=== PATIENT | male | born 1945 | race Caucasian/White ===

== ENCOUNTER 2018-02-03 09:10 | Emergency (ER) | payer OTHER, MEDICARE ==
--- NOTE | 2018-02-03 11:04 | RAD REPORT ---
EXAM DESCRIPTION: RAD - Shoulder Left 2 View - 02/03/2018 10:17 am CLINICAL HISTORY: PAIN Fall COMPARISON: No comparisons FINDINGS: Mildly high-riding humeral head is seen suggesting underlying rotator cuff pathology. Hard romeo is noted in the greater tuberosity region compatible with prior rotator cuff repair. No evidence of acute fracture or dislocation. If pain persists or progresses, MR imaging may be of value.
--- NOTE | 2018-02-03 11:20 | ER ---
Nurse's Notes [facility] Name: Lev Hunter Age: 72 yrs Sex: Male : 1945 Arrival Date: 02/03/2018 Time: 09:12 Bed 17 Private MD: Diagnosis: Strain of muscle(s) and tendon(s) of the rotator cuff of left shoulder Presentation: 02/03 09:25 Presenting complaint: Patient states: "I slipped off a roof on Wednesday but I was able aa5 to grab on to the safety rope and just fell onto my behind". Pt c/o left shoulder pain. Pt denies head injury, denies LOC. Care prior to arrival: None. Mechanism of Injury:. :25 Acuity: RIOS 4 aa5 09:25 Method Of Arrival: Ambulatory aa5 11:30 Transition of care: patient was not received from another setting of care. Onset of aj symptoms was February 01, 2018. Risk Assessment: Do you want to hurt yourself or someone else? Patient reports no desire to harm self or others. Initial Sepsis Screen: Does the patient meet any 2 criteria? No. Patient's initial sepsis screen is negative. Does the patient have a suspected source of infection? No. Patient's initial sepsis screen is negative. Triage Assessment: 11:29 General: Behavior is. aj Historical: - Allergies: 09:26 No Known Allergies; aa5 - PMHx: 09:26 Colitis; GERD; Hyperlipidemia; Hypertension; Hypothyroidism; aa5 09:27 Diverticulitis; aa5 - PSHx: 09:27 Colon resection; Hernia repair; Knee surgery; tere shoulder; aa5 - Immunization history:: Pneumococcal vaccine is up to date, Flu vaccine is up to date. - Social history:: Smoking status: Patient/guardian denies using tobacco. - Ebola Screening: : No symptoms or risks identified at this time. - Family history:: not pertinent. - Hospitalizations: : No recent hospitalization is reported. - History obtained from: . Screenin:11 Abuse screen: Denies threats or abuse. Denies injuries from another. Nutritional aj screening: No deficits noted. Tuberculosis screening: No symptoms or risk factors identified. Fall Risk None identified. Assessment: 10:11 General: Appears in no apparent distress. comfortable. Pain: Complains of pain in aj anterior aspect of left shoulder and posterior aspect of left shoulder. Neuro: Level of Consciousness is awake, alert, obeys commands, Oriented to person, place, time, situation, Appropriate for age. Respiratory: Airway is patent Respiratory effort is even, unlabored, Respiratory pattern is regular, symmetrical. GI: Abdomen is flat. Derm: Skin is intact, is healthy with good turgor, Skin is pink, warm \\T\\ dry. normal. Musculoskeletal: Circulation, motion, and sensation intact. Range of motion: intact in all extremities, Reports pain in anterior aspect of left shoulder and posterior aspect of left shoulder. Vital Signs: 09:27 BP 145 / 66; Pulse 73; Resp 16 S; Temp 98.0(O); Pulse Ox 100% on R/A; Weight 79.38 kg aa5 (R); Height 6 ft. 0 in. (182.88 cm) (R); Pain 4/10; 11:06 BP 144 / 68; Pulse 71; Resp 17; Pulse Ox 99% on R/A; aj 09:27 Body Mass Index 23.73 (79.38 kg, 182.88 cm) aa5 ED Course: 09:12 Patient arrived in ED. rg4 09:25 Triage completed. aa5 09:32 Alissa Gonzalez FNP [facility]. kav 09:32 Guy Azul MD is Attending Physician. kav 10:11 Abbi Goldman, RN is Primary Nurse. aj 10:11 Patient has correct armband on for positive identification. aj 10:11 No provider procedures requiring assistance completed. aj 10:17 X-ray completed. Portable x-ray completed in exam room. Patient tolerated procedure ls3 well. 10:18 Shoulder Left (2 View) XRAY In Process Unspecified. EDMS 10:45 Warm blanket given. aj 11:28 Patient did not have IV access during this emergency room visit. aj 11:28 Sling applied to left arm. aj 11:30 Arm band placed on right wrist. aj Administered Medications: No medications were administered Outcome: 11:19 Discharge ordered by . kav 11:28 Discharged to home ambulatory, with family. aj 11:28 Condition: good 11:28 Discharge instructions given to patient, family, Instructed on discharge instructions, follow up and referral plans. Demonstrated understanding of instructions, follow-up care, Prescriptions given X 1. 11:33 Patient left the ED. aj Signatures: Dispatcher [employer] Abbi Ovalle RN RN aj Vern, Katherine, Annemarie Rees RN RN aa5 Kate Garcia4 Franklyn Rubio ls3
--- NOTE | 2018-02-03 11:20 | EDPHYS ---
Physician Documentation [facility] Name: Lev Hunter Age: 72 yrs Sex: Male : 1945 Arrival Date: 02/03/2018 Time: 09:12 Bed 17 Private MD: ED Physician Guy Azul HPI: 02/03 09:52 This 72 yrs old Male presents to ER via Ambulatory with complaints of Fall kav Injury, Arm Injury. 09:52 Details of fall: The patient fell from a height. kav 09:53 The patient or guardian complains of pain, that is acute. The complaints affect the kav anterior aspect of left shoulder and posterior aspect of left shoulder. Context: The problem was sustained at home, outdoors, resulted from lifting or pulling, rope to prevent fall from shed roof. Onset: The symptoms/episode began/occurred acutely, yesterday. Associated signs and symptoms: Pertinent positives: decreased range of motion, pain, Pertinent negatives: deformity. Severity of symptoms: At their worst the symptoms were moderate, just prior to arrival, in the emergency department the symptoms. The patient has not experienced similar symptoms in the past. The patient has not experienced similar symptoms in the past. The patient has not recently seen a physician. patient reports holding onto a rope to prevent falling off of a shed roof and injured left shoulder.. 09:55 reports pain at 5/10 with rom. offered pain med however, patient refused pain kav medication. Historical: - Allergies: 09:26 No Known Allergies; aa5 - PMHx: 09:26 Colitis; GERD; Hyperlipidemia; Hypertension; Hypothyroidism; aa5 09:27 Diverticulitis; aa5 - PSHx: 09:27 Colon resection; Hernia repair; Knee surgery; tere shoulder; aa5 - Immunization history:: Pneumococcal vaccine is up to date, Flu vaccine is up to date. - Social history:: Smoking status: Patient/guardian denies using tobacco. - Ebola Screening: : No symptoms or risks identified at this time. - Family history:: not pertinent. - Hospitalizations: : No recent hospitalization is reported. - History obtained from: . ROS: 09:55 Constitutional: Negative for fever, chills, and weight loss, Eyes: Negative for injury, kav pain, redness, and discharge, ENT: Negative for injury, pain, and discharge, Neck: Negative for injury, pain, and swelling, Cardiovascular: Negative for chest pain, palpitations, and edema, Respiratory: Negative for shortness of breath, cough, wheezing, and pleuritic chest pain, Abdomen/GI: Negative for abdominal pain, nausea, vomiting, diarrhea, and constipation, Back: Negative for injury and pain, : Negative for injury, bleeding, discharge, and swelling, Skin: Negative for injury, rash, and discoloration, Neuro: Negative for headache, weakness, numbness, tingling, and seizure, Psych: Negative for depression, anxiety, suicide ideation, homicidal ideation, and hallucinations, Allergy/Immunology: Negative for hives, rash, and allergies, Endocrine: Negative for neck swelling, polydipsia, polyuria, polyphagia, and marked weight changes, Hematologic/Lymphatic: Negative for swollen nodes, abnormal bleeding, and unusual bruising. 09:55 MS/extremity: Positive for injury or acute deformity, pain, swelling, Negative for deformity, paresthesias. Exam: 09:55 Constitutional: This is a well developed, well nourished patient who is awake, alert, kav and in no acute distress. Head/Face: Normocephalic, atraumatic. Eyes: Pupils equal round and reactive to light, extra-ocular motions intact. Lids and lashes normal. Conjunctiva and sclera are non-icteric and not injected. Cornea within normal limits. Periorbital areas with no swelling, redness, or edema. ENT: Nares patent. No nasal discharge, no septal abnormalities noted. Tympanic membranes are normal and external auditory canals are clear. Oropharynx with no redness, swelling, or masses, exudates, or evidence of obstruction, uvula midline. Mucous membranes moist. Neck: Trachea midline, no thyromegaly or masses palpated, and no cervical lymphadenopathy. Supple, full range of motion without nuchal rigidity, or vertebral point tenderness. No Meningismus. Chest/axilla: Normal chest wall appearance and motion. Nontender with no deformity. No lesions are appreciated. Cardiovascular: Regular rate and rhythm with a normal S1 and S2. No gallops, murmurs, or rubs. Normal PMI, no JVD. No pulse deficits. Respiratory: Lungs have equal breath sounds bilaterally, clear to auscultation and percussion. No rales, rhonchi or wheezes noted. No increased work of breathing, no retractions or nasal flaring. Abdomen/GI: Soft, non-tender, with normal bowel sounds. No distension or tympany. No guarding or rebound. No evidence of tenderness throughout. Back: No spinal tenderness. No costovertebral tenderness. Full range of motion. Skin: Warm, dry with normal turgor. Normal color with no rashes, no lesions, and no evidence of cellulitis. Neuro: Awake and alert, GCS 15, oriented to person, place, time, and situation. Cranial nerves II-XII grossly intact. Motor strength 5/5 in all extremities. Sensory grossly intact. Cerebellar exam normal. Normal gait. Psych: Awake, alert, with orientation to person, place and time. Behavior, mood, and affect are within normal limits. 09:55 Musculoskeletal/extremity: Extremities: noted in the posterior aspect of left shoulder and anterior aspect of left shoulder: ROM: limited active range of motion, limited passive range of motion, limited active range of motion due to pain, limited passive range of motion due to pain, in the posterior aspect of left shoulder, Circulation is intact in all extremities. Pulses: are normal with no appreciated deficits, Perfusion: the patient is normally perfused throughout, pink, warm, noted to have brisk capillary refill, Perfusion: the extremity is normally perfused throughout, pink, warm, with brisk capillary refill, Joints: the posterior aspect of left shoulder and anterior aspect of left shoulder displays painful range of motion. Vital Signs: 09:27 BP 145 / 66; Pulse 73; Resp 16 S; Temp 98.0(O); Pulse Ox 100% on R/A; Weight 79.38 kg aa5 (R); Height 6 ft. 0 in. (182.88 cm) (R); Pain 4/10; 11:06 BP 144 / 68; Pulse 71; Resp 17; Pulse Ox 99% on R/A; aj 09:27 Body Mass Index 23.73 (79.38 kg, 182.88 cm) aa5 MDM: 09:32 Medical screening is not applicable. [facility] 09:55 Data reviewed: vital signs, nurses notes. [facility] 02/03 09:51 Order name: Shoulder Left (2 View) XRAY; Complete Time: 11:07 [facility] 02/03 11:32 Order name: Sling; Complete Time: 11:33 aj Administered Medications: No medications were administered Disposition: 18:45 Co-signature as Attending Physician, Guy Azul MD. rn Disposition: 02/03/18 11:19 Discharged to Home. Impression: Strain of muscle(s) and tendon(s) of the rotator cuff of left shoulder. - Condition is Stable. - Discharge Instructions: Shoulder Sprain. - Prescriptions for Ultracet 37.5- 325 mg Oral Tablet - take 1 tablet by ORAL route every 6 hours - for up to 5 days; do not exceed 8 tablets per day.; 30 tablet. - Medication Reconciliation Form, Thank You Letter, Antibiotic Education form. - Follow up: Private Physician; When: 5 - 6 days; Reason: Recheck today's complaints, Continuance of care, Re-evaluation by your physician. - Problem is new. - Symptoms are unchanged. Signatures: Dispatcher [employer] Abbi Ovalle RN RN Alissa Buchanan, [employer] ASSEMBLER [employer]SEM[employer]ER Guy Becerra MD MD rn Calderon, Audri, RN RN aa5 Corrections: (The following items were deleted from the chart) 11:33 11:19 02/03/2018 11:19 Discharged to Home. Impression: Strain of muscle(s) and aj tendon(s) of the rotator cuff of left shoulder. Condition is Stable. Forms are Medication Reconciliation Form, Thank You Letter, Antibiotic Education, Prescription Opioid Use. Follow up: Private Physician; When: 5 - 6 days; Reason: Recheck today's complaints, Continuance of care, Re-evaluation by your physician. Problem is new. Symptoms are unchanged. kahector
== END 2018-02-03 11:33 | disposition home or self-care (01) ==
LOC: ER 09:10
DX: S46.012A Strain of muscle(s) and tendon(s) of the rotator cuff of left shoulder, initial encounter (principal); W17.89XA Other fall from one level to another, initial encounter; Y93.89 Activity, other specified; Y92.008 Other place in unspecified non-institutional (private) residence as the place of occurrence of the external cause; I10 Essential (primary) hypertension
CPT/HCPCS: 99283

== ENCOUNTER 2018-11-04 18:20 | Emergency (ER) | payer OTHER, MEDICARE ==
--- OUTSIDE RECORDS SUMMARY | 2018-11-04 18:22 | XMS REPORT ---
:1945 [facility] Address [address] [place] [address] Dr. Bartholomew [address] [place] [id number] Care Team Providers Name Role Phone Unavailable Unavailable Unavailable Problems This patient has no known problems. Allergies, Adverse Reactions, Alerts This patient has no known allergies or adverse reactions. Medications This patient has no known medications.
[2018-11-04] MEDS ORDERED: TETANUS & DIPHTHERIA TOX,ADULT 0.5 ML VIAL ONE (19:20)
--- NOTE | 2018-11-04 19:46 | RAD REPORT ---
EXAM DESCRIPTION: RAD - Tib Fib Right - 11/04/2018 7:26 pm CLINICAL HISTORY: Right leg pain and swelling following trauma COMPARISON: None. FINDINGS: Right knee prosthesis in place. No radiographic evidence for loosening. There is no disloc ation or periosteal reaction noted. No acute or suspicious bony finding. No foreign body or other soft tissue abnormality. IMPRESSION: Negative right tibia & fibula examination for acute finding.
--- NOTE | 2018-11-04 19:48 | EDPHYS ---
Physician Documentation [facility] Name: Lev Hunter Age: 73 yrs Sex: Male : 1945 Arrival Date: 11/04/2018 Time: 18:21 Bed 16 Private MD: ED Physician Sebastian Aden HPI: 11/05 03:09 This 73 yrs old Male presents to ER via Ambulatory with complaints of Fall kb Injury, Skin Tear(s). 03:09 Details of fall: The patient fell from an upright position. Onset: The symptoms/episode kb began/occurred just prior to arrival. Associated injuries: The patient sustained right vera, abrasion, contusion, swelling. Severity of symptoms: At their worst the symptoms were mild, moderate, in the emergency department the symptoms are unchanged. The patient has not experienced similar symptoms in the past. The patient has not recently seen a physician. Pt reports he fell against a boat and hit his leg. Historical: - Allergies: 11/04 18:42 No Known Allergies; hb - Immunization history:: Last tetanus immunization: > 10 years ago. - Social history:: Smoking status: Patient/guardian denies using tobacco. - Ebola Screening: : No symptoms or risks identified at this time. ROS: 11/05 03:08 Constitutional: Negative for fever, chills, and weight loss, Cardiovascular: Negative kb for chest pain, palpitations, and edema, Respiratory: Negative for shortness of breath, cough, wheezing, and pleuritic chest pain, Abdomen/GI: Negative for abdominal pain, nausea, vomiting, diarrhea, and constipation, Neuro: Negative for headache, weakness, numbness, tingling, and seizure. Skin: Positive for abrasion(s), hematoma, of the right vera. Exam: 03:08 Constitutional: This is a well developed, well nourished patient who is awake, alert, kb and in no acute distress. Head/Face: Normocephalic, atraumatic. ENT: Nares patent. No nasal discharge, no septal abnormalities noted. Tympanic membranes are normal and external auditory canals are clear. Oropharynx with no redness, swelling, or masses, exudates, or evidence of obstruction, uvula midline. Mucous membranes moist. Neck: Trachea midline, no thyromegaly or masses palpated, and no cervical lymphadenopathy. Supple, full range of motion without nuchal rigidity, or vertebral point tenderness. No Meningismus. Chest/axilla: Normal chest wall appearance and motion. Nontender with no deformity. No lesions are appreciated. Cardiovascular: Regular rate and rhythm with a normal S1 and S2. No gallops, murmurs, or rubs. Normal PMI, no JVD. No pulse deficits. Respiratory: Lungs have equal breath sounds bilaterally, clear to auscultation and percussion. No rales, rhonchi or wheezes noted. No increased work of breathing, no retractions or nasal flaring. Abdomen/GI: Soft, non-tender, with normal bowel sounds. No distension or tympany. No guarding or rebound. No evidence of tenderness throughout. MS/ Extremity: Pulses equal, no cyanosis. Neurovascular intact. Full, normal range of motion. Neuro: Awake and alert, GCS 15, oriented to person, place, time, and situation. Cranial nerves II-XII grossly intact. Motor strength 5/5 in all extremities. Sensory grossly intact. Cerebellar exam normal. Normal gait. 03:08 Skin: injury, abrasion(s), small abrasion noted, of the right vera, contusion(s), that are superficial, of the right vera. Vital Signs: 11/04 18:42 BP 160 / 71; Pulse 75; Resp 16; Temp 97.9; Pulse Ox 100% on R/A; Weight 77.11 kg; hb Height 6 ft. (182.88 cm); Pain 8/10; 20:00 BP 159 / 77; Pulse 85; Resp 16; Pulse Ox 100% on R/A; jb4 18:42 Body Mass Index 23.06 (77.11 kg, 182.88 cm) hb MDM: 18:45 Patient medically screened. kb 11/05 03:08 Data reviewed: vital signs, nurses notes. Data interpreted: Pulse oximetry: on room air kb is 100 %. Interpretation: normal. Counseling: I had a detailed discussion with the patient and/or guardian regarding: the historical points, exam findings, and any diagnostic results supporting the discharge/admit diagnosis, radiology results, the need for outpatient follow up, a family practitioner, to return to the emergency department if symptoms worsen or persist or if there are any questions or concerns that arise at home. 11/04 19:10 Order name: Tib Fib Right XRAY; Complete Time: 19:47 kb Administered Medications: 11/04 19:30 Drug: Tetanus-Diphtheria Toxoid Adult 0.5 ml {Solid Plasterer: [employer]. Exp: jb4 06/25/2020. Lot #: [id number]. } Route: IM; Site: left deltoid; 20:00 Follow up: Response: No adverse reaction jb4 Disposition: 11/04/18 19:47 Discharged to Home. Impression: Contusion of right lower leg. - Condition is Stable. - Discharge Instructions: Contusion, [id number]. - Prescriptions for Tramadol 50 mg Oral Tablet - take 1 tablet by ORAL route every 8 hours as needed; 12 tablet. - Medication Reconciliation Form, Thank You Letter, Antibiotic Education, Prescription Opioid Use form. - Follow up: Emergency Department; When: As needed; Reason: Worsening of condition. Follow up: Private Physician; When: 2 - 3 days; Reason: Recheck today's complaints, Continuance of care, Re-evaluation by your physician. Addendum: 11/07/2018 09:06 Co-signature as Attending Physician, Sebastian Aden MD I agree with the assessment and k dr plan of care. Signatures: Dispatcher [employer] EDDC Brianna De Jesus, RADIOLOGY ASSISTANT-C RADIOLOGY ASSISTANT-Ckb Sebastian Aden MD MD [facility] Mikki Canela, MANJULA RN David Olivera RN RN jb4 Corrections: (The following items were deleted from the chart) 11/04 20:12 19:47 11/04/2018 19:47 Discharged to Home. Impression: Contusion of right lower leg. jb4 Condition is Stable. Forms are Medication Reconciliation Form, Thank You Letter, Antibiotic Education, Prescription Opioid Use. Follow up: Emergency Department; When: As needed; Reason: Worsening of condition. Follow up: Private Physician; When: 2 - 3 days; Reason: Recheck today's complaints, Continuance of care, Re-evaluation by your physician. kb
--- NOTE | 2018-11-04 19:48 | ER ---
Nurse's Notes [facility] Name: Lev Hunter Age: 73 yrs Sex: Male : 1945 Arrival Date: 11/04/2018 Time: 18:21 Bed 16 Private MD: Diagnosis: Contusion of right lower leg Presentation: 11/04 18:40 Presenting complaint: Right lower pain and swelling after hitting vera on side of boat hb approx 2 hrs ago. Abrasion and mild swelling noted to right upper vera. Care prior to arrival: None. Trauma event details: [place] 18:40 Acuity: RIOS 4 hb 18:40 Method Of Arrival: Ambulatory hb 18:41 Transition of care: patient was not received from another setting of care. Onset of hb symptoms was November 04, 2018. Risk Assessment: Do you want to hurt yourself or someone else? Patient reports no desire to harm self or others. 19:00 Initial Sepsis Screen: Does the patient meet any 2 criteria? No. Patient's initial jb4 sepsis screen is negative. Does the patient have a suspected source of infection? Yes: Skin breakdown/wound. Historical: - Allergies: 18:42 No Known Allergies; hb - Immunization history:: Last tetanus immunization: > 10 years ago. - Social history:: Smoking status: Patient/guardian denies using tobacco. - Ebola Screening: : No symptoms or risks identified at this time. Screenin:00 Abuse screen: Denies threats or abuse. Nutritional screening: No deficits noted. jb4 Tuberculosis screening: No symptoms or risk factors identified. Fall Risk None identified. Assessment: 19:00 General: Appears in no apparent distress. comfortable, Behavior is calm, cooperative, jb4 appropriate for age. Pain: Complains of pain in right vera Pain does not radiate. Pain currently is 6 out of 10 on a pain scale. Quality of pain is described as stabbing. Neuro: Level of Consciousness is awake, alert, obeys commands, Oriented to person, place, time, situation. Cardiovascular: Patient's skin is warm and dry. Respiratory: Airway is patent Respiratory effort is even, unlabored, Respiratory pattern is regular, symmetrical. GI: No deficits noted. No signs and/or symptoms were reported involving the gastrointestinal system. : No deficits noted. No signs and/or symptoms were reported regarding the genitourinary system. EENT: No deficits noted. No signs and/or symptoms were reported regarding the EENT system. Derm: Skin abrasion to the right vera. Skin is pink, warm \T\ dry. Musculoskeletal: Circulation, motion, and sensation intact. Range of motion: intact in all extremities, Swelling present in right vera. 20:07 Reassessment: Patient appears in no apparent distress at this time. Patient and/or jb4 family updated on plan of care and expected duration. Pain level reassessed. Patient is alert, oriented x 3, equal unlabored respirations, skin warm/dry/pink. Pt ambulated out of ED with his , steady gait, verbalized understanding of d/c and follow up instructions. Vital Signs: 18:42 BP 160 / 71; Pulse 75; Resp 16; Temp 97.9; Pulse Ox 100% on R/A; Weight 77.11 kg; hb Height 6 ft. (182.88 cm); Pain 8/10; 20:00 BP 159 / 77; Pulse 85; Resp 16; Pulse Ox 100% on R/A; jb4 18:42 Body Mass Index 23.06 (77.11 kg, 182.88 cm) hb ED Course: 18:21 Patient arrived in ED. as 18:41 Triage completed. hb 18:42 Arm band placed on. hb 18:45 Brianna De Jesus FNP-C is [facility]. kb 18:45 Sebastian Aden MD is Attending Physician. kb 19:00 Patient has correct armband on for positive identification. Bed in low position. Call jb4 light in reach. Side rails up X 1. Pulse ox on. NIBP on. 19:13 David Olivera, RN is Primary Nurse. jb4 19:26 Tib Fib Right XRAY In Process Unspecified. EDMS 20:10 No provider procedures requiring assistance completed. Patient did not have IV access jb4 during this emergency room visit. Administered Medications: 19:30 Drug: Tetanus-Diphtheria Toxoid Adult 0.5 ml {Care Transition Mgr: [employer]. Exp: jb4 06/25/2020. Lot #: [id number]. } Route: IM; Site: left deltoid; 20:00 Follow up: Response: No adverse reaction jb4 Outcome: 19:47 Discharge ordered by . kb 20:10 Discharged to home ambulatory, with significant other. jb4 20:10 Condition: stable 20:10 Discharge instructions given to patient, family, Instructed on discharge instructions, follow up and referral plans. medication usage, Demonstrated understanding of instructions, follow-up care, medications, Prescriptions given X 1. 20:12 Patient left the ED. jb4 Signatures: Dispatcher [employer] EDMS Brianna De Jesus, RICCI-Ne WYNNE-Donna Aj as Mikki Canela RN RN David Olivera RN RN jb4
== END 2018-11-04 20:12 | disposition home or self-care (01) ==
LOC: ER 18:20
DX: S80.11XA Contusion of right lower leg, initial encounter (principal); W01.0XXA Fall on same level from slipping, tripping and stumbling without subsequent striking against object, initial encounter; Y93.89 Activity, other specified; Z23 Encounter for immunization
CPT/HCPCS: 90471; 90714; 99284

== ENCOUNTER 2018-11-12 16:57 | Emergency (ER) | payer OTHER, MEDICARE ==
--- OUTSIDE RECORDS SUMMARY | 2018-11-12 16:59 | XMS REPORT ---
:1945 [facility] Address [address] [place] [address] Dr. Bar[address] [place] [id number] Care Team Providers Name Role Phone Unavailable Unavailable Unavailable Problems This patient has no known problems. Allergies, Adverse Reactions, Alerts This patient has no known allergies or adverse reactions. Medications This patient has no known medications.
--- OUTSIDE RECORDS SUMMARY | 2018-11-12 17:00 | XMS REPORT | Summary of Care ---
:1945 Author Organization [facility] - Health Address [address] [place] [id number] Care Team Providers Name Role Phone David Armando MD Primary Care Provider Reason for Visit Reason Comments Leg Pain Fell and hit his RT Leg ( lower leg) , It is swollen and painful was seen at ER in [place] on 11/04/18 and was told no fracture Encounter Details Date Type Department Care Team Description 11/10/2018 Office Visit [facility] Family Cinthia Bradford, Injury of right lower extremity, subsequent encounter (Primary Dx); [facility] [employer] Essential hypertension [address] [place] [address] [address] [address] [place] [address] Allergies Active Allergy Reactions Severity Noted Date Comments Citalopram Hallucinations 02/04/2018 documented as of this encounter (statuses as of 11/10/2018) Medications Medication Sig Dispensed Refills Start Date End Date Status aspirin 81 mg tablet Take 81 mg by 0 Active mouth daily. lisinopril 10 mg Take 1 tablet 90 tablet 4 08/25/2018 Active tabletIndications: by mouth Essential hypertension every morning. venlafaxine XR 75 mg 24 hr Take 1 90 capsule 4 08/25/2018 Active capsuleIndications: capsule by Generalized anxiety mouth daily disorder with breakfast. simvastatin 40 mg TAKE 1 TABLET 90 tablet 4 08/25/2018 Active tabletIndications: BY MOUTH AT Hypercholesterolemia BEDTIME eszopiclone 3 mg Take 1 tablet 90 tablet 1 08/25/2018 Active tabletIndications: by mouth at Nightmares, Insomnia, bedtime. unspecified type levothyroxine 125 mcg TAKE 1 TABLET 90 tablet 4 08/25/2018 Active tabletIndications: BY MOUTH ONCE Hypothyroidism, DAILY IN THE unspecified type MORNING LORazepam 0.5 mg Take 1 tablet 30 tablet 0 08/25/2018 Active tabletIndications: by mouth as Generalized anxiety needed disorder (anxiety). Hospital, Clinic, or Other Ordered Dose Route Frequency Start Date End Date Status Facility Administered Medication methylPREDNISolone acetate 80 mg IM ONCE 11/10/2018 11/10/2018 Ended (DEPO-MEDROL) injection 80 mg triamcinolone acetonide 40 mg IM ONCE 11/10/2018 11/10/2018 Ended (KENALOG) injection 40 mg documented as of this encounter (statuses as of 11/10/2018) Active Problems Problem Noted Date Gout 02/19/2015 Anxiety 02/19/2015 Hypothyroidism 02/15/2015 Hypercholesterolemia 02/15/2015 Essential hypertension 02/15/2015 documented as of this encounter (statuses as of 11/10/2018) Social History Tobacco Use Types Packs/Day Years Used Date Former Smoker Smokeless Tobacco: Never Used Alcohol Use Drinks/Week oz/Week Comments No 0 Standard drinks or equivalent 0.0 Sex Assigned at Date Recorded Not on file Job Start Date Occupation Industry Not on file Not on file Not on file Travel History Travel Start Travel End No recent travel history available. documented as of this encounter Last Filed Vital Signs Vital Sign Reading Time Taken Comments Blood Pressure 154/70 11/10/2018 2:16 PM CDT Pulse 81 11/10/2018 2:16 PM CDT Temperature 37.1 C (98.7 F) 11/10/2018 2:16 PM CDT Respiratory Rate - - Oxygen Saturation - - Inhaled Oxygen Concentration - - Weight 77.1 kg (170 lb) 11/10/2018 2:16 PM CDT Height 182.9 cm (6') 11/10/2018 2:16 PM CDT Body Mass Index 23.06 11/10/2018 2:16 PM CDT documented in this encounter Progress Notes Cinthia Bradford, RICCI - 11/10/2018 2:20 PM CDT Cc: Chief Complaint Patient presents with Leg Pain Fell and hit his RT Leg ( lower leg) , It is swollen and painful was seen at ER in [place] on11/04/18 and was told no fracture Lev Hunter is a 73 year old male. Patient fell against a metal, striking him on the right leg below the knee. He went to the ER, X-rays showed no fractures. He continues to have moderate swelling, and pain, as well as bruising along the region. His blood pressure is elevated this visit, he has a hx of HTN, prescribed lisinopril 10mg but has not been taking it for sometime. According to patient, he had episodes of hypotension one time during acute illness and dehydration that caused his blood pressures to be low with symptoms, thus he was advised to stop the medication temporarily, but he never restarted. His blood pressures in the recent past noted at doctors visit have been elevated and he agrees he needs to restart. He however has no acute symptoms. Leg Pain The incident occurred more than 1 week ago. The incident occurred at home. The injury mechanism was a fall. The pain is present in the right leg. The quality of the pain is described as shooting. The pain is at a severity of 6/10. The pain is moderate. The pain has been intermittent since onset. Pertinent negatives include no inability to bear weight, loss of motion, loss of sensation , muscle weakness, numbness or tingling. He reports no foreign bodies present. The symptoms are aggravated by palpation, weight bearing and movement. He has tried NSAIDs for the symptoms. The treatment provided mild relief. Allergies Lev is allergic to citalopram. Medications Outpatient Medications Prior to Visit Medication Sig Dispense Refill eszopiclone 3 mg tablet Take 1 tablet by mouth at bedtime. 90 tablet 1 levothyroxine 125 mcg tablet TAKE 1 TABLET BY MOUTH ONCE DAILY IN THE MORNING 90 tablet 4 lisinopril 10 mg tablet Take 1 tablet by mouth every morning. 90 tablet 4 LORazepam 0.5 mg tablet Take 1 tablet by mouth as needed (anxiety). 30 tablet 0 simvastatin 40 mg tablet TAKE 1 TABLET BY MOUTH AT BEDTIME 90 tablet 4 venlafaxine XR 75 mg 24 hr capsule Take 1 capsule by mouth daily with breakfast. 90 capsule 4 aspirin 81 mg tablet Take 81 mg by mouth daily. No facility-administered medications prior to visit. Histories Past Medical History: Diagnosis Date Anxiety Gout Hyperlipidemia Hypertension Thyroid disease Past Surgical History: Procedure Laterality Date HERNIA REPAIR REPAIR ROTATOR CUFF,ACUTE Bilateral SIGMOIDECTOMY Social History Socioeconomic History Marital status: Spouse name: Not on file Number of children: Not on file Years of education: Not on file Highest education level: Not on file Occupational History Not on file Social Needs Financial resource strain: Not on file Food insecurity: Worry: Not on file Inability: Not on file Transportation needs: Medical: Not on file Non-medical: Not on file Tobacco Use Smoking status: Former Smoker Smokeless tobacco: Never Used Substance and Sexual Activity Alcohol use: No Alcohol/week: 0.0 oz Drug use: No Sexual activity: Yes Partners: Female Lifestyle Physical activity: Days per week: Not on file Minutes per session: Not on file Stress: Not on file Relationships Social connections: Talks on phone: Not on file Gets together: Not on file Attends jainism service: Not on file Active member of club or organization: Not on file Attends meetings of clubs or organizations: Not on file Relationship status: Not on file Intimate partner violence: Fear of current or ex partner: Not on file Emotionally abused: Not on file Physically abused: Not on file Forced sexual activity: Not on file Other Topics Concern Not on file Social History Narrative retired Family History Problem Relation Age of Onset No Significant Medical Problems Mother Pulmonary Father Review of Systems Constitutional: Negative. Negative for chills, diaphoresis and fever. Respiratory: Negative. Negative for chest tightness and shortness of breath. Cardiovascular: Negative. Negative for chest pain, palpitations and leg swelling. Musculoskeletal: Positive for joint swelling. Skin: Positive for wound. Neurological: Negative. Negative for dizziness, tingling, numbness and headaches. Psychiatric/Behavioral: Negative. Vital Signs BP (!) 154/70 (BP Location: Left arm, Patient Position: Sitting, BP CUFF SIZE: Adult Medium) | Pulse 81 | Temp 37.1 C (98.7 F) (Oral) | Ht 6' (1.829 m) | Wt 170 lb (77.1 kg) | BMI 23.06 kg/m Physical Exam Constitutional: He is oriented to person, place, and time. He appears well- developed and well-nourished. No distress. Cardiovascular: Normal rate, regular rhythm, normal heart sounds and intact distal pulses. Pulmonary/Chest: Effort normal and breath sounds normal. No respiratory distress. He exhibits no tenderness. Abdominal: Soft. Bowel sounds are normal. Musculoskeletal: He exhibits edema and tenderness. Right lower leg: He exhibits tenderness, swelling and edema. Legs: Neurological: He is alert and oriented to person, place, and time. Skin: Skin is warm and dry. Capillary refill takes less than 2 seconds. There is erythema. Nursing note and vitals reviewed. Assessment/Plan 1. Leg injury: steroid injection given due to severe soft tissue inflammation noted. Pt. To continueMobic already given to him at home daily for pain and inflammation. Monitor for signs of infection (purulence, fever, chill, discharge , streaking along the site) and RTC for some antibitoics. 2. Hypertension: patient. To restart his blood pressure medication- monitor blood pressures closely the 1st 1 to 2 weeks after restarts, and monitor for signs of hypotension (reviewed with patient). If blood pressure remain persistently high, or solomon low, medication management visit would need to be done. RTC with any new problems or concerns. Plan of care, desired health behaviors, goals, and medication discussed with patient. Education resources provided and reviewed with AVS. Patient/guardian/family verbalized understanding & agrees to plan of care. This visit did not involve counseling and coordination that comprised more than 50% of the visit time. If applicable, the [facility] database was accessed to review any controlled substance prescription claims data. The [employer] prescription claims data in incu[place]ET was reviewed to assess patient compliance with the medication treatment plan. documented in this encounter Plan of Treatment Date Type Specialty Care Team Description 05/01/2019 Office Visit Dermatology Michael Rodriguez MD [id number] [place], [place] [address] 05/03/2019 Office Visit Family Medicine David Armando MD [address] [place] [address] [place] [address] Health Maintenance Due Date Last Done Comments DTaP,Tdap,and Td Vaccines (1 - Tdap) 1962 Zoster Recombinant Vaccine (SHINGRIX) 1993 (1 of 2) LUNG CANCER SCREEN: Recommended for 1998 age 55-80 with 30 + pack year history PNEUMOCOCCAL VACCINES 65+ (1 of 2 - 02/28/2008 PCV13) Medicare Wellness Visit 08/04/2018 08/04/2017, 07/01/2016, 07/03/2015 INFLUENZA VACCINE 12/04/2018 COLONOSCOPY 07/04/2028 07/04/2018 documented as of this encounter Results Not on filedocumented in this encounter Visit Diagnoses Diagnosis Injury of right lower extremity, subsequent encounter - Primary Essential hypertension Unspecified essential hypertension documented in this encounter Administered Medications Medication Order MAR Action Action Date Dose Rate Site methylPREDNISolone acetate Given 11/10/2018 2:56 PM 80 mg Right Hip (DEPO-MEDROL) injection 80 mg CDT 80 mg, Intramuscular, ONCE, 1 dose, Meche 11/10/18 at 1545, Routine triamcinolone acetonide (KENALOG) Given 11/10/2018 2:57 PM CDT 40 mg Right Hip injection 40 mg 40 mg, Intramuscular, ONCE, 1 dose, Meche 11/10/18 at 1545, Routine documented in this encounter Insurance Payer Benefit Plan / Subscriber ID Effective Phone Address Type Group Dates MEDICARE MEDICARE PART xxxxxxxxxxx 2008-Pr [phone] [address] Medicare A & B esent [id number] [place] [phone] [facility] [id number] 2010-Pre 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
[2018-11-12] MEDS ORDERED: LORazepam 2 MG/ML VIAL ONE (17:51)
[2018-11-12] MEDS ORDERED: ONDANSETRON 4 MG/2 ML VIAL ONE (17:51)
[2018-11-12] MEDS ORDERED: NA CHLORIDE 0.9% 500 ML ONE (17:51)
[2018-11-12 18:08] LABS: Absolute Lymphocytes (CBC) 1.6 K/uL (0.7-4.9); Basophils % 0.2 % (0-1.3); Hematocrit 41.7 % (39.6-49.0); Lymphocytes % 12.9 % (15.3-44.8); MPV 9.6 fL (7.6-11.3)
[2018-11-12 18:26] LABS: Albumin 4.1 g/dL (3.4-5.0); Bilirubin Total 0.6 mg/dL (0.2-1.0); Potassium 4.4 mmol/L (3.5-5.1); Protein, Total 7.9 g/dL (6.4-8.2)
--- NOTE | 2018-11-12 18:28 | RAD REPORT ---
EXAM DESCRIPTION: RAD - Chest Single View - 11/12/2018 6:22 pm CLINICAL HISTORY: DYSPNEA Chest pain. COMPARISON: CHEST SINGLE VIEW dated 02/22/2010; CHEST PA AND LAT 2 VIEW dated 12/20/2009; ABDOMEN ACU TE SERIES dated 10/15/2008; ABDOMEN ACUTE SERIES dated 03/12/2008 FINDINGS: Portable technique limits examination quality. The lungs are mildly emphysematous but grossly clear. The heart is normal in size. No displaced fract ures. IMPRESSION: No acute intrathoracic process suspected.
--- NOTE | 2018-11-12 18:29 | RAD REPORT ---
EXAM DESCRIPTION: RAD - Tib Fib Right - 11/12/2018 6:22 pm CLINICAL HISTORY: PAIN COMPARISON: Tib Fib Right dated 11/04/2018 FINDINGS: Right total knee arthroplasty is seen. Soft tissue swelling is seen anterior to the upper tibia. No underlying tibial abnormality seen in the region. No fracture is apparent.
--- NOTE | 2018-11-12 18:51 | ER ---
Nurse's Notes [facility] Name: Lev Hunter Age: 73 yrs Sex: Male : 1945 Arrival Date: 11/12/2018 Time: 17:01 Bed 19 Private MD: David Armando Diagnosis: Pain in right lower leg-hematoma;Anxiety disorder, unspecified Presentation: 11/12 17:07 Presenting complaint: Patient states: A week ago I had an injury to my right lower leg la1 and it was getting better but now the pain is much worse. I had a cortisone shot on and on Wednesday I felt very ill. Transition of care: patient was not received from another setting of care. Onset of symptoms was November 12, 2018. Risk Assessment: Do you want to hurt yourself or someone else? Patient reports no desire to harm self or others. Initial Sepsis Screen: Does the patient meet any 2 criteria? No. Patient's initial sepsis screen is negative. Does the patient have a suspected source of infection? No. Patient's initial sepsis screen is negative. Care prior to arrival: None. 17:07 Method Of Arrival: Wheelchair la1 17:07 Acuity: RIOS 3 la1 Historical: - Allergies: 17:06 No Known Allergies; la1 - PMHx: 17:06 Colitis; Diverticulitis; GERD; Hyperlipidemia; Hypertension; Hypothyroidism; la1 - Immunization history:: Adult Immunizations up to date. - Social history:: Smoking status: Patient/guardian denies using tobacco. - Ebola Screening: : No symptoms or risks identified at this time. - Family history:: not pertinent. Screenin:35 Abuse screen: Denies threats or abuse. Nutritional screening: No deficits noted. em Tuberculosis screening: No symptoms or risk factors identified. Fall Risk None identified. Assessment: 17:35 General: Appears in no apparent distress. comfortable, Behavior is calm, cooperative, em Denies fever. Pain: Complains of pain in right leg Pain currently is 8 out of 10 on a pain scale. Neuro: Level of Consciousness is awake, alert, obeys commands, Oriented to person, place, time, situation. Cardiovascular: Capillary refill < 3 seconds Patient's skin is warm and dry. Chest pain is denied. Respiratory: Reports shortness of breath at rest Airway is patent Respiratory effort is even, unlabored, Respiratory pattern is regular, symmetrical. GI: Abdomen is flat, Patient currently denies nausea, vomiting. Derm: Skin is intact, is healthy with good turgor, Skin is pink, warm \T\ dry. Musculoskeletal: Capillary refill < 3 seconds, Range of motion: intact in all extremities, Swelling present in right vera. 18:57 Reassessment: Patient appears in no apparent distress at this time. Patient and/or em family updated on plan of care and expected duration. Pain level reassessed. Patient is alert, oriented x 3, equal unlabored respirations, skin warm/dry/pink. Patient denies pain at this time. Patient states feeling better. Patient states symptoms have improved. Vital Signs: 17:06 BP 141 / 71; Pulse 73; Resp 16; Temp 99.2; Pulse Ox 98% on R/A; la1 19:15 BP 160 / 68; Pulse 68; Resp 16; Pulse Ox 99% on R/A; Pain 0/10; em ED Course: 17:01 Patient arrived in ED. as 17:01 David Armando MD is Private Physician. as 17:07 Arm band placed on left wrist. la1 17:08 Triage completed. la1 17:13 Brian Norman MD is Attending Physician. frieda 17:15 Jere Hall LVN is Primary Nurse. em 17:35 Patient has correct armband on for positive identification. Placed in gown. Bed in low em position. Call light in reach. Side rails up X2. Adult w/ patient. Pulse ox on. NIBP on. 18:22 Tib Fib Right XRAY In Process Unspecified. EDMS 18:22 Chest Single View XRAY In Process Unspecified. EDMS 18:51 David Armando MD is Referral Physician. frieda 18:51 Prudencio Colón MD is Referral Physician. frieda 19:14 No provider procedures requiring assistance completed. IV discontinued, intact, em bleeding controlled, No redness/swelling at site. Pressure dressing applied. Administered Medications: 18:05 Drug: Zofran 4 mg Route: IVP; Site: right antecubital; iw 19:00 Follow up: Response: No adverse reaction; Nausea is decreased em 18:06 Drug: Ativan 0.5 mg Route: IVP; Site: right antecubital; iw 19:00 Follow up: Response: No adverse reaction; Marked relief of symptoms em 18:11 Drug: NS 0.9% 500 ml Route: IV; Rate: bolus; Site: right antecubital; em 19:01 Follow up: IV Status: Completed infusion; IV Intake: 500ml em 18:57 Not Given (Other Intervention Used): Ativan 0.5 mg IVP once em 19:02 Drug: Bactroban Ointment 2 % 1 application {Note: applied to right vera.} Route: em Topical; Site: wound; 19:16 Follow up: Response: No adverse reaction em Intake: 19:01 IV: 500ml; Total: 500ml. em Outcome: 18:51 Discharge ordered by . frieda 19:14 Discharged to home ambulatory, with family. em 19:14 Condition: good 19:14 Discharge instructions given to patient, Instructed on discharge instructions, follow up and referral plans. medication usage, Demonstrated understanding of instructions, follow-up care, medications, wound care, Prescriptions given X 2. 19:16 Patient left the ED. em Signatures: Dispatcher [employer] Brian Rubio MD MD cha Munoz, Edgar, TRACK COACH TRACK COACH Donna Da Silva Irene, J Carlos Minaya RN, RN RN la1
--- NOTE | 2018-11-12 18:52 | EDPHYS ---
Physician Documentation [facility] Name: Lev Hunter Age: 73 yrs Sex: Male : 1945 Arrival Date: 11/12/2018 Time: 17:01 Bed 19 Private MD: David Armando ED Physician Brian Norman HPI: 11/12 17:46 This 73 yrs old Male presents to ER via Wheelchair with complaints of Leg frieda Pain. 17:46 The patient presents with decreased range of motion, pain, swelling, tenderness. The frieda complaints affect the right knee. Context: The problem was sustained at home, resulted from a direct blow, the patient falling. Onset: The symptoms/episode began/occurred 2 day(s) ago. Modifying factors: The symptoms are alleviated by elevating leg, the symptoms are aggravated by movement, weight bearing. Associated signs and symptoms: Pertinent positives: weakness. Severity of symptoms: At their worst the symptoms were mild, in the emergency department the symptoms are unchanged. Historical: - Allergies: 17:06 No Known Allergies; la1 - PMHx: 17:06 Colitis; Diverticulitis; GERD; Hyperlipidemia; Hypertension; Hypothyroidism; la1 - Immunization history:: Adult Immunizations up to date. - Social history:: Smoking status: Patient/guardian denies using tobacco. - Ebola Screening: : No symptoms or risks identified at this time. - Family history:: not pertinent. ROS: 17:46 Constitutional: Negative for fever, chills, and weight loss, Eyes: Negative for injury, frieda pain, redness, and discharge, ENT: Negative for injury, pain, and discharge, Neck: Negative for injury, pain, and swelling, Cardiovascular: Negative for chest pain, palpitations, and edema, Abdomen/GI: Negative for abdominal pain, nausea, vomiting, diarrhea, and constipation, Back: Negative for injury and pain, : Negative for injury, bleeding, discharge, and swelling, Skin: Negative for injury, rash, and discoloration, Neuro: Negative for headache, weakness, numbness, tingling, and seizure, Allergy/Immunology: Negative for hives, rash, and allergies, Endocrine: Negative for neck swelling, polydipsia, polyuria, polyphagia, and marked weight changes, Hematologic/Lymphatic: Negative for swollen nodes, abnormal bleeding, and unusual bruising. 17:46 Respiratory: Positive for shortness of breath. 17:46 MS/extremity: Positive for decreased range of motion, ecchymosis, erythema, pain, swelling, tenderness, of the right knee. Exam: 17:46 Constitutional: This is a well developed, well nourished patient who is awake, alert, frieda and in no acute distress. Head/Face: Normocephalic, atraumatic. Eyes: Pupils equal round and reactive to light, extra-ocular motions intact. Lids and lashes normal. Conjunctiva and sclera are non-icteric and not injected. Cornea within normal limits. Periorbital areas with no swelling, redness, or edema. ENT: Nares patent. No nasal discharge, no septal abnormalities noted. Tympanic membranes are normal and external auditory canals are clear. Oropharynx with no redness, swelling, or masses, exudates, or evidence of obstruction, uvula midline. Mucous membranes moist. Neck: Trachea midline, no thyromegaly or masses palpated, and no cervical lymphadenopathy. Supple, full range of motion without nuchal rigidity, or vertebral point tenderness. No Meningismus. Chest/axilla: Normal chest wall appearance and motion. Nontender with no deformity. No lesions are appreciated. Cardiovascular: Regular rate and rhythm with a normal S1 and S2. No gallops, murmurs, or rubs. Normal PMI, no JVD. No pulse deficits. Respiratory: Lungs have equal breath sounds bilaterally, clear to auscultation and percussion. No rales, rhonchi or wheezes noted. No increased work of breathing, no retractions or nasal flaring. Abdomen/GI: Soft, non-tender, with normal bowel sounds. No distension or tympany. No guarding or rebound. No evidence of tenderness throughout. Back: No spinal tenderness. No costovertebral tenderness. Full range of motion. Skin: Warm, dry with normal turgor. Normal color with no rashes, no lesions, and no evidence of cellulitis. Neuro: Awake and alert, GCS 15, oriented to person, place, time, and situation. Cranial nerves II-XII grossly intact. Motor strength 5/5 in all extremities. Sensory grossly intact. Cerebellar exam normal. Normal gait. Psych: Awake, alert, with orientation to person, place and time. Behavior, mood, and affect are within normal limits. 17:46 Musculoskeletal/extremity: ROM: limited active range of motion, limited passive range of motion, Circulation is intact in all extremities. Sensation intact. Compartment Syndrome exam of affected extremity: is normal. Weight bearing: able to fully bear weight, DVT Exam: negative Homans' sign noted on exam, no appreciated bluish discoloration, no erythema, no increased warmth, pain, swelling, tenderness. Vital Signs: 17:06 BP 141 / 71; Pulse 73; Resp 16; Temp 99.2; Pulse Ox 98% on R/A; la1 19:15 BP 160 / 68; Pulse 68; Resp 16; Pulse Ox 99% on R/A; Pain 0/10; em MDM: 17:13 Patient medically screened. [facility] 17:49 Data reviewed: vital signs, nurses notes, lab test result(s), EKG, radiologic studies, [facility] plain films. 11/12 17:46 Order name: CBC with Diff; Complete Time: 18:47 [facility] 11/12 17:46 Order name: Comprehensive Metabolic Panel; Complete Time: 18:47 [facility] 11/12 17:46 Order name: Tib Fib Right XRAY; Complete Time: 18:47 [facility] 11/12 17:46 Order name: Chest Single View XRAY; Complete Time: 18:47 [facility] 11/12 17:46 Order name: Wound dressing; Complete Time: 18:09 [facility] 11/12 17:46 Order name: Ice pack; Complete Time: 18:09 [facility] 11/12 17:49 Order name: EKG; Complete Time: 17:52 [facility] 11/12 17:49 Order name: EKG - Nurse/Tech; Complete Time: 18:53 [facility] Administered Medications: 18:05 Drug: Zofran 4 mg Route: IVP; Site: right antecubital; iw 19:00 Follow up: Response: No adverse reaction; Nausea is decreased em 18:06 Drug: Ativan 0.5 mg Route: IVP; Site: right antecubital; iw 19:00 Follow up: Response: No adverse reaction; Marked relief of symptoms em 18:11 Drug: NS 0.9% 500 ml Route: IV; Rate: bolus; Site: right antecubital; em 19:01 Follow up: IV Status: Completed infusion; IV Intake: 500ml em 18:57 Not Given (Other Intervention Used): Ativan 0.5 mg IVP once em 19:02 Drug: Bactroban Ointment 2 % 1 application {Note: applied to right vera.} Route: em Topical; Site: wound; 19:16 Follow up: Response: No adverse reaction em Disposition: 11/12/18 18:51 Discharged to Home. Impression: Pain in right lower leg - hematoma, Anxiety disorder, unspecified. - Condition is Stable. - Discharge Instructions: Panic Attacks, Hematoma, Hematoma, [id number], Musculoskeletal Pain, Panic Attacks, [id number]. - Prescriptions for Tylenol- Codeine #3 300-30 mg Oral Tablet - take 2 tablets by ORAL route every 6 hours As needed; 20 tablet. Xanax 0.5 mg Oral Tablet - take 1 tablet by ORAL route every 8 hours As needed; 20 tablet. - Medication Reconciliation Form, Thank You Letter, Antibiotic Education, Prescription Opioid Use form. - Follow up: David Armando; When: 2 - 3 days; Reason: Recheck today's complaints, Continuance of care, Re-evaluation by your physician. Follow up: Prudencio Colón; When: 2 - 3 days; Reason: Recheck today's complaints, Re-evaluation by your physician. - Problem is new. - Symptoms have improved. Signatures: Dispatcher [employer] EDMS Brian Norman MD MD cha Munoz, Edgar, CLINICAL LABORATORY ASSISTANT CLINICAL LABORATORY ASSISTANT Zoë Arellano RN RN J Carlos Nicole RN RN la1 Corrections: (The following items were deleted from the chart) 18:59 17:46 Urine Dipstick-Ancillary ordered. [facility] 19:16 18:51 11/12/2018 18:51 Discharged to Home. Impression: Pain in right lower leg - em hematoma; Anxiety disorder, unspecified. Condition is Stable. Discharge Instructions: Panic Attacks, Hematoma, Hematoma, [id number], Musculoskeletal Pain, Panic Attacks, [id number]. Prescriptions for Tylenol-Codeine #3 300-30 mg Oral Tablet - take 2 tablets by ORAL route every 6 hours As needed; 20 tablet, Xanax 0.5 mg Oral Tablet - take 1 tablet by ORAL route every 8 hours As needed; 20 tablet. and Forms are Medication Reconciliation Form, Thank You Letter, Antibiotic Education, Prescription Opioid Use. Follow up: David Armando; When: 2 - 3 days; Reason: Recheck today's complaints, Continuance of care, Re-evaluation by your physician. Follow up: Prudencio Cloón; When: 2 - 3 days; Reason: Recheck today's complaints, Re-evaluation by your physician. Problem is new. Symptoms have improved. frieda
--- NOTE | 2018-11-13 10:23 | EKG ---
Test Date: 2018-11-12 Test Time: 18:51:44 Software Development Coordinator: LEILA MEASUREMENT RESULTS: Intervals: Rate: 65 CT: 154 QRSD: 94 QT: 406 QTc: 422 [place]: P: CT: 154 QRS: 205 T: 171 INTERPRETIVE STATEMENTS: Suspect arm lead reversal, repeat ECG Normal sinus rhythm Right superior axis deviation Abnormal ECG Compared to ECG 02/22/2010 11:33:43 Right superior axis now present Electronically Signed On 11-13-18 10:22:54 CDT by Derrek Navarro
== END 2018-11-12 19:16 | disposition home or self-care (01) ==
LOC: ER 16:57
DX: S80.11XA Contusion of right lower leg, initial encounter (principal); W19.XXXA Unspecified fall, initial encounter; Y92.009 Unspecified place in unspecified non-institutional (private) residence as the place of occurrence of the external cause; F41.9 Anxiety disorder, unspecified; K21.9 Gastro-esophageal reflux disease without esophagitis; E78.5 Hyperlipidemia, unspecified; I10 Essential (primary) hypertension; E03.9 Hypothyroidism, unspecified
CPT/HCPCS: 96361; 93005; 85025; 36415; 80053; 71045; 73590; 96375; 96374; 99284; J2405

== ENCOUNTER 2020-01-06 11:29 | Emergency (ER) | payer OTHER, MEDICARE ==
[2020-01-06] MEDS ORDERED: TETANUS & DIPHTHERIA TOX,ADULT 0.5 ML VIAL ONE (12:13)
[2020-01-06] MEDS ORDERED: LIDOCAINE 1% MPF 5 ML VIAL ONE (12:29)
[2020-01-06] MEDS ORDERED: BUPIVACAINE 0.5% PF 10 ML VIAL ONE (12:29)
[2020-01-06] MEDS ORDERED: CEFAZOLIN SODIUM 1 GM/VIAL ONE (13:10)
--- NOTE | 2020-01-06 13:17 | RAD REPORT ---
EXAM DESCRIPTION: RAD - Hand Right 3 View - 01/06/2020 12:57 pm CLINICAL HISTORY: Right hand pain status post injury FINDINGS: No fracture or dislocation is seen. Soft tissue laceration first digit
--- NOTE | 2020-01-06 14:27 | EDPHYS ---
Physician Documentation [facility] Name: Lev Hunter Age: 74 yrs Sex: Male : 1945 Arrival Date: 01/06/2020 Time: 11:30 Bed 15 Private MD: David Armadno ED Physician Sebastian Aden HPI: 01/05 14:45 This 74 yrs old Male presents to ER via Ambulatory with complaints of kdr Laceration To Finger. 15:04 The patient or guardian reports a laceration, irregular, complex, 1.5 cm(s), ragged, kdr pain, tenderness. The complaints affect the palmar aspect of distal phalanx of right thumb. Context: The problem was sustained at home, resulted from a penetrating injury, Table saw. Onset: The symptoms/episode began/occurred acutely, just prior to arrival. Modifying factors: The symptoms are alleviated by nothing, the symptoms are aggravated by movement. Associated signs and symptoms: The patient has no apparent associated signs or symptoms. Severity of symptoms: At their worst the symptoms were mild, in the emergency department the symptoms are unchanged. The patient has not experienced similar symptoms in the past. The patient has not recently seen a physician. Historical: - Allergies: 11:44 No Known Allergies; ca1 - Home Meds: 13:29 lisinopril 10 mg Oral tab 1 tab once daily [Active]; levothyroxine 125 mcg oral tab 1 ca1 tab once daily [Active]; venlafaxine 150 mg oral tr24 1 tab once daily [Active]; mesalamine oral 1.2 gm oral 1 cap once daily [Active]; aspirin 81 mg Oral chew 1 tab once daily [Active]; Fish Oil 300 mg Oral cap daily [Active]; saw palmetto 160 mg Oral cap daily [Active]; Vitamin D Oral [Active]; lorazepam 0.5 mg Oral tab as needed [Active]; - PMHx: 11:44 Colitis; Diverticulitis; Hyperlipidemia; GERD; Hypertension; Hypothyroidism; ca1 - PSHx: 11:44 Knee surgery; Hernia repair; Colon Resection; Shoulder Surgery; ca1 - Immunization history:: Adult Immunizations up to date, Last tetanus immunization: unknown. - Social history:: Smoking status: Patient/guardian denies using tobacco, the patient reports quitting approximately 50 years ago. ROS: 15:04 Constitutional: Negative for fever, chills, and weight loss, Eyes: Negative for injury, kdr pain, redness, and discharge, Neck: Negative for injury, pain, and swelling, Cardiovascular: Negative for chest pain, palpitations, and edema, Respiratory: Negative for shortness of breath, cough, wheezing, and pleuritic chest pain, Abdomen/GI: Negative for abdominal pain, nausea, vomiting, diarrhea, and constipation, Back: Negative for injury and pain, : Negative for injury, bleeding, discharge, and swelling, MS/Extremity: Negative for injury and deformity, Neuro: Negative for headache, weakness, numbness, tingling, and seizure activity. Psych: Negative for depression, anxiety, suicide ideation, homicidal ideation, and hallucinations, Allergy/Immunology: Negative for hives, rash, and allergies, Endocrine: Negative for neck swelling, polydipsia, polyuria, polyphagia, and marked weight changes, Hematologic/Lymphatic: Negative for swollen nodes, abnormal bleeding, and unusual bruising. 15:04 Skin: Positive for laceration(s), of the palmar aspect of distal phalanx of right thumb. Exam: 15:04 Constitutional: This is a well developed, well nourished patient who is awake, alert, kdr and in no acute distress. 15:04 Skin: injury, laceration(s), the wound is approximately 1.5 cm(s), that can be described as Vital Signs: 11:42 BP 143 / 55; Pulse 74; Resp 16 S; Temp 97.6(TE); Pulse Ox 100% on R/A; Weight 79.83 kg ca1 (R); Height 6 ft. 0 in. (182.88 cm) (R); Pain 5/10; 13:00 BP 140 / 70; Pulse 62; Resp 16; Pulse Ox 99% on R/A; mh5 14:41 BP 141 / 85; Pulse 62; Resp 15 S; Pulse Ox 100% on R/A; jd3 11:42 Body Mass Index 23.87 (79.83 kg, 182.88 cm) ca1 Laceration: 15:04 Wound Repair of 1.5cm ( 0.6in ) subcutaneous laceration to palmar aspect of distal kdr phalanx of right thumb. Distal neuro/vascular/tendon intact. Anesthesia: Digital block administered with 3 mls of 1% lidocaine, Digital block administered with 3 mls of 0.5% marcaine. Wound prep: Moderate cleansing with betadine. Skin closed with 3 4-0 Prolene using simple sutures and sterile technique. Dressed with non-adherent dressing. Patient tolerated well. MDM: 14:26 Patient medically screened. kdr 15:19 Data reviewed: vital signs, nurses notes. Counseling: I had a detailed discussion with kdr the patient and/or guardian regarding: the historical points, exam findings, and any diagnostic results supporting the discharge/admit diagnosis, radiology results, the need for outpatient follow up. 01/05 12:12 Order name: Hand Right 3 View XRAY; Complete Time: 13:30 kdr 01/05 12:18 Order name: Dressing - Wound; Complete Time: 12:18 jd3 01/05 12:18 Order name: Gloves, Sterile; Complete Time: 12:18 jd3 01/05 12:18 Order name: Setup Suture Tray; Complete Time: 12:18 jd3 Administered Medications: 12:06 Drug: Tetanus-Diphtheria Toxoid Adult 0.5 ml {Public Relations Director: [employer]. Exp: jd3 06/07/2022. Lot #: [id number]. } Route: IM; Site: right deltoid; 13:00 Follow up: Response: No adverse reaction jd3 12:22 Drug: Lidocaine (1 %) 5 mg Route: Infiltration; jd3 13:00 Follow up: Response: No adverse reaction jd3 12:22 Drug: Marcaine (0.5 %) 1 vials Volume: 10 ml; Route: Infiltration; jd3 13:00 Follow up: Response: No adverse reaction jd3 13:07 Drug: Ancef 1 grams Route: IM; Site: right gluteus; jd3 14:05 Follow up: Response: No adverse reaction jd3 Disposition: 01/06/20 14:26 Discharged to Home. Impression: Laceration without foreign body of right thumb without damage to nail. - Condition is Stable. - Discharge Instructions: Laceration Care, Adult, [id number]. - Prescriptions for Keflex 500 mg Oral Capsule - take 1 capsule by ORAL route every 6 hours for 3 days; 12 capsule. Tramadol 50 mg Oral Tablet - take 1 tablet by ORAL route every 8 hours as needed; 12 tablet. - Medication Reconciliation Form, Thank You Letter, Antibiotic Education, Prescription Opioid Use form. - Follow up: David Armando MD; When: 2 - 3 days; Reason: Wound Recheck, If symptoms return, Further diagnostic work-up, Recheck today's complaints, Continuance of care, Re-evaluation by your physician. - Problem is new. - Symptoms have improved. - Notes: sutures out in 10 days and protect the wound for another week afterwards with the splint Signatures: Dispatcher [employer] EDMS Sebastian Aden MD MD [facility] Brad Quick RN RN jd3 Acob, MANJULA Cole RN ca1 Corrections: (The following items were deleted from the chart) 14:41 14:26 01/06/2020 14:26 Discharged to Home. Impression: Laceration without foreign body jd3 of right thumb without damage to nail. Condition is Stable. Forms are Medication Reconciliation Form, Thank You Letter, Antibiotic Education, Prescription Opioid Use. Follow up: David Armando; When: 2 - 3 days; Reason: Wound Recheck, If symptoms return, Further diagnostic work-up, Recheck today's complaints, Continuance of care, Re-evaluation by your physician. Problem is new. Symptoms have improved. kdr
--- NOTE | 2020-01-06 14:27 | ER ---
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 Coronavirus screen: Client denies travel out of the [place] in the last 14 days. At this time, the client does not indicate any symptoms associated with coronavirus-19. Ebola Screen: Patient negative for fever greater than or equal to 101.5 degrees Fahrenheit, and additional compatible Ebola Virus Disease symptoms Patient denies exposure to infectious person. Patient denies travel to an Ebola-affected area in the 21 days before illness onset. No symptoms or risks identified at this time. Initial Sepsis Screen: Does the patient meet any 2 criteria? No. Patient's initial sepsis screen is negative. Does the patient have a suspected source of infection? No. Patient's initial sepsis screen is negative. Risk Assessment: Do you want to hurt yourself or someone else? Patient reports no desire to harm self or others. Onset of symptoms was January 06, 2020. 11:42 Method Of Arrival: Ambulatory ca1 11:42 Acuity: RIOS 4 ca1 Triage Assessment: 11:44 General: Appears in no apparent distress. comfortable, Behavior is calm, cooperative, ca1 appropriate for age. Pain: Complains of pain in palmar aspect of distal phalanx of right thumb Pain currently is 5 out of 10 on a pain scale. Neuro: Level of Consciousness is awake, alert, obeys commands, Oriented to person, place, time, situation. Derm: Skin is healthy with good turgor, Skin is pink, warm \T\ dry. Musculoskeletal: Circulation, motion, and sensation intact. Capillary refill < 3 seconds. Injury Description: Laceration sustained to palmar aspect of distal phalanx of right thumb is jagged, 0.5 to 2.5 cm long, was sustained less than 30 minutes ago. a small amount of bleeding noted at this time. Historical: - Allergies: 11:44 No Known Allergies; ca1 - Home Meds: 13:29 lisinopril 10 mg Oral tab 1 tab once daily [Active]; levothyroxine 125 mcg oral tab 1 ca1 tab once daily [Active]; venlafaxine 150 mg oral tr24 1 tab once daily [Active]; mesalamine oral 1.2 gm oral 1 cap once daily [Active]; aspirin 81 mg Oral chew 1 tab once daily [Active]; Fish Oil 300 mg Oral cap daily [Active]; saw palmetto 160 mg Oral cap daily [Active]; Vitamin D Oral [Active]; lorazepam 0.5 mg Oral tab as needed [Active]; - PMHx: 11:44 Colitis; Diverticulitis; Hyperlipidemia; GERD; Hypertension; Hypothyroidism; ca1 - PSHx: 11:44 Knee surgery; Hernia repair; Colon Resection; Shoulder Surgery; ca1 - Immunization history:: Adult Immunizations up to date, Last tetanus immunization: unknown. - Social history:: Smoking status: Patient/guardian denies using tobacco, the patient reports quitting approximately 50 years ago. Screenin:46 Abuse screen: Denies threats or abuse. Denies injuries from another. Nutritional ca1 screening: No deficits noted. Tuberculosis screening: No symptoms or risk factors identified. Fall Risk None identified. Assessment: 11:46 Reassessment: See triage notes. ca1 12:06 General: Appears in no apparent distress. comfortable, Behavior is calm, cooperative, jd3 appropriate for age. Pain: Complains of pain in right thumb Quality of pain is described as aching. Neuro: Level of Consciousness is awake, alert, obeys commands, Oriented to person, place, time, situation. Cardiovascular: Denies chest pain, Capillary refill < 3 seconds Patient's skin is warm and dry. Respiratory: Airway is patent Respiratory effort is even, unlabored, Respiratory pattern is regular, symmetrical. GI: No signs and/or symptoms were reported involving the gastrointestinal system. : No signs and/or symptoms were reported regarding the genitourinary system. EENT: No signs and/or symptoms were reported regarding the EENT system. Derm: Skin is intact, Skin is dry, Skin is normal, Skin temperature is warm. Musculoskeletal: Circulation, motion, and sensation intact. Range of motion: intact in all extremities. Injury Description: Laceration sustained to right thumb is not bleeding. 13:07 Reassessment: Patient and/or family updated on plan of care and expected duration. Pain jd3 level reassessed. Patient is alert, oriented x 3, equal unlabored respirations, skin warm/dry/pink. awaiting x-ray results and suture repair. 14:38 Reassessment: Patient appears in no apparent distress at this time. Patient and/or jd3 family updated on plan of care and expected duration. Pain level reassessed. Patient is alert, oriented x 3, equal unlabored respirations, skin warm/dry/pink. Patient states feeling better. Vital Signs: 11:42 BP 143 / 55; Pulse 74; Resp 16 S; Temp 97.6(TE); Pulse Ox 100% on R/A; Weight 79.83 kg ca1 (R); Height 6 ft. 0 in. (182.88 cm) (R); Pain 5/10; 13:00 BP 140 / 70; Pulse 62; Resp 16; Pulse Ox 99% on R/A; mh5 14:41 BP 141 / 85; Pulse 62; Resp 15 S; Pulse Ox 100% on R/A; jd3 11:42 Body Mass Index 23.87 (79.83 kg, 182.88 cm) ca1 ED Course: 11:30 Patient arrived in ED. ag5 11:31 David Armando MD is Private Physician. ag5 11:42 Kelsey Ortega, RN is Primary Nurse. ca1 11:43 Triage completed. ca1 11:44 Arm band placed on right wrist. ca1 11:46 Patient has correct armband on for positive identification. Bed in low position. Call ca1 light in reach. Side rails up X2. Pulse ox on. NIBP on. Warm blanket given. 11:48 Kelsey Ortega, RN is Primary Nurse. ca1 12:11 Sebastian Aden MD is Attending Physician. kdr 12:58 Hand Right 3 View XRAY In Process Unspecified. EDMS 13:50 Assist provider with laceration repair on right thumb that was between 2.6 to 7.5 cm jd3 using sutures. Set up tray. Performed by Sebastian Aden MD Dressed with 4X4s, Kerlix, Patient tolerated well. 14:26 David Armando MD is Referral Physician. kdr 14:38 Patient did not have IV access during this emergency room visit. jd3 Administered Medications: 12:06 Drug: Tetanus-Diphtheria Toxoid Adult 0.5 ml {Sharebroker: [employer]. Exp: jd3 06/07/2022. Lot #: [id number]. } Route: IM; Site: right deltoid; 13:00 Follow up: Response: No adverse reaction jd3 12:22 Drug: Lidocaine (1 %) 5 mg Route: Infiltration; jd3 13:00 Follow up: Response: No adverse reaction jd3 12:22 Drug: Marcaine (0.5 %) 1 vials Volume: 10 ml; Route: Infiltration; jd3 13:00 Follow up: Response: No adverse reaction jd3 13:07 Drug: Ancef 1 grams Route: IM; Site: right gluteus; jd3 14:05 Follow up: Response: No adverse reaction jd3 Outcome: 14:26 Discharge ordered by . kdr 14:39 Discharged to home ambulatory, with family. jd3 14:39 Condition: stable 14:39 Discharge instructions given to patient, family, Instructed on discharge instructions, follow up and referral plans. medication usage, Demonstrated understanding of instructions, follow-up care, medications, Prescriptions given X 2. 14:41 Patient left the ED. jd3 Signatures: Dispatcher [employer] EDMS Sebastian Aden MD MD kdr Martinez, Maria Brad Palomares RN RN jd3 Acob, Cheryl, RN RN ca1 Gaskin, Ajare 5 Corrections: (The following items were deleted from the chart) 14:39 14:38 No provider procedures requiring assistance completed. jd3 jd3
[2020-01-06 14:48] VITALS: TEMP 97.6
[2020-01-06 14:49] VITALS: BP 140/70; O2SAT 99
--- OUTSIDE RECORDS SUMMARY | 2020-01-10 22:40 | XMS REPORT | Continuity of Care Document ---
:1945 Author Organization [facility] t Address [address] [place] [address] Care Team Providers Name Role Phone Tr LANG, David Graf Attending Clinician Problems This patient has no known problems. Allergies, Adverse Reactions, Alerts This patient has no known allergies or adverse reactions. Medications This patient has no known medications. Procedures This patient has no known procedures. Encounters Start End Encounter Admission Attending Care Care Encounter Source Date/Time Date/Time Type Type Clinicians Facility Department ID 2019-11-14 2019-11-14 Office CHUCK Armando [id number] 11:09:30 11:24:30 Visit David Carrion [id number] Homar Ayala [id number] Trevon [id number] nal [facility] Building Results This patient has no known results.
== END 2020-01-06 14:41 | disposition home or self-care (01) ==
LOC: ER 11:29
PROC: 0JQJ0ZZ Repair Right Hand Subcutaneous Tissue and Fascia, Open Approach (ICD-10-PCS; principal; 2020-01-06)
DX: S61.011A Laceration without foreign body of right thumb without damage to nail, initial encounter (principal); W45.8XXA Other foreign body or object entering through skin, initial encounter; W29.8XXA Contact with other powered hand tools and household machinery, initial encounter; Y93.9 Activity, unspecified; Y92.009 Unspecified place in unspecified non-institutional (private) residence as the place of occurrence of the external cause; Z23 Encounter for immunization; Z79.82 Long term (current) use of aspirin; I10 Essential (primary) hypertension; E03.9 Hypothyroidism, unspecified; E78.5 Hyperlipidemia, unspecified
CPT/HCPCS: 73130; 90471; 90714; 96372; 99284; 12001; J0690

== ENCOUNTER 2021-01-05 11:37 | Emergency (ER) | payer OTHER, MEDICARE ==
[2021-01-05 12:06] LABS: Absolute Lymphocytes (CBC) 2.3 K/uL (0.7-4.9); Basophils % 0.2 % (0-1.3); Hematocrit 43.8 % (39.6-49.0); Lymphocytes % 20.8 % (15.3-44.8); MPV 9.1 fL (7.6-11.3); RBC Red Blood Cell Count 4.89 M/uL (4.33-5.43)
[2021-01-05 12:27] LABS: Albumin 4.5 g/dL (3.4-5.0); Bilirubin Direct 0.1 mg/dL (0-0.2); Bilirubin Total 0.4 mg/dL (0.2-1.0); Potassium 4.2 mmol/L (3.5-5.1); Protein, Total 8.7 g/dL (6.4-8.2)
[2021-01-05] MEDS ORDERED: AMLODIPINE 5 MG TAB ONE (12:29)
[2021-01-05] MEDS ORDERED: ONDANSETRON 4 MG/2 ML VIAL ONE (12:30)
[2021-01-05] MEDS ORDERED: NA CHLORIDE 0.9% 1,000 ML ONE (12:30)
[2021-01-05] MEDS ORDERED: PANTOPRAZOLE 40 MG INJ ONE (12:30)
--- NOTE | 2021-01-05 14:11 | RAD REPORT ---
EXAM DESCRIPTION: CTAbdomen Pelvis W Contrast - 01/05/2021 1:59 pm CLINICAL HISTORY: . ABD PAIN COMPARISON: CT ABD PELVIS W CONTRAST dated 03/12/2008; Abdomen Exam Complete dated 05/29/2020; Abdomen Exam Complete dated 10/20/2019; Abdomen Exam Complete dated 04/08/2018 TECHNIQUE: Biphasic CT imaging of the abdomen and pelvis was performed with 100 ml non-ionic IV cont rast. All CT scans are performed using dose optimization technique as appropriate and may include automated exposure control or mA/KV adjustment according to patient size. FINDINGS: Lower chest: Coronary artery calcifications. Liver: No acute abnormality or suspicious lesions. Biliary: No biliary ductal dilatation. Stomach: No significant focal abnormality. Duodenum: No significant focal abnormality. Pancreas: No significant abnormality. Spleen: No significant abnormality. Adrenal: No suspicious lesions. Kidney/ureter: No hydronephrosis. Nonobstructing 6 mm stone in left kidney. Too small to characterize and/or benign appearing renal lesions are noted. Retroperitoneum: No retroperitoneal adenopathy. 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 Bowel: Partial colectomy. No bowel obstruction. Moderate stool in the proximal colon. Small bowel is grossly unremarkable.. Peritoneum: No ascites or free air. Prior ventral hernia repair. Bladder: Grossly unremarkable. Reproductive: Fluid versus high-riding left testicle along the caudal portions of the inguinal canal. Bones: No acute fracture. Other: n/a IMPRESSION: No acute intra-abdominal or pelvic finding. 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 This is compared with 2008 so it is almost certainly very slow growing. Consider 24 month follow-up CT to assess for stability.
--- NOTE | 2021-01-05 14:23 | ER ---
Nurse's Notes [facility] Name: Lev Hunter Age: 75 yrs Sex: Male : 1945 Arrival Date: 01/05/2021 Time: 11:38 Bed 5 Private MD: David Armando Diagnosis: Nausea with vomiting, unspecified Presentation: 01/05 11:47 Chief complaint: Patient states: n/v x 4 days after caring for his granddaughter that tr6 was also sick. Coronavirus screen: At this time, unable to obtain information related to travel outside the [place] Ebola Screen: No symptoms or risks identified at this time. Initial Sepsis Screen: Does the patient meet any 2 criteria? No. Patient's initial sepsis screen is negative. Does the patient have a suspected source of infection? No. Patient's initial sepsis screen is negative. Risk Assessment: Do you want to hurt yourself or someone else? Patient reports no desire to harm self or others. Onset of symptoms was January 02, 2021. 11:47 Method Of Arrival: Wheelchair tr6 11:47 Acuity: RIOS 3 tr6 Triage Assessment: 11:49 General: Appears in no apparent distress. uncomfortable, slender, Behavior is calm, tr6 cooperative, appropriate for age. Pain: Denies pain. EENT: No deficits noted. Neuro: No deficits noted. Cardiovascular: No deficits noted. Respiratory: No deficits noted. GI: Reports anorexia, nausea, vomiting. : No deficits noted. Derm: No deficits noted. Musculoskeletal: No deficits noted. Historical: - Allergies: 11:49 No Known Allergies; tr6 - Home Meds: 11:49 aspirin 81 mg Oral chew 1 tab once daily [Active]; Fish Oil 300 mg Oral cap daily tr6 [Active]; levothyroxine 125 mcg tab 1 tab once daily [Active]; lorazepam 0.5 mg Oral tab as needed [Active]; mesalamine 1.2 gm Oral 1 cap once daily [Active]; venlafaxine 150 mg Oral tr24 1 tab once daily [Active]; Vitamin D Oral [Active]; Norvasc 5 mg Oral tab 1 tab once daily for hypertension [Active]; - PMHx: 11:49 Colitis; Diverticulitis; GERD; Hyperlipidemia; Hypertension; Hypothyroidism; bowel tr6 perforation; Anxiety; - PSHx: 11:49 hernia repair; tr6 - Immunization history:: Adult Immunizations up to date, Client reports receiving the 2nd dose of the Covid vaccine. - Social history:: Smoking status: unknown. Screenin:53 Abuse screen: Denies threats or abuse. Denies injuries from another. Nutritional tr6 screening: Has had N/V for 3 or more days. Tuberculosis screening: No symptoms or risk factors identified. Fall Risk None identified. Assessment: 11:56 General: Reports "I baby sat my granddaughter who is three on Wednesday. She only threw tw5 up a couple of times, but then I got sick Wednesday and started throwing up. The last couple of days have been dry heaving. I have not had anything to eat or drink since.". Pain: Complains of pain in epigastric area Pain currently is 8 out of 10 on a pain scale. Quality of pain is described as burning. Neuro: Level of Consciousness is awake, alert, obeys commands, Oriented to person, place, time, situation. Cardiovascular: No deficits noted. Respiratory: No deficits noted. GI: Abdomen is non-distended, Bowel sounds hyperactive in right upper quadrant, left upper quadrant, right lower quadrant and left lower quadrant Reports lower abdominal pain, cramping, nausea, Pain is 8 out of 10 on a pain scale. vomiting. 11:56 Derm: Skin is fragile, is thin, with poor turgor Skin is dry, Skin is pale. tw5 12:18 Reassessment: Patient appears in no apparent distress at this time. tw5 13:40 Reassessment: Patient states feeling better. Patient states symptoms have improved. tw5 Patient reports that he has his appetite returned . Vital Signs: 11:47 BP 204 / 99; Pulse 78; Resp 20; Temp 97.9(O); Pulse Ox 100% on R/A; tr6 11:56 BP 187 / 103; Pulse 78; Resp 14; Pulse Ox 100% on R/A; Pain 8/10; tw5 12:18 BP 192 / 93; Pulse 73; Resp 14; Pulse Ox 98% on R/A; Pain 8/10; tw5 14:49 BP 149 / 97; Pulse 77; Resp 16; Pulse Ox 99% on R/A; jd3 ED Course: 11:38 Patient arrived in ED. am2 11:38 David Armando MD is Private Physician. am2 11:39 Dora Murray is Primary Nurse. tw5 11:49 Triage completed. tr6 11:50 Brianna De Jesus FNP-C [facility]. kb 11:50 Brian Norman MD is Attending Physician. kb 11:53 Resting quietly. Awaiting lab results. tw5 11:53 Patient has correct armband on for positive identification. Bed in low position. Call tr6 light in reach. Side rails up X 1. Diet: Patient is NPO. 11:53 Inserted saline lock: 20 gauge in right antecubital area, using aseptic technique. tw5 11:53 Initial lab(s) drawn, by me, sent to lab. tw5 11:54 Patient placed in an exam room. tr6 11:56 Pulse ox on. NIBP on. Door closed. Noise minimized. Lights dimmed. Verbal reassurance tw5 given. 13:40 Placed in gown. tw5 13:59 CT Abd/Pelvis - IV Contrast Only In Process Unspecified. EDMS 14:49 No provider procedures requiring assistance completed. jd3 14:49 intact. jd3 Administered Medications: 12:09 Drug: NS 0.9% 1000 ml Route: IV; Rate: 1000 ml; Site: right antecubital; tw5 13:40 Follow up: Response: No adverse reaction; IV Status: Completed infusion tw5 12:12 Drug: Zofran (Ondansetron) 4 mg Route: IVP; Site: right antecubital; tw5 13:40 Follow up: Response: No adverse reaction tw5 12:14 Drug: ProTONIX (pantoprazole) 40 mg Route: IVP; Site: right antecubital; tw5 13:40 Follow up: Response: No adverse reaction tw5 12:15 Drug: amLODIPine 5 mg Route: PO; tw5 13:40 Follow up: Response: No adverse reaction tw5 Outcome: 14:23 Discharge ordered by . kb 14:49 Discharged to home ambulatory, with family. jd3 14:49 Condition: stable 14:49 Discharge instructions given to patient, family, Prescriptions given X 1. 14:50 Patient left the ED. jd3 Signatures: Dispatcher [employer] EDMS Brianna De Jesus FNP-C FNP-Ckb Abbi Pak am2 Brad Quick, RN RN jd3 Dora John RN RN tr6 Dora Murray tw5
--- NOTE | 2021-01-05 14:23 | EDPHYS ---
Physician Documentation [facility] Name: Lev Hunter Age: 75 yrs Sex: Male : 1945 Arrival Date: 01/05/2021 Time: 11:38 Bed 5 Private MD: David Armando ED Physician Brian Norman HPI: 01/05 12:02 This 75 yrs old Male presents to ER via Wheelchair with complaints of kb Vomiting, dehydration. 12:02 The patient presents to the emergency department with nausea, vomiting, abdominal pain. kb Onset: The symptoms/episode began/occurred 5 day(s) ago. Possible causes: unknown. The symptoms are aggravated by nothing. The symptoms are alleviated by nothing. Associated signs and symptoms: Pertinent positives: abdominal pain, nausea, vomiting, Pertinent negatives: diarrhea, fever. Severity of symptoms: At their worst the symptoms were moderate in the emergency department the symptoms are unchanged. The patient has not experienced similar symptoms in the past. The patient has not recently seen a physician. Pt reports nausea and vomiting with upper abd burning that started 5 days ago. States he kept his greatgranddaughter just before symptoms began and she was vomiting as well. Pt states he hasn't had his bp medication in a few days because he couldn't keep them down. Asymptomatic of bp. Historical: - Allergies: 11:49 No Known Allergies; tr6 - Home Meds: 11:49 aspirin 81 mg Oral chew 1 tab once daily [Active]; Fish Oil 300 mg Oral cap daily tr6 [Active]; levothyroxine 125 mcg tab 1 tab once daily [Active]; lorazepam 0.5 mg Oral tab as needed [Active]; mesalamine 1.2 gm Oral 1 cap once daily [Active]; venlafaxine 150 mg Oral tr24 1 tab once daily [Active]; Vitamin D Oral [Active]; Norvasc 5 mg Oral tab 1 tab once daily for hypertension [Active]; - PMHx: 11:49 Colitis; Diverticulitis; GERD; Hyperlipidemia; Hypertension; Hypothyroidism; bowel tr6 perforation; Anxiety; - PSHx: 11:49 hernia repair; tr6 - Immunization history:: Adult Immunizations up to date, Client reports receiving the 2nd dose of the Covid vaccine. - Social history:: Smoking status: unknown. ROS: 12:01 Constitutional: Negative for fever, chills, and weight loss. kb 12:01 Abdomen/GI: Positive for abdominal pain, nausea and vomiting, Negative for diarrhea. 12:01 All other systems are negative. Exam: 12:01 Constitutional: This is a well developed, well nourished patient who is awake, alert, kb and in no acute distress. Head/Face: Normocephalic, atraumatic. ENT: Moist Mucous membranes Cardiovascular: Regular rate and rhythm with a normal S1 and S2. No gallops, murmurs, or rubs. No pulse deficits. Respiratory: Respirations even and unlabored. No increased work of breathing, no retractions or nasal flaring. Abdomen/GI: Soft, non-tender. No distention Skin: Warm, dry with normal turgor. Normal color. MS/ Extremity: Pulses equal, no cyanosis. Neurovascular intact. Full, normal range of motion. Neuro: Awake and alert, GCS 15, oriented to person, place, time, and situation. Moves all extremities. Normal gait. Psych: Awake, alert, with orientation to person, place and time. Behavior, mood, and affect are within normal limits. Vital Signs: 11:47 BP 204 / 99; Pulse 78; Resp 20; Temp 97.9(O); Pulse Ox 100% on R/A; tr6 11:56 BP 187 / 103; Pulse 78; Resp 14; Pulse Ox 100% on R/A; Pain 8/10; tw5 12:18 BP 192 / 93; Pulse 73; Resp 14; Pulse Ox 98% on R/A; Pain 8/10; tw5 14:49 BP 149 / 97; Pulse 77; Resp 16; Pulse Ox 99% on R/A; jd3 MDM: 11:50 Patient medically screened. kb 12:01 Data reviewed: vital signs, nurses notes. Data interpreted: Pulse oximetry: on room air kb is 100 %. Interpretation: normal. 14:22 Counseling: I had a detailed discussion with the patient and/or guardian regarding: the kb historical points, exam findings, and any diagnostic results supporting the discharge/admit diagnosis, lab results, radiology results, the need for outpatient follow up, a family practitioner, to return to the emergency department if symptoms worsen or persist or if there are any questions or concerns that arise at home. ED course: Pt tolerating PO intake. Discussed CT findings with ERP, agrees with outpatient follow up. 01/05 11:50 Order name: Basic Metabolic Panel; Complete Time: 12:28 jd3 01/05 11:50 Order name: CBC with Diff; Complete Time: 12:16 jd3 01/05 11:50 Order name: LFT's; Complete Time: 12:28 jd3 01/05 11:50 Order name: EKG; Complete Time: 11:50 d3 01/05 13:07 Order name: CT Abd/Pelvis - IV Contrast Only; Complete Time: 14:15 kb 01/05 11:50 Order name: Cardiac monitoring; Complete Time: 11:56 jd3 01/05 11:50 Order name: IV Saline Lock; Complete Time: 11:56 jd3 01/05 11:50 Order name: Labs collected and sent; Complete Time: 11:56 jd3 01/05 11:50 Order name: O2 Per Protocol; Complete Time: 11:56 jd3 01/05 11:50 Order name: O2 Sat Monitoring; Complete Time: 11:56 jd3 Administered Medications: 12:09 Drug: NS 0.9% 1000 ml Route: IV; Rate: 1000 ml; Site: right antecubital; tw5 13:40 Follow up: Response: No adverse reaction; IV Status: Completed infusion tw5 12:12 Drug: Zofran (Ondansetron) 4 mg Route: IVP; Site: right antecubital; tw5 13:40 Follow up: Response: No adverse reaction tw5 12:14 Drug: ProTONIX (pantoprazole) 40 mg Route: IVP; Site: right antecubital; tw5 13:40 Follow up: Response: No adverse reaction tw5 12:15 Drug: amLODIPine 5 mg Route: PO; tw5 13:40 Follow up: Response: No adverse reaction tw5 Disposition: 01/06 06:39 Co-signature as Attending Physician, Brian Norman MD I agree with the assessment and frieda plan of care. Disposition Summary: 01/05/21 14:23 Discharge Ordered Location: Home kb Condition: Stable kb Diagnosis - Nausea with vomiting, unspecified kb Followup: kb - With: Emergency Department - When: As needed - Reason: Worsening of condition Followup: kb - With: Private Physician - When: 2 - 3 days - Reason: Recheck today's complaints, Continuance of care, Re-evaluation by your physician Discharge Instructions: - Discharge Summary Sheet kb - Nausea and Vomiting, Adult, [id number] kb Forms: - Medication Reconciliation Form kb - Thank You Letter kb - Antibiotic Education kb - Prescription Opioid Use kb Prescriptions: - Zofran 4 mg Oral Tablet - take 1 tablet by ORAL route every 6 hours As needed; 20 tablet; Refills: 0, kb Product Selection Permitted Signatures: Dispatcher [employer] Brianna Reed, RICCI-C SUPPLY TECHNICIAN-Brian Baxter MD MD cha Davies, Jonathon RN RN jd3 Dora John, RN RN tr6 Dora Murray tw5 Corrections: (The following items were deleted from the chart) 10 11:56 11:50 EKG - Nurse/Tech ordered. [email or web address] tw5 12:04 12:02 Pt reports nausea and vomiting with upper abd burning that started 5 days ago. kb States he kept his greatgranddaughter just before symptoms began and she was vomiting as well. . kb 12: 11:50 MAGNESIUM+C.LAB.BRZ ordered. EDMS EDMS 12: 11:50 PROBNP+C.LAB.BRZ ordered. EDMS EDMS 12: 11:50 PROTIME (+INR)+COAG.LAB.BRZ ordered. EDMS EDMS 12: 11:50 TROPONIN (EMERG DEPT USE ONLY)+C.LAB.BRZ ordered. EDMS EDMS
[2021-01-05 14:56] VITALS: TEMP 97.9
[2021-01-05 15:00] VITALS: BP 149/97; O2SAT 99
--- NOTE | 2021-01-07 18:11 | EKG ---
Test Date: 2021-01-06 Test Time: 15:14:44 Anime Designer: CANDE MEASUREMENT RESULTS: Intervals: Rate: 69 GA: 156 QRSD: 80 QT: 398 QTc: 426 [place]: P: 35 GA: 156 QRS: -41 T: 5 INTERPRETIVE STATEMENTS: Normal sinus rhythm Left axis deviation Moderate voltage criteria for LVH, may be normal variant Nonspecific ST abnormality Abnormal ECG Compared to ECG 01/06/2021 15:14:04 ST (T wave) deviation now present Early repolarization no longer present Electronically Signed On 01-07-21 18:06:05 CDT by Travon Pacheco
== END 2021-01-05 14:50 | disposition home or self-care (01) ==
LOC: ER 11:37
DX: R11.2 Nausea with vomiting, unspecified (principal); I10 Essential (primary) hypertension; E03.9 Hypothyroidism, unspecified; E78.5 Hyperlipidemia, unspecified; F41.9 Anxiety disorder, unspecified
CPT/HCPCS: 96361; 93005; 85025; 80048; 36415; 80076; 74177; 96375; 96374; 99284; Q9967; C9113; J7030; J2405

== ENCOUNTER 2021-01-06 14:36 | Emergency (ER) | payer OTHER, MEDICARE ==
[2021-01-06 15:09] LABS: Hematocrit 40.7 % (39.6-49.0); MPV 8.7 fL (7.6-11.3); RBC Red Blood Cell Count 4.52 M/uL (4.33-5.43)
[2021-01-06 15:10] LABS: Absolute Lymphocytes (CBC) 1.8 K/uL (0.7-4.9); Basophils % 0.3 % (0-1.3); Lymphocytes % 16.9 % (15.3-44.8)
[2021-01-06] MEDS ORDERED: LIDOCAINE VISCOUS 2% SOLN 15 ML UDC ONE (15:24)
[2021-01-06] MEDS ORDERED: MAGNES/ALUMIN/SIMET 30ML UCUP ONE (15:24)
--- NOTE | 2021-01-06 15:41 | RAD REPORT ---
EXAM DESCRIPTION: US - Abdomen Exam Limited - 01/06/2021 3:29 pm CLINICAL HISTORY: ABD PAIN COMPARISON: Abdomen Pelvis W Contrast dated 01/05/2021 FINDINGS: The gallbladder demonstrates no gallstones. No pericholecystic fluid or gallbladder wall t hickening. The common bile duct is normal measuring 3 mm. The liver demonstrates no findings of intrahepatic biliary dilatation. IMPRESSION: Unremarkable examination.
[2021-01-06 15:45] LABS: Bilirubin Direct 0.1 mg/dL (0-0.2); Bilirubin Total 0.4 mg/dL (0.2-1.0); Potassium 3.7 mmol/L (3.5-5.1); Protein, Total 8.3 g/dL (6.4-8.2)
[2021-01-06 15:46] LABS: Albumin 4.3 g/dL (3.4-5.0)
[2021-01-06] MEDS ORDERED: ONDANSETRON 4 MG/2 ML VIAL ONE (16:39)
[2021-01-06] MEDS ORDERED: MORPHINE 2 MG/ML SYR ONE ×3 (16:39→18:26)
--- NOTE | 2021-01-06 17:43 | RAD REPORT ---
EXAM DESCRIPTION: CTAbdomen Pelvis Wo Contrast - 01/06/2021 5:29 pm CLINICAL HISTORY: . worsening pain;Abd pain COMPARISON: Abdomen Pelvis W Contrast dated 01/05/2021; CT ABDOMEN PELVIS WO CONTRAST dated 10/16/19 09; CT ABD PELVIS W CONTRAST dated 03/12/[address] scans are performed using dose optimization technique as appropriate and may include automated exposure control or mA/KV adjustment according to patient size. FINDINGS: Lower chest: No acute abnormality. Coronary artery calcifications. Trace pericardial effus ion. Liver: No acute abnormality or suspicious lesions. Biliary: No biliary ductal dilatation. Vicarious excretion of contrast into the gallbladder. Stomach: No significant focal abnormality. Duodenum: No significant focal abnormality. Pancreas: Interval development of edema around the pancreatic head, uncinate, and pancreatic neck. Th is extends into the small bowel mesenteries. There is also some associated hyperdensity in this locat ion. Spleen: No significant abnormality. Adrenal: No suspicious lesions. Kidney/ureter: No hydronephrosis. Left upper pole renal calculus. Contrast within the right renal col lecting system. Right lower pole renal cyst. Retroperitoneum: No retroperitoneal adenopathy. Vascular: As noted on the CT from 01/05/2021, there is enlarging saccular aneurysm off of the infrare nal abdominal aorta disc is unrelated to the process of the pancreas and small bowel mesenteric. Bowel: No significant focal abnormality. Partial colectomy. Normal appendix. Peritoneum: No ascites or free air. Ventral hernia repair. Bladder: Grossly unremarkable. Reproductive: No adnexal masses. Bones: No acute fracture. Other: n/a IMPRESSION: New inflammatory changes predominantly centered in the small bowel mesentery and pancrea tic head/uncinate may reflect acute pancreatitis, possibly with hemorrhagic component. Correlate with lipase. Consider repeat CT with IV contrast to better assess the adjacent vasculature, particularly if the lipase is normal.
[2021-01-06] MEDS ORDERED: NA CHLORIDE 0.9% 1,000 ML ONE ×2 (18:29→20:39)
[2021-01-06] MEDS ORDERED: CEFTRIAXONE 1000 MG/VIAL ONE (18:29)
--- NOTE | 2021-01-06 18:56 | ER ---
Nurse's Notes [facility] Name: Lev Hunter Age: 75 yrs Sex: Male : 1945 Arrival Date: 01/06/2021 Time: 14:37 Bed 5 Private MD: David Armando Diagnosis: Acute abdomen;Hemoperitoneum Presentation: 01/06 14:41 Chief complaint: N/V x 3 days, severe upper abdominal pain x 2 hours. Coronavirus hb screen: Client presents with at least one sign or symptom that may indicate coronavirus-19. Standard/surgical mask placed on the client. Ebola Screen: No symptoms or risks identified at this time. Risk Assessment: Do you want to hurt yourself or someone else? Patient reports no desire to harm self or others. Onset of symptoms was January 03, 2021. 14:41 Method Of Arrival: Ambulatory hb 14:41 Acuity: RIOS 3 hb 14:54 Initial Sepsis Screen:. ap3 14:55 Initial Sepsis Screen: Does the patient meet any 2 criteria? No. Patient's initial ap3 sepsis screen is negative. Does the patient have a suspected source of infection? No. Patient's initial sepsis screen is negative. 23:03 Note PT SUDDENLY BECAME DIAPHORETIC WITH AN INCREASE IN SHARP NON RADIATING ABD PAIN. cw2 RONALDO NEGRETE BEDSIDE. PT HYPOTENSIVE. 01/07 00:09 Note [facility] ANTONY LEAVING WITH PT. NO CHANGE FROM PREVIOUS ASSESSMENT. PT STABLE cw2 ON TRANSFER. Note FULL REPORT CALLED TO ANTONY FINNEGAN. ALL QUESTIONS ANSWERED AND NO CONCERNS VERBALIZED AT THIS TIME. Historical: - Allergies: 01/06 14:42 No Known Allergies; hb - Home Meds: 14:54 aspirin 81 mg Oral chew 1 tab once daily [Active]; Fish Oil 300 mg Oral cap daily ap3 [Active]; levothyroxine 125 mcg tab 1 tab once daily [Active]; lorazepam 0.5 mg Oral tab as needed [Active]; mesalamine 1.2 gm Oral 1 cap once daily [Active]; Norvasc 5 mg Oral tab 1 tab once daily for Hypertension [Active]; venlafaxine 150 mg Oral tr24 1 tab once daily [Active]; Vitamin D Oral [Active]; - PMHx: 14:54 Anxiety; BOWEL PERFORATION; Colitis; Diverticulitis; GERD; Hyperlipidemia; ap3 Hypertension; Hypothyroidism; - PSHx: 14:54 hernia repair; ap3 - Immunization history:: Client reports receiving the 2nd dose of the Covid vaccine. - Social history:: Smoking status: Patient denies any tobacco usage or history of. - Family history:: not pertinent. - Hospitalizations: : No recent hospitalization is reported. Screenin:53 Abuse screen: Denies threats or abuse. Nutritional screening: Has had N/V for 3 or more ap3 days. Tuberculosis screening: No symptoms or risk factors identified. Fall Risk None identified. Assessment: 14:51 General: Appears uncomfortable, Behavior is calm, cooperative. Pain: Complains of pain ap3 in abdomen Pain radiates to epigastric area. Neuro: Level of Consciousness is awake, alert, obeys commands, Oriented to person, place, time, situation, Moves all extremities. Gait is steady, Speech is normal. Cardiovascular: Capillary refill < 3 seconds Patient's skin is warm and dry. Respiratory: Airway is patent Respiratory effort is even, unlabored, Respiratory pattern is regular, symmetrical. GI: Bowel sounds present X 4 quads. Abd is soft. GI: Reports last BM 4-5 days ago, lack of appetite. : No signs and/or symptoms were reported regarding the genitourinary system. 15:28 Reassessment: CT notified patient has completed contrast. ap3 15:54 Reassessment: Patient and/or family updated on plan of care and expected duration. Pain ap3 level reassessed. Patient is alert, oriented x 3, equal unlabored respirations, skin warm/dry/pink. 17:17 Reassessment: Patient and/or family updated on plan of care and expected duration. Pain ap3 level reassessed. Patient is alert, oriented x 3, equal unlabored respirations, skin warm/dry/pink. 21:43 Reassessment: BP 74/53, MARTITA Higgins notified, received VO for 1 L bolus. em 22:00 Reassessment: initiated o-neg PRBC's x 2 units per MARTITA Higgins. em 22:56 Reassessment: initiated contact with [facility]. em Vital Signs: 14:41 BP 150 / 82; Pulse 74; Resp 16; Temp 98.4; Pulse Ox 100% on R/A; Weight 76.66 kg; hb Height 6 ft. (182.88 cm); Pain 10/10; 15:54 BP 144 / 68; Pulse 68; Pulse Ox 99% on R/A; ap3 16:25 BP 152 / 73; Pulse 65; Pulse Ox 98% on R/A; ap3 18:41 BP 175 / 74; Pulse 67; Pulse Ox 98% on R/A; ap3 20:20 BP 188 / 82; Pulse 74; Resp 20; Pulse Ox 98% ; Pain 10/10; dc2 20:32 Pain 5/10; cw2 21:43 BP 74 / 53; Pulse 71; Resp 22; Pulse Ox 99% on R/A; em 22:20 BP 105 / 68; Pulse 71; Resp 18; Pulse Ox 99% on R/A; em 14:41 Body Mass Index 22.92 (76.66 kg, 182.88 cm) hb ED Course: 14:37 Patient arrived in ED. mr 14:37 David Armando MD is Private Physician. mr 14:42 Triage completed. hb 14:42 Arm band placed on. hb 14:44 Guy Azul MD is Attending Physician. rn 14:51 Abbi Cotto RN is Primary Nurse. ap3 14:54 Patient has correct armband on for positive identification. Bed in low position. Call ap3 light in reach. Side rails up X2. Adult w/ patient. bus driver/monitor on. Pulse ox on. NIBP on. Door closed. Noise minimized. 15:03 Basic Metabolic Panel Sent. 5 15:03 CBC with Diff Sent. mh5 15:03 Hepatic Function Sent. mh5 15:03 Lipase Sent. 5 15:03 Initial lab(s) drawn, by pr, sent to lab. EKG done, by ED staff. Inserted saline lock: [facility] 20 gauge in right antecubital area, using aseptic technique. Blood collected. 15:04 Side rails up X 1. Adult w/ patient. mh5 15:29 US Abdomen Limited In Process Unspecified. EDMS 17:30 Abdomen In Process Unspecified. EDMS 18:38 Initiated transfer at [facility] with Evangelina. Stated she would call back after checking tt3 on bed availability. 18:45 Lactate Sent. mh5 18:45 COVID swab sent to lab. mh5 18:48 ED physician to see patient. ap3 18:57 Evangelina called back with their GI physician to do consult with Dr. Azul regarding the tt3 transfer request. 19:59 Primary Nurse role handed off by Abbi Cotto, MANJULA tt3 20:00 Dionna Castillo called back with Dr. Moody the hospitalist to consult with MARTITA Garzon, pt tt3 provider regarding the transfer request. 20:10 Chris Arellano, RN is Primary Nurse. cw2 21:22 Dionna Castillo gave admin approval. The accepting physician is Dr. Garcia. The pt is going to tt3 [facility] room 1530. Nurse to call report to . Face sheet and covid result to be faxed to per Dionna's request. 21:58 CT Abd/Pelvis - Without Contrast In Process Unspecified. EDMS 21:59 Called [facility] to request transport for pt. tt3 22:09 [facility] jr8 22:10 Initiated transfer at [facility] with Chela. Call was connected to eliu Garzon, pt provider for consultation. 22:54 Initiated transfer at [facility] with Tirso. Was informed they had no ICU beds tt3 available. 22:54 Jeer Hall RN, Charge Nurse initiated transfer at [facility]. tt3 22:55 Initiated transfer at [facility] with Celia Salinas. Was informed they were at capacity. tt3 22:58 Chela with [facility] called back with their physician to speak with Dr. eliu Norman regarding the transfer request. [facility] at bedside. 22:59 Attending Physician role handed off by Guy Azul MD [facility] 22:59 Brian Norman MD is Attending Physician. frieda 23:37 Marlena Kim gave admin approval. The accepting physician is Dr. Baldwin. Nurse to tt3 call report to . Face sheet and MOT to be faxed to per Marlena's request. The pt is going to [facility] CVICU. Administered Medications: 15:01 Drug: GI Cocktail without - (Maalox Suspension 30 ml, Lidocaine Liquid 2 % 15 ap3 ml) Route: PO; 16:05 Follow up: Response: No adverse reaction ap3 16:18 Drug: morphine 2 mg Route: IVP; Site: right antecubital; ap3 16:18 Drug: Zofran (Ondansetron) 4 mg Route: IVP; Site: right antecubital; ap3 17:17 Follow up: Response: No adverse reaction ap3 17:45 Drug: morphine 2 mg {Note: rass0.} Route: IVP; Site: right antecubital; ap3 18:02 Drug: morphine 2 mg Route: IVP; Site: right antecubital; ap3 19:10 Follow up: Response: Pain is decreased dc2 18:22 Drug: Rocephin (cefTRIAXone) 1 grams Route: IV; Rate: calculated rate; Site: right ap3 antecubital; 18:22 Drug: NS 0.9% 1000 ml Route: IV; Rate: 1000 ml; Site: right antecubital; ap3 19:15 Follow up: IV Status: Completed infusion; IV Intake: 1000ml dc2 20:25 Follow up: IV Status: Completed infusion; IV Intake: 1000ml cw2 20:19 Drug: NS 0.9% 1000 ml Route: IV; Rate: 250 ml/hr; Infused Over: 4 hrs; Site: right dc2 forearm; Delivery: Primary tubing; 20:32 Follow up: Response: No adverse reaction cw2 20:26 Drug: morphine 4 mg Route: IVP; Site: right forearm; cw2 20:32 Follow up: Pain 5/10 Adult; Response: Pain is decreased cw2 22:30 Drug: fentaNYL (PF) 50 mcg Route: IVP; Site: right antecubital; em 22:41 Follow up: Response: No adverse reaction; Marked relief of symptoms; Pain is decreased; em Pain is unchanged, physician notified; RASS: Alert and Calm (0) Intake: 19:15 IV: 1000ml; Total: 1000ml. dc2 20:25 IV: 1000ml; Total: 2000ml. cw2 Outcome: 18:56 ER care complete, transfer ordered by MD. lal 10 00:39 Patient left the ED. cw2 Signatures: Dispatcher [employer] EDBrian Ojeda MD MD cha Rivera, Mary mr Munoz, Edgar, RN RN em Nieto, Roman, MD MD rn Roszak, Josh, PA PA jr8 Mikki Canela, RN RN Lora Land 5 Abbi Cotto, RN RN ap3 Juanjo Bee 3 Juanita Mendez, RN RN dc2 Chris Arellano RN RN cw2
--- NOTE | 2021-01-06 18:56 | EDPHYS ---
Physician Documentation [facility] Name: Lev Hunter Age: 75 yrs Sex: Male : 1945 Arrival Date: 01/06/2021 Time: 14:37 Bed 5 Private MD: David Armando ED Physician Brian Norman HPI: 01/06 15:21 This 75 yrs old Male presents to ER via Ambulatory with complaints of rn Abdominal Pain. 15:21 The patient presents with abdominal pain in the epigastric area, in the periumbilical rn area. Onset: The symptoms/episode began/occurred yesterday. The symptoms radiate to back. Associated signs and symptoms: Pertinent positives: nausea and vomiting, Pertinent negatives: blood in stools, chest pain, fever, hematuria, shortness of breath. The symptoms are described as sharp. Modifying factors: The symptoms are alleviated by nothing, the symptoms are aggravated by touching the area. Severity of pain: At its worst the pain was moderate in the emergency department the pain has resolved. The patient has not experienced similar symptoms in the past. The patient has been recently seen at [facility]. Patient seen here yesterday for abdominal pain. CT scan negative, blood work unremarkable. Given Zofran for nausea and vomiting and states vomiting has resolved. Abdominal pain has come back more severe today. No blood in stool. No chest pain.. Historical: - Allergies: 14:42 No Known Allergies; hb - Home Meds: 14:54 aspirin 81 mg Oral chew 1 tab once daily [Active]; Fish Oil 300 mg Oral cap daily ap3 [Active]; levothyroxine 125 mcg tab 1 tab once daily [Active]; lorazepam 0.5 mg Oral tab as needed [Active]; mesalamine 1.2 gm Oral 1 cap once daily [Active]; Norvasc 5 mg Oral tab 1 tab once daily for Hypertension [Active]; venlafaxine 150 mg Oral tr24 1 tab once daily [Active]; Vitamin D Oral [Active]; - PMHx: 14:54 Anxiety; BOWEL PERFORATION; Colitis; Diverticulitis; GERD; Hyperlipidemia; ap3 Hypertension; Hypothyroidism; - PSHx: 14:54 hernia repair; ap3 - Immunization history:: Client reports receiving the 2nd dose of the Covid vaccine. - Social history:: Smoking status: Patient denies any tobacco usage or history of. - Family history:: not pertinent. - Hospitalizations: : No recent hospitalization is reported. ROS: 15:21 Constitutional: Negative for fever, chills, and weight loss, Eyes: Negative for injury, rn pain, redness, and discharge, Neck: Negative for injury, pain, and swelling, Cardiovascular: Negative for chest pain, palpitations, and edema, Respiratory: Negative for shortness of breath, cough, wheezing, and pleuritic chest pain, Abdomen/GI: Positive for abdominal pain Back: Negative for injury : Negative for injury, bleeding, discharge, and swelling, MS/Extremity: Negative for injury and deformity, Skin: Negative for injury, rash, and discoloration, Neuro: Negative for headache, weakness, numbness, tingling, and seizure. Exam: 15:21 Constitutional: This is a well developed, well nourished patient who is awake, alert, rn and in no acute distress. Ambulatory to room without difficulty or assistance Head/Face: Normocephalic, atraumatic. Eyes: Periorbital areas with no swelling, redness, or edema. Cardiovascular: Regular rate and rhythm. No pulse deficits. Respiratory: No increased work of breathing, no retractions or nasal flaring. Abdomen/GI: Soft, tenderness epigastrium and periumbilical region, no peritoneal signs, negative Priest Skin: Warm, dry MS/ Extremity: Pulses equal, no cyanosis. Neurovascular intact. Full, normal range of motion. Equal circumference. Neuro: Awake and alert, GCS 15 18:57 ECG was reviewed by the Attending Physician. rn 19:01 ECG was reviewed by the Attending Physician. rn Vital Signs: 14:41 BP 150 / 82; Pulse 74; Resp 16; Temp 98.4; Pulse Ox 100% on R/A; Weight 76.66 kg; hb Height 6 ft. (182.88 cm); Pain 10/10; 15:54 BP 144 / 68; Pulse 68; Pulse Ox 99% on R/A; ap3 16:25 BP 152 / 73; Pulse 65; Pulse Ox 98% on R/A; ap3 18:41 BP 175 / 74; Pulse 67; Pulse Ox 98% on R/A; ap3 20:20 BP 188 / 82; Pulse 74; Resp 20; Pulse Ox 98% ; Pain 10/10; dc2 20:32 Pain 5/10; cw2 21:43 BP 74 / 53; Pulse 71; Resp 22; Pulse Ox 99% on R/A; em 22:20 BP 105 / 68; Pulse 71; Resp 18; Pulse Ox 99% on R/A; em 14:41 Body Mass Index 22.92 (76.66 kg, 182.88 cm) hb MDM: 14:44 Patient medically screened. rn 18:49 ED course: Called Dr. Urrutia twice for consultation, no answer, got voicemail. rn Initiated transfer to [facility] for possible acute pancreatitis with possible hemorrhagic component given no endovascular treatment or IR availability at this hospital. . 18:50 Differential diagnosis: cholecystitis, Cholelithiasis, gastritis, gastroesophageal rn reflux disease, non-specific abd pain, pancreatitis, Peptic Ulcer Disease, Perf. Duodenal Ulcer, Perf. Gastric Ulcer, Peritonitis. Data reviewed: vital signs, nurses notes, lab test result(s), radiologic studies, CT scan, and as a result, I will admit patient. Counseling: I had a detailed discussion with the patient and/or guardian regarding: the historical points, exam findings, and any diagnostic results supporting the discharge/admit diagnosis, lab results, radiology results, the need to transfer to another facility, for higher level of care, [facility] does not immediately have the required specialist. Response to treatment: the patient's symptoms have mildly improved after treatment, and as a result, I will admit patient. 18:59 ED course: Accepted for transfer to [facility] by GI Dr. Cunha for hemorrhagic rn pancreatitis. . 22:09 ED course: Patient had sudden acute change in ED prior to being transferred. Nurse jr8 notified me that patient had acute abdominal pain with sudden diaphoresis and hypotension. I reassessed patient immediately. Appears patient has acute abdomen. I had patient taken back to CT for another noncontrasted study. Patient appears to have extravasation of some upper gastric artery or SMA. Unknown which one as contrast was not given. Discussed case with Radiology about this. [facility] and [facility] contacted. Attempting to upgrade at [facility] but they don't know if they have ICU. Reuben was contacted as well . 01/06 14:50 Order name: Basic Metabolic Panel; Complete Time: 15:50 rn 01/06 14:50 Order name: CBC with Diff; Complete Time: 15:50 rn 01/06 14:50 Order name: Hepatic Function; Complete Time: 15:50 rn 01/06 14:50 Order name: Lipase; Complete Time: 15:50 rn 01/06 18:00 Order name: Lactate; Complete Time: 22:13 rn 01/06 20:41 Order name: SARS-COV-2 RT PCR; Complete Time: 22:13 EDMS 01/06 22:03 Order name: ABO/RH typing EDCA 01/06 22:03 Order name: Antibody Screen EDMS 01/06 22:03 Order name: Packed RBC Leukored EDMS 01/06 22:03 Order name: RBC Leukored Pheresis EDMS 01/06 22:13 Order name: ABO/RH no charge; Complete Time: 22:13 EDMS 01/06 22:28 Order name: CBC with Diff; Complete Time: 22:59 cw2 01/06 22:28 Order name: BMP; Complete Time: 22:59 2 01/06 14:50 Order name: IV Saline Lock; Complete Time: 15:01 rn 01/06 14:50 Order name: Labs collected and sent; Complete Time: 15:01 rn 01/06 14:50 Order name: US Abdomen Limited; Complete Time: 15:50 rn 01/06 14:50 Order name: EKG; Complete Time: 14:51 rn 01/06 17:18 Order name: Abdomen ; Complete Time: 17:46 EDMS 01/06 21:48 Order name: CT Abd/Pelvis - Without Contrast; Complete Time: 22:13 em 01/06 14:50 Order name: EKG - Nurse/Tech; Complete Time: 15:03 rn EC:01 Rate is 69 beats/min. Rhythm is regular. Left axis deviation noted. QRS is positive in rn lead I and negative in lead aVF. OK interval is normal. QRS interval is normal. QT interval is normal. No Q waves. T waves are Normal. No ST changes noted. Clinical impression: NSR w/ Non-specific ST/T Changes and LAD. Interpreted by me. Reviewed by me. Administered Medications: 15:01 Drug: GI Cocktail without - (Maalox Suspension 30 ml, Lidocaine Liquid 2 % 15 ap3 ml) Route: PO; 16:05 Follow up: Response: No adverse reaction ap3 16:18 Drug: morphine 2 mg Route: IVP; Site: right antecubital; ap3 16:18 Drug: Zofran (Ondansetron) 4 mg Route: IVP; Site: right antecubital; ap3 17:17 Follow up: Response: No adverse reaction ap3 17:45 Drug: morphine 2 mg {Note: rass0.} Route: IVP; Site: right antecubital; ap3 18:02 Drug: morphine 2 mg Route: IVP; Site: right antecubital; ap3 19:10 Follow up: Response: Pain is decreased dc2 18:22 Drug: Rocephin (cefTRIAXone) 1 grams Route: IV; Rate: calculated rate; Site: right ap3 antecubital; 18:22 Drug: NS 0.9% 1000 ml Route: IV; Rate: 1000 ml; Site: right antecubital; ap3 19:15 Follow up: IV Status: Completed infusion; IV Intake: 1000ml dc2 20:25 Follow up: IV Status: Completed infusion; IV Intake: 1000ml cw2 20:19 Drug: NS 0.9% 1000 ml Route: IV; Rate: 250 ml/hr; Infused Over: 4 hrs; Site: right dc2 forearm; Delivery: Primary tubing; 20:32 Follow up: Response: No adverse reaction cw2 20:26 Drug: morphine 4 mg Route: IVP; Site: right forearm; cw2 20:32 Follow up: Pain 5/10 Adult; Response: Pain is decreased cw2 22:30 Drug: fentaNYL (PF) 50 mcg Route: IVP; Site: right antecubital; em 22:41 Follow up: Response: No adverse reaction; Marked relief of symptoms; Pain is decreased; em Pain is unchanged, physician notified; RASS: Alert and Calm (0) Disposition: 01/07 06:51 Co-signature as Attending Physician, Brian Norman MD I agree with the assessment and frieda plan of care. Disposition Summary: 01/06/21 18:56 Transfer Ordered Transfer Location: [facility] rn Reason: Higher level of care rn Condition: Stable rn Problem: new rn Symptoms: have improved rn Accepting Physician: (01/07/21 00:39) cw2 Diagnosis - Acute abdomen jr8 - Hemoperitoneum jr8 Forms: - Medication Reconciliation Form rn - SBAR form rn Signatures: Dispatcher [employer] EDCA Brian Norman MD MD cha Munoz, Edgar RN RN Guy Jacobo MD MD rn Roszak, Josh, PA PA jr8 Baxter, Heather RN Abbi Godoy RN RN ap3 Vanessa, Juanita RN RN dc2 Chris Arellano RN RN cw2 Corrections: (The following items were deleted from the chart) 01/06 17:18 14:51 Abdomen Pelvis W Con+CT.RAD.BRZ ordered. EDCA EDMS 19:37 19:32 CORONAVIRUS+MR.LAB.BRZ ordered. EDCA EDMS 22:25 22:09 ED course: Patient had sudden acute change in ED prior to being transferred. robyn Nurse notified me that patient had acute abdominal pain with sudden diaphoresis and hypotension. I reassessed patient immediately. Appears patient has acute abdomen. I had patient taken back to CT for another noncontrasted study. Patient appears to have extravasation of some upper . robyn : 18:56 Dr. lukasz lilly8 : 18:56 Idiopathic acute pancreatitis without necrosis or infection - Hemorrhagic lukasz lilly8 : 18:56 Upper abdominal pain, unspecified lukasz carlson : 18:56 Vomiting, unspecified lukasz lilly8 01/07 00:39 01/06 22:26 Dr. carlson cw2
[2021-01-06] MEDS ORDERED: MORPHINE 4 MG/ML SYR ONE (20:43)
--- NOTE | 2021-01-06 22:11 | RAD REPORT ---
EXAM DESCRIPTION: CTAbdomen Pelvis Wo Contrast - 01/06/2021 9:57 pm CLINICAL HISTORY: . ABD PAIN COMPARISON: CT from approximately 5 hours prior TECHNIQUE: All CT scans are performed using dose optimization technique as appropriate and may include automated exposure control or mA/KV adjustment according to patient size. FINDINGS: Compared with the CT scan from approximately 5 hours prior, increasing hemoperitoneum and retroperitoneal hemorrhage. The source of the blood is unclear though the inflammatory changes are ce ntered primarily near the pancreas, duodenum, root of the small bowel mesentery, and surrounding soft tissues. Other ancillary/incidental findings as noted on the prior CT. IMPRESSION: Hemoperitoneum and retroperitoneal hemorrhage which has worsened since the CT exam from approximately 5 hours prior. The source of bleeding is unclear. Either contrast-enhanced CT, angiogra m, or surgical intervention should be considered. Discussed with Ronaldo in the ED at 1003 pm on 01/06/21
[2021-01-06 22:38] LABS: Absolute Lymphocytes (CBC) 0.8 K/uL (0.7-4.9); Basophils % 0.2 % (0-1.3); Hematocrit 31.1 % (39.6-49.0); Lymphocytes % 7.2 % (15.3-44.8); MPV 9.3 fL (7.6-11.3); RBC Red Blood Cell Count 3.45 M/uL (4.33-5.43)
[2021-01-06] MEDS ORDERED: FENTANYL CITR 100 MCG/2 ML ONE (22:45)
[2021-01-06 22:49] LABS: Potassium 4.3 mmol/L (3.5-5.1)
[2021-01-07 00:43] VITALS: TEMP 98.4
[2021-01-07 00:50] VITALS: O2SAT 99
[2021-01-07 00:51] VITALS: BP 105/68
--- NOTE | 2021-01-07 18:11 | EKG ---
Test Date: 2021-01-06 Test Time: 15:14:04 Wrapping Machine Helper: CANDE MEASUREMENT RESULTS: Intervals: Rate: 71 NV: 130 QRSD: 88 QT: 420 QTc: 456 [place]: P: 19 NV: 130 QRS: -37 T: 88 INTERPRETIVE STATEMENTS: Normal sinus rhythm Left axis deviation Left ventricular hypertrophy with repolarization abnormality Abnormal ECG Compared to ECG 11/12/2018 18:51:44 Left-axis deviation now present Left ventricular hypertrophy now present Early repolarization now present Right superior axis no longer present Electronically Signed On 01-07-21 18:06:07 CDT by Travon Pacheco
== END 2021-01-07 00:39 | disposition short-term general hospital (02) ==
LOC: ER 14:36
PROC: 30233N1 Transfusion of Nonautologous Red Blood Cells into Peripheral Vein, Percutaneous Approach (ICD-10-PCS; principal; 2021-01-07)
DX: K66.1 Hemoperitoneum (principal); E03.9 Hypothyroidism, unspecified; I10 Essential (primary) hypertension; Z20.822 Contact with and (suspected) exposure to COVID-19; Z79.82 Long term (current) use of aspirin
CPT/HCPCS: 96361; 93005; 85025 ×2; 80048 ×2; 36415; 86900; 86850; 86901; 80076; 83605; 83690; 74176 ×2; 76705; 96375; 96374; 99284; 36430; U0003; Q9967; J3010; J2270 ×3; P9016 ×2; J7030 ×2; J2405

== ENCOUNTER 2021-09-23 11:42 | Emergency (ER) | payer OTHER, MEDICARE ==
--- OUTSIDE RECORDS SUMMARY | 2021-09-23 11:46 | XMS REPORT | Continuity of Care Document ---
:[address] [facility] t Address [address] [place] [address] Care Team Providers Name Role Phone Homar Armando MD Primary Care Physician Yolande Chawla MD Attending Clinician Eduardo LANG Attending Clinician Shobha Rodriguez MD Attending Clinician ALEXIA ROLLINS Attending Clinician Unavailable SIMI Attending Clinician Unavailable Edgard LANG Attending Clinician Marco A Lundy MD Attending Clinician Homar Armando MD Attending Clinician YOLANDE CHAWLA Admitting Clinician Unavailable SIMI Admitting Clinician Unavailable Edgard LANG Admitting Clinician Marco A Lundy MD Admitting Clinician Payers Payer Name Policy Type Policy Number Effective Date Expiration Date S ource MEDICARE PART A [id number] 2008 2024 AND B 00:00:00 00:00:00 Problems Condition Condition Condition Status Onset Resolution Last Treating Co mments Source Name Details Category Date Date Treatment Clinician Date Gout Gout Disease Active 2014-04 [facility] 04-21 ity of 00:00: [place] 00 [facility] Anxiety Anxiety Disease Active 2014-04 Univers 04-21 ity of 00:00: [place] 00 [facility] Hypothyroi Hypothyroi Disease Active 2014-04 U destineesteven dism dism 04-17 ity of 00:00: [place] [facility] Hyperchole Hyperchole Disease Active 2014-04 U nivsteven sterolemia sterolemia 04-17 it y of 00:00: [place] 00 [facility] Essential Essential Disease Active 2014-04 Uni vers hypertensi hypertensi 04-17 it y of on on 00:00: [place] 00 [facility] Allergies, Adverse Reactions, Alerts Allergy Allergy Status Severity Reaction(s) Onset Inactive Treating Comm ents Source Name Type Date Date Clinician Citalopr Propensi Active Hallucinatio 2017-04 Univers am ty to ns 04-06 ity of adverse 00:00: [place] reaction 00 Medical s Branch Social History Social Habit Start Date Stop Date Quantity Comments Source Exposure to 2021-08-08 2021-08-18 Not sure [facility] SARS-CoV-2 00:00:00 09:50:00 [facility] (event) [place] Alcohol intake 2021-08-18 2021-08-18 0 /d [facility] 00:00:00 00:00:00 [facility] Tobacco use and 2015-02-19 2015-02-19 Never used Universit y of exposure 00:00:00 00:00:00 [facility] History of 1965-01-16 Cigarette Smoker Universi ty of tobacco use 00:00:00 [facility] Sex Assigned At [birth year] [facility] 00:00:00 00:00:00 Smoking Status Start Date Stop Date Source Tobacco smoking [facility] consumption unknown Former smoker 2015-02-19 00:00:00 2015-02-19 [place] [facility] 00:00:00 [facility] Medications Ordered Filled Start Stop Current Ordering Indication Dosage Frequency Signature Comments Components Source Medication Medication Date Date Medication? Clinician (SIG) Name Name losartan 50 Yes [id number] 50mg Take 1 Univers mg tablet 2-24 tablet by ity o f 00:00: mouth [place] 00 daily. Medical Branch mirabegron Yes [id number] 25mg Take 1 U nivers 25 mg 2-14 tablet by ity of tablet 00:00: mouth [place] 00 daily. Medical Branch doxycycline Yes [id number] 100mg Take 1 Univers hyclate 100 1-28 capsule by it y of mg capsule 00:00: mouth [place] 00 every 12 Medical (twelve) Branch hours. tamsulosin 2021- No [id number] .4mg Take 1 Univers (FLOMAX) 1-03 05-31 capsule by ity of 0.4 mg 24 00:00: 00:00 mouth [place] hr capsule 00 :00 daily. Medical Branch VENLAFAXINE 2020-04 Yes [id number] 150mg TAKE 1 Univers XR 150 mg 2-01 CAPSULE BY ity of 24 hr 00:00: MOUTH [place] capsule 00 DAILY WITH Medica l BREAKFAST Branch simvastatin Yes [id number] 40mg Take 1 Univers 40 mg 9-13 tablet by ity of tablet 00:00: mouth at [place] 00 bedtime. Medical Branch mesalamine Yes [id number] 1.2g Take 1 Univers 1.2 gram EC 6-30 tablet by ity of tablet 00:00: mouth [place] 00 daily with Medical breakfast. Branch levothyroxi Yes [id number] 125ug Take 1 Univers ne 125 mcg 4-22 tablet by ity of tablet 00:00: mouth [place] 00 every Medical morning. Branch omeprazole Yes 40mg Take 40 mg U nivers 40 mg 3-08 by mouth ity of capsule 08:19: daily. [address] Branch aspirin 81 Yes 81mg Take 81 mg U nivers mg tablet 7-29 by mouth ity of 08:31: daily. [address] Immunizations Ordered Filled Immunization Date Status Comments [facility] e Immunization Name Name SARS-COV-2 COVID-19 2021-02-12 Completed Unive rsity of PFIZER VACCINE 00:00:00 [facility] [place] [facility] SARS-COV-2 COVID-19 2020-05-30 Completed Unive rsity of PFIZER VACCINE 00:00:00 [facility] [place] [facility] SARS-COV-2 COVID-19 2020-04-30 Completed Unive rsity of PFIZER VACCINE 00:00:00 [facility] Zoster(Zostavax)( 2018-11-12 Completed Unive rsity of ingrobyn) 00:00:00 [facility] Pneumococcal 2018-09-08 Completed University o f Polysaccharide, 00:00:00 [facility] ical PPSV23 (PNEUMOVAX) Branch Zoster(Zostavax)( 2018-09-08 Completed Unive rsity of ingles) 00:00:00 [facility] Vital Signs Vital Name Observation Time Observation Value Comments Source Body height 2021-08-18 15:07:00 172.7 cm [facility] Procedures This patient has no known procedures. Encounters Start End Encounter Admission Attending Care Care Encounter Source Date/Time Date/Time Type Type Clinicians Facility Department ID 2021-04-08 Outpatient [facility] [id number] [place] 01:05:23 [facility] 2021-01-06 [facility] KODY Radha [facility] [id number] [facility] 00:00:00 Encounter Chris Betancourt [facility] 2021-08-18 2021-08-18 Office Lui Clark [facility] [id number] [facility] 11:00:00 11:00:00 Visit Michael Rodriguez MULTISPEC 350.1.1 3.10 ity of IALTY [id number] [facility] [id number] [facility] AND [address] [facility] 2021-03-10 2021-03-10 Outpatient [facility] [id number] [facility] 13:50:00 23:59:00 [place] 2021-01-31 2021-01-31 Outpatient [facility] [id number] [facility] 07:26:00 23:59:00 [place] 2021-01-07 2021-01-11 Inpatient Demetrio BELCHER [facility] MED [id number] [facility] 00:39:00 16:16:00 LASHAWN 2021-01-06 2021-01-[address] [facility] VERO Ann MSRDP [id number] [place] 00:00:00 00:00:00 [facility] [id number] H ealt [id number] 2021-01-06 2021-01-[address] [facility] OP VERO Lundy MSRDP [id number] [place] 00:00:00 00:00:00 Jermain Strickland [facility] [id number] [facility] [id number] 2019-11-14 2019-11-14 [facility] [id number] 11:09:30 11:24:30 Visit David Murali [id number] Homar Ayala [id number] [facility] [id number] [place] [address] Building Results This patient has no known results.
--- NOTE | 2021-09-23 12:48 | RAD REPORT ---
EXAM DESCRIPTION: CT - CTFB CLINICAL HISTORY: Facial trauma, blunt COMPARISON: Facial Bones W/ Mpr dated 10/04/2016; Head C Spine Cap Wo Con dated 09/23/2021 TECHNIQUE: Axial 2 mm thick images of the face were obtained with sagittal and coronal reconstructio n images. All CT scans are performed using dose optimization technique as appropriate and may include automated exposure control or mA/KV adjustment according to patient size. FINDINGS: No acute facial bone fracture is seen.The mandible is intact. The globes and orbital contents are grossly unremarkable.Trace right maxillary sinus thickening. Right forehead hematoma IMPRESSION: Negative for facial bone fracture.
--- NOTE | 2021-09-23 12:57 | RAD REPORT ---
EXAM DESCRIPTION: CT - Head C Spine Cap Wo Lico - 09/23/2021 12:40 pm CLINICAL HISTORY: Trauma, head and neck injury. Chest, abdomen and pelvis pain. trauma COMPARISON: No comparisons TECHNIQUE: CT head without contrast. CT cervical spine without contrast with coronal and sagittal reformatted images. CT chest, abdomen and pelvis with coronal and sagittal reformatted images of the spine. All CT scans are performed using dose optimization technique as appropriate and may include automated exposure control or mA/KV adjustment according to patient size. FINDINGS: CT HEAD WITHOUT CONTRAST: No intracranial hemorrhage, hydrocephalus or extra-axial fluid collection. No acute large vascular te rritory infarct. Right forehead hematoma The paranasal sinuses and mastoids are clear. The calvarium is intact. CT CERVICAL SPINE WITHOUT CONTRAST: No fracture or subluxation. The prevertebral soft tissues are normal in thickness. CT CHEST, ABDOMEN, PELVIS: Thorax: Chest Wall: No abnormal mass Lungs: No acute abnormality. Pleura: No effusions or pneumothorax. Penelope/Mediastinum: No lymphadenopathy. Aorta/Pulmonary Arteries: Unremarkable Heart: Normal size. Multi-vessel coronary artery disease. Abdomen/Pelvis: Liver: Too small to characterize liver lesions which are likely benign. Biliary: No biliary ductal dilatation. Stomach: No significant focal abnormality. Duodenum: No significant focal abnormality. Pancreas: No significant abnormality. Spleen: No significant abnormality. Adrenal: No suspicious lesions. Kidney/ureter: No hydronephrosis. 4 mm stone in the upper pole left kidney. Too small to characterize and/or benign appearing renal lesions are noted. Retroperitoneum: No retroperitoneal adenopathy. Vascular: No aneurysm. Aortoiliac atherosclerosis with stent graft. Bowel: Partial colectomy.. Peritoneum: No ascites or free air. Ventral hernia repair. Bladder: Grossly unremarkable. Reproductive: No masses. Bones: No acute fracture. Soft tissue anchor in the left humeral head. Other: n/a IMPRESSION: 1. No acute intracranial abnormality. 2. No acute fracture or traumatic malalignment of the cervical spine. 3. No evidence of significant trauma to the chest, abdomen, or pelvis.
[2021-09-23] MEDS ORDERED: CEPHALEXIN 250 MG CAP ONE (13:01)
[2021-09-23] MEDS ORDERED: CEFAZOLIN SODIUM 1 GM/VIAL ONE (13:01)
[2021-09-23] MEDS ORDERED: NA CHLORIDE 0.9% 100 ML ONE (13:01)
[2021-09-23] MEDS ORDERED: TETANUS & DIPHTHERIA TOX,ADULT 0.5 ML VIAL ONE (13:02)
[2021-09-23 13:17] LABS: Absolute Lymphocytes (CBC) 1.2 K/uL (0.7-4.9); Hematocrit 35.9 % (39.6-49.0); Lymphocytes % 9.8 % (15.3-44.8); MPV 8.8 fL (7.6-11.3); RBC Red Blood Cell Count 3.79 M/uL (4.33-5.43)
--- NOTE | 2021-09-23 13:25 | EDPHYS ---
Physician Documentation [facility] Name: Lev Hunter Age: 76 yrs Sex: Male : 1945 Arrival Date: 09/23/2021 Time: 11:43 Bed 23 Private MD: David Armando ED Physician Brian Norman HPI: 09/23 13:20 This 76 yrs old Male presents to ER via Ambulatory with complaints of Head frieda Injury Without LOC-Adult, Abrasion(s), Laceration To Forehead. 13:20 The patient or guardian reports pain, swelling, tenderness. The complaints affect the frieda top of head, forehead, right eye, right cheek, right ear and left eye. Context of injury: The problem was sustained outdoors, resulted from a direct blow. Onset: The symptoms/episode began/occurred just prior to arrival. Associated signs and symptoms: The patient has no apparent associated signs or symptoms, Loss of consciousness: This patient did not experience any loss of consciousness. Severity of symptoms: At their worst the symptoms were mild, in the emergency department the symptoms are unchanged. The patient has not experienced similar symptoms in the past. hit by a limb, tree. 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 - Social history:: Smoking status: Patient denies any tobacco usage or history of. - Family history:: not pertinent. ROS: 13:20 Constitutional: Negative for fever, chills, and weight loss, Eyes: Negative for injury, frieda pain, redness, and discharge, ENT: Negative for injury, pain, and discharge, Neck: Negative for injury, pain, and swelling, Cardiovascular: Negative for chest pain, palpitations, and edema, Respiratory: Negative for shortness of breath, cough, wheezing, and pleuritic chest pain, Abdomen/GI: Negative for abdominal pain, nausea, vomiting, diarrhea, and constipation, Back: Negative for injury and pain, : Negative for injury, bleeding, discharge, and swelling, MS/Extremity: Negative for injury and deformity, Neuro: Negative for headache, weakness, numbness, tingling, and seizure, Psych: Negative for depression, anxiety, suicide ideation, homicidal ideation, and hallucinations, Allergy/Immunology: Negative for hives, rash, and allergies, Endocrine: Negative for neck swelling, polydipsia, polyuria, polyphagia, and marked weight changes, Hematologic/Lymphatic: Negative for swollen nodes, abnormal bleeding, and unusual bruising. 13:20 Skin: Positive for abrasion(s), avulsion, laceration(s), of the face and back. Exam: 13:20 Constitutional: This is a well developed, well nourished patient who is awake, alert, frieda and in no acute distress. Eyes: Pupils equal round and reactive to light, extra-ocular motions intact. Lids and lashes normal. Conjunctiva and sclera are non-icteric and not injected. Cornea within normal limits. Periorbital areas with no swelling, redness, or edema. ENT: Nares patent. No nasal discharge, no septal abnormalities noted. Tympanic membranes are normal and external auditory canals are clear. Oropharynx with no redness, swelling, or masses, exudates, or evidence of obstruction, uvula midline. Mucous membranes moist. Neck: Trachea midline, no thyromegaly or masses palpated, and no cervical lymphadenopathy. Supple, full range of motion without nuchal rigidity, or vertebral point tenderness. No Meningismus. Cardiovascular: Regular rate and rhythm with a normal S1 and S2. No gallops, murmurs, or rubs. Normal PMI, no JVD. No pulse deficits. Respiratory: Lungs have equal breath sounds bilaterally, clear to auscultation and percussion. No rales, rhonchi or wheezes noted. No increased work of breathing, no retractions or nasal flaring. Abdomen/GI: Soft, non-tender, with normal bowel sounds. No distension or tympany. No guarding or rebound. No evidence of tenderness throughout. Back: No spinal tenderness. No costovertebral tenderness. Full range of motion. Male : Normal genitalia with no discharge or lesions. Skin: Warm, dry with normal turgor. Normal color with no rashes, no lesions, and no evidence of cellulitis. MS/ Extremity: Pulses equal, no cyanosis. Neurovascular intact. Full, normal range of motion. Neuro: Awake and alert, GCS 15, oriented to person, place, time, and situation. Cranial nerves II-XII grossly intact. Motor strength 5/5 in all extremities. Sensory grossly intact. Cerebellar exam normal. Normal gait. Psych: Awake, alert, with orientation to person, place and time. Behavior, mood, and affect are within normal limits. 13:20 Head/face: Noted is abrasion(s), contusion, a laceration(s), swelling. 13:20 Chest/axilla: Inspection: abrasion, that is mild, of the right lateral posterior chest and left lateral posterior chest Palpation: tenderness, that is mild, Axilla: are normal, Lymph nodes: lymphadenopathy is not appreciated. 13:57 ECG was reviewed by the Attending Physician. [facility] Vital Signs: 12:02 BP 146 / 70; Pulse 72; Resp 18; Temp 98.3; Pulse Ox 99% on R/A; Weight 83.91 kg (R); 1 Height 5 ft. 9 in. (175.26 cm); Pain 4/10; 13:11 BP 151 / 63; Pulse 64; Resp 18; Pulse Ox 99% on R/A; bh1 14:05 BP 151 / 66; Pulse 69; Resp 18; Pulse Ox 100% on R/A; bh1 14:20 BP 181 / 79; Pulse 66; Resp 20; Pulse Ox 99% on R/A; bh1 15:26 BP 182 / 76; Pulse 65; Resp 18; Temp 98.3(O); Pulse Ox 99% on R/A; bh1 12:02 Body Mass Index 27.32 (83.91 kg, 175.26 cm) [facility] Juan Carlos Coma Score: 13:20 Eye Response: spontaneous(4). Verbal Response: oriented(5). Motor Response: obeys frieda commands(6). Total: 15. 13:20 Eye Response: spontaneous(4). Verbal Response: oriented(5). Motor Response: obeys frieda commands(6). Total: 15. MDM: 11:50 Patient medically screened. [facility] 13:20 Differential diagnosis: Contusion of Hematoma on Laceration of Intracranial bleed- frieda Concussion without LOC. cerebral contusion. Data reviewed: vital signs, nurses notes. 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 Counseling: I had a detailed discussion with the patient and/or guardian regarding: the historical points, exam findings, and any diagnostic results supporting the discharge/admit diagnosis, radiology results, the need for outpatient follow up, for definitive care, a family practitioner. 09/23 12:11 Order name: CBC with Diff; Complete Time: 13:39 [facility] 09/23 12:11 Order name: Chem 7; Complete Time: 13:39 [facility] 09/23 12:11 Order name: CT Traumagram (Head C Spine CAP wo con); Complete Time: 13:19 [facility] 09/23 12:12 Order name: CT Facial Bones W/O Con [facility] 09/23 12:12 Order name: Wound Care; Complete Time: 14:19 [facility] 09/23 12:16 Order name: Facial Bones W/ Mpr; Complete Time: 13:19 EDMS 09/23 13:41 Order name: EKG; Complete Time: 13:41 [facility] 09/23 13:41 Order name: EKG - Nurse/Tech; Complete Time: 13:56 frieda EC:57 Rate is 67 beats/min. Rhythm is regular. QRS Sedan is Normal. MS interval is normal. QRS frieda interval is normal. QT interval is normal. No Q waves. T waves are Inverted in leads I, aVL. No ST changes noted. Clinical impression: NSR w/ Non-specific ST/T Changes and No evidence of ischemia. Interpreted by me. Reviewed by me. Administered Medications: 13:00 Drug: Ancef (cefazolin) 1 grams Route: IVPB; Site: right antecubital; [facility] 14:19 Follow up: IV Status: Completed infusion; IV Intake: 100ml [facility] 13:00 Drug: KeFLEX (cephalexin) 500 mg Route: PO; [facility] 13:11 Follow up: Response: No adverse reaction [facility] 13:08 Drug: Tetanus Toxoid,Adsorbed 0.5 ml {Edi Coordinator: [employer] ([employer]). Exp: [facility] 06/28/2023. Lot #: [id number]. } Route: IM; Site: right deltoid; 13:10 Follow up: Response: No adverse reaction [facility] 14:05 Drug: Kayexalate (polystyrene) 30 grams Route: PO; 1 14:19 Follow up: Response: No adverse reaction [facility] 14:05 Drug: NS 0.9% 1000 ml Route: IV; Rate: 1 bolus; Site: right antecubital; [facility] 15:26 Follow up: IV Status: Completed infusion; IV Intake: 1000ml [facility] Disposition Summary: 09/23/21 14:22 Discharge Ordered Location: Home(09/23/21 14:22) frieda Problem: new(09/23/21 14:22) frieda Symptoms: have improved(09/23/21 14:22) frieda Condition: Stable(09/23/21 14:22) frieda Diagnosis - Hyperkalemia frieda - Contusion of back wall of thorax(09/23/21 14:22) frieda - Unspecified injury of head, initial encounter(09/23/21 14:22) frieda - Unspecified kidney failure - chronic frieda - Laceration without foreign body of other part of head - face frieda Followup: frieda - With: - When: 2 - 3 days - Reason: Recheck today's complaints, Continuance of care, Re-evaluation by your physician Followup: frieda - With: - When: 2 - 3 days - Reason: Recheck today's complaints, Continuance of care, Re-evaluation by your physician Discharge Instructions: - Discharge Summary Sheet frieda - Head Injury, Adult frieda - Hyperkalemia frieda - Hyperkalemia, [id number]-[id number] frieda - Acute Kidney Injury, Adult frieda - Head Injury, Adult, Lkpp-wv-Moog frieda - Chronic Kidney Disease, Adult, Yiki-wv-Qniq frieda - Basic Metabolic Panel frieda Forms: - Medication Reconciliation Form frieda - Thank You Letter frieda - Antibiotic Education frieda - Prescription Opioid Use frieda Prescriptions: - Centany 2 % Topical ointment - apply 1 application by TOPICAL route 3 times per day for 5 days; 30 gram; frieda Refills: 0, Product Selection Permitted - Cephalexin 500 mg Oral Capsule - take 1 capsule by ORAL route 3 times per day for 10 days; 21 capsule; Refills: frieda 0, Product Selection Permitted Signatures: Dispatcher [employer] EDBrian Ojeda MD MD cha Hicks, Barbara, RN RN [facility] Corrections: (The following items were deleted from the chart) 12:19 11:54 Head C Spine Mpr Wo Con ordered. EDMS EDMS : 13:25 Home [facility] : 13:25 new [facility] 13:25 have improved [facility] : 13:25 Stable [facility] : 13:25 Contusion of back wall of thorax [facility] : 13:25 Unspecified injury of head, initial encounter [facility] 13:25 Laceration without foreign body of unspecified part of head - face [facility]
--- NOTE | 2021-09-23 13:25 | ER ---
Nurse's Notes [facility] Name: Lev Hunter Age: 76 yrs Sex: Male : 1945 Arrival Date: 09/23/2021 Time: 11:43 Bed 23 Private MD: David Armando Diagnosis: Hyperkalemia;Contusion of back wall of thorax;Unspecified injury of head, initial encounter;Unspecified kidney failure-chronic;Laceration without foreign body of other part of head-face Presentation: 09/23 11:55 Chief complaint: Patient states: was cutting limbs off a tree and limb feel and iw hit him in head/face, abrasion to right side of face, forehead, right elbow/forearm, denies LOC. Risk Assessment: Do you want to hurt yourself or someone else? Patient reports no desire to harm self or others. 11:55 Method Of Arrival: Ambulatory iw 11:55 Acuity: RIOS 3 iw 11:56 Coronavirus screen: At this time, the client does not indicate any symptoms associated iw with coronavirus-19. Ebola Screen: Patient negative for fever greater than or equal to 101.5 degrees Fahrenheit, and additional compatible Ebola Virus Disease symptoms Patient denies exposure to infectious person. Patient denies travel to an Ebola-affected area in the 21 days before illness onset. No symptoms or risks identified at this time. Initial Sepsis Screen: Does the patient meet any 2 criteria? No. Patient's initial sepsis screen is negative. Does the patient have a suspected source of infection? No. Patient's initial sepsis screen is negative. 15:25 Onset of symptoms was September 23, [address] [facility] Triage Assessment: 12:02 General: Appears in no apparent distress. Behavior is calm, cooperative, appropriate [facility] for age. Pain: Complains of pain in face Pain does not radiate. Pain currently is 4 out of 10 on a pain scale. Quality of pain is described as burning, Pain began 30 min ago. Is intermittent. Historical: - Home Meds: 12:01 aspirin 81 mg Oral chew 1 tab once daily [Active]; Fish Oil oral cap [Active]; [facility] - PMHx: 11:57 Anxiety; BOWEL PERFORATION; Colitis; Diverticulitis; GERD; Hyperlipidemia; [facility] Hypertension; Hypothyroidism; 12:00 Aneurysm; [facility] - PSHx: 11:57 hernia repair; [facility] 12:02 Operative procedure on knee; [facility] - Immunization history:: Adult Immunizations up to date, Client reports receiving the 2nd dose of the Covid vaccine, Last tetanus immunization: unknown, Pneumococcal vaccine is up to date. - Social history:: Smoking status: Patient denies any tobacco usage or history of. - Family history:: not pertinent. Screenin:06 Abuse screen: Denies threats or abuse. Nutritional screening: No deficits noted. [facility] Tuberculosis screening: No symptoms or risk factors identified. Fall Risk None identified. Assessment: 12:06 Reassessment: No changes from previously documented assessment. [facility] Vital Signs: 12:02 BP 146 / 70; Pulse 72; Resp 18; Temp 98.3; Pulse Ox 99% on R/A; Weight 83.91 kg (R); [facility] Height 5 ft. 9 in. (175.26 cm); Pain 4/10; 13:11 BP 151 / 63; Pulse 64; Resp 18; Pulse Ox 99% on R/A; 1 14:05 BP 151 / 66; Pulse 69; Resp 18; Pulse Ox 100% on R/A; [facility] 14:20 BP 181 / 79; Pulse 66; Resp 20; Pulse Ox 99% on R/A; [facility] 15:26 BP 182 / 76; Pulse 65; Resp 18; Temp 98.3(O); Pulse Ox 99% on R/A; [facility] 12:02 Body Mass Index 27.32 (83.91 kg, 175.26 cm) [facility] Kountze Coma Score: 13:20 Eye Response: spontaneous(4). Verbal Response: oriented(5). Motor Response: obeys frieda commands(6). Total: 15. 13:20 Eye Response: spontaneous(4). Verbal Response: oriented(5). Motor Response: obeys frieda commands(6). Total: 15. ED Course: 11:43 Patient arrived in ED. am2 11:44 David Armando MD is Private Physician. am2 11:50 Brian Norman MD is Attending Physician. frieda 11:52 Tracy Dubon RN is Primary Nurse. 1 11:56 Triage completed. iw 12:02 Arm band placed on right wrist. 1 12:06 No apparent distress. Awaiting CT Scan. bh1 12:06 Patient has correct armband on for positive identification. Bed in low position. Call 1 light in reach. Adult w/ patient. Pulse ox on. NIBP on. 12:07 No provider procedures requiring assistance completed. Patient did not have IV access bh during this emergency room visit. 12:[address] via stretcher. 1 12:42 CT Traumagram (Head C Spine CAP wo con) In Process Unspecified. EDMS 12:43 Facial Bones W/ Mpr In Process Unspecified. EDMS 13:00 Inserted saline lock: 20 gauge in right antecubital area, using aseptic technique. [facility] Blood collected. 13:24 David Armando MD is Referral Physician. [facility] 13:56 EKG done, by ED staff, reviewed by Brian Norman MD. em1 14:[address] [facility] 14:19 Dressings: Band aid x 2 face and right arm. Wound care: to abrasion, located on face bh1 and right arm Patient tolerated well. 14:22 David Armando MD is Referral Physician. [facility] 14:22 John Santoro MD is Referral Physician. [facility] 15:24 IV discontinued, intact, bleeding controlled. [facility] Administered Medications: 13:00 Drug: Ancef (cefazolin) 1 grams Route: IVPB; Site: right antecubital; [facility] 14:19 Follow up: IV Status: Completed infusion; IV Intake: 100ml [facility] 13:00 Drug: KeFLEX (cephalexin) 500 mg Route: PO; [facility] 13:11 Follow up: Response: No adverse reaction [facility] 13:08 Drug: Tetanus Toxoid,Adsorbed 0.5 ml {Clinical Administrator: [employer] (Real Time Tomography). Exp: [facility] 06/28/2023. Lot #: [id number]. } Route: IM; Site: right deltoid; 13:10 Follow up: Response: No adverse reaction [facility] 14:05 Drug: Kayexalate (polystyrene) 30 grams Route: PO; [facility] 14:19 Follow up: Response: No adverse reaction [facility] 14:05 Drug: NS 0.9% 1000 ml Route: IV; Rate: 1 bolus; Site: right antecubital; [facility] 15:26 Follow up: IV Status: Completed infusion; IV Intake: 1000ml [facility] Medication: 15:24 Vaccine Information Statement (VIS) provided today. Questions and/or concerns [facility] addressed. VIS edition date: September 23, 2021. Intake: 14:19 IV: 100ml; Total: 100ml. bh1 15:26 IV: 1000ml; Total: 1100ml. 1 Outcome: 13:25 Discharge ordered by . frieda 14:22 Discharge ordered by . frieda 15:24 Discharged to home ambulatory. 1 15:24 Condition: good 15:24 Discharge instructions given to patient, family, Instructed on discharge instructions, follow up and referral plans. medication usage, Demonstrated understanding of instructions, follow-up care, medications, Prescriptions given X 2. 15:25 [address] ED[address] [facility] Signatures: Dispatcher [employer] EDMS Brian Norman MD MD cha Williams, Irene, RN Harpreet Villalobos1 Abbi Pak am2 Tracy Dubon RN RN 1
[2021-09-23 13:39] LABS: Potassium 5.7 mmol/L (3.5-5.1)
[2021-09-23] MEDS ORDERED: NA CHLORIDE 0.9% 1,000 ML ONE (14:05)
[2021-09-23] MEDS ORDERED: SOD POLYSTYREN SUL 15 GM/60 ML UCUP ONE (14:05)
[2021-09-23 16:17] VITALS: TEMP 98.3
[2021-09-23 16:45] VITALS: BP 181/79; O2SAT 99
--- NOTE | 2021-09-24 07:20 | EKG ---
Test Date: 2021-09-23 Test Time: 13:49:17 Advertising Executive: KAREEM MEASUREMENT RESULTS: Intervals: Rate: 67 AK: 180 QRSD: 90 QT: 380 QTc: 401 [place]: P: 52 AK: 180 QRS: -9 T: 64 INTERPRETIVE STATEMENTS: Normal sinus rhythm Nonspecific ST abnormality Abnormal ECG Compared to ECG 01/06/2021 15:14:44 Left-axis deviation no longer present Left ventricular hypertrophy no longer present ST (T wave) deviation still present Electronically Signed On 09-24-21 07:17:29 CDT by Travon Pacheco
== END 2021-09-23 15:25 | disposition home or self-care (01) ==
LOC: ER 11:42
DX: S01.81XA Laceration without foreign body of other part of head, initial encounter (principal); S20.229A Contusion of unspecified back wall of thorax, initial encounter; E87.5 Hyperkalemia; I12.9 Hypertensive chronic kidney disease with stage 1 through stage 4 chronic kidney disease, or unspecified chronic kidney disease; N18.9 Chronic kidney disease, unspecified; E03.9 Hypothyroidism, unspecified; Z23 Encounter for immunization; Z79.82 Long term (current) use of aspirin
CPT/HCPCS: 93005; 85025; 80048; 36415; 70450; 71250; 72125; 70486; 76377; 90714; J7030; J0690

== ENCOUNTER 2023-11-23 16:51 | Emergency (ER) | payer OTHER, MEDICARE ==
--- OUTSIDE RECORDS SUMMARY | 2023-11-23 16:58 | XMS REPORT | Continuity of Care Document ---
Author Name Unknown Address [address] [facility] [address] [place] [address] [facility] Address [address] [facility] [address] [place] [address] Care Team Providers Care Treating Plant Pumper Name Role Phone SHAWN SOLIS Primary Care Physician Raisa ARIADNE Hart Attending Clinician Unavailable LENIN PIEDRA Attending Clinician Unavailable MARIA ESTHER REID Attending Clinician Unavail able SHAWN SOLIS Attending Clinician Maria Esther Brewer MD Attending Clinician [phone] Shawn Solis MD Attending Clinician + [phone] Lenin Piedra MD Attending Clinician [phone] Maria Esther Reid MD Attending Clinician [phone] Vaccine, Ang Db Cbc Fam Attending Clinician Unav ailjeremi Lab, Ang - Db Attending Clinician Unavailable Doctor Unassigned, [place] Attending Clinician U Jayla Pendleton Attending Clinician [phone] JAYLA MIRAMONTES Attending Clinician Unavailable Solo Briceno MD Attending Clinician [phone] Hayden Patterson MD Attending Clinician [phone] SOLO BRICENO Attending Clinician Unavail able SOLO BRICENO Attending Clinician Unavail able HAYDEN PATTERSON Attending Clinician Unavailabl e Vaccine, [facility] Attending Clinician Unavailable Chetan Quintanilla MD Attending Clinician [phone] Noe Matos MD Attending Clinician [phone] Lui Clark MD Attending Clinician [phone] NYASIA GALLEGO Attending Clinician Unavailable Nyasia Gallego MD Attending Clinician [phone] NOE MATOS Attending Clinician Unavailable , [facility] Surg Spec Procedure Attending Clinician Unavailable CAMERON ROLLINS Attending Clinician Un available JAUN KOVACS Attending Clinician Unavail able Nurse, [facility] Pob Immunization Attending Clinician Unavailable Jaun Kovacs DO Attending Clinician [phone] Kalina De Anda Attending Clinician + [phone] KALINA DICKSON Attending Clinician Unavailabl e LASHAWN BELCHER Attending Clinician Unavailable Jesika Rene MD Attending Clinician [phone] Jermain Lundy MD Attending Clinician [phone] [facility], [facility] Fam Pob I Attending Clinician Unavailab ELLIOT Segovia Attending Clinician Unavailable Cinthia Velazquez Attending Clinician [phone] LENIN PIEDRA Admitting Clinician Unavailable HAYDEN PATTERSON Admitting Clinician Unavailabl SOLO Norman Admitting Clinician Unavail able LASHAWN BELCHER Admitting Clinician Unavailable Jesika Rene MD Admitting Clinician [phone] Jermain Lundy MD Admitting Clinician [phone] Payers Payer Name Policy Type Policy Number Effective Date Expirati on Date Source MEDICARE PART A AND B [id number] 2008 00:00:00 2024 00:00:00 MEDICARE PART A \T\ B [id number] 2008 00:00:00 [employer] MEDICARE SUPPLEMENT [id number] 2010 00:00:00 Problems Condition Name Condition Details Condition Category Status Onset Date Resolution Date Last Treatment Date Treating Clinician Comments Source Abdominal aortic aneurysm (AAA) without rupture, unspecifie d part Abdominal aortic aneurysm (AAA) without rupture, unspecifie d part Disease Active 06-28 00:00: 00 [facility] At risk for falls At risk for falls Disease Active 04-27 00:00: 00 [facility] Unspecifie d abnormalit ies of gait and mobility Unspecifie d abnormalit ies of gait and mobility Disease Active 04-27 00:00: 00 [facility] Dizziness and giddiness Dizziness and giddiness Disease Active 12-29 00:00: 00 [facility] Palpitatio ns Palpitatio ns Disease Active 12-29 00:00: 00 [facility] Memory loss Memory loss Disease Active 04-17 00:00: 00 [facility] Gout Gout Disease Active 2014-04 00:00: 00 [facility] Anxiety Anxiety Disease Active 2014-04 00:00: 00 [facility] Hypothyroi dism Hypothyroi dism Disease Active 2014-04 00:00: 00 [facility] Hyperchole sterolemia Hyperchole sterolemia Disease Active 2014-04 00:00: 00 [facility] Essential hypertensi on Essential hypertensi on Disease Resolve d 2014-04 00:00: 00 2023-04-27 00:00:00 2023-04-27 13:10:30 [facility] Allergies, Adverse Reactions, Alerts Allergy Name Allergy Type Status Severity Reaction(s) Onset Date Inactive Date Treating Clinician Comments Source CITALOPR AM DRUG INGREDI Active Hallucinates 2017-04 00:00: 00 [facility] Citalopr am Propensi ty to adverse reaction s Active Hallucinatio ns 2017-04 00:00: 00 [facility] Social History Social Habit Start Date Stop Date Quantity Comments Source Gender identity [facility]coholic beverage intake 2023-10-22 00:00:00 2023-10-22 00:00:00 0 /d [facility] History of Social function 2023-10-18 00:00:00 2023-10-18 00:00:00 [facility] Tobacco use and exposure 2023-10-18 00:00:00 2023-10-18 00:00:00 Smokeless tobacco non-user [facility] Alcohol intake 2023-06-01 00:00:00 2023-06-01 00:00:00 0 /d [facility] Exposure to SARS-CoV-2 (event) 2022-07-10 00:00:00 2022-07-20 09:14:00 Not sure [facility] History of tobacco use 1965-01-16 00:00:00 Cigarette Smoker [facility] Sex Assigned At 1945 00:00:00 1945 00:00:00 [facility] Smoking Status Start Date Stop Date Source Tobacco smoking consumption unknown [facility] Ex-smoker 2023-10-18 00:00:00 2023-10-18 00:00:00 [facility] Medications Ordered Medication Name Filled Medication Name Start Date Stop Date Current Medication? Ordering Clinician Indication Dosage Frequency Signature (SIG) Comments Components Source memantine 10 mg tablet 10-21 00:00: 00 Yes [id number] 10mg Take 1 tablet by mouth in the morning. [facility] divalproex (DEPAKOTE) 125 mg delayed release tablet 10-21 00:00: 00 Yes [id number] 125mg Take 1 tablet by mouth at bedtime. [facility] mirabegron (MYRBETRIQ) 50 mg tablet 10-17 00:00: 00 Yes [id number] 50mg Take 1 tablet by mouth in the morning. [facility] MYRBETRIQ 25 mg tablet 08-17 00:00: 00 10-17 00:00 :00 No [id number] 25mg TAKE 1 TABLET BY MOUTH IN THE MORNING [facility] MESALAMINE 1.2 gram EC tablet 3-04 00:00: 00 Yes [id number] 1.2g TAKE 1 TABLET BY MOUTH DAILY WITH BREAKFAST [facility] venlafaxine 75 mg tablet 06-01 00:00: 00 Yes [id number] 225mg Take 3 tablets by mouth in the morning. [facility] simvastatin 40 mg tablet 06-01 00:00: 00 Yes [id number] 40mg Take 1 tablet by mouth at bedtime. [facility] levothyroxi ne 125 mcg tablet 06-01 00:00: 00 Yes [id number] 125ug Take 1 tablet by mouth every morning. [facility] traMADoL 50 mg tablet 06-01 00:00: 00 Yes [id number] 50mg Take 1 tablet by mouth every 6 (six) hours as needed (pain). Indication s: chronic pain [facility] traMADoL 50 mg tablet 12-30 00:00: 00 06-01 00:00 :00 No [id number] 50mg Take 1 tablet by mouth every 6 (six) hours as needed (pain). Indication s: chronic pain [facility] omeprazole 40 mg capsule 8-29 14:07: 31 Yes 40mg Take 1 capsule by mouth in the morning. [facility] memantine 7 mg capsule 717 00:00: 00 10-21 00:00 :00 No [id number] 7mg Take 1 capsule by mouth at bedtime. [facility] rivastigmin e 13.3 mg/24 hour PT24 4-17 00:00: 00 12-30 00:00 :00 No [id number] 1{patch } Apply 1 Patch to skin in the morning. [facility] memantine 7 mg capsule 4-17 00:00: 00 10-19 00:00 :00 No [id number] 7mg Take 1 capsule by mouth at bedtime. [facility] omeprazole 40 mg capsule 327 08:25: 53 06-29 00:00 :00 No 40mg Take 40 mg by mouth daily. [facility] mirabegron (MYRBETRIQ) 25 mg tablet 06-29 00:00: 00 08-17 00:00 :00 No [id number] 25mg Take 1 tablet by mouth every morning. [facility] mesalamine 1.2 gram EC tablet 06-29 00:00: 00 06-06 00:00 :00 No [id number] 1.2g Take 1 tablet by mouth daily with breakfast. [facility] levothyroxi ne 125 mcg tablet 06-29 00:00: 00 06-01 00:00 :00 No [id number] 125ug Take 1 tablet by mouth every morning. [facility] simvastatin 40 mg tablet 06-29 00:00: 00 06-01 00:00 :00 No [id number] 40mg Take 1 tablet by mouth at bedtime. [facility] venlafaxine 75 mg tablet 06-29 00:00: 00 06-01 00:00 :00 No [id number] 225mg Take 3 tablets by mouth in the morning. [facility] tamsulosin (FLOMAX) 0.4 mg 24 hr capsule 06-29 00:00: 00 04-27 00:00 :00 No [id number] .4mg Take 1 capsule by mouth in the morning. [facility] traMADoL 50 mg tablet 06-29 00:00: 00 12-30 00:00 :00 No [id number] 50mg Take 1 tablet by mouth every 6 (six) hours as needed (pain). Indication s: chronic pain [facility] losartan 50 mg tablet 06-29 00:00: 00 10-19 00:00 :00 No [id number] 50mg Take 1 tablet by mouth in the morning. [facility] omeprazole 40 mg capsule 06-29 00:00: 00 10-19 00:00 :00 No [id number] 40mg Take 1 capsule by mouth in the morning. [facility] triamcinolo ne acetonide (KENALOG) injection 40 mg 06-25 20:15: 00 06-25 19:13 :00 No [id number] 40mg [facility] MESALAMINE 1.2 gram EC tablet 05-06 00:00: 00 06-29 00:00 :00 No [id number] 1.2g TAKE 1 TABLET BY MOUTH DAILY WITH BREAKFAST [facility] rivastigmin e 9.5 mg/24 hour patch 2021-04 00:00: 00 07-20 00:00 :00 No [id number] 1{patch } Apply 1 Patch to skin in the morning. [facility] rivastigmin e 4.6 mg/24 hour patch 2021-04 00:00: 00 06-29 00:00 :00 No [id number] 1{patch } Apply 1 Patch to skin in the morning. Take this script first. [facility] traMADoL 50 mg tablet 12-31 00:00: 00 06-29 00:00 :00 No [id number] 50mg Take 1 tablet by mouth every 6 (six) hours as needed (pain). Indication s: chronic pain [facility] traMADoL 50 mg tablet 12-30 00:00: 00 12-31 00:00 :00 No [id number] 50mg Take 1 tablet by mouth every 6 (six) hours as needed for Pain (scale 7-10) for up to 7 days. Indication s: chronic pain [facility] venlafaxine 75 mg tablet 11-03 00:00: 00 06-29 00:00 :00 No [id number] 225mg Take 3 tablets by mouth in the morning. [facility] Venlafaxine 225 mg TR24 11-03 00:00: 00 11-03 00:00 :00 No [id number] 225mg Take 225 mg by mouth daily. [facility] MYRBETRIQ 25 mg tablet 10-02 00:00: 06-29 00:00 :00 No [id number] TAKE 1 TABLET BY MOUTH DAILY [facility] LEVOTHYROXI NE 125 mcg tablet 10-02 00:00: 00 06-29 00:00 :00 No [id number] TAKE 1 TABLET BY MOUTH IN THE MORNING [facility] SIMVASTATIN 40 mg tablet 6 00:00: 00 06-29 00:00 :00 No [id number] 40mg TAKE 1 TABLET BY MOUTH AT BEDTIME [facility] tamsulosin (FLOMAX) 0.4 mg 24 hr capsule 5- 00:00: 00 06-29 00:00 :00 No [id number] .4mg Take 1 capsule by mouth daily. [facility] losartan 50 mg tablet - 00:00: 00 06-29 00:00 :00 No [id number] 50mg Take 1 tablet by mouth daily. [facility] doxycycline hyclate 100 mg capsule 05-02 00:00: 00 11-03 00:00 :00 No [id number] 100mg Take 1 capsule by mouth every 12 (twelve) hours. [facility] VENLAFAXINE XR 150 mg 24 hr capsule 2020-04 00:00: 00 11-03 00:00 :00 No [id number] 150mg TAKE 1 CAPSULE BY MOUTH DAILY WITH BREAKFAST [facility] ondansetron 4 mg tablet 2020-04- 00:00: 00 05-02 00:00 :00 No [id number] 4mg Take 1 tablet by mouth every 12 (twelve) hours as needed for Nausea and Vomiting (N/V). [facility] losartan 50 mg tablet 2020-04 0- 00:00: 00 05-29 00:00 :00 No [id number] 50mg Take 1 tablet by mouth daily. [facility] metoprolol tartrate 25 mg tablet 2020-04 0-09 00:00: 00 03-26 00:00 :00 No 1{tbl} Take 1 tablet by mouth every 12 (twelve) hours. [facility] simvastatin 40 mg tablet 9-13 00:00: 00 10-02 00:00 :00 No [id number] 40mg Take 1 tablet by mouth at bedtime. [facility] mesalamine 1.2 gram EC tablet 10-02 00:00: 00 05-06 00:00 :00 No [id number] 1.2g Take 1 tablet by mouth daily with breakfast. [facility] levothyroxi ne 125 mcg tablet 07-25 00:00: 00 10-02 00:00 :00 No [id number] 125ug Take 1 tablet by mouth every morning. [facility] omeprazole 40 mg capsule 08 08:19: 34 Yes 40mg Take 1 capsule by mouth in the morning. [facility] LORazepam 0.5 mg tablet 08 00:00: 00 03-26 00:00 :00 No [id number] .5mg Take 1 tablet by mouth as needed (anxiety). [facility] venlafaxine XR 150 mg 24 hr capsule -08 00:00: 00 03-05 00:00 :00 No [id number] 150mg Take 1 capsule by mouth daily with breakfast. [facility] traMADoL 50 mg tablet 3-08 00:00: 00 02-12 00:00 :00 No [id number] 50mg Take 1 tablet by mouth every 6 (six) hours as needed (pain). Indication s: chronic pain [facility] aspirin 81 mg tablet 10-31 08:31: 51 Yes 81mg Take 81 mg by mouth daily. [facility] Immunizations Ordered Immunization Name Filled Immunization Name Date Status Comments Source SARS-COV-2 COVID-19 STEPHANI-SUCROSE VACCINE 12 YRS+, BIVALENT 0.3ML, IM, (PFIZER ORTIZ TOP BOOSTER) 2022-01-30 00:00:00 Completed [facility] SARS-COV-2 COVID-19 STEPHANI-SUCROSE VACCINE 12 YRS+, BIVALENT 0.3ML, IM, (PFIZER ORTIZ TOP BOOSTER) 2022-01-30 00:00:00 Completed [facility] SARS-COV-2 COVID-19 STEPHANI-SUCROSE VACCINE 12 YRS+, BIVALENT 0.3ML, IM, (PFIZER ORTIZ TOP BOOSTER) 2022-01-30 00:00:00 Completed [facility] SARS-COV-2 COVID-19 STEPHANI-SUCROSE VACCINE 12 YRS+, BIVALENT 0.3ML, IM, (PFIZER ORTIZ TOP BOOSTER) 2022-01-30 00:00:00 Completed [facility] SARS-COV-2 COVID-19 STEPHANI-SUCROSE VACCINE 12 YRS+, BIVALENT 0.3ML, IM, (PFIZER ORTIZ TOP BOOSTER) 2022-01-30 00:00:00 Completed [facility] SARS-COV-2 COVID-19 STEPHANI-SUCROSE VACCINE 12 YRS+, BIVALENT 0.3ML, IM, (PFIZER ORTIZ TOP BOOSTER) 2022-01-30 00:00:00 Completed [facility] SARS-COV-2 COVID-19 STEPHANI-SUCROSE VACCINE 12 YRS+, BIVALENT 0.3ML, IM, (PFIZER ORTIZ TOP BOOSTER) 2022-01-30 00:00:00 Completed [facility] SARS-COV-2 COVID-19 STEPHANI-SUCROSE VACCINE 12 YRS+, BIVALENT 0.3ML, IM, (PFIZER ORTIZ TOP BOOSTER) 2022-01-30 00:00:00 Completed [facility] SARS-COV-2 COVID-19 STEPHANI-SUCROSE VACCINE 12 YRS+, BIVALENT 0.3ML, IM, (PFIZER ORTIZ TOP BOOSTER) 2022-01-30 00:00:00 Completed [facility] SARS-COV-2 COVID-19 STEPHANI-SUCROSE VACCINE 12 YRS+, BIVALENT 0.3ML, IM, (PFIZER ORTIZ TOP BOOSTER) 2022-01-30 00:00:00 Completed [facility] SARS-COV-2 COVID-19 STEPHANI-SUCROSE VACCINE 12 YRS+, BIVALENT 0.3ML, IM, (PFIZER ORTIZ TOP BOOSTER) 2022-01-30 00:00:00 Completed [facility] SARS-COV-2 COVID-19 STEPHANI-SUCROSE VACCINE 12 YRS+, BIVALENT 0.3ML, IM, (PFIZER ORTIZ TOP BOOSTER) 2022-01-30 00:00:00 Completed [facility] SARS-COV-2 COVID-19 STEPHANI-SUCROSE VACCINE 12 YRS+, BIVALENT 0.3ML, IM, (PFIZER ORTIZ TOP BOOSTER) 2022-01-30 00:00:00 Completed [facility] SARS-COV-2 COVID-19 STEPHANI-SUCROSE VACCINE 12 YRS+, BIVALENT 0.3ML, IM, (PFIZER ORTIZ TOP BOOSTER) 2022-01-30 00:00:00 Completed [facility] SARS-COV-2 COVID-19 STEPHANI-SUCROSE VACCINE 12 YRS+, BIVALENT 0.3ML, IM, (PFIZER ORTIZ TOP BOOSTER) 2022-01-30 00:00:00 Completed [facility] SARS-COV-2 COVID-19 STEPHANI-SUCROSE VACCINE 12 YRS+, BIVALENT 0.3ML, IM, (PFIZER ORTIZ TOP BOOSTER) 2022-01-30 00:00:00 Completed [facility] SARS-COV-2 COVID-19 STEPHANI-SUCROSE VACCINE 12 YRS+, BIVALENT 0.3ML, IM, (PFIZER ORTIZ TOP BOOSTER) 2022-01-30 00:00:00 Completed [facility] SARS-COV-2 COVID-19 STEPHANI-SUCROSE VACCINE 12 YRS+, BIVALENT 0.3ML, IM, (PFIZER ORTIZ TOP BOOSTER) 2022-01-30 00:00:00 Completed [facility] SARS-COV-2 COVID-19 STEPHANI-SUCROSE VACCINE 12 YRS+, BIVALENT 0.3ML, IM, (PFIZER ORTIZ TOP BOOSTER) 2022-01-30 00:00:00 Completed [facility] SARS-COV-2 COVID-19 STEPHANI-SUCROSE VACCINE 12 YRS+, BIVALENT 0.3ML, IM, (PFIZER ORTIZ TOP BOOSTER) 2022-01-30 00:00:00 Completed [facility] SARS-COV-2 COVID-19 STEPHANI-SUCROSE VACCINE 12 YRS+, BIVALENT 0.3ML, IM, (PFIZER ORTIZ TOP BOOSTER) 2022-01-30 00:00:00 Completed [facility] SARS-COV-2 COVID-19 STEPHANI-SUCROSE VACCINE 12 YRS+, BIVALENT 0.3ML, IM, (PFIZER ORTIZ TOP BOOSTER) 2022-01-30 00:00:00 Completed [facility] SARS-COV-2 COVID-19 STEPHANI-SUCROSE VACCINE 12 YRS+, BIVALENT 0.3ML, IM, (PFIZER ORTIZ TOP BOOSTER) 2022-01-30 00:00:00 Completed [facility] SARS-COV-2 COVID-19 STEPHANI-SUCROSE VACCINE 12 YRS+, BIVALENT 0.3ML, IM, (PFIZER ORTIZ TOP BOOSTER) 2022-01-30 00:00:00 Completed [facility] SARS-COV-2 COVID-19 STEPHANI-SUCROSE VACCINE 12 YRS+, BIVALENT 0.3ML, IM, (PFIZER ORTIZ TOP BOOSTER) 2022-01-30 00:00:00 Completed [facility] SARS-COV-2 COVID-19 STEPHANI-SUCROSE VACCINE 12 YRS+, BIVALENT 0.3ML, IM, (PFIZER ORTIZ TOP BOOSTER) 2022-01-30 00:00:00 Completed [facility] SARS-COV-2 COVID-19 STEPHANI-SUCROSE VACCINE 12 YRS+, BIVALENT 0.3ML, IM, (PFIZER ORTIZ TOP BOOSTER) 2022-01-30 00:00:00 Completed [facility] SARS-COV-2 COVID-19 STEPHANI-SUCROSE VACCINE 12 YRS+, BIVALENT 0.3ML, IM, (PFIZER ORTIZ TOP BOOSTER) 2022-01-30 00:00:00 Completed [facility] SARS-COV-2 COVID-19 STEPHANI-SUCROSE VACCINE 12 YRS+, BIVALENT 0.3ML, IM, (PFIZER ORTIZ TOP BOOSTER) 2022-01-30 00:00:00 Completed [facility] SARS-COV-2 COVID-19 STEPHANI-SUCROSE VACCINE 12 YRS+, BIVALENT 0.3ML, IM, (PFIZER ORTIZ TOP BOOSTER) 2022-01-30 00:00:00 Completed [facility] SARS-COV-2 COVID-19 STEPHANI-SUCROSE VACCINE 12 YRS+, BIVALENT 0.3ML, IM, (PFIZER ORTIZ TOP BOOSTER) 2022-01-30 00:00:00 Completed [facility] SARS-COV-2 COVID-19 STEPHANI-SUCROSE VACCINE 12 YRS+, BIVALENT 0.3ML, IM, (PFIZER ORTIZ TOP BOOSTER) 2022-01-30 00:00:00 Completed [facility] SARS-COV-2 COVID-19 STEPHANI-SUCROSE VACCINE 12 YRS+, BIVALENT 0.3ML, IM, (PFIZER ORTIZ TOP BOOSTER) 2022-01-30 00:00:00 Completed [facility] SARS-COV-2 COVID-19 STEPHANI-SUCROSE VACCINE 12 YRS+, BIVALENT 0.3ML, IM, (PFIZER ORTIZ TOP BOOSTER) 2022-01-30 00:00:00 Completed [facility] SARS-COV-2 COVID-19 STEPHANI-SUCROSE VACCINE 12 YRS+, BIVALENT 0.3ML, IM, (PFIZER ORTIZ TOP BOOSTER) 2022-01-30 00:00:00 Completed [facility] SARS-COV-2 COVID-19 STEPHANI-SUCROSE VACCINE 12 YRS+, BIVALENT 0.3ML, IM, (PFIZER ORTIZ TOP BOOSTER) 2022-01-30 00:00:00 Completed [facility] SARS-COV-2 COVID-19 STEPHANI-SUCROSE VACCINE 12 YRS+, BIVALENT 0.3ML, IM, (PFIZER ORTIZ TOP) 2022-01-30 00:00:00 Completed [facility] SARS-COV-2 COVID-19 STEPHANI-SUCROSE VACCINE 12 YRS+, BIVALENT 0.3ML, IM, (PFIZER ORTIZ TOP) 2022-01-30 00:00:00 Completed [facility] SARS-COV-2 COVID-19 STEPHANI-SUCROSE VACCINE 12 YRS+, BIVALENT 0.3ML, IM, (PFIZER ORTIZ TOP) 2022-01-30 00:00:00 Completed [facility] SARS-COV-2 COVID-19 STEPHANI-SUCROSE VACCINE 12 YRS+, BIVALENT 0.3ML, IM, (PFIZER ORTIZ TOP) 2022-01-30 00:00:00 Completed [facility] SARS-COV-2 COVID-19 STEPHANI-SUCROSE VACCINE 12 YRS+, BIVALENT 0.3ML, IM, (PFIZER ORTIZ TOP) 2022-01-30 00:00:00 Completed [facility] SARS-COV-2 COVID-19 STEPHANI-SUCROSE VACCINE 12 YRS+, BIVALENT 0.3ML, IM, (PFIZER ORTIZ TOP) 2022-01-30 00:00:00 Completed [facility] SARS-COV-2 COVID-19 STEPHANI-SUCROSE VACCINE 12 YRS+, BIVALENT 0.3ML, IM, (PFIZER ORTIZ TOP) 2022-01-30 00:00:00 Completed [facility] SARS-COV-2 COVID-19 STEPHANI-SUCROSE VACCINE 12 YRS+, BIVALENT 0.3ML, IM, (PFIZER ORTIZ TOP) 2022-01-30 00:00:00 Completed [facility] SARS-COV-2 COVID-19 STEPHANI-SUCROSE VACCINE 12 YRS+, BIVALENT 0.3ML, IM, (PFIZER ORTIZ TOP) 2022-01-30 00:00:00 Completed [facility] SARS-COV-2 COVID-19 PFIZER STEPHANI-SUCROSE VACCINE (ORTIZ TOP) 2021-10-21 00:00:00 Completed [facility] SARS-COV-2 COVID-19 PFIZER STEPHANI-SUCROSE VACCINE (ORTIZ TOP) 2021-10-21 00:00:00 Completed [facility] SARS-COV-2 COVID-19 PFIZER STEPHANI-SUCROSE VACCINE (ORTIZ TOP) 2021-10-21 00:00:00 Completed [facility] SARS-COV-2 COVID-19 PFIZER STEPHANI-SUCROSE VACCINE (ORTIZ TOP) 2021-10-21 00:00:00 Completed [facility] SARS-COV-2 COVID-19 PFIZER STEPHANI-SUCROSE VACCINE (ORITZ TOP) 2021-10-21 00:00:00 Completed [facility] SARS-COV-2 COVID-19 PFIZER STEPHANI-SUCROSE VACCINE (ORTIZ TOP) 2021-10-21 00:00:00 Completed [facility] SARS-COV-2 COVID-19 PFIZER STEPHANI-SUCROSE VACCINE (ORTIZ TOP) 2021-10-21 00:00:00 Completed [facility] SARS-COV-2 COVID-19 PFIZER STEPHANI-SUCROSE VACCINE (ORTIZ TOP) 2021-10-21 00:00:00 Completed [facility] SARS-COV-2 COVID-19 PFIZER STEPHANI-SUCROSE VACCINE (ORTIZ TOP) 2021-10-21 00:00:00 Completed [facility] SARS-COV-2 COVID-19 PFIZER STEPHANI-SUCROSE VACCINE (ORTIZ TOP) 2021-10-21 00:00:00 Completed [facility] SARS-COV-2 COVID-19 PFIZER STEPHANI-SUCROSE VACCINE (ORTIZ TOP) 2021-10-21 00:00:00 Completed [facility] SARS-COV-2 COVID-19 PFIZER STEPHANI-SUCROSE VACCINE (ORTIZ TOP) 2021-10-21 00:00:00 Completed [facility] SARS-COV-2 COVID-19 PFIZER STEPHANI-SUCROSE VACCINE (ORTIZ TOP) 2021-10-21 00:00:00 Completed [facility] SARS-COV-2 COVID-19 PFIZER STEPHANI-SUCROSE VACCINE (ORTIZ TOP) 2021-10-21 00:00:00 Completed [facility] SARS-COV-2 COVID-19 PFIZER STEPHANI-SUCROSE VACCINE (ORTIZ TOP) 2021-10-21 00:00:00 Completed [facility] SARS-COV-2 COVID-19 PFIZER STEPHANI-SUCROSE VACCINE (ORTIZ TOP) 2021-10-21 00:00:00 Completed [facility] SARS-COV-2 COVID-19 PFIZER STEPHANI-SUCROSE VACCINE (ORTIZ TOP) 2021-10-21 00:00:00 Completed [facility] SARS-COV-2 COVID-19 PFIZER STEPHANI-SUCROSE VACCINE (ORTIZ TOP) 2021-10-21 00:00:00 Completed [facility] SARS-COV-2 COVID-19 PFIZER STEPHANI-SUCROSE VACCINE (ORTIZ TOP) 2021-10-21 00:00:00 Completed [facility] SARS-COV-2 COVID-19 PFIZER STEPHANI-SUCROSE VACCINE (ORTIZ TOP) 2021-10-21 00:00:00 Completed [facility] SARS-COV-2 COVID-19 PFIZER STEPHANI-SUCROSE VACCINE (ORTIZ TOP) 2021-10-21 00:00:00 Completed [facility] SARS-COV-2 COVID-19 PFIZER STEPHANI-SUCROSE VACCINE (ORTIZ TOP) 2021-10-21 00:00:00 Completed [facility] SARS-COV-2 COVID-19 PFIZER STEPHANI-SUCROSE VACCINE (ORTIZ TOP) 2021-10-21 00:00:00 Completed [facility] SARS-COV-2 COVID-19 PFIZER STEPHANI-SUCROSE VACCINE (ORTIZ TOP) 2021-10-21 00:00:00 Completed [facility] SARS-COV-2 COVID-19 PFIZER STEPHANI-SUCROSE VACCINE (ORTIZ TOP) 2021-10-21 00:00:00 Completed [facility] SARS-COV-2 COVID-19 PFIZER STEPHANI-SUCROSE VACCINE (ORTIZ TOP) 2021-10-21 00:00:00 Completed [facility] SARS-COV-2 COVID-19 PFIZER STEPHANI-SUCROSE VACCINE (ORTIZ TOP) 2021-10-21 00:00:00 Completed [facility] SARS-COV-2 COVID-19 PFIZER STEPHANI-SUCROSE VACCINE (ORTIZ TOP) 2021-10-21 00:00:00 Completed [facility] SARS-COV-2 COVID-19 PFIZER STEPHANI-SUCROSE VACCINE (ORTIZ TOP) 2021-10-21 00:00:00 Completed [facility] SARS-COV-2 COVID-19 PFIZER STEPHANI-SUCROSE VACCINE (ORTIZ TOP) 2021-10-21 00:00:00 Completed [facility] SARS-COV-2 COVID-19 PFIZER STEPHANI-SUCROSE VACCINE (ORTIZ TOP) 2021-10-21 00:00:00 Completed [facility] SARS-COV-2 COVID-19 PFIZER STEPHANI-SUCROSE VACCINE (ORTIZ TOP) 2021-10-21 00:00:00 Completed [facility] SARS-COV-2 COVID-19 PFIZER STEPHANI-SUCROSE VACCINE (ORTIZ TOP) 2021-10-21 00:00:00 Completed [facility] SARS-COV-2 COVID-19 PFIZER STEPHANI-SUCROSE VACCINE (ORTIZ TOP) 2021-10-21 00:00:00 Completed [facility] SARS-COV-2 COVID-19 PFIZER STEPHANI-SUCROSE VACCINE (ORTIZ TOP) 2021-10-21 00:00:00 Completed [facility] SARS-COV-2 COVID-19 PFIZER STEPHANI-SUCROSE VACCINE (ORTIZ TOP) 2021-10-21 00:00:00 Completed [facility] SARS-COV-2 COVID-19 PFIZER STEPHANI-SUCROSE VACCINE (ORTIZ TOP) 2021-10-21 00:00:00 Completed [facility] SARS-COV-2 COVID-19 PFIZER STEPHANI-SUCROSE VACCINE (ORTIZ TOP) 2021-10-21 00:00:00 Completed [facility] SARS-COV-2 COVID-19 PFIZER STEPHANI-SUCROSE VACCINE (ORTIZ TOP) 2021-10-21 00:00:00 Completed [facility] SARS-COV-2 COVID-19 PFIZER STEPHANI-SUCROSE VACCINE (ORTIZ TOP) 2021-10-21 00:00:00 Completed [facility] SARS-COV-2 COVID-19 PFIZER STEPHANI-SUCROSE VACCINE (ORTIZ TOP) 2021-10-21 00:00:00 Completed [facility] SARS-COV-2 COVID-19 PFIZER STEPHANI-SUCROSE VACCINE (ORTIZ TOP) 2021-10-21 00:00:00 Completed [facility] SARS-COV-2 COVID-19 PFIZER STEPHANI-SUCROSE VACCINE (ORTIZ TOP) 2021-10-21 00:00:00 Completed [facility] SARS-COV-2 COVID-19 PFIZER STEPHANI-SUCROSE VACCINE (ORTIZ TOP) 2021-10-21 00:00:00 Completed [facility] SARS-COV-2 COVID-19 PFIZER STEPHANI-SUCROSE VACCINE (ORTIZ TOP) 2021-10-21 00:00:00 Completed [facility] SARS-COV-2 COVID-19 PFIZER STEPHANI-SUCROSE VACCINE (ORTIZ TOP) 2021-10-21 00:00:00 Completed [facility] SARS-COV-2 COVID-19 PFIZER STEPHANI-SUCROSE VACCINE (ORTIZ TOP) 2021-10-21 00:00:00 Completed [facility] SARS-COV-2 COVID-19 PFIZER STEPHANI-SUCROSE VACCINE (ORTIZ TOP) 2021-10-21 00:00:00 Completed [facility] SARS-COV-2 COVID-19 PFIZER STEPHANI-SUCROSE VACCINE (ORTIZ TOP) 2021-10-21 00:00:00 Completed [facility] SARS-COV-2 COVID-19 PFIZER STEPHANI-SUCROSE VACCINE (ORTIZ TOP) 2021-10-21 00:00:00 Completed [facility] SARS-COV-2 COVID-19 PFIZER STEPHANI-SUCROSE VACCINE (ORTIZ TOP) 2021-10-21 00:00:00 Completed [facility] SARS-COV-2 COVID-19 PFIZER STEPHANI-SUCROSE VACCINE (ORTIZ TOP) 2021-10-21 00:00:00 Completed [facility] SARS-COV-2 COVID-19 PFIZER STEPHANI-SUCROSE VACCINE (ORTIZ TOP) 2021-10-21 00:00:00 Completed [facility] SARS-COV-2 COVID-19 PFIZER STEPHANI-SUCROSE VACCINE (ORTIZ TOP) 2021-10-21 00:00:00 Completed [facility] SARS-COV-2 COVID-19 PFIZER STEPHANI-SUCROSE VACCINE (ORTIZ TOP) 2021-10-21 00:00:00 Completed [facility] SARS-COV-2 COVID-19 PFIZER STEPHANI-SUCROSE VACCINE (ORTIZ TOP) 2021-10-21 00:00:00 Completed [facility] SARS-COV-2 COVID-19 PFIZER STEPHANI-SUCROSE VACCINE (ORTIZ TOP) 2021-10-21 00:00:00 Completed [facility] SARS-COV-2 COVID-19 PFIZER STEPHANI-SUCROSE VACCINE (ORTIZ TOP) 2021-10-21 00:00:00 Completed [facility] SARS-COV-2 COVID-19 PFIZER STEPHANI-SUCROSE VACCINE (ORTIZ TOP) 2021-10-21 00:00:00 Completed [facility] SARS-COV-2 COVID-19 PFIZER VACCINE 2021-02-12 00:00:00 Completed [facility] SARS-COV-2 COVID-19 PFIZER VACCINE 2021-02-12 00:00:00 Completed [facility] SARS-COV-2 COVID-19 PFIZER VACCINE 2021-02-12 00:00:00 Completed [facility] SARS-COV-2 COVID-19 PFIZER VACCINE 2021-02-12 00:00:00 Completed [facility] SARS-COV-2 COVID-19 PFIZER VACCINE 2021-02-12 00:00:00 Completed [facility] SARS-COV-2 COVID-19 PFIZER VACCINE 2021-02-12 00:00:00 Completed [facility] SARS-COV-2 COVID-19 PFIZER VACCINE 2021-02-12 00:00:00 Completed [facility] SARS-COV-2 COVID-19 PFIZER VACCINE 2021-02-12 00:00:00 Completed [facility] SARS-COV-2 COVID-19 PFIZER VACCINE 2021-02-12 00:00:00 Completed [facility] SARS-COV-2 COVID-19 PFIZER VACCINE 2021-02-12 00:00:00 Completed [facility] SARS-COV-2 COVID-19 PFIZER VACCINE 2021-02-12 00:00:00 Completed [facility] SARS-COV-2 COVID-19 PFIZER VACCINE 2021-02-12 00:00:00 Completed [facility] SARS-COV-2 COVID-19 PFIZER VACCINE 2021-02-12 00:00:00 Completed [facility] SARS-COV-2 COVID-19 PFIZER VACCINE 2021-02-12 00:00:00 Completed [facility] SARS-COV-2 COVID-19 PFIZER VACCINE 2021-02-12 00:00:00 Completed [facility] SARS-COV-2 COVID-19 PFIZER VACCINE 2021-02-12 00:00:00 Completed [facility] SARS-COV-2 COVID-19 PFIZER VACCINE 2021-02-12 00:00:00 Completed [facility] SARS-COV-2 COVID-19 PFIZER VACCINE 2021-02-12 00:00:00 Completed [facility] SARS-COV-2 COVID-19 PFIZER VACCINE 2021-02-12 00:00:00 Completed [facility] SARS-COV-2 COVID-19 PFIZER VACCINE 2021-02-12 00:00:00 Completed [facility] SARS-COV-2 COVID-19 PFIZER VACCINE 2021-02-12 00:00:00 Completed [facility] SARS-COV-2 COVID-19 PFIZER VACCINE 2021-02-12 00:00:00 Completed [facility] SARS-COV-2 COVID-19 PFIZER VACCINE 2021-02-12 00:00:00 Completed [facility] SARS-COV-2 COVID-19 PFIZER VACCINE 2021-02-12 00:00:00 Completed [facility] SARS-COV-2 COVID-19 PFIZER VACCINE 2021-02-12 00:00:00 Completed [facility] SARS-COV-2 COVID-19 PFIZER VACCINE 2021-02-12 00:00:00 Completed [facility] SARS-COV-2 COVID-19 PFIZER VACCINE 2021-02-12 00:00:00 Completed [facility] SARS-COV-2 COVID-19 PFIZER VACCINE 2021-02-12 00:00:00 Completed [facility] SARS-COV-2 COVID-19 PFIZER VACCINE 2021-02-12 00:00:00 Completed [facility] SARS-COV-2 COVID-19 PFIZER VACCINE 2021-02-12 00:00:00 Completed [facility] SARS-COV-2 COVID-19 PFIZER VACCINE 2021-02-12 00:00:00 Completed [facility] SARS-COV-2 COVID-19 PFIZER VACCINE 2021-02-12 00:00:00 Completed [facility] SARS-COV-2 COVID-19 PFIZER VACCINE 2021-02-12 00:00:00 Completed [facility] SARS-COV-2 COVID-19 PFIZER VACCINE 2021-02-12 00:00:00 Completed [facility] SARS-COV-2 COVID-19 PFIZER VACCINE 2021-02-12 00:00:00 Completed [facility] SARS-COV-2 COVID-19 PFIZER VACCINE 2021-02-12 00:00:00 Completed [facility] SARS-COV-2 COVID-19 PFIZER VACCINE 2021-02-12 00:00:00 Completed [facility] SARS-COV-2 COVID-19 PFIZER VACCINE 2021-02-12 00:00:00 Completed [facility] SARS-COV-2 COVID-19 PFIZER VACCINE 2021-02-12 00:00:00 Completed [facility] SARS-COV-2 COVID-19 PFIZER VACCINE 2021-02-12 00:00:00 Completed [facility] SARS-COV-2 COVID-19 PFIZER VACCINE 2021-02-12 00:00:00 Completed [facility] SARS-COV-2 COVID-19 PFIZER VACCINE 2021-02-12 00:00:00 Completed [facility] SARS-COV-2 COVID-19 PFIZER VACCINE 2021-02-12 00:00:00 Completed [facility] SARS-COV-2 COVID-19 PFIZER VACCINE 2021-02-12 00:00:00 Completed [facility] SARS-COV-2 COVID-19 PFIZER VACCINE 2021-02-12 00:00:00 Completed [facility] SARS-COV-2 COVID-19 PFIZER VACCINE 2021-02-12 00:00:00 Completed [facility] SARS-COV-2 COVID-19 PFIZER VACCINE 2021-02-12 00:00:00 Completed [facility] SARS-COV-2 COVID-19 PFIZER VACCINE 2021-02-12 00:00:00 Completed [facility] SARS-COV-2 COVID-19 PFIZER VACCINE 2021-02-12 00:00:00 Completed [facility] SARS-COV-2 COVID-19 PFIZER VACCINE 2021-02-12 00:00:00 Completed [facility] SARS-COV-2 COVID-19 PFIZER VACCINE 2021-02-12 00:00:00 Completed [facility] SARS-COV-2 COVID-19 PFIZER VACCINE 2021-02-12 00:00:00 Completed [facility] SARS-COV-2 COVID-19 PFIZER VACCINE 2021-02-12 00:00:00 Completed [facility] SARS-COV-2 COVID-19 PFIZER VACCINE 2021-02-12 00:00:00 Completed [facility] SARS-COV-2 COVID-19 PFIZER VACCINE 2021-02-12 00:00:00 Completed [facility] SARS-COV-2 COVID-19 PFIZER VACCINE 2021-02-12 00:00:00 Completed [facility] SARS-COV-2 COVID-19 PFIZER VACCINE 2021-02-12 00:00:00 Completed [facility] SARS-COV-2 COVID-19 PFIZER VACCINE 2021-02-12 00:00:00 Completed [facility] SARS-COV-2 COVID-19 PFIZER VACCINE 2021-02-12 00:00:00 Completed [facility] SARS-COV-2 COVID-19 PFIZER VACCINE 2020-05-30 00:00:00 Completed [facility] SARS-COV-2 COVID-19 PFIZER VACCINE 2020-05-30 00:00:00 Completed [facility] SARS-COV-2 COVID-19 PFIZER VACCINE 2020-05-30 00:00:00 Completed [facility] SARS-COV-2 COVID-19 PFIZER VACCINE 2020-05-30 00:00:00 Completed [facility] SARS-COV-2 COVID-19 PFIZER VACCINE 2020-05-30 00:00:00 Completed [facility] SARS-COV-2 COVID-19 PFIZER VACCINE 2020-05-30 00:00:00 Completed [facility] SARS-COV-2 COVID-19 PFIZER VACCINE 2020-05-30 00:00:00 Completed [facility] SARS-COV-2 COVID-19 PFIZER VACCINE 2020-05-30 00:00:00 Completed [facility] SARS-COV-2 COVID-19 PFIZER VACCINE 2020-05-30 00:00:00 Completed [facility] SARS-COV-2 COVID-19 PFIZER VACCINE 2020-05-30 00:00:00 Completed [facility] SARS-COV-2 COVID-19 PFIZER VACCINE 2020-05-30 00:00:00 Completed [facility] SARS-COV-2 COVID-19 PFIZER VACCINE 2020-05-30 00:00:00 Completed [facility] SARS-COV-2 COVID-19 PFIZER VACCINE 2020-05-30 00:00:00 Completed [facility] SARS-COV-2 COVID-19 PFIZER VACCINE 2020-05-30 00:00:00 Completed [facility] SARS-COV-2 COVID-19 PFIZER VACCINE 2020-05-30 00:00:00 Completed [facility] SARS-COV-2 COVID-19 PFIZER VACCINE 2020-05-30 00:00:00 Completed [facility] SARS-COV-2 COVID-19 PFIZER VACCINE 2020-05-30 00:00:00 Completed [facility] SARS-COV-2 COVID-19 PFIZER VACCINE 2020-05-30 00:00:00 Completed [facility] SARS-COV-2 COVID-19 PFIZER VACCINE 2020-05-30 00:00:00 Completed [facility] SARS-COV-2 COVID-19 PFIZER VACCINE 2020-05-30 00:00:00 Completed [facility] SARS-COV-2 COVID-19 PFIZER VACCINE 2020-05-30 00:00:00 Completed [facility] SARS-COV-2 COVID-19 PFIZER VACCINE 2020-05-30 00:00:00 Completed [facility] SARS-COV-2 COVID-19 PFIZER VACCINE 2020-05-30 00:00:00 Completed [facility] SARS-COV-2 COVID-19 PFIZER VACCINE 2020-05-30 00:00:00 Completed [facility] SARS-COV-2 COVID-19 PFIZER VACCINE 2020-05-30 00:00:00 Completed [facility] SARS-COV-2 COVID-19 PFIZER VACCINE 2020-05-30 00:00:00 Completed [facility] SARS-COV-2 COVID-19 PFIZER VACCINE 2020-05-30 00:00:00 Completed [facility] SARS-COV-2 COVID-19 PFIZER VACCINE 2020-05-30 00:00:00 Completed [facility] SARS-COV-2 COVID-19 PFIZER VACCINE 2020-05-30 00:00:00 Completed [facility] SARS-COV-2 COVID-19 PFIZER VACCINE 2020-05-30 00:00:00 Completed [facility] SARS-COV-2 COVID-19 PFIZER VACCINE 2020-05-30 00:00:00 Completed [facility] SARS-COV-2 COVID-19 PFIZER VACCINE 2020-05-30 00:00:00 Completed [facility] SARS-COV-2 COVID-19 PFIZER VACCINE 2020-05-30 00:00:00 Completed [facility] SARS-COV-2 COVID-19 PFIZER VACCINE 2020-05-30 00:00:00 Completed [facility] SARS-COV-2 COVID-19 PFIZER VACCINE 2020-05-30 00:00:00 Completed [facility] SARS-COV-2 COVID-19 PFIZER VACCINE 2020-05-30 00:00:00 Completed [facility] SARS-COV-2 COVID-19 PFIZER VACCINE 2020-05-30 00:00:00 Completed [facility] SARS-COV-2 COVID-19 PFIZER VACCINE 2020-05-30 00:00:00 Completed [facility] SARS-COV-2 COVID-19 PFIZER VACCINE 2020-05-30 00:00:00 Completed [facility] SARS-COV-2 COVID-19 PFIZER VACCINE 2020-05-30 00:00:00 Completed [facility] SARS-COV-2 COVID-19 PFIZER VACCINE 2020-05-30 00:00:00 Completed [facility] SARS-COV-2 COVID-19 PFIZER VACCINE 2020-05-30 00:00:00 Completed [facility] SARS-COV-2 COVID-19 PFIZER VACCINE 2020-05-30 00:00:00 Completed [facility] SARS-COV-2 COVID-19 PFIZER VACCINE 2020-05-30 00:00:00 Completed [facility] SARS-COV-2 COVID-19 PFIZER VACCINE 2020-05-30 00:00:00 Completed [facility] SARS-COV-2 COVID-19 PFIZER VACCINE 2020-05-30 00:00:00 Completed [facility] SARS-COV-2 COVID-19 PFIZER VACCINE 2020-05-30 00:00:00 Completed [facility] SARS-COV-2 COVID-19 PFIZER VACCINE 2020-05-30 00:00:00 Completed [facility] SARS-COV-2 COVID-19 PFIZER VACCINE 2020-05-30 00:00:00 Completed [facility] SARS-COV-2 COVID-19 PFIZER VACCINE 2020-05-30 00:00:00 Completed [facility] SARS-COV-2 COVID-19 PFIZER VACCINE 2020-05-30 00:00:00 Completed [facility] SARS-COV-2 COVID-19 PFIZER VACCINE 2020-05-30 00:00:00 Completed [facility] SARS-COV-2 COVID-19 PFIZER VACCINE 2020-05-30 00:00:00 Completed [facility] SARS-COV-2 COVID-19 PFIZER VACCINE 2020-05-30 00:00:00 Completed [facility] SARS-COV-2 COVID-19 PFIZER VACCINE 2020-05-30 00:00:00 Completed [facility] SARS-COV-2 COVID-19 PFIZER VACCINE 2020-05-30 00:00:00 Completed [facility] SARS-COV-2 COVID-19 PFIZER VACCINE 2020-05-30 00:00:00 Completed [facility] SARS-COV-2 COVID-19 PFIZER VACCINE 2020-05-30 00:00:00 Completed [facility] SARS-COV-2 COVID-19 PFIZER VACCINE 2020-05-30 00:00:00 Completed [facility] SARS-COV-2 COVID-19 PFIZER VACCINE 2020-04-30 00:00:00 Completed [facility] SARS-COV-2 COVID-19 PFIZER VACCINE 2020-04-30 00:00:00 Completed [facility] SARS-COV-2 COVID-19 PFIZER VACCINE 2020-04-30 00:00:00 Completed [facility] SARS-COV-2 COVID-19 PFIZER VACCINE 2020-04-30 00:00:00 Completed [facility] SARS-COV-2 COVID-19 PFIZER VACCINE 2020-04-30 00:00:00 Completed [facility] SARS-COV-2 COVID-19 PFIZER VACCINE 2020-04-30 00:00:00 Completed [facility] SARS-COV-2 COVID-19 PFIZER VACCINE 2020-04-30 00:00:00 Completed [facility] SARS-COV-2 COVID-19 PFIZER VACCINE 2020-04-30 00:00:00 Completed [facility] SARS-COV-2 COVID-19 PFIZER VACCINE 2020-04-30 00:00:00 Completed [facility] SARS-COV-2 COVID-19 PFIZER VACCINE 2020-04-30 00:00:00 Completed [facility] SARS-COV-2 COVID-19 PFIZER VACCINE 2020-04-30 00:00:00 Completed [facility] SARS-COV-2 COVID-19 PFIZER VACCINE 2020-04-30 00:00:00 Completed [facility] SARS-COV-2 COVID-19 PFIZER VACCINE 2020-04-30 00:00:00 Completed [facility] SARS-COV-2 COVID-19 PFIZER VACCINE 2020-04-30 00:00:00 Completed [facility] SARS-COV-2 COVID-19 PFIZER VACCINE 2020-04-30 00:00:00 Completed [facility] SARS-COV-2 COVID-19 PFIZER VACCINE 2020-04-30 00:00:00 Completed [facility] SARS-COV-2 COVID-19 PFIZER VACCINE 2020-04-30 00:00:00 Completed [facility] SARS-COV-2 COVID-19 PFIZER VACCINE 2020-04-30 00:00:00 Completed [facility] SARS-COV-2 COVID-19 PFIZER VACCINE 2020-04-30 00:00:00 Completed [facility] SARS-COV-2 COVID-19 PFIZER VACCINE 2020-04-30 00:00:00 Completed [facility] SARS-COV-2 COVID-19 PFIZER VACCINE 2020-04-30 00:00:00 Completed [facility] SARS-COV-2 COVID-19 PFIZER VACCINE 2020-04-30 00:00:00 Completed [facility] SARS-COV-2 COVID-19 PFIZER VACCINE 2020-04-30 00:00:00 Completed [facility] SARS-COV-2 COVID-19 PFIZER VACCINE 2020-04-30 00:00:00 Completed [facility] SARS-COV-2 COVID-19 PFIZER VACCINE 2020-04-30 00:00:00 Completed [facility] SARS-COV-2 COVID-19 PFIZER VACCINE 2020-04-30 00:00:00 Completed [facility] SARS-COV-2 COVID-19 PFIZER VACCINE 2020-04-30 00:00:00 Completed [facility] SARS-COV-2 COVID-19 PFIZER VACCINE 2020-04-30 00:00:00 Completed [facility] SARS-COV-2 COVID-19 PFIZER VACCINE 2020-04-30 00:00:00 Completed [facility] SARS-COV-2 COVID-19 PFIZER VACCINE 2020-04-30 00:00:00 Completed [facility] SARS-COV-2 COVID-19 PFIZER VACCINE 2020-04-30 00:00:00 Completed [facility] SARS-COV-2 COVID-19 PFIZER VACCINE 2020-04-30 00:00:00 Completed [facility] SARS-COV-2 COVID-19 PFIZER VACCINE 2020-04-30 00:00:00 Completed [facility] SARS-COV-2 COVID-19 PFIZER VACCINE 2020-04-30 00:00:00 Completed [facility] SARS-COV-2 COVID-19 PFIZER VACCINE 2020-04-30 00:00:00 Completed [facility] SARS-COV-2 COVID-19 PFIZER VACCINE 2020-04-30 00:00:00 Completed [facility] SARS-COV-2 COVID-19 PFIZER VACCINE 2020-04-30 00:00:00 Completed [facility] SARS-COV-2 COVID-19 PFIZER VACCINE 2020-04-30 00:00:00 Completed [facility] SARS-COV-2 COVID-19 PFIZER VACCINE 2020-04-30 00:00:00 Completed [facility] SARS-COV-2 COVID-19 PFIZER VACCINE 2020-04-30 00:00:00 Completed [facility] SARS-COV-2 COVID-19 PFIZER VACCINE 2020-04-30 00:00:00 Completed [facility] SARS-COV-2 COVID-19 PFIZER VACCINE 2020-04-30 00:00:00 Completed [facility] SARS-COV-2 COVID-19 PFIZER VACCINE 2020-04-30 00:00:00 Completed [facility] SARS-COV-2 COVID-19 PFIZER VACCINE 2020-04-30 00:00:00 Completed [facility] SARS-COV-2 COVID-19 PFIZER VACCINE 2020-04-30 00:00:00 Completed [facility] SARS-COV-2 COVID-19 PFIZER VACCINE 2020-04-30 00:00:00 Completed [facility] SARS-COV-2 COVID-19 PFIZER VACCINE 2020-04-30 00:00:00 Completed [facility] SARS-COV-2 COVID-19 PFIZER VACCINE 2020-04-30 00:00:00 Completed [facility] SARS-COV-2 COVID-19 PFIZER VACCINE 2020-04-30 00:00:00 Completed [facility] SARS-COV-2 COVID-19 PFIZER VACCINE 2020-04-30 00:00:00 Completed [facility] SARS-COV-2 COVID-19 PFIZER VACCINE 2020-04-30 00:00:00 Completed [facility] SARS-COV-2 COVID-19 PFIZER VACCINE 2020-04-30 00:00:00 Completed [facility] SARS-COV-2 COVID-19 PFIZER VACCINE 2020-04-30 00:00:00 Completed [facility] SARS-COV-2 COVID-19 PFIZER VACCINE 2020-04-30 00:00:00 Completed [facility] SARS-COV-2 COVID-19 PFIZER VACCINE 2020-04-30 00:00:00 Completed [facility] SARS-COV-2 COVID-19 PFIZER VACCINE 2020-04-30 00:00:00 Completed [facility] SARS-COV-2 COVID-19 PFIZER VACCINE 2020-04-30 00:00:00 Completed [facility] SARS-COV-2 COVID-19 PFIZER VACCINE 2020-04-30 00:00:00 Completed [facility] SARS-COV-2 COVID-19 PFIZER VACCINE 2020-04-30 00:00:00 Completed [facility] Zoster(Zostavax)([facility]) 2018-11-12 00:00:00 Completed [facility] Zoster(Zostavax)([facility]) 2018-11-12 00:00:00 Completed [facility] Zoster(Zostavax)([facility]) 2018-11-12 00:00:00 Completed [facility] Zoster(Zostavax)([facility]) 2018-11-12 00:00:00 Completed [facility] Zoster(Zostavax)([facility]) 2018-11-12 00:00:00 Completed [facility] Zoster(Zostavax)([facility]) 2018-11-12 00:00:00 Completed [facility] Zoster(Zostavax)([facility]) 2018-11-12 00:00:00 Completed [facility] Zoster(Zostavax)([facility]) 2018-11-12 00:00:00 Completed [facility] Zoster(Zostavax)([facility]) 2018-11-12 00:00:00 Completed [facility] Zoster(Zostavax)([facility]) 2018-11-12 00:00:00 Completed [facility] Zoster(Zostavax)([facility]) 2018-11-12 00:00:00 Completed [facility] Zoster(Zostavax)([facility]) 2018-11-12 00:00:00 Completed [facility] Zoster(Zostavax)([facility]) 2018-11-12 00:00:00 Completed [facility] Zoster(Zostavax)([facility]) 2018-11-12 00:00:00 Completed [facility] Zoster(Zostavax)([facility]) 2018-11-12 00:00:00 Completed [facility] Zoster(Zostavax)([facility]) 2018-11-12 00:00:00 Completed [facility] Zoster(Zostavax)([facility]) 2018-11-12 00:00:00 Completed [facility] Zoster(Zostavax)([facility]) 2018-11-12 00:00:00 Completed [facility] Zoster(Zostavax)([facility]) 2018-11-12 00:00:00 Completed [facility] Zoster(Zostavax)([facility]) 2018-11-12 00:00:00 Completed [facility] Zoster(Zostavax)([facility]) 2018-11-12 00:00:00 Completed [facility] Zoster(Zostavax)([facility]) 2018-11-12 00:00:00 Completed [facility] Zoster(Zostavax)([facility]) 2018-11-12 00:00:00 Completed [facility] Zoster(Zostavax)([facility]) 2018-11-12 00:00:00 Completed [facility] Zoster(Zostavax)([facility]) 2018-11-12 00:00:00 Completed [facility] Zoster(Zostavax)([facility]) 2018-11-12 00:00:00 Completed [facility] Zoster(Zostavax)([facility]) 2018-11-12 00:00:00 Completed [facility] Zoster(Zostavax)([facility]) 2018-11-12 00:00:00 Completed [facility] Zoster(Zostavax)([facility]) 2018-11-12 00:00:00 Completed [facility] Zoster(Zostavax)([facility]) 2018-11-12 00:00:00 Completed [facility] Zoster(Zostavax)([facility]) 2018-11-12 00:00:00 Completed [facility] Zoster(Zostavax)([facility]) 2018-11-12 00:00:00 Completed [facility] Zoster(Zostavax)([facility]) 2018-11-12 00:00:00 Completed [facility] Zoster(Zostavax)([facility]) 2018-11-12 00:00:00 Completed [facility] Zoster(Zostavax)([facility]) 2018-11-12 00:00:00 Completed [facility] Zoster(Zostavax)([facility]) 2018-11-12 00:00:00 Completed [facility] Zoster(Zostavax)([facility]) 2018-11-12 00:00:00 Completed [facility] Zoster(Zostavax)([facility]) 2018-11-12 00:00:00 Completed [facility] Zoster(Zostavax)([facility]) 2018-11-12 00:00:00 Completed [facility] Zoster(Zostavax)([facility]) 2018-11-12 00:00:00 Completed [facility] Zoster(Zostavax)([facility]) 2018-11-12 00:00:00 Completed [facility] Zoster(Zostavax)([facility]) 2018-11-12 00:00:00 Completed [facility] Zoster(Zostavax)([facility]) 2018-11-12 00:00:00 Completed [facility] Zoster(Zostavax)([facility]) 2018-11-12 00:00:00 Completed [facility] Zoster(Zostavax)([facility]) 2018-11-12 00:00:00 Completed [facility] Zoster(Zostavax)([facility]) 2018-11-12 00:00:00 Completed [facility] Zoster(Zostavax)([facility]) 2018-11-12 00:00:00 Completed [facility] Zoster(Zostavax)([facility]) 2018-11-12 00:00:00 Completed [facility] Zoster(Zostavax)([facility]) 2018-11-12 00:00:00 Completed [facility] Zoster(Zostavax)([facility]) 2018-11-12 00:00:00 Completed [facility] Zoster(Zostavax)([facility]) 2018-11-12 00:00:00 Completed [facility] Zoster(Zostavax)([facility]) 2018-11-12 00:00:00 Completed [facility] Zoster(Zostavax)([facility]) 2018-11-12 00:00:00 Completed [facility] Zoster(Zostavax)([facility]) 2018-11-12 00:00:00 Completed [facility] Zoster(Zostavax)([facility]) 2018-11-12 00:00:00 Completed [facility] Zoster(Zostavax)([facility]) 2018-11-12 00:00:00 Completed [facility] Zoster(Zostavax)([facility]) 2018-11-12 00:00:00 Completed [facility] Zoster(Zostavax)([facility]) 2018-11-12 00:00:00 Completed [facility] Zoster(Zostavax)([facility]) 2018-11-12 00:00:00 Completed [facility] Pneumococcal Polysaccharide, PPSV23 (PNEUMOVAX) 2018-09-08 00:00:00 Completed [facility] Zoster(Zostavax)([facility]) 2018-09-08 00:00:00 Completed [facility] Pneumococcal Polysaccharide, PPSV23 (PNEUMOVAX) 2018-09-08 00:00:00 Completed [facility] Zoster(Zostavax)([facility]) 2018-09-08 00:00:00 Completed [facility] Pneumococcal Polysaccharide, PPSV23 (PNEUMOVAX) 2018-09-08 00:00:00 Completed [facility] Zoster(Zostavax)([facility]) 2018-09-08 00:00:00 Completed [facility] Pneumococcal Polysaccharide, PPSV23 (PNEUMOVAX) 2018-09-08 00:00:00 Completed [facility] Zoster(Zostavax)([facility]) 2018-09-08 00:00:00 Completed [facility] Pneumococcal Polysaccharide, PPSV23 (PNEUMOVAX) 2018-09-08 00:00:00 Completed [facility] Zoster(Zostavax)([facility]) 2018-09-08 00:00:00 Completed [facility] Pneumococcal Polysaccharide, PPSV23 (PNEUMOVAX) 2018-09-08 00:00:00 Completed [facility] Zoster(Zostavax)([facility]) 2018-09-08 00:00:00 Completed [facility] Pneumococcal Polysaccharide, PPSV23 (PNEUMOVAX) 2018-09-08 00:00:00 Completed [facility] Zoster(Zostavax)([facility]) 2018-09-08 00:00:00 Completed [facility] Pneumococcal Polysaccharide, PPSV23 (PNEUMOVAX) 2018-09-08 00:00:00 Completed [facility] Zoster(Zostavax)([facility]) 2018-09-08 00:00:00 Completed [facility] Pneumococcal Polysaccharide, PPSV23 (PNEUMOVAX) 2018-09-08 00:00:00 Completed [facility] Zoster(Zostavax)([facility]) 2018-09-08 00:00:00 Completed [facility] Pneumococcal Polysaccharide, PPSV23 (PNEUMOVAX) 2018-09-08 00:00:00 Completed [facility] Zoster(Zostavax)([facility]) 2018-09-08 00:00:00 Completed [facility] Pneumococcal Polysaccharide, PPSV23 (PNEUMOVAX) 2018-09-08 00:00:00 Completed [facility] Zoster(Zostavax)([facility]) 2018-09-08 00:00:00 Completed [facility] Pneumococcal Polysaccharide, PPSV23 (PNEUMOVAX) 2018-09-08 00:00:00 Completed [facility] Zoster(Zostavax)([facility]) 2018-09-08 00:00:00 Completed [facility] Pneumococcal Polysaccharide, PPSV23 (PNEUMOVAX) 2018-09-08 00:00:00 Completed [facility] Zoster(Zostavax)([facility]) 2018-09-08 00:00:00 Completed [facility] Pneumococcal Polysaccharide, PPSV23 (PNEUMOVAX) 2018-09-08 00:00:00 Completed [facility] Zoster(Zostavax)([facility]) 2018-09-08 00:00:00 Completed [facility] Pneumococcal Polysaccharide, PPSV23 (PNEUMOVAX) 2018-09-08 00:00:00 Completed [facility] Zoster(Zostavax)([facility]) 2018-09-08 00:00:00 Completed [facility] Pneumococcal Polysaccharide, PPSV23 (PNEUMOVAX) 2018-09-08 00:00:00 Completed [facility] Zoster(Zostavax)([facility]) 2018-09-08 00:00:00 Completed [facility] Pneumococcal Polysaccharide, PPSV23 (PNEUMOVAX) 2018-09-08 00:00:00 Completed [facility] Zoster(Zostavax)([facility]) 2018-09-08 00:00:00 Completed [facility] Pneumococcal Polysaccharide, PPSV23 (PNEUMOVAX) 2018-09-08 00:00:00 Completed [facility] Zoster(Zostavax)([facility]) 2018-09-08 00:00:00 Completed [facility] Pneumococcal Polysaccharide, PPSV23 (PNEUMOVAX) 2018-09-08 00:00:00 Completed [facility] Zoster(Zostavax)([facility]) 2018-09-08 00:00:00 Completed [facility] Pneumococcal Polysaccharide, PPSV23 (PNEUMOVAX) 2018-09-08 00:00:00 Completed [facility] Zoster(Zostavax)([facility]) 2018-09-08 00:00:00 Completed [facility] Pneumococcal Polysaccharide, PPSV23 (PNEUMOVAX) 2018-09-08 00:00:00 Completed [facility] Zoster(Zostavax)([facility]) 2018-09-08 00:00:00 Completed [facility] Pneumococcal Polysaccharide, PPSV23 (PNEUMOVAX) 2018-09-08 00:00:00 Completed [facility] Zoster(Zostavax)([facility]) 2018-09-08 00:00:00 Completed [facility] Pneumococcal Polysaccharide, PPSV23 (PNEUMOVAX) 2018-09-08 00:00:00 Completed [facility] Zoster(Zostavax)([facility]) 2018-09-08 00:00:00 Completed [facility] Pneumococcal Polysaccharide, PPSV23 (PNEUMOVAX) 2018-09-08 00:00:00 Completed [facility] Zoster(Zostavax)([facility]) 2018-09-08 00:00:00 Completed [facility] Pneumococcal Polysaccharide, PPSV23 (PNEUMOVAX) 2018-09-08 00:00:00 Completed [facility] Zoster(Zostavax)([facility]) 2018-09-08 00:00:00 Completed [facility] Pneumococcal Polysaccharide, PPSV23 (PNEUMOVAX) 2018-09-08 00:00:00 Completed [facility] Zoster(Zostavax)([facility]) 2018-09-08 00:00:00 Completed [facility] Pneumococcal Polysaccharide, PPSV23 (PNEUMOVAX) 2018-09-08 00:00:00 Completed [facility] Zoster(Zostavax)([facility]) 2018-09-08 00:00:00 Completed [facility] Pneumococcal Polysaccharide, PPSV23 (PNEUMOVAX) 2018-09-08 00:00:00 Completed [facility] Zoster(Zostavax)([facility]) 2018-09-08 00:00:00 Completed [facility] Pneumococcal Polysaccharide, PPSV23 (PNEUMOVAX) 2018-09-08 00:00:00 Completed [facility] Zoster(Zostavax)([facility]) 2018-09-08 00:00:00 Completed [facility] Pneumococcal Polysaccharide, PPSV23 (PNEUMOVAX) 2018-09-08 00:00:00 Completed [facility] Zoster(Zostavax)([facility]) 2018-09-08 00:00:00 Completed [facility] Pneumococcal Polysaccharide, PPSV23 (PNEUMOVAX) 2018-09-08 00:00:00 Completed [facility] Zoster(Zostavax)([facility]) 2018-09-08 00:00:00 Completed [facility] Pneumococcal Polysaccharide, PPSV23 (PNEUMOVAX) 2018-09-08 00:00:00 Completed [facility] Zoster(Zostavax)([facility]) 2018-09-08 00:00:00 Completed [facility] Pneumococcal Polysaccharide, PPSV23 (PNEUMOVAX) 2018-09-08 00:00:00 Completed [facility] Zoster(Zostavax)([facility]) 2018-09-08 00:00:00 Completed [facility] Pneumococcal Polysaccharide, PPSV23 (PNEUMOVAX) 2018-09-08 00:00:00 Completed [facility] Zoster(Zostavax)([facility]) 2018-09-08 00:00:00 Completed [facility] Pneumococcal Polysaccharide, PPSV23 (PNEUMOVAX) 2018-09-08 00:00:00 Completed [facility] Zoster(Zostavax)([facility]) 2018-09-08 00:00:00 Completed [facility] Pneumococcal Polysaccharide, PPSV23 (PNEUMOVAX) 2018-09-08 00:00:00 Completed [facility] Zoster(Zostavax)([facility]) 2018-09-08 00:00:00 Completed [facility] Pneumococcal Polysaccharide, PPSV23 (PNEUMOVAX) 2018-09-08 00:00:00 Completed [facility] Zoster(Zostavax)([facility]) 2018-09-08 00:00:00 Completed [facility] Pneumococcal Polysaccharide, PPSV23 (PNEUMOVAX) 2018-09-08 00:00:00 Completed [facility] Zoster(Zostavax)([facility]) 2018-09-08 00:00:00 Completed [facility] Pneumococcal Polysaccharide, PPSV23 (PNEUMOVAX) 2018-09-08 00:00:00 Completed [facility] Zoster(Zostavax)([facility]) 2018-09-08 00:00:00 Completed [facility] Pneumococcal Polysaccharide, PPSV23 (PNEUMOVAX) 2018-09-08 00:00:00 Completed [facility] Zoster(Zostavax)([facility]) 2018-09-08 00:00:00 Completed [facility] Pneumococcal Polysaccharide, PPSV23 (PNEUMOVAX) 2018-09-08 00:00:00 Completed [facility] Zoster(Zostavax)([facility]) 2018-09-08 00:00:00 Completed [facility] Pneumococcal Polysaccharide, PPSV23 (PNEUMOVAX) 2018-09-08 00:00:00 Completed [facility] Zoster(Zostavax)([facility]) 2018-09-08 00:00:00 Completed [facility] Pneumococcal Polysaccharide, PPSV23 (PNEUMOVAX) 2018-09-08 00:00:00 Completed [facility] Zoster(Zostavax)([facility]) 2018-09-08 00:00:00 Completed [facility] Pneumococcal Polysaccharide, PPSV23 (PNEUMOVAX) 2018-09-08 00:00:00 Completed [facility] Zoster(Zostavax)([facility]) 2018-09-08 00:00:00 Completed [facility] Pneumococcal Polysaccharide, PPSV23 (PNEUMOVAX) 2018-09-08 00:00:00 Completed [facility] Zoster(Zostavax)([facility]) 2018-09-08 00:00:00 Completed [facility] Pneumococcal Polysaccharide, PPSV23 (PNEUMOVAX) 2018-09-08 00:00:00 Completed [facility] Zoster(Zostavax)([facility]) 2018-09-08 00:00:00 Completed [facility] Pneumococcal Polysaccharide, PPSV23 (PNEUMOVAX) 2018-09-08 00:00:00 Completed [facility] Zoster(Zostavax)([facility]) 2018-09-08 00:00:00 Completed [facility] Pneumococcal Polysaccharide, PPSV23 (PNEUMOVAX) 2018-09-08 00:00:00 Completed [facility] Zoster(Zostavax)([facility]) 2018-09-08 00:00:00 Completed [facility] Pneumococcal Polysaccharide, PPSV23 (PNEUMOVAX) 2018-09-08 00:00:00 Completed [facility] Zoster(Zostavax)([facility]) 2018-09-08 00:00:00 Completed [facility] Pneumococcal Polysaccharide, PPSV23 (PNEUMOVAX) 2018-09-08 00:00:00 Completed [facility] Zoster(Zostavax)([facility]) 2018-09-08 00:00:00 Completed [facility] Pneumococcal Polysaccharide, PPSV23 (PNEUMOVAX) 2018-09-08 00:00:00 Completed [facility] Zoster(Zostavax)([facility]) 2018-09-08 00:00:00 Completed [facility] Pneumococcal Polysaccharide, PPSV23 (PNEUMOVAX) 2018-09-08 00:00:00 Completed [facility] Zoster(Zostavax)([facility]) 2018-09-08 00:00:00 Completed [facility] Pneumococcal Polysaccharide, PPSV23 (PNEUMOVAX) 2018-09-08 00:00:00 Completed [facility] Zoster(Zostavax)([facility]) 2018-09-08 00:00:00 Completed [facility] Pneumococcal Polysaccharide, PPSV23 (PNEUMOVAX) 2018-09-08 00:00:00 Completed [facility] Zoster(Zostavax)([facility]) 2018-09-08 00:00:00 Completed [facility] Pneumococcal Polysaccharide, PPSV23 (PNEUMOVAX) 2018-09-08 00:00:00 Completed [facility] Zoster(Zostavax)([facility]) 2018-09-08 00:00:00 Completed [facility] Pneumococcal Polysaccharide, PPSV23 (PNEUMOVAX) 2018-09-08 00:00:00 Completed [facility] Zoster(Zostavax)([facility]) 2018-09-08 00:00:00 Completed [facility] Pneumococcal Polysaccharide, PPSV23 (PNEUMOVAX) 2018-09-08 00:00:00 Completed [facility] Zoster(Zostavax)([facility]) 2018-09-08 00:00:00 Completed [facility] Pneumococcal Polysaccharide, PPSV23 (PNEUMOVAX) 2018-09-08 00:00:00 Completed [facility] Zoster(Zostavax)([facility]) 2018-09-08 00:00:00 Completed [facility] Pneumococcal Polysaccharide, PPSV23 (PNEUMOVAX) 2018-09-08 00:00:00 Completed [facility] Zoster(Zostavax)([facility]) 2018-09-08 00:00:00 Completed [facility] Pneumococcal Polysaccharide, PPSV23 (PNEUMOVAX) Unknown Completed [facility] Zoster(Zostavax)([facility]) Unknown Completed [facility] Zoster(Zostavax)( ingles) Unknown Completed [facility] SARS-COV-2 COVID-19 PFIZER VACCINE Unknown Completed [facility] SARS-COV-2 COVID-19 PFIZER VACCINE Unknown Completed [facility] SARS-COV-2 COVID-19 PFIZER VACCINE Unknown Completed [facility] SARS-COV-2 COVID-19 PFIZER STEPHANI-SUCROSE VACCINE (ORTIZ TOP) Unknown Completed [facility] SARS-COV-2 COVID-19 STEPHANI-SUCROSE VACCINE 12 YRS+, BIVALENT 0.3ML, IM, (PFIZER ORTIZ TOP) Unknown Completed [facility] Pneumococcal Polysaccharide, PPSV23 (PNEUMOVAX) Unknown Completed [facility] Zoster(Zostavax)( ingles) Unknown Completed [facility] Zoster(Zostavax)( ingles) Unknown Completed [facility] SARS-COV-2 COVID-19 PFIZER VACCINE Unknown Completed [facility] SARS-COV-2 COVID-19 PFIZER VACCINE Unknown Completed [facility] SARS-COV-2 COVID-19 PFIZER VACCINE Unknown Completed [facility] SARS-COV-2 COVID-19 PFIZER STEPHANI-SUCROSE VACCINE (ORTIZ TOP) Unknown Completed [facility] SARS-COV-2 COVID-19 STEPHANI-SUCROSE VACCINE 12 YRS+, BIVALENT 0.3ML, IM, (PFIZER ORTIZ TOP) Unknown Completed [facility] Pneumococcal Polysaccharide, PPSV23 (PNEUMOVAX) Unknown Completed [facility] Zoster(Zostavax)( ingles) Unknown Completed [facility] Zoster(Zostavax)( ingles) Unknown Completed [facility] SARS-COV-2 COVID-19 PFIZER VACCINE Unknown Completed [facility] SARS-COV-2 COVID-19 PFIZER VACCINE Unknown Completed [facility] SARS-COV-2 COVID-19 PFIZER VACCINE Unknown Completed [facility] SARS-COV-2 COVID-19 PFIZER STEPHANI-SUCROSE VACCINE (ORTIZ TOP) Unknown Completed [facility] SARS-COV-2 COVID-19 STEPHANI-SUCROSE VACCINE 12 YRS+, BIVALENT 0.3ML, IM, (PFIZER ORTIZ TOP) Unknown Completed [facility] Pneumococcal Polysaccharide, PPSV23 (PNEUMOVAX) Unknown Completed [facility] Zoster(Zostavax)( ingles) Unknown Completed [facility] Zoster(Zostavax)( ingles) Unknown Completed [facility] SARS-COV-2 COVID-19 PFIZER VACCINE Unknown Completed [facility] SARS-COV-2 COVID-19 PFIZER VACCINE Unknown Completed [facility] SARS-COV-2 COVID-19 PFIZER VACCINE Unknown Completed [facility] SARS-COV-2 COVID-19 PFIZER STEPHANI-SUCROSE VACCINE (ORTIZ TOP) Unknown Completed [facility] SARS-COV-2 COVID-19 STEPHANI-SUCROSE VACCINE 12 YRS+, BIVALENT 0.3ML, IM, (PFIZER ORTIZ TOP) Unknown Completed [facility] Pneumococcal Polysaccharide, PPSV23 (PNEUMOVAX) Unknown Completed [facility] Zoster(Zostavax)( ingles) Unknown Completed [facility] Zoster(Zostavax)( ingles) Unknown Completed [facility] SARS-COV-2 COVID-19 PFIZER VACCINE Unknown Completed [facility] SARS-COV-2 COVID-19 PFIZER VACCINE Unknown Completed [facility] SARS-COV-2 COVID-19 PFIZER VACCINE Unknown Completed [facility] SARS-COV-2 COVID-19 PFIZER STEPHANI-SUCROSE VACCINE (ORTIZ TOP) Unknown Completed [facility] SARS-COV-2 COVID-19 STEPHANI-SUCROSE VACCINE 12 YRS+, BIVALENT 0.3ML, IM, (PFIZER ORTIZ TOP) Unknown Completed [facility] Influenza Virus Vaccine,quad Im,preserve Free 65+ (FLUAD) Unknown Completed [facility] Pneumococcal Polysaccharide, PPSV23 (PNEUMOVAX) Unknown Completed [facility] Zoster(Zostavax)( ingles) Unknown Completed [facility] Zoster(Zostavax)( ingles) Unknown Completed [facility] SARS-COV-2 COVID-19 PFIZER VACCINE Unknown Completed [facility] SARS-COV-2 COVID-19 PFIZER VACCINE Unknown Completed [facility] SARS-COV-2 COVID-19 PFIZER VACCINE Unknown Completed [facility] SARS-COV-2 COVID-19 PFIZER STEPHANI-SUCROSE VACCINE (ORTIZ TOP) Unknown Completed [facility] SARS-COV-2 COVID-19 STEPHANI-SUCROSE VACCINE 12 YRS+, BIVALENT 0.3ML, IM, (PFIZER ORTIZ TOP) Unknown Completed [facility] Influenza Virus Vaccine,quad Im,preserve Free 65+ (FLUAD) Unknown Completed [facility] Pneumococcal Polysaccharide, PPSV23 (PNEUMOVAX) Unknown Completed [facility] Zoster(Zostavax)( ingles) Unknown Completed [facility] Zoster(Zostavax)( ingles) Unknown Completed [facility] SARS-COV-2 COVID-19 PFIZER VACCINE Unknown Completed [facility] SARS-COV-2 COVID-19 PFIZER VACCINE Unknown Completed [facility] SARS-COV-2 COVID-19 PFIZER VACCINE Unknown Completed [facility] SARS-COV-2 COVID-19 PFIZER STEPHANI-SUCROSE VACCINE (ORTIZ TOP) Unknown Completed [facility] SARS-COV-2 COVID-19 STEPHANI-SUCROSE VACCINE 12 YRS+, BIVALENT 0.3ML, IM, (PFIZER ORTIZ TOP) Unknown Completed [facility] Influenza Virus Vaccine,quad Im,preserve Free 65+ (FLUAD) Unknown Completed [facility] Pneumococcal Polysaccharide, PPSV23 (PNEUMOVAX) Unknown Completed [facility] Zoster(Zostavax)( ingles) Unknown Completed [facility] Zoster(Zostavax)( ingles) Unknown Completed [facility] SARS-COV-2 COVID-19 PFIZER VACCINE Unknown Completed [facility] SARS-COV-2 COVID-19 PFIZER VACCINE Unknown Completed [facility] Pneumococcal Polysaccharide, PPSV23 (PNEUMOVAX) Unknown Completed [facility] Zoster(Zostavax)( ingles) Unknown Completed [facility] Zoster(Zostavax)( ingles) Unknown Completed [facility] SARS-COV-2 COVID-19 PFIZER VACCINE Unknown Completed [facility] SARS-COV-2 COVID-19 PFIZER VACCINE Unknown Completed [facility] SARS-COV-2 COVID-19 PFIZER VACCINE Unknown Completed [facility] SARS-COV-2 COVID-19 PFIZER STEPHANI-SUCROSE VACCINE (ORTIZ TOP) Unknown Completed [facility] SARS-COV-2 COVID-19 STEPHANI-SUCROSE VACCINE 12 YRS+, BIVALENT 0.3ML, IM, (PFIZER ORTIZ TOP) Unknown Completed [facility] Influenza Virus Vaccine,quad Im,preserve Free 65+ (FLUAD) Unknown Completed [facility] SARS-COV-2 COVID 19 STEPHANI SUCROSE VACCINE 12+, [id number], 0.3 ML (30 MCG), IM PFIZER (ORTIZ TOP) Unknown Completed [facility] Pneumococcal Polysaccharide, PPSV23 (PNEUMOVAX) Unknown Completed [facility] Zoster(Zostavax)(Sh ingles) Unknown Completed [facility] Zoster(Zostavax)(Sh ingles) Unknown Completed [facility] SARS-COV-2 COVID-19 PFIZER VACCINE Unknown Completed [facility] SARS-COV-2 COVID-19 PFIZER VACCINE Unknown Completed [facility] SARS-COV-2 COVID-19 PFIZER VACCINE Unknown Completed [facility] SARS-COV-2 COVID-19 PFIZER STEPHANI-SUCROSE VACCINE (ORTIZ TOP) Unknown Completed [facility] SARS-COV-2 COVID-19 STEPHANI-SUCROSE VACCINE 12 YRS+, BIVALENT 0.3ML, IM, (PFIZER ORTIZ TOP) Unknown Completed [facility] Influenza Virus Vaccine,quad Im,preserve Free 65+ (FLUAD) Unknown Completed [facility] SARS-COV-2 COVID 19 STEPHANI SUCROSE VACCINE 12+, [id number], 0.3 ML (30 MCG), IM PFIZER (ORTIZ TOP) Unknown Completed [facility] Pneumococcal Polysaccharide, PPSV23 (PNEUMOVAX) Unknown Completed [facility] Zoster(Zostavax)(Sh ingles) Unknown Completed [facility] Zoster(Zostavax)(Sh ingles) Unknown Completed [facility] SARS-COV-2 COVID-19 PFIZER VACCINE Unknown Completed [facility] SARS-COV-2 COVID-19 PFIZER VACCINE Unknown Completed [facility] SARS-COV-2 COVID-19 PFIZER VACCINE Unknown Completed [facility] SARS-COV-2 COVID-19 PFIZER STEPHANI-SUCROSE VACCINE (ORTIZ TOP) Unknown Completed [facility] SARS-COV-2 COVID-19 STEPHANI-SUCROSE VACCINE 12 YRS+, BIVALENT 0.3ML, IM, (PFIZER ORTIZ TOP) Unknown Completed [facility] Influenza Virus Vaccine,quad Im,preserve Free 65+ (FLUAD) Unknown Completed [facility] SARS-COV-2 COVID 19 STEPHANI SUCROSE VACCINE 12+, [id number], 0.3 ML (30 MCG), IM PFIZER (ORTIZ TOP) Unknown Completed [facility] Pneumococcal Polysaccharide, PPSV23 (PNEUMOVAX) Unknown Completed [facility] Zoster(Zostavax)(Sh ingles) Unknown Completed [facility] Zoster(Zostavax)(Sh ingles) Unknown Completed [facility] SARS-COV-2 COVID-19 PFIZER VACCINE Unknown Completed [facility] SARS-COV-2 COVID-19 PFIZER VACCINE Unknown Completed [facility] SARS-COV-2 COVID-19 PFIZER VACCINE Unknown Completed [facility] SARS-COV-2 COVID-19 PFIZER STEPHANI-SUCROSE VACCINE (ORTIZ TOP) Unknown Completed [facility] SARS-COV-2 COVID-19 STEPHANI-SUCROSE VACCINE 12 YRS+, BIVALENT 0.3ML, IM, (PFIZER ORTIZ TOP) Unknown Completed [facility] Influenza Virus Vaccine,quad Im,preserve Free 65+ (FLUAD) Unknown Completed [facility] SARS-COV-2 COVID 19 STEPHANI SUCROSE VACCINE 12+, [id number], 0.3 ML (30 MCG), IM PFIZER (ORTIZ TOP) Unknown Completed [facility] Pneumococcal Polysaccharide, PPSV23 (PNEUMOVAX) Unknown Completed [facility] Zoster(Zostavax)( ingles) Unknown Completed [facility] Zoster(Zostavax)(Sh ingles) Unknown Completed [facility] SARS-COV-2 COVID-19 PFIZER VACCINE Unknown Completed [facility] SARS-COV-2 COVID-19 PFIZER VACCINE Unknown Completed [facility] SARS-COV-2 COVID-19 PFIZER VACCINE Unknown Completed [facility] SARS-COV-2 COVID-19 PFIZER STEPHANI-SUCROSE VACCINE (ORTIZ TOP) Unknown Completed [facility] SARS-COV-2 COVID-19 STEPHANI-SUCROSE VACCINE 12 YRS+, BIVALENT 0.3ML, IM, (PFIZER ORTIZ TOP) Unknown Completed [facility] Influenza Virus Vaccine,quad Im,preserve Free 65+ (FLUAD) Unknown Completed [facility] SARS-COV-2 COVID 19 STEPHANI SUCROSE VACCINE 12+, [id number], 0.3 ML (30 MCG), IM PFIZER (ORTIZ TOP) Unknown Completed [facility] Pneumococcal Polysaccharide, PPSV23 (PNEUMOVAX) Unknown Completed [facility] Zoster(Zostavax)(Sh ingles) Unknown Completed [facility] Zoster(Zostavax)(Sh ingles) Unknown Completed [facility] SARS-COV-2 COVID-19 PFIZER VACCINE Unknown Completed [facility] SARS-COV-2 COVID-19 PFIZER VACCINE Unknown Completed [facility] SARS-COV-2 COVID-19 PFIZER VACCINE Unknown Completed [facility] SARS-COV-2 COVID-19 PFIZER STEPHANI-SUCROSE VACCINE (ORTIZ TOP) Unknown Completed [facility] SARS-COV-2 COVID-19 STEPHANI-SUCROSE VACCINE 12 YRS+, BIVALENT 0.3ML, IM, (PFIZER ORTIZ TOP) Unknown Completed [facility] Influenza Virus Vaccine,quad Im,preserve Free 65+ (FLUAD) Unknown Completed [facility] SARS-COV-2 COVID 19 STEPHANI SUCROSE VACCINE 12+, , 0.3 ML (30 MCG), IM PFIZER (ORTIZ TOP) Unknown Completed [facility] Pneumococcal Polysaccharide, PPSV23 (PNEUMOVAX) Unknown Completed [facility] Zoster(Zostavax)( ingles) Unknown Completed [facility] Zoster(Zostavax)( ingles) Unknown Completed [facility] SARS-COV-2 COVID-19 PFIZER VACCINE Unknown Completed [facility] SARS-COV-2 COVID-19 PFIZER VACCINE Unknown Completed [facility] SARS-COV-2 COVID-19 PFIZER VACCINE Unknown Completed [facility] SARS-COV-2 COVID-19 PFIZER STEPHANI-SUCROSE VACCINE (ORTIZ TOP) Unknown Completed [facility] SARS-COV-2 COVID-19 STEPHANI-SUCROSE VACCINE 12 YRS+, BIVALENT 0.3ML, IM, (PFIZER ORTIZ TOP) Unknown Completed [facility] Influenza Virus Vaccine,quad Im,preserve Free 65+ (FLUAD) Unknown Completed [facility] SARS-COV-2 COVID 19 STEPHANI SUCROSE VACCINE 12, , 0.3 ML (30 MCG), IM PFIZER (ORTIZ TOP) Unknown Completed [facility] Pneumococcal Polysaccharide, PPSV23 (PNEUMOVAX) Unknown Completed [facility] Zoster(Zostavax)(Sh ingles) Unknown Completed [facility] Zoster(Zostavax)(Sh ingles) Unknown Completed [facility] SARS-COV-2 COVID-19 PFIZER VACCINE Unknown Completed [facility] SARS-COV-2 COVID-19 PFIZER VACCINE Unknown Completed [facility] SARS-COV-2 COVID-19 PFIZER VACCINE Unknown Completed [facility] SARS-COV-2 COVID-19 PFIZER STEPHANI-SUCROSE VACCINE (ORTIZ TOP) Unknown Completed [facility] SARS-COV-2 COVID-19 STEPHANI-SUCROSE VACCINE 12 YRS+, BIVALENT 0.3ML, IM, (PFIZER ORTIZ TOP) Unknown Completed [facility] Influenza Virus Vaccine,quad Im,preserve Free 65+ (FLUAD) Unknown Completed [facility] SARS-COV-2 COVID 19 STEPHANI SUCROSE VACCINE 12, , 0.3 ML (30 MCG), IM PFIZER (ORTIZ TOP) Unknown Completed [facility] Pneumococcal Polysaccharide, PPSV23 (PNEUMOVAX) Unknown Completed [facility] Zoster(Zostavax)( ingles) Unknown Completed [facility] Zoster(Zostavax)( ingles) Unknown Completed [facility] SARS-COV-2 COVID-19 PFIZER VACCINE Unknown Completed [facility] SARS-COV-2 COVID-19 PFIZER VACCINE Unknown Completed [facility] SARS-COV-2 COVID-19 PFIZER VACCINE Unknown Completed [facility] SARS-COV-2 COVID-19 PFIZER STEPHANI-SUCROSE VACCINE (ORTIZ TOP) Unknown Completed [facility] SARS-COV-2 COVID-19 STEPHANI-SUCROSE VACCINE 12 YRS+, BIVALENT 0.3ML, IM, (PFIZER ORTIZ TOP) Unknown Completed [facility] Influenza Virus Vaccine,quad Im,preserve Free 65+ (FLUAD) Unknown Completed [facility] SARS-COV-2 COVID 19 STEPHANI SUCROSE VACCINE 12+, , 0.3 ML (30 MCG), IM PFIZER (ORTIZ TOP) Unknown Completed [facility] Pneumococcal Polysaccharide, PPSV23 (PNEUMOVAX) Unknown Completed [facility] Zoster(Zostavax)(Sh ingles) Unknown Completed [facility] Zoster(Zostavax)(Sh ingles) Unknown Completed [facility] SARS-COV-2 COVID-19 PFIZER VACCINE Unknown Completed [facility] SARS-COV-2 COVID-19 PFIZER VACCINE Unknown Completed [facility] SARS-COV-2 COVID-19 PFIZER VACCINE Unknown Completed [facility] SARS-COV-2 COVID-19 PFIZER STEPHANI-SUCROSE VACCINE (ORTIZ TOP) Unknown Completed [facility] SARS-COV-2 COVID-19 STEPHANI-SUCROSE VACCINE 12 YRS+, BIVALENT 0.3ML, IM, (PFIZER ORTIZ TOP) Unknown Completed [facility] Influenza Virus Vaccine,quad Im,preserve Free 65+ (FLUAD) Unknown Completed [facility] SARS-COV-2 COVID 19 STEPHANI SUCROSE VACCINE 12, , 0.3 ML (30 MCG), IM PFIZER (ORTIZ TOP) Unknown Completed [facility] Pneumococcal Polysaccharide, PPSV23 (PNEUMOVAX) Unknown Completed [facility] Zoster(Zostavax)( ingles) Unknown Completed [facility] Zoster(Zostavax)( ingles) Unknown Completed [facility] SARS-COV-2 COVID-19 PFIZER VACCINE Unknown Completed [facility] SARS-COV-2 COVID-19 PFIZER VACCINE Unknown Completed [facility] SARS-COV-2 COVID-19 PFIZER VACCINE Unknown Completed [facility] SARS-COV-2 COVID-19 PFIZER STEPHANI-SUCROSE VACCINE (ORTIZ TOP) Unknown Completed [facility] SARS-COV-2 COVID-19 STEPHANI-SUCROSE VACCINE 12 YRS+, BIVALENT 0.3ML, IM, (PFIZER ORTIZ TOP) Unknown Completed [facility] Influenza Virus Vaccine,quad Im,preserve Free 65+ (FLUAD) Unknown Completed [facility] SARS-COV-2 COVID 19 STEPHANI SUCROSE VACCINE 12, , 0.3 ML (30 MCG), IM PFIZER (ORTIZ TOP) Unknown Completed [facility] RSV, Bivalent Protein Subunit RSVprdF Unknown Completed [facility] Pneumococcal Polysaccharide, PPSV23 (PNEUMOVAX) Unknown Completed [facility] Zoster(Zostavax)(Sh ingles) Unknown Completed [facility] Zoster(Zostavax)(Sh ingles) Unknown Completed [facility] SARS-COV-2 COVID-19 PFIZER VACCINE Unknown Completed [facility] SARS-COV-2 COVID-19 PFIZER VACCINE Unknown Completed [facility] SARS-COV-2 COVID-19 PFIZER VACCINE Unknown Completed [facility] SARS-COV-2 COVID-19 PFIZER STEPHANI-SUCROSE VACCINE (ORTIZ TOP) Unknown Completed [facility] SARS-COV-2 COVID-19 STEPHANI-SUCROSE VACCINE 12 YRS+, BIVALENT 0.3ML, IM, (PFIZER ORTIZ TOP) Unknown Completed [facility] Influenza Virus Vaccine,quad Im,preserve Free 65+ (FLUAD) Unknown Completed [facility] SARS-COV-2 COVID 19 STEPHANI SUCROSE VACCINE 12+, , 0.3 ML (30 MCG), IM PFIZER (ORTIZ TOP) Unknown Completed [facility] RSV, Bivalent Protein Subunit RSVprdF Unknown Completed [facility] Pneumococcal Polysaccharide, PPSV23 (PNEUMOVAX) Unknown Completed [facility] Zoster(Zostavax)(Sh ingles) Unknown Completed [facility] Zoster(Zostavax)( ingles) Unknown Completed [facility] SARS-COV-2 COVID-19 PFIZER VACCINE Unknown Completed [facility] SARS-COV-2 COVID-19 PFIZER VACCINE Unknown Completed [facility] SARS-COV-2 COVID-19 PFIZER VACCINE Unknown Completed [facility] SARS-COV-2 COVID-19 PFIZER STEPHANI-SUCROSE VACCINE (ORTIZ TOP) Unknown Completed [facility] SARS-COV-2 COVID-19 STEPHANI-SUCROSE VACCINE 12 YRS+, BIVALENT 0.3ML, IM, (PFIZER ORTIZ TOP) Unknown Completed [facility] Influenza Virus Vaccine,quad Im,preserve Free 65+ (FLUAD) Unknown Completed [facility] SARS-COV-2 COVID 19 STEPHANI SUCROSE VACCINE 12+, , 0.3 ML (30 MCG), IM PFIZER (ORTIZ TOP) Unknown Completed [facility] RSV, Bivalent Protein Subunit RSVprdF Unknown Completed [facility] Pneumococcal Polysaccharide, PPSV23 (PNEUMOVAX) Unknown Completed [facility] Zoster(Zostavax)(Sh ingles) Unknown Completed [facility] Zoster(Zostavax)(Sh ingles) Unknown Completed [facility] SARS-COV-2 COVID-19 PFIZER VACCINE Unknown Completed [facility] SARS-COV-2 COVID-19 PFIZER VACCINE Unknown Completed [facility] SARS-COV-2 COVID-19 PFIZER VACCINE Unknown Completed [facility] SARS-COV-2 COVID-19 PFIZER STEPHANI-SUCROSE VACCINE (ORTIZ TOP) Unknown Completed [facility] SARS-COV-2 COVID-19 STEPHANI-SUCROSE VACCINE 12 YRS+, BIVALENT 0.3ML, IM, (PFIZER ORTIZ TOP) Unknown Completed [facility] Influenza Virus Vaccine,quad Im,preserve Free 65+ (FLUAD) Unknown Completed [facility] SARS-COV-2 COVID 19 STEPHANI SUCROSE VACCINE , 0.3 ML (30 MCG), IM PFIZER (ORTIZ TOP) Unknown Completed [facility] RSV, Bivalent Protein Subunit RSVprdF Unknown Completed [facility] Pneumococcal Polysaccharide, PPSV23 (PNEUMOVAX) Unknown Completed [facility] Zoster(Zostavax)(Sh ingles) Unknown Completed [facility] Zoster(Zostavax)( ingles) Unknown Completed [facility] SARS-COV-2 COVID-19 PFIZER VACCINE Unknown Completed [facility] SARS-COV-2 COVID-19 PFIZER VACCINE Unknown Completed [facility] SARS-COV-2 COVID-19 PFIZER VACCINE Unknown Completed [facility] SARS-COV-2 COVID-19 PFIZER STEPHANI-SUCROSE VACCINE (ORTIZ TOP) Unknown Completed [facility] SARS-COV-2 COVID-19 STEPHANI-SUCROSE VACCINE 12 YRS+, BIVALENT 0.3ML, IM, (PFIZER ORTIZ TOP) Unknown Completed [facility] Influenza Virus Vaccine,quad Im,preserve Free 65+ (FLUAD) Unknown Completed [facility] SARS-COV-2 COVID 19 STEPHANI SUCROSE VACCINE 12, [id number], 0.3 ML (30 MCG), IM PFIZER (ORTIZ TOP) Unknown Completed [facility] RSV, Bivalent Protein Subunit RSVprdF Unknown Completed [facility] Pneumococcal Polysaccharide, PPSV23 (PNEUMOVAX) Unknown Completed [facility] Zoster(Zostavax)(Sh ingles) Unknown Completed [facility] Zoster(Zostavax)( ingles) Unknown Completed [facility] SARS-COV-2 COVID-19 PFIZER VACCINE Unknown Completed [facility] SARS-COV-2 COVID-19 PFIZER VACCINE Unknown Completed [facility] SARS-COV-2 COVID-19 PFIZER VACCINE Unknown Completed [facility] SARS-COV-2 COVID-19 PFIZER STEPHANI-SUCROSE VACCINE (ORTIZ TOP) Unknown Completed [facility] SARS-COV-2 COVID-19 STEPHANI-SUCROSE VACCINE 12 YRS+, BIVALENT 0.3ML, IM, (PFIZER ORTIZ TOP) Unknown Completed [facility] Influenza Virus Vaccine,quad Im,preserve Free 65+ (FLUAD) Unknown Completed [facility] SARS-COV-2 COVID 19 STEPHANI SUCROSE VACCINE 12+, , 0.3 ML (30 MCG), IM PFIZER (ORTIZ TOP) Unknown Completed [facility] RSV, Bivalent Protein Subunit RSVprdF Unknown Completed [facility] Pneumococcal Polysaccharide, PPSV23 (PNEUMOVAX) Unknown Completed [facility] Zoster(Zostavax)( ingles) Unknown Completed [facility] Zoster(Zostavax)( ingles) Unknown Completed [facility] SARS-COV-2 COVID-19 PFIZER VACCINE Unknown Completed [facility] SARS-COV-2 COVID-19 PFIZER VACCINE Unknown Completed [facility] SARS-COV-2 COVID-19 PFIZER VACCINE Unknown Completed [facility] SARS-COV-2 COVID-19 PFIZER STEPHANI-SUCROSE VACCINE (ORTIZ TOP) Unknown Completed [facility] SARS-COV-2 COVID-19 STEPHANI-SUCROSE VACCINE 12 YRS+, BIVALENT 0.3ML, IM, (PFIZER ORTIZ TOP) Unknown Completed [facility] Influenza Virus Vaccine,quad Im,preserve Free 65+ (FLUAD) Unknown Completed [facility] SARS-COV-2 COVID 19 STEPHANI SUCROSE VACCINE 12+, [id number], 0.3 ML (30 MCG), IM PFIZER (ORTIZ TOP) Unknown Completed [facility] RSV, Bivalent Protein Subunit RSVprdF Unknown Completed [facility] Pneumococcal Polysaccharide, PPSV23 (PNEUMOVAX) Unknown Completed [facility] Zoster(Zostavax)(Sh ingles) Unknown Completed [facility] Zoster(Zostavax)(Sh ingles) Unknown Completed [facility] SARS-COV-2 COVID-19 PFIZER VACCINE Unknown Completed [facility] SARS-COV-2 COVID-19 PFIZER VACCINE Unknown Completed [facility] SARS-COV-2 COVID-19 PFIZER VACCINE Unknown Completed [facility] SARS-COV-2 COVID-19 PFIZER STEPHANI-SUCROSE VACCINE (ORTIZ TOP) Unknown Completed [facility] SARS-COV-2 COVID-19 STEPHANI-SUCROSE VACCINE 12 YRS+, BIVALENT 0.3ML, IM, (PFIZER ORTIZ TOP) Unknown Completed [facility] Influenza Virus Vaccine,quad Im,preserve Free 65+ (FLUAD) Unknown Completed [facility] SARS-COV-2 COVID 19 STEPHANI SUCROSE VACCINE 12+, , 0.3 ML (30 MCG), IM PFIZER (ORTIZ TOP) Unknown Completed [facility] RSV, Bivalent Protein Subunit RSVprdF Unknown Completed [facility] Vital Signs Vital Name Observation Time Observation Value Comments S ource Systolic blood pressure 2023-10-22 14:31:00 138 mm[Hg] [facility] Diastolic blood pressure 2023-10-22 14:31:00 77 mm[Hg] [facility] Heart rate 2023-10-22 14:19:00 89 /min [facility] Respiratory rate 2023-10-22 14:19:00 18 /min [facility] Body height 2023-10-22 14:19:00 177.8 cm [facility] Body weight 2023-10-22 14:19:00 73.301 kg [facility] BMI 2023-10-22 14:19:00 23.19 kg/m2 [facility] Oxygen saturation in Arterial blood by Pulse oximetry 2023-10-22 14:19:00 98 /min [facility] Systolic blood pressure 2023-10-18 14:50:00 144 mm[Hg] [facility] Diastolic blood pressure 2023-10-18 14:50:00 71 mm[Hg] [facility] Heart rate 2023-10-18 14:50:00 93 /min [facility] Body temperature 2023-10-18 14:50:00 36.72 Ximena [facility] Body height 2023-10-18 14:50:00 177.8 cm [facility] Body weight 2023-10-18 14:50:00 72.122 kg [facility] BMI 2023-10-18 14:50:00 22.81 kg/m2 [facility] Systolic blood pressure 2023-06-01 15:38:00 133 mm[Hg] [facility] Diastolic blood pressure 2023-06-01 15:38:00 69 mm[Hg] [facility] Heart rate 2023-06-01 15:38:00 86 /min [facility] Body weight 2023-06-01 15:38:00 75.297 kg [facility] BMI 2023-06-01 15:38:00 22.51 kg/m2 [facility] Systolic blood pressure 2023-04-27 19:07:00 109 mm[Hg] [facility] Diastolic blood pressure 2023-04-27 19:07:00 64 mm[Hg] [facility] Heart rate 2023-04-27 19:06:00 86 /min [facility] Body temperature 2023-04-27 19:06:00 36.39 Ximena [facility] Body weight 2023-04-27 19:06:00 78.472 kg [facility] BMI 2023-04-27 19:06:00 23.46 kg/m2 [facility] Systolic blood pressure 2022-12-30 14:25:00 146 mm[Hg] [facility] Diastolic blood pressure 2022-12-30 14:25:00 70 mm[Hg] [facility] Heart rate 2022-12-30 14:20:00 67 /min [facility] Body weight 2022-12-30 14:20:00 78.019 kg [facility] BMI 2022-12-30 14:20:00 23.33 kg/m2 [facility] Systolic blood pressure 2022-12-29 20:17:00 113 mm[Hg] [facility] Diastolic blood pressure 2022-12-29 20:17:00 66 mm[Hg] [facility] Heart rate 2022-12-29 20:17:00 88 /min [facility] Body temperature 2022-12-29 20:17:00 36.89 Ximena [facility] Respiratory rate 2022-12-29 20:17:00 16 /min [facility] Body height 2022-12-29 20:17:00 182.9 cm [facility] Body weight 2022-12-29 20:17:00 77.197 kg [facility] BMI 2022-12-29 20:17:00 23.08 kg/m2 [facility] Oxygen saturation in Arterial blood by Pulse oximetry 2022-12-29 20:17:00 95 /min [facility] Systolic blood pressure 2022-12-01 18:53:00 108 mm[Hg] [facility] Diastolic blood pressure 2022-12-01 18:53:00 105 mm[Hg] [facility] Heart rate 2022-12-01 18:53:00 81 /min [facility] Body temperature 2022-12-01 18:53:00 36.61 Ximena [facility] Body weight 2022-12-01 18:53:00 78.472 kg [facility] BMI 2022-12-01 18:53:00 23.46 kg/m2 [facility] Systolic blood pressure 2022-10-19 14:11:00 156 mm[Hg] [facility] Diastolic blood pressure 2022-10-19 14:11:00 74 mm[Hg] [facility] Heart rate 2022-10-19 14:05:00 73 /min [facility] Body height 2022-10-19 14:05:00 182.9 cm [facility] Body weight 2022-10-19 14:05:00 79.334 kg [facility] BMI 2022-10-19 14:05:00 23.72 kg/m2 [facility] Systolic blood pressure 2022-07-20 14:37:00 126 mm[Hg] [facility] Diastolic blood pressure 2022-07-20 14:37:00 68 mm[Hg] [facility] Heart rate 2022-07-20 14:37:00 92 /min [facility] Body height 2022-07-20 14:37:00 182.9 cm [facility] Body weight 2022-07-20 14:37:00 79.107 kg [facility] BMI 2022-07-20 14:37:00 23.65 kg/m2 [facility] Systolic blood pressure 2022-06-29 13:07:00 108 mm[Hg] [facility] Diastolic blood pressure 2022-06-29 13:07:00 70 mm[Hg] [facility] Heart rate 2022-06-29 13:07:00 92 /min [facility] Body height 2022-06-29 13:07:00 165.1 cm [facility] Body weight 2022-06-29 13:07:00 79.379 kg [facility] BMI 2022-06-29 13:07:00 29.12 kg/m2 [facility] Body height 2022-06-25 19:11:00 165.1 cm [facility] Body weight 2022-06-25 19:11:00 83.915 kg [facility] BMI 2022-06-25 19:11:00 30.79 kg/m2 [facility] Body height 2022-06-16 15:40:00 165.1 cm [facility] Systolic blood pressure 2022-04-17 14:28:00 126 mm[Hg] [facility] Diastolic blood pressure 2022-04-17 14:28:00 72 mm[Hg] [facility] Heart rate 2022-04-17 14:28:00 74 /min [facility] Body height 2022-04-17 14:28:00 182.9 cm [facility] Body weight 2022-04-17 14:28:00 83.462 kg [facility] BMI 2022-04-17 14:28:00 24.95 kg/m2 [facility] Oxygen saturation in Arterial blood by Pulse oximetry 2022-04-17 14:28:00 98 /min [facility] Systolic blood pressure 2022-03-05 16:51:00 101 mm[Hg] [facility] Diastolic blood pressure 2022-03-05 16:51:00 68 mm[Hg] [facility] Heart rate 2022-03-05 16:51:00 93 /min [facility] Body height 2022-03-05 16:51:00 182.9 cm [facility] Body weight 2022-03-05 16:51:00 83.416 kg [facility] BMI 2022-03-05 16:51:00 24.94 kg/m2 [facility] Body height 2022-02-23 15:17:00 182.9 cm [facility] Systolic blood pressure 2022-02-13 13:58:00 139 mm[Hg] [facility] Diastolic blood pressure 2022-02-13 13:58:00 62 mm[Hg] [facility] Heart rate 2022-02-13 13:58:00 70 /min [facility] Body height 2022-02-13 13:58:00 182.9 cm [facility] Body weight 2022-02-13 13:58:00 82.101 kg [facility] BMI 2022-02-13 13:58:00 24.55 kg/m2 [facility] Oxygen saturation in Arterial blood by Pulse oximetry 2022-02-13 13:58:00 97 /min [facility] Systolic blood pressure 2022-01-30 15:20:00 149 mm[Hg] [facility] Diastolic blood pressure 2022-01-30 15:20:00 71 mm[Hg] [facility] Heart rate 2022-01-30 15:20:00 72 /min [facility] Oxygen saturation in Arterial blood by Pulse oximetry 2022-01-30 15:20:00 99 /min [facility] Body height 2022-01-30 15:11:00 172.7 cm [facility] Body weight 2022-01-30 15:11:00 81.874 kg [facility] BMI 2022-01-30 15:11:00 27.44 kg/m2 [facility] Systolic blood pressure 2022-01-19 19:45:00 144 mm[Hg] [facility] Diastolic blood pressure 2022-01-19 19:45:00 68 mm[Hg] [facility] Heart rate 2022-01-19 19:44:00 66 /min [facility] 2022-01-19 19:44:00 82.101 kg [facility] BMI 2022-01-19 19:44:00 24.55 kg/m2 [facility] Systolic blood pressure 2022-01-13 19:10:00 156 mm[Hg] [facility] Diastolic blood pressure 2022-01-13 19:10:00 74 mm[Hg] [facility] Heart rate 2022-01-13 19:10:00 75 /min [facility] 2022-01-13 19:10:00 182.9 cm [facility] weight 2022-01-13 19:10:00 80.287 kg [facility] BMI 2022-01-13 19:10:00 24.01 kg/m2 [facility] Systolic blood pressure 2021-12-30 13:06:00 166 mm[Hg] [facility] Diastolic blood pressure 2021-12-30 13:06:00 71 mm[Hg] [facility] Heart rate 2021-12-30 13:05:00 71 /min [facility] Body height 2021-12-30 13:05:00 172.7 cm [facility] Body weight 2021-12-30 13:05:00 79.833 kg [facility] BMI 2021-12-30 13:05:00 26.76 kg/m2 [facility] Systolic blood pressure 2021-11-03 13:10:00 158 mm[Hg] [facility] Diastolic blood pressure 2021-11-03 13:10:00 77 mm[Hg] [facility] Heart rate 2021-11-03 13:09:00 75 /min [facility] Body height 2021-11-03 13:09:00 172.7 cm [facility] Body weight 2021-11-03 13:09:00 81.647 kg [facility] BMI 2021-11-03 13:09:00 27.37 kg/m2 [facility] Procedures Procedure Date / Time Performed Performing Clinician Source POCT URINALYSIS 2023-10-18 00:00:00 Steven Solis enedina [facility] AORTOILIAC DUPLEX - BY VASCULAR LAB 2023-07-16 16:33:56 Lenin Piedra [facility] SARS-COV-2 COVID 19 STEPHANI SUCROSE VACCINE 12+, , 0.3 ML (30 MCG), IM PFIZER (ORTIZ TOP) 2023-02-22 19:37:03 Doctor Unassigned, [place] [facility] XR LUMBAR SPINE 3 VW 2022-12-30 15:41:59 Shawn Solis [facility] FLU VACC(),65+YR,0.5 ML,IM,ADJUVANTED,QUAD(FLU AD) 2022-12-30 14:35:41 Shawn Solis [facility] REFERRAL- REQUEST/RESPONSE 2022-08-27 05:01:00 Doctor Unassigned, [place] [facility] MEDICATION CORRESPONDENCE 2022-07-13 05:01:00 Do ctor Unassigned, [place] [facility] PATIENT FINANCIAL POLICY 2022-06-16 15:33:39 Doctor Unassigned, [place] [facility] AUTHORIZATION FOR RELEASE OF PHI 2022-06-03 06:01:00 Doctor Unassigned, [place] [facility] REFERRAL- REQUEST/RESPONSE 2022-04-08 06:01:00 Doctor Unassigned, [place] [facility] EXTERNAL PROVIDER RECORDS 2022-03-23 06:01:00 Do ctor Unassigned, [place] [facility] SARS-COV-2 COVID-19 STEPHANI-SUCROSE VACCINE 12 YRS+, BIVALENT 0.3ML, IM, (PFIZER ORTIZ TOP BOOSTER) 2022-01-30 14:41:24 Doctor Unassigned, [place] [facility] MR BRAIN WO CONTRAST 2022-01-29 14:28:[address] [facility] Encounters Start Date/Time End Date/Time Encounter Type Admission Type Attending Clinicians Care Facility Care Department Encounter ID Source 2021-04-08 01:05:23 Outpatient [facility] [id number] [facility] 2023-11-30 10:00:00 2023-11-30 10:00:00 Outpatient SHAWN CHRISTIAN [facility] [id number] [facility] 2023-11-15 10:30:00 2023-11-15 10:43:58 Outpatient MARIA ESTHER TEE [facility] [id number] [facility] 2023-11-15 10:30:00 2023-11-15 10:43:58 Office Visit Maria Esther Reid [facility] 1.2.840.114 350.1.13.10 4.2.7.2.686 [id number] [facility] 2023-10-22 09:30:00 2023-10-22 09:45:58 Outpatient ARIADNE LOCK [facility] [id number] [facility] 2023-10-22 09:30:00 2023-10-22 09:45:58 Office Visit Ariadne Cruz [facility] 1.2.840.114 350.1.13.10 4.2.7.2.686 [id number] [facility] 2023-10-18 10:15:00 2023-10-18 10:30:00 [facility] 1..840.114 350.1.13.10 4.2.7.2.686 [id number] [facility] 2023-10-18 10:15:00 2023-10-18 10:15:00 Outpatient R WILL SHAWN [facility] [id number] [facility] 2023-07-18 00:00:00 2023-08-21 18:09:07 Patient Secure Msg Nico [facility] 1..840.114 350.1.13.10 4.2.7.2.686 [id number] [facility] 2023-08-17 00:00:00 2023-08-18 07:52:16 [facility] 1.2.840.114 350.1.13.10 4.2.7.2.686 [id number] [facility] 2023-07-16 10:58:35 2023-07-16 23:59:00 [facility] [id number] [facility] 2023-07-16 10:58:35 2023-07-16 23:59:00 [facility] 1.2.840.114 350.1.13.10 4.2.7.2.686 [id number] [facility] 2023-06-29 09:00:00 2023-06-29 09:15:56 Outpatient R LENIN PIEDRA [facility] [id number] [facility] 2023-06-07 00:00:00 2023-06-07 00:00:00 Refill Shawn Solis [facility] 1.840.114 350.1.13.10 4.2.7.2.686 [id number] [facility] 2023-06-01 10:00:00 2023-06-01 10:15:00 Office Visit Shawn Solis [facility] 1.84.114 350.1.13.10 4.2.7.2.686 [id number] [facility] 2023-06-01 10:00:00 2023-06-01 10:00:00 Outpatient SHAWN CHRISTIAN [facility] [id number] [facility] 2023-05-17 14:45:00 2023-05-17 14:57:02 Outpatient MARIA ESTHER TEE [facility] [id number] [facility] 2023-05-17 14:45:00 2023-05-17 14:57:02 Office Visit Maria Esther Reid [facility] 1.84.114 350.1.13.10 4.2.7.2.686 [id number] [facility] 2023-04-27 13:00:00 2023-04-27 13:15:00 [facility] 1.840.114 350.1.13.10 4.2.7.2.686 [id number] [facility] 2023-04-27 13:00:00 2023-04-27 13:00:00 Outpatient SHAWN CHRISTIAN [facility] [id number] [facility] 2023-02-22 14:00:00 2023-02-22 14:10:00 Imm/Inj Visit Vaccine, Ang Db Cbc Fam Will [facility] 1..840.114 350.1.13.10 4.2.7.2.686 [id number] [facility] 2023-02-22 14:00:00 2023-02-22 14:00:00 Outpatient R SHAWN SOLIS [facility] [id number] [facility] 2022-12-30 09:43:47 2022-12-30 23:59:00 [facility] 1..840.114 350.1.13.10 4.2.7.2.686 [id number] [facility] 2022-12-30 09:30:00 2022-12-30 09:42:33 Out[facility] [id number] [facility] 2022-12-30 09:30:00 2022-12-30 09:42:33 [facility] 1..840.114 350.1.13.10 4.2.7.2.686 [id number] [facility] 2022-12-29 15:20:00 2022-12-29 15:59:06 Outpatient R TWIN PIEDRAANA [facility] [id number] [facility] 2022-12-29 15:20:00 2022-12-29 15:59:06 Office Visit [facility] 1..840.114 350.1.13.10 4.2.7.2.686 [id number] [facility] 2022-12-01 14:00:00 2022-12-01 14:15:00 Office Visit Shawn Solis [facility] 1.2.840.114 350.1.13.10 4.2.7.2.686 [id number] [facility] 2022-12-01 14:00:00 2022-12-01 14:00:00 Outpatient SHAWN CHRISTIAN [facility] [id number] [facility] 2022-10-19 10:00:00 2022-10-19 10:15:00 Food Preparer Visit Lab, Kishor Cruz [facility] 1.2.840.114 350.1.13.10 4.2.7.2.686 [id number] [facility] 2022-10-19 09:30:00 2022-10-19 09:47:51 Outpatient Shadia CRUZ ARIADNE [facility] [id number] [facility] 2022-10-19 09:30:00 2022-10-19 09:47:51 [facility] 1.2.840.114 350.1.13.10 4.2.7.2.686 [id number] [facility] 2022-10-05 10:15:00 2022-10-05 10:15:00 Outpatient MARIA ESTHER TEE [facility] [id number] [facility] 2022-09-21 00:00:00 2022-09-21 00:00:00 Dillan Cruz [facility] 1.2.840.114 350.1.13.10 4.2.7.2.686 [id number] [facility] 2022-08-27 00:00:00 2022-08-27 00:00:00 Orders Only Doctor Unassigned, [place] [facility] 1.2840.114 350.1.13.10 4.2.7.2.686 [id number] [facility] 2022-07-31 00:00:00 2022-07-31 00:00:00 Telephone Shawn Solis [facility] 1.2840.114 350.1.13.10 4.2.7.2.686 [id number] [facility] 2022-07-20 09:30:00 2022-07-20 10:09:50 Outpatient R [facility] [id number] [facility] 2022-07-20 09:30:00 2022-07-20 10:09:50 Office Visit Nancy [facility] 1.0114 350.1.13.10 4.2.7.2.686 [id number] [facility] 2022-07-14 00:00:00 2022-07-14 00:00:00 Telephone Appy Pieten [facility] 1..114 350.1.13.10 4.2.7.2.686 [id number] [facility] 2022-07-13 00:00:00 2022-07-13 00:00:00 Orders Only Doctor Unassigned, [place] [facility] 1.2840.114 350.1.13.10 4.2.7.2.686 [id number] [facility] 2022-07-10 00:00:00 2022-07-10 00:00:00 Telephone Will [facility] 1.840.114 350.1.13.10 4.2.7.2.686 [id number] [facility] 2022-06-29 08:15:00 2022-06-29 08:30:00 Office Visit Shawn Solis [facility] 1.2.840.114 350.1.13.10 4.2.7.2.686 [id number] [facility] 2022-06-29 08:15:00 2022-06-29 08:15:00 Outpatient R WILL SHAWN [facility] [id number] [facility] 2022-06-29 00:00:00 2022-06-29 00:00:00 Telephone Shawn Solis [facility] 1..840.114 350.1.13.10 4.2.7.2.686 [id number] [facility] 2022-06-25 14:00:00 2022-06-25 14:15:00 Office Visit Jayla Miramontes [facility] 1..840.114 350.1.13.10 4.2.7.2.686 [id number] [facility] 2022-06-25 14:00:00 2022-06-25 14:00:00 Outpatient JAYLA CHAVES [facility] [id number] [facility] 2022-06-16 11:30:00 2022-06-16 11:30:00 Office Visit Maria Esther Reid [facility] 1..840.114 350.1.13.10 4.2.7.2.686 [id number] [facility] 2022-06-16 11:30:00 2022-06-16 11:13:58 Outpatient MARIA ESTHER TEE [facility] [id number] [facility] 2022-06-16 00:00:00 2022-06-16 00:00:00 Orders Only Doctor Unassigned, [place] [facility] 1.2840.114 350.1.13.10 4.2.7.2.686 [id number] [facility] 2022-06-03 00:00:00 2022-06-03 00:00:00 Orders Only Doctor Unassigned, [place] [facility] 1.2840.114 350.1.13.10 4.2.7.2.686 [id number] [facility] 2022-05-05 00:00:00 2022-05-05 00:00:00 RefShawn Waller [facility] 1.840.114 350.1.13.10 4.2.7.2.686 [id number] [facility] 2022-04-17 08:00:00 2022-04-17 08:44:51 [facility] [id number] [facility] 2022-04-17 08:00:00 2022-04-17 08:44:51 [facility] 1.840.114 350.1.13.10 4.2.7.2.686 [id number] [facility] 2022-04-09 00:00:00 2022-04-09 00:00:00 Telephone Jayla Miramontes [facility] MED[facility] OFF[facility] BUILDING 1.0.114 350.1.13.10 4.2.7.2.686 [id number] [facility] 2022-04-08 00:00:00 2022-04-08 00:00:00 Orders Only Doctor Unassigned, [place] [facility] 1.2840.114 350.1.13.10 4.2.7.2.686 [id number] [facility] 2022-03-23 00:00:00 2022-03-23 00:00:00 Orders Only Doctor Unassigned, [place] [facility] 1.114 350.1.13.10 4.2.7.2.686 [id number] [facility] 2022-03-11 00:00:00 2022-03-11 00:00:00 Telephone Mike [facility] 1.114 350.1.13.10 4.2.7.2.686 [id number] [facility] 2022-03-05 11:00:00 2022-03-05 11:15:00 Office Visit Mike [facility] 1.114 350.1.13.10 4.2.7.2.686 [id number] [facility] 2022-03-05 11:00:00 2022-03-05 11:00:00 Outpatient JAYLA CHAVES [facility] [id number] [facility] 2022-02-23 09:45:00 2022-02-23 09:45:00 Office Visit Maria Esther Reid [facility] 1.114 350.1.13.10 4.2.7.2.686 [id number] [facility] 2022-02-23 09:45:00 2022-02-23 09:42:07 Outpatient MARIA ESTHER TEE [facility] [id number] [facility] 2022-02-19 00:00:00 2022-02-19 00:00:00 Telephone Solo Briceno [facility] MED[facility] OFF[facility] BUILDING 1..114 350.1.13.10 4.2.7.2.686 [id number] [facility] 2022-02-16 00:00:00 2022-02-16 00:00:00 [facility]phone [facility] 1.2.840.114 350.1.13.10 4.2.7.2.686 [id number] [facility] 2022-02-13 08:00:00 2022-02-13 08:32:43 Outpatient R SOLO BRICENO HOWARD [facility] [id number] [facility] 2022-02-13 08:00:00 2022-02-13 08:32:43 Office Visit Janak [facility] 1..840.114 350.1.13.10 4.2.7.2.686 [id number] [facility] 2022-02-11 15:51:25 2022-02-11 23:59:00 Outpatient R HAYDEN PATTERSON [facility] [id number] [facility] 2022-02-11 15:51:25 2022-02-11 23:59:00 Hospital Encounter Hayden Patterson [facility] 1..840.114 350.1.13.10 4.2.7.2.686 [id number] [facility] 2022-01-30 10:45:00 2022-01-30 10:45:00 Office Visit [facility] 1..840.114 350.1.13.10 4.2.7.2.686 [id number] [facility] 2022-01-30 10:45:00 2022-01-30 10:29:18 Outpatient R HAYDEN PATTERSON [facility] [id number] [facility] 2022-01-30 10:00:00 2022-01-30 10:00:00 Imm/Inj Visit Vaccine, Adc Family Medicine CodyphillipsherriángelChetan [facility] PROFESSIO NAL BUILDING 1.2.840.114 350.1.13.10 4.2.7.2.686 [id number] [facility] 2022-01-29 07:39:52 2022-01-29 23:59:00 Outpatient SOLO DELGADO HOWARD [facility] [id number] [facility] 2022-01-29 07:39:52 2022-01-29 23:59:00 Hospital Encounter Solo Briceno [facility] 1..840.114 350.1.13.10 4.2.7.2.686 [id number] [facility] 2022-01-19 14:55:38 2022-01-19 23:59:00 Outpatient SHAWN CHRISTIAN [facility] [id number] [facility] 2022-01-19 14:45:00 2022-01-19 15:00:00 Office Visit Shawn Solis [facility] OFFICE BUILDING 1.2.840.114 350.1.13.10 4.2.7.2.686 [id number] [facility] 2022-01-13 16:00:00 2022-01-13 16:15:00 Food Preparer Visit Lab, Kishor Briceno Solo [facility] MEDICAL OFFICE BUILDING 1.2.840.114 350.1.13.10 4.2.7.2.686 [id number] [facility] 2022-01-13 14:20:00 2022-01-13 15:55:08 Outpatient SOLO DELGADO HOWARD [facility] [id number] [facility] 2022-01-13 14:20:00 2022-01-13 15:55:08 Office Visit Solo Briceno ON LICENSE OF [facility] DENY?[facility] OFF[facility] BUILDING 1.2.840.114 350.1.13.10 4.2.7.2.686 [id number] [facility] 2021-12-31 00:00:00 2021-12-31 00:00:00 [facility]ill [facility] 1.2.840.114 350.1.13.10 4.2.7.2.686 [id number] [facility] 2021-12-30 08:00:00 2021-12-30 08:20:41 Outpatient SHAWN CHRISTIAN [facility] [id number] [facility] 2021-12-30 08:00:00 2021-12-30 08:20:41 [facility] 1.2.840.114 350.1.13.10 4.2.7.2.686 [id number] [facility] 2021-12-30 08:00:00 2021-12-30 08:00:00 Outpatient SHAWN CHRISTIAN [facility] [id number] [facility] 2021-12-30 00:00:00 2021-12-30 00:00:00 Telephone Shawn Solis [facility] DENY?[facility] 1.2.840.114 350.1.13.10 4.2.7.2.686 [id number] [facility] 2021-12-16 08:00:00 2021-12-16 08:00:00 Outpatient SHAWN CHRISTIAN [facility] [id number] [facility] 2021-11-03 08:15:00 2021-11-03 08:30:00 Office Visit Shawn Solis [facility] DENY?[facility] 1..840.114 350.1.13.10 4.2.7.2.686 [id number] [facility] 2021-11-03 08:15:00 2021-11-03 08:15:00 Outpatient R SHAWN SOLIS [facility] [id number] [facility] 2021-11-03 08:15:00 2021-11-03 08:15:00 Outpatient R WILL SHAWN [facility] [id number] [facility] 2021-11-03 00:00:00 2021-11-03 00:00:00 Refill Shawn Solis [facility] DENY?[facility] BUILDING 1..840.114 350.1.13.10 4.2.7.2.686 [id number] [facility] 2021-11-03 00:00:00 2021-11-03 00:00:00 Telephone Leesamoreno [facility] DENY?[facility] MEDICAL OFFICE BUILDING 1..840.114 350.1.13.10 4.2.7.2.686 [id number] [facility] 2021-10-21 09:10:00 2021-10-21 09:10:00 Outpatient Shadia WILL SHAWN [facility] [id number] [facility] 2021-10-02 00:00:00 2021-10-02 00:00:00 Refill Noe Matos [facility] BU[facility] 1..840.114 350.1.13.10 4.2.7.2.686 [id number] [facility] 2021-10-02 00:00:00 2021-10-02 00:00:00 Refill Will [facility] DENY?[facility] MEDICAL OFFICE BUILDING 1..840.114 350.1.13.10 4.2.7.2.686 [id number] [facility] 2021-10-01 00:00:00 2021-10-01 00:00:00 Orders Only Doctor Unassigned, [place] [facility] 1.0.114 350.1.13.10 4.2.7.2.686 [id number] [facility] 2021-09-02 00:00:00 2021-09-02 00:00:00 Patient Secure [facility] 1..114 350.1.13.10 4.2.7.2.686 [id number] [facility] 2021-08-18 11:00:00 2021-08-18 11:00:00 Office Visit Lui Clark Michael G [facility] 1.114 350.1.13.10 4.2.7.2.686 [id number] [facility] 2021-08-18 11:00:00 2021-08-18 10:48:34 Outpatient MARIA ESTHER TEE [facility] [id number] [facility] 2021-08-18 11:00:00 2021-08-18 10:48:34 Outpatient R [facility] [id number] [facility] 2021-07-24 11:15:00 2021-07-24 11:15:00 [facility] [id number] 2021-07-24 11:15:00 2021-07-24 11:15:00 Office Visit Nyasia Gallego COUNTS INCLUDE 234 BEDS AT THE [facility] 1..114 350.1.13.10 4.2.7.2.686 [id number] [facility] 2021-07-24 11:15:00 2021-07-24 11:09:52 Outpatient R NYASIA GALLEGO [facility] [id number] [facility] 2021-07-08 10:30:00 2021-07-08 11:15:00 Office Visit Nyasia Gallego COUNTS INCLUDE 234 BEDS AT THE [facility] 1.2840.114 350.1.13.10 4.2.7.2.686 [id number] [facility] 2021-07-08 10:30:00 2021-07-08 10:30:00 Outpatient R [facility] [id number] [facility] 2021-06-24 11:00:00 2021-06-24 11:00:00 Outpatient R [facility] [id number] [facility] 2021-06-17 08:30:00 2021-06-17 08:30:00 Outpatient R SHAWN SOLIS [facility] [id number] [facility] 2021-05-19 15:30:00 2021-05-19 16:34:29 Outpatient R NOE MATOS [facility] [id number] [facility] 2021-05-19 15:30:00 2021-05-19 16:34:29 Office Visit Noe Matos Rm, Adc Surg Spec Procedure [facility] BUILDING 1..840.114 350.1.13.10 4.2.7.2.686 [id number] [facility] 2021-05-12 11:30:00 2021-05-12 11:50:36 Outpatient R NOE MATOS [facility] [id number] [facility] 2021-05-12 11:30:00 2021-05-12 11:50:36 Office Visit [facility] BU[facility] 1..840.114 350.1.13.10 4.2.7.2.686 [id number] [facility] 2021-05-12 11:30:00 2021-05-12 11:50:36 [facility] [id number] 2021-05-12 00:00:00 2021-05-12 00:00:00 Orders Only Doctor Unassigned, [place] [facility] 1.84.114 350.1.13.10 4.2.7.2.686 [id number] [facility] 2021-05-02 14:00:00 2021-05-02 14:15:00 Office Visit Linneatenmoreno Shawn [facility] OFF[facility] BU[facility] 1.84.114 350.1.13.10 4.2.7.2.686 [id number] [facility] 2021-05-02 14:00:00 2021-05-02 14:00:00 Outpatient R SHAWN SOLIS [facility] [id number] [facility] 2021-05-02 14:00:00 2021-05-02 14:00:00 Outpatient R LEESAMORENOSHAWN [facility] [id number] [facility] 2021-04-07 11:00:00 2021-04-07 11:36:16 Outpatient R RONA [facility] [id number] [facility] 2021-04-07 11:00:00 2021-04-07 11:36:16 Office Visit Rona [facility] PROFESSIO NAL BUILDING 1.84.114 350.1.13.10 4.2.7.2.686 [id number] [facility] 2021-03-26 09:15:00 2021-03-26 09:21:07 Office Visit Shawn Solis [facility] 1.840.114 350.1.13.10 4.2.7.2.686 [id number] [facility] 2021-03-26 09:15:00 2021-03-26 09:15:00 Outpatient SHAWN CHRISTIAN [facility] [id number] [facility] 2021-03-10 13:50:00 2021-03-10 23:59:00 Outpatient AYOCAMERON [facility] [id number] [facility] 2021-03-05 00:00:00 2021-03-05 00:00:00 Shawn Clayton [facility] OFFICE BUILDING ONE 1..840.114 350.1.13.10 4.2.7.2.686 [id number] [facility] 2021-02-17 09:30:00 2021-02-17 09:47:58 Outpatient MARIA ESTHER TEE [facility] [id number] [facility] 2021-02-17 09:30:00 2021-02-17 09:47:58 Outpatient MARIA ESTHER TEE [facility] [id number] [facility] 2021-02-17 09:26:39 2021-02-17 09:47:58 Office Visit Maria Esther Reid [facility] 1..840.114 350.1.13.10 4.2.7.2.686 [id number] [facility] 2021-02-12 10:42:11 2021-02-12 10:57:11 Office Visit Shawn Solis [facility] DENY?[facility] 1..840.114 350.1.13.10 4.2.7.2.686 [id number] [facility] 2021-02-12 10:45:00 2021-02-12 10:45:00 Outpatient SHAWN CHRISTIAN [facility] [id number] [facility] 2021-02-12 10:00:00 2021-02-12 10:00:00 Outpatient JAUN PINZON [facility] [id number] [facility] 2021-02-12 10:00:00 2021-02-12 09:49:55 Outpatient JAUN PINZON [facility] [id number] [facility] 2021-02-12 09:48:33 2021-02-12 09:49:55 Imm/Inj Visit Nurse, Teja Podaniela Immunizatio Jaun Abraham [facility] 1.84.114 350.1.13.10 4.2.7.2.686 [id number] [facility] 2021-02-12 00:00:00 2021-02-12 00:00:00 Telephone Shawn Solis [facility] DENY?[facility] MEDICAL OFFICE BUILDING 1.84.114 350.1.13.10 4.2.7.2.686 [id number] [facility] 2021-02-06 09:00:00 2021-02-06 09:00:00 Outpatient SHAWN CHRISTIAN [facility] [id number] [facility] 2021-01-31 07:26:00 2021-01-31 23:59:00 Outpatient CAMERON ROLLINS [facility] [id number] [facility] 2021-01-24 00:00:00 2021-01-24 00:00:00 Telephone Shawn Solis [facility] Office Building One 1..114 350.1.13.10 4.2.7.2.686 [id number] [facility] 2021-01-24 00:00:00 2021-01-24 00:00:00 Telephone Kalina Dickson [facility] 1..114 350.1.13.10 4.2.7.2.686 [id number] [facility] 2021-01-24 00:00:00 2021-01-24 00:00:00 Patient Secure Msg Shawn Solis [facility] 1.114 350.1.13.10 4.2.7.2.686 [id number] [facility] 2021-01-23 13:00:00 2021-01-23 13:00:00 Outpatient R KALINA DICKSON [facility] [id number] [facility] 2021-01-23 08:36:10 2021-01-23 08:53:29 Office Visit Shawn Solis [facility] Building 1.114 350.1.13.10 4.2.7.2.686 [id number] [facility] 2021-01-23 08:18:34 2021-01-23 08:48:34 Telemedici ne Visit Randolph Kalina [facility] 1.114 350.1.13.10 4.2.7.2.686 [id number] [facility] 2021-01-20 10:00:00 2021-01-20 10:00:00 [facility] [id number] [facility] 2021-01-16 08:56:28 2021-01-16 09:35:51 Office Visit Shawn Solis [facility] Building 1.114 350.1.13.10 4.2.7.2.686 [id number] [facility] 2021-01-16 08:54:11 2021-01-16 09:09:11 Food Preparer Visit Lab, Kishor Bustamante Randolph [facility] Office Building 1.114 350.1.13.10 4.2.7.2.686 [id number] [facility] 2021-01-16 09:00:00 2021-01-16 09:00:00 Outpatient R KALINA DICKSON [facility] [id number] [facility] 2021-01-15 00:00:00 2021-01-15 00:00:00 Orders Only Doctor Unassigned, [place] [facility] 1.2840.114 350.1.13.10 4.2.7.2.686 [id number] [facility] 2021-01-07 00:39:00 2021-01-11 16:16:00 Inpatient U LASHAWN BEL[facility]ER [facility] [id number] [facility] 2021-01-10 00:00:00 2021-01-10 00:00:00 Telephone Kalina Dickson [facility] 1.0.114 350.1.13.10 4.2.7.2.686 [id number] [facility] 2021-01-06 00:00:00 2021-01-06 00:00:00 EXT [facility] OP Jesika Rene EXT [facility] LOCATION 1.2.840.114 350.1.13.58 9.2.7.2.686 [id number] [facility] 2021-01-06 00:00:00 2021-01-06 00:00:00 EXT [facility] OP Jermain Lundy EXT [facility] LOCATION 1.2.840.114 350.1.13.58 9.2.7.2.686 [id number] [facility] 2021-01-06 00:00:00 2021-01-06 00:00:00 EXT [facility] OP Jesika Rene EXT [facility] LOCATION 1.2.840.114 350.1.13.58 9.2.7.2.686 [id number] [facility] 2021-01-06 00:00:00 2021-01-06 00:00:00 EXT [facility] OP Jermain Lundy EXT [facility] LOCATION 1.84114 350.1.13.58 9.2.7.2.686 [id number] [facility] 2020-12-26 00:00:00 2020-12-26 00:00:00 Orders Only Doctor Unassigned, [place] [facility] 1.114 350.1.13.10 4.2.7.2.686 [id number] [facility] 2020-12-12 00:00:00 2020-12-12 00:00:00 Refill Will Shawn [facility] Medical Office Building 1.840.114 350.1.13.10 4.2.7.2.686 [id number] [facility] 2020-12-10 08:00:00 2020-12-10 08:00:00 Outpatient SHAWN CHRISTIAN [facility] [id number] [facility] 2020-12-03 08:10:54 2020-12-03 08:39:09 Office Visit Will [facility] Medical Office Building 1.840.114 350.1.13.10 4.2.7.2.686 [id number] [facility] 2020-12-03 08:30:00 2020-12-03 08:30:00 Outpatient SHAWN CHRISTIAN [facility] [id number] [facility] 2020-11-19 12:25:08 2020-11-19 23:59:00 Hospital Encounter Kalina Dickson [facility] 1.84.114 350.1.13.10 4.2.7.2.686 [id number] [facility] 2020-11-19 00:00:00 2020-11-19 00:00:00 Outpatient R KALINA DICKSON [facility] [id number] [facility] 2020-11-04 08:16:13 2020-11-04 08:38:56 Office Visit Maria Esther Reid [facility] 1.840.114 350.1.13.10 4.2.7.2.686 [id number] [facility] 2020-11-04 08:30:00 2020-11-04 08:30:00 Outpatient MARIA ESTHER TEE [facility] [id number] [facility] 2020-10-30 08:49:59 2020-10-30 10:52:23 Food Preparer Visit Lab, [facility] Gregorb Awais Dickson [facility] Office Building One 1.840.114 350.1.13.10 4.2.7.2.686 [id number] [facility] 2020-10-30 09:00:00 2020-10-30 09:00:00 Outpatient KALINA WANG [facility] [id number] [facility] 2020-10-30 00:00:00 2020-10-30 00:00:00 Orders Only Shawn Solis [facility] 1.2840.114 350.1.13.10 4.2.7.2.686 [id number] [facility] 2020-10-17 12:21:44 2020-10-17 13:48:25 Office Visit Kalina Dickson [facility] 1.840.114 350.1.13.10 4.2.7.2.686 [id number] [facility] 2020-10-17 13:00:00 2020-10-17 13:00:00 Outpatient Shadia DICKSON [facility] [id number] [facility] 2020-10-17 00:00:00 2020-10-17 00:00:00 Orders Only Doctor Unassigned, [place] [facility] 1.114 350.1.13.10 4.2.7.2.686 [id number] [facility] 2020-10-14 08:57:20 2020-10-14 09:51:26 [facility] 1.114 350.1.13.10 4.2.7.2.686 [id number] [id number] [facility] 2020-10-14 09:00:00 2020-10-14 09:00:00 Outpatient R SHAWN SOLIS [facility] [id number] [facility] 2020-10-10 00:00:00 2020-10-10 00:00:00 Telephone Kalina Dickson [facility] 1.114 350.1.13.10 4.2.7.2.686 [id number] [facility] 2020-10-04 00:00:00 2020-10-04 00:00:00 Telephone Will [facility] .114 350.1.13.10 4.2.7.2.686 [id number] [id number] [facility] 2020-10-02 10:46:20 2020-10-02 11:06:20 Food Preparer Visit Lab, [facility] Jason Solis [facility] .114 350.1.13.10 4.2.7.2.686 [id number] [facility] 2020-10-02 10:12:49 2020-10-02 10:27:49 Office Visit Shawn Solis [facility] .114 350.1.13.10 4.2.7.2.686 [id number] [id number] [facility] 2020-10-02 10:15:00 2020-10-02 10:15:00 Outpatient SHAWN CHRISTIAN [facility] [id number] [facility] 2020-09-10 00:00:00 2020-09-10 00:00:00 Shawn Clayton [facility] Office Building One 1.114 350.1.13.10 4.2.7.2.686 [id number] [facility] 2020-09-10 00:00:00 2020-09-10 00:00:00 Dillan Solis [facility] Office Building One 1.114 350.1.13.10 4.2.7.2.686 [id number] [facility] 2020-08-19 09:39:12 2020-08-19 14:09:50 Office Visit Maria Esther Reid [facility] 1.114 350.1.13.10 4.2.7.2.686 [id number] [facility] 2020-08-19 09:45:00 2020-08-19 09:45:00 Outpatient MARIA ESTHER TEE [facility] [id number] [facility] 2020-07-25 00:00:00 2020-07-25 00:00:00 Shawn Clayton [facility] One .114 350.1.13.10 4.2.7.2.686 [id number] [facility] 2020-07-22 00:00:00 2020-07-22 00:00:00 Shawn Clayton [facility] One 1.114 350.1.13.10 4.2.7.2.686 [id number] [facility] 2020-06-10 08:09:11 2020-06-10 08:39:11 Office Visit Shawn Solis [facility] One .840.114 350.1.13.10 4.2.7.2.686 [id number] [facility] 2020-06-10 08:30:00 2020-06-10 08:30:00 Outpatient SHAWN CHRISTIAN [facility] [id number] [facility] 2020-05-30 09:50:00 2020-05-30 09:50:00 Outpatient ELLIOT HOANG [facility] [id number] [facility] 2020-05-23 09:50:00 2020-05-23 09:50:00 Outpatient ELLIOT HOANG [facility] [id number] [facility] 2020-04-30 09:06:37 2020-04-30 09:26:37 Food Preparer Visit Lab, [facility] Pob Awais Will [facility] Office Building One .840.114 350.1.13.10 4.2.7.2.686 [id number] [facility] 2020-04-30 08:40:35 2020-04-30 08:55:35 Office Visit Shawn Solis [facility] One .840.114 350.1.13.10 4.2.7.2.686 [id number] [facility] 2020-04-30 08:15:00 2020-04-30 08:15:00 Outpatient SHAWN CHRISTIAN [facility] [id number] [facility] 2020-04-29 08:45:00 2020-04-29 08:45:00 Outpatient MARIA ESTHER TEE [facility] [id number] [facility] 2020-04-29 08:19:26 2020-04-29 08:44:05 Office Visit Maria Esther Reid [facility] 1.114 350.1.13.10 4.2.7.2.686 [id number] [facility] 2020-04-28 00:00:00 2020-04-28 00:00:00 Patient Outreach Jaun Kovacs [facility] 1.114 350.1.13.10 4.2.7.2.686 [id number] [facility] 2020-03-02 00:00:00 2020-03-02 00:00:00 RefShawn Waller [facility] One 1.114 350.1.13.10 4.2.7.2.686 [id number] [facility] 2020-02-19 09:15:00 2020-02-19 09:15:00 Outpatient R SHAWN SOLIS [facility] [id number] [facility] 2020-02-12 00:00:00 2020-02-12 00:00:00 Orders Only Doctor Unassigned, [place] [facility] 1. 350.1.13.10 4.2.7.2.686 [id number] [facility] 2020-02-07 00:00:00 2020-02-07 00:00:00 Refill Shawn Solis [facility] One 1.114 350.1.13.10 4.2.7.2.686 [id number] [facility] 2020-01-29 09:50:03 2020-01-29 10:05:03 Office Visit Shawn Solis [facility] One 1.84.114 350.1.13.10 4.2.7.2.686 [id number] [facility] 2020-01-29 10:00:00 2020-01-29 10:00:00 Outpatient SHAWN CHRISTIAN [facility] [id number] [facility] 2020-01-12 00:00:00 2020-01-12 00:00:00 Orders Only Doctor Unassigned, [place] [facility] 1..114 350.1.13.10 4.2.7.2.686 [id number] [facility] 2019-11-14 11:09:30 2019-11-14 11:24:30 Office Visit Will Shawn Graf [facility] Building 1.84.114 350.1.13.10 4.2.7.2.686 [id number] [facility] 2019-11-14 11:09:30 2019-11-14 11:24:30 [facility] 1.114 350.1.13.10 4.2.7.2.686 [id number] 2019-11-14 11:15:00 2019-11-14 11:15:00 Outpatient SHAWN CHRISTIAN [facility] [id number] [facility] 2019-11-10 08:00:00 2019-11-10 08:00:00 Outpatient SHAWN CHRISTIAN [facility] [id number] [facility] 2019-10-26 09:02:16 2019-10-26 09:17:16 Office Visit Maria Esther Reid [facility] 1.114 350.1.13.10 4.2.7.2.686 [id number] [facility] 2019-10-26 09:15:2019-10-26 09:15:00 Outpatient MARIA ESTHER TEE [facility] [id number] [facility] 2019-10-25 00:00:00 2019-10-25 00:00:00 Refill Shawn Solis [facility] One 1.840.114 350.1.13.10 4.2.7.2.686 [id number] [facility] 2019-10-10 00:00:00 2019-10-10 00:00:00 Refill Shawn Solis [facility] 1.0.114 350.1.13.10 4.2.7.2.686 [id number] [facility] 2019-09-06 00:00:00 2019-09-06 00:00:00 Orders Only Doctor Unassigned, [place] [facility] 1.840.114 350.1.13.10 4.2.7.2.686 [id number] [facility] 2019-08-09 00:00:00 2019-08-09 00:00:00 Refill Will [facility] Office Building One 1..114 350.1.13.10 4.2.7.2.686 [id number] [facility] 2019-08-04 00:00:00 2019-08-04 00:00:00 Telephone Shawn Solis [facility] One 1.840.114 350.1.13.10 4.2.7.2.686 [id number] [facility] 2019-05-12 10:13:49 2019-05-12 10:28:49 Office Visit Will [facility] Office Building One 1.840.114 350.1.13.10 4.2.7.2.686 [id number] [facility] 2019-05-01 09:40:01 2019-05-01 10:23:50 Office Visit Maria Esther Reid [facility] 1.2840.114 350.1.13.10 4.2.7.2.686 [id number] [facility] 2019-04-26 00:00:00 2019-04-26 00:00:00 Orders Only Doctor Unassigned, [place] [facility] 1.2.840.114 350.1.13.10 4.2.7.2.686 [id number] [facility] 2019-04-19 00:00:00 2019-04-19 00:00:00 Telephone WillShawn [facility] One 1.840.114 350.1.13.10 4.2.7.2.686 [id number] [id number] [facility] 2019-04-18 00:00:00 2019-04-18 00:00:00 Telephone WillShawn [facility] One 1.20.114 350.1.13.10 4.2.7.2.686 [id number] [facility] 2018-12-06 10:57:38 2018-12-06 11:17:12 Office Visit Shawn Solis [facility] Building One 1.840.114 350.1.13.10 4.2.7.2.686 [id number] [facility] 2018-11-10 14:04:36 2018-11-10 14:55:50 Office Visit Cinthia Bradford [facility] Office Building One 1.2840.114 350.1.13.10 4.2.7.2.686 [id number] [facility] 2018-11-09 00:00:00 2018-11-09 00:00:00 Orders Only Doctor Unassigned, [place] [facility] 1.2.840.114 350.1.13.10 4.2.7.2.686 [id number] [facility] 2018-10-31 08:17:06 2018-10-31 12:55:51 Office Visit Shawn Solis [facility] Office Building One 1.2.840.114 350.1.13.10 4.2.7.2.686 [id number] [facility] 2018-10-31 00:00:00 2018-10-31 00:00:00 Orders Only Doctor Unassigned, [place] [facility] 1.2.840.114 350.1.13.10 4.2.7.2.686 [id number] [facility] Results Test Description Test Time Test Comments Results Result Co mments Source [facility] Notes Date/Time Note Provider Source 2023-08-18 07:26:30 Images from the original note were not included. Requested Renewals Name from pharmacy: Myrbetriq 25 MG Oral Tablet Extended Release 24 Hour Will file in chart as: MYRBETRIQ 25 mg tablet Sig: TAKE 1 TABLET BY MOUTH IN THE MORNING Disp: 90 tablet Refills: 3 Start: 08/17/2023 Class: eRX Non-formulary For: Urinary incontinence, unspecified type; Urgency of urination; Nocturia; Urge incontinence To pharmacy: Please send a replace/new response with 90-Day Supply if appropriate to maximize member benefit. Requesting 1 year supply. Last ordered: 1 year ago (06/29/2022) by Shawn Solis MD Last refill: 04/06/2023 Rx #: [id number] Urology: Bladder Agents 3 [id number]/2023 05:27 PM Protocol Details Manual Review: Do not refill with patient has uncontrolled hypertension Manual Review: If patient has diagnosis of end stage renal disease, forward to provider Valid encounter within last 12 months To be filled at: [facility] [address] Recent Visits Date Type Provider Dept 06/01/23 Office Visit Shawn Solis MD [facility] 04/27/23 Office Visit Shawn Solis MD [facility] 12/30/22 Office Visit Shawn Solis MD [facility] 12/01/22 Office Visit Shawn Solis MD [facility] 06/29/22 Office Visit Shawn Solis MD [facility] Showing recent visits within past 540 days with a meds authorizing provider and meeting all other requirements Future Appointments Date Type Provider Dept 11/30/23 Appointment Shawn Solis MD [facility] Showing future appointments within next 150 days with a meds authorizing provider and meeting all other requirements [facility]
--- NOTE | 2023-11-23 18:20 | RAD REPORT ---
EXAM DESCRIPTION: CT - Head Brain Wo Cont - 11/23/2023 5:22 pm CLINICAL HISTORY: head injury COMPARISON: Facial Bones W/ Mpr dated 09/23/2021; Facial Bones W/ Mpr dated 10/04/2016; Head C Spine Ca p Wo Con dated 09/23/2021 TECHNIQUE: Noncontrast head CT images were obtained without IV contrast. Multiplanar reformats were generated and reviewed. All CT scans are performed using dose optimization technique as appropriate and may include automated exposure control or mA/KV adjustment according to patient size. FINDINGS: No intracranial hemorrhage, mass, or edema. Midline structures are unremarkable. Mild diffuse increase in ventricular caliber since the comparison head CT, for example the biparietal diameter of the ventral horns now measures 4.7 cm compared to 4.4 cm previously. Gill-white matter differentiation is preserved, without evidence of acute infarct. No abnormal extra- axial fluid collections. Mastoid air cells and visualized portions of the paranasal sinuses are clear. No acute bony findings. IMPRESSION: Mild interval increase in ventricular caliber since the comparison head CT of September 2021, which could relate to progressive centrally predominant volume loss versus communicating or normal p ressure hydrocephalus. Please correlate clinically. No other evidence of an acute intracranial process.
--- NOTE | 2023-11-23 18:45 | ER ---
Nurse's Notes [facility] Name: Lev Hunter Age: 78 yrs Sex: Male : 1945 Arrival Date: 11/23/2023 Time: 16:51 Bed IW2 Private MD: Diagnosis: Abrasion of left upper arm;Contusion of scalp Presentation: 11/22 16:57 Chief complaint: Patient states: FELL OUTSIDE INTO A DITCH 1 HOUR AGO. NOTED SKIN TEAR db TO LEFT FOREARM. ABRASION TO HEAD. EMS WAS CALLED ON SCENE AND BP WAS LOW WAS TOLD TO GET CHECKED OUT. UNKNOWN IF PT PASSED OUT. Coronavirus screen: Client denies travel out of the [place] in the last 14 days. At this time, the client does not indicate any symptoms associated with coronavirus-19. Ebola Screen: Patient negative for fever greater than or equal to 101.5 degrees Fahrenheit, and additional compatible Ebola Virus Disease symptoms Patient denies exposure to infectious person. Patient denies travel to an Ebola-affected area in the 21 days before illness onset. No symptoms or risks identified at this time. Initial Sepsis Screen: Does the patient meet any 2 criteria? No. Patient's initial sepsis screen is negative. Does the patient have a suspected source of infection? No. Patient's initial sepsis screen is negative. Risk Assessment: Do you want to hurt yourself or someone else? Patient reports no desire to harm self or others. Onset of symptoms was November 23, 2023. 16:57 Method Of Arrival: Ambulatory db 16:57 Acuity: RIOS 3 db 17:02 Mechanism of Injury: Fall from standing position. db Triage Assessment: 17:00 General: Appears in no apparent distress. comfortable, Behavior is calm, cooperative. db Pain: Complains of pain in scalp and left arm. Neuro: Level of Consciousness is awake, alert, obeys commands, Oriented to person, place, time, situation. Respiratory: Airway is patent Respiratory effort is even, unlabored. Derm: Wound noted scalp and left arm. Historical: - Allergies: 16:59 No Known Allergies; db - Home Meds: 17:00 aspirin 81 mg Oral chew 1 tab once daily [Active]; Fish Oil Oral cap [Active]; db - PMHx: 16:59 Aneurysm; Anxiety; BOWEL PERFORATION; Colitis; GERD; Diverticulitis; Hyperlipidemia; db Hypertension; Hypothyroidism; 17:01 Alzheimer's disease; Hypercholesterolemia; Hypothyroidism; db - PSHx: 16:59 hernia repair; Operative procedure on knee; db - Immunization history:: Adult Immunizations unknown. - Infectious Disease History:: Denies. - Social history:: Smoking status: Patient denies any tobacco usage or history of. Screenin:57 [facility] ED Fall Risk Assessment (Adult) History of falling in the last 3 months, db including since admission Yes- fall prone (multiple falls) (3 pts) Confusion or Disorientation No (0 pts) Intoxicated or Sedated No (0 pts) Impaired Gait Yes (1 pt) Mobility Assist Device Used No (0 pt) Altered Elimination No (0 pt) Score/Fall Risk Level 3 or more points = High Risk Oriented to surroundings, Maintained a safe environment, Utilized family, sitter, or virtual cctv technician as indicated. Abuse screen: Denies threats or abuse. Denies injuries from another. Nutritional screening: No deficits noted. Tuberculosis screening: No symptoms or risk factors identified. Assessment: 18:57 Reassessment: Patient appears in no apparent distress at this time. Patient and/or db family updated on plan of care and expected duration. Pain level reassessed. Patient is alert, oriented x 3, equal unlabored respirations, skin warm/dry/pink. General: Appears in no apparent distress. comfortable, Behavior is calm, cooperative. Vital Signs: 16:57 BP 125 / 62; Pulse 85; Resp 18; Temp 98.2(O); Pulse Ox 97% on R/A; db [place] Coma Score: 18:57 Eye Response: spontaneous(4). Motor Response: obeys commands(6). Verbal Response: db oriented(5). Total: 15. Trauma Score (Adult): 18:57 Eye Response: spontaneous(1); Verbal Response: oriented(1); Motor Response: obeys db commands(2); Systolic BP: > 89 mm Hg(4); Respiratory Rate: 10 to 29 per min(4); [place] Score: 15; Trauma Score: 12 ED Course: 16:53 Patient arrived in ED. mg5 16:56 Skip Almeida MD is Attending Physician. ec2 16:59 Triage completed. db 17:02 Arm band placed on Patient placed in waiting room. db 17:23 CT Head Brain wo Cont In Process Unspecified. EDMS 18:57 Patient has correct armband on for positive identification. Provided Education on: db DISCHARGE AND FOLLOWUP. 18:57 No provider procedures requiring assistance completed. Patient did not have IV access db during this emergency room visit. Administered Medications: No medications were administered Medication: 18:57 VIS not applicable for this client. db Intake: 18:57 PO: 0ml; Total: 0ml. db Outcome: 18:44 Discharge ordered by . ec2 18:57 Discharged to home via wheelchair, db 18:57 Condition: stable 18:57 Discharge instructions given to patient, family, Instructed on discharge instructions, follow up and referral plans. 18:59 Patient left the ED. db Signatures: Dispatcher [employer] Louisa Roy RN RN Ayla De La O mg5 Skip Almeida MD MD ec2
--- NOTE | 2023-11-23 18:45 | EDPHYS ---
Physician Documentation [facility] Name: Lev Hunter Age: 78 yrs Sex: Male : 1945 Arrival Date: 11/23/2023 Time: 16:51 Bed IW2 Private MD: ED Physician Skip Almeida HPI: 11/22 17:29 This 78 yrs old Male presents to ER via Ambulatory with complaints of Fall ec2 Injury. 17:30 Patient arrives today for evaluation after a fall injury. Reportedly fallen down, ec2 injured his left forearm and sustained some bleeding. Tetanus is up-to-date. Also had a head injury. Patient with history of dementia and is a poor historian.. Historical: - Allergies: 16:59 No Known Allergies; db - Home Meds: 17:00 aspirin 81 mg Oral chew 1 tab once daily [Active]; Fish Oil Oral cap [Active]; db - PMHx: 16:59 Aneurysm; Anxiety; BOWEL PERFORATION; Colitis; GERD; Diverticulitis; Hyperlipidemia; db Hypertension; Hypothyroidism; 17:01 Alzheimer's disease; Hypercholesterolemia; Hypothyroidism; db - PSHx: 16:59 hernia repair; Operative procedure on knee; db - Immunization history:: Adult Immunizations unknown. - Infectious Disease History:: Denies. - Social history:: Smoking status: Patient denies any tobacco usage or history of. ROS: 17:30 Constitutional: as per hpi ec2 Exam: 17:30 Constitutional: GEN: No acute distress HEENT: -Head: no deformities -Eyes: EOMI CV: ec2 regular rate LUNGS: no respiratory distress ABD: non-tender SKIN: Skin tear noted to the left forearm. Abrasion noted to the left temporal region MSK: No C/T/L spine deformities RUE w/o bony deformity LUE w/o bony deformity RLE w/o bony deformity LLE w/o bony deformity NEURO: moves all extremities equally, GCS 15 (E4, V5, M6) Vital Signs: 16:57 BP 125 / 62; Pulse 85; Resp 18; Temp 98.2(O); Pulse Ox 97% on R/A; db [place] Coma Score: 18:57 Eye Response: spontaneous(4). Motor Response: obeys commands(6). Verbal Response: db oriented(5). Total: 15. Trauma Score (Adult): 18:57 Eye Response: spontaneous(1); Verbal Response: oriented(1); Motor Response: obeys db commands(2); Systolic BP: > 89 mm Hg(4); Respiratory Rate: 10 to 29 per min(4); [place] Score: 15; Trauma Score: 12 MDM: 17:03 Patient medically screened. ec2 17:30 Data reviewed: vital signs. ED course: Patient arrives today for evaluation after ec2 ground-level fall. Examination markable for skin findings as above. Will obtain CT scan of the head, will take care of the patient's wound. Will forego tetanus vaccine as patient is up-to-date. Differential diagnosis included processes such as intracranial brain bleed, C-spine fracture, forearm fracture, skin tear.. 18:44 ED course: CT scan of the head shows no acute intracranial process. Does have some ec2 increasing ventriculomegaly, suspect this is a progression of the patient's known dementia. Will discharge home per return precautions given.. 11/22 17:03 Order name: CT Head Brain wo Cont; Complete Time: 18:43 ec2 11/22 17:03 Order name: Wound Care: L forearm; Complete Time: 18:57 ec2 Administered Medications: No medications were administered Disposition Summary: 11/23/23 18:44 Discharge Ordered Notes: Location: Home ec2 Condition: Stable ec2 Diagnosis - Abrasion of left upper arm ec2 - Contusion of scalp ec2 Followup: ec2 - With: Private Physician - When: - Reason: Re-evaluation by your physician Discharge Instructions: - Discharge Summary Sheet ec2 - Abrasion, [id number] ec2 Forms: - Medication Reconciliation Form ec2 - Antibiotic Education ec2 - Prescription Opioid Use ec2 - Patient Portal Instructions ec2 - Leadership Thank You Letter ec2 Signatures: Dispatcher [employer] Louisa Roy RN RN db Corral, Edwin, MD MD ec2
[2023-11-23 19:25] VITALS: BP 125/62; TEMP 98.2; O2SAT 97
== END 2023-11-23 18:59 | disposition home or self-care (01) ==
LOC: ER 16:51
DX: S40.812A Abrasion of left upper arm, initial encounter (principal); S00.03XA Contusion of scalp, initial encounter; W18.30XA Fall on same level, unspecified, initial encounter; G30.9 Alzheimer's disease, unspecified; F02.80 Dementia in other diseases classified elsewhere, unspecified severity, without behavioral disturbance, psychotic disturbance, mood disturbance, and anxiety; Z79.82 Long term (current) use of aspirin
CPT/HCPCS: 70450

== ENCOUNTER 2024-02-12 09:12 | Emergency (ER) | payer OTHER, MEDICARE ==
--- OUTSIDE RECORDS SUMMARY | 2024-02-12 09:19 | XMS REPORT | Continuity of Care Document ---
Author Name Unknown Address [address] [facility] [address] [place] [address] [facility] Address [address] [facility] 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 Name Role Phone Tr LANG, Shawn Graf Primary Care Physician Shawn Solis Attending Clinician Unavailable ARIADNE CRUZ Attending Clinician Unavailable LENIN WALSH Attending Clinician Unavailable MARIA ESTHER REID Attending Clinician Unavail able SHAWN SOLIS Attending Clinician Shawna Eid Lenart Attending Clinician U la nena Chong RN, Kathryn Betancourt Attending Clinician Unavailcarmen Lugo RN, Gallo Morales Attending Clinician Unavail able URSULA PAULSON Attending Clinician Unavailable Rajinder Wilkins Attending Clinician [phone] Jermain Curiel DO Attending Clinician Ursula Paulson MD Attending Clinician Roni FAIR, Conrad Reno Attending Clinician Unavail able FREDI SANTIAGO Attending Clinician Unavailab flavio Santiago ROLL TRUCKER, Fredi Attending Clinician [phone] Sammy MARLOW, Joyce Attending Clinician [phone] GRACE LOVETT Attending Clinician Unavailable RACHELL, GRACE Attending Clinician Unavailable Rachell ROLL TRUCKER, Grace Attending Clinician [phone] Maria Esther Reid MD Attending Clinician [phone] Shawn Solis MD Attending Clinician + [phone] Nico LANG, Lenin Attending Clinician [phone] Maria Esther Reid MD Attending Clinician [phone] Vaccine, Ang Db Cbc Fam Attending Clinician Unav ailable Lab, Ang - Db Attending Clinician Unavailable Doctor Unassigned, [place] Attending Clinician U navailable Jayla Dumont Attending Clinician [phone] JAYLA MIRAMONTES Attending Clinician Unavailable Solo Arora MD Attending Clinician [phone] Hayden Patterson MD Attending Clinician [phone] SOLO ARORA Attending Clinician Unavail able SOLO ARORA Attending Clinician Unavail able HAYDEN PATTERSON Attending Clinician Unavailabl e Vaccine, [facility] Attending Clinician Unavailable Chetan Quintanilla MD Attending Clinician [phone] Noe Rea MD Attending Clinician [phone] Lui Clark MD Attending Clinician [phone] NYASIA GALLEGO Attending Clinician Unavailable Nyasia Gallego MD Attending Clinician [phone] NOE RAE Attending Clinician Unavailable , Adc Surg Spec Procedure Attending Clinician Unavailable CAMERON ROLLINS Attending Clinician Un available JAUN JEFF Attending Clinician Unavail able Nurse, [facility] Pob Immunization Attending Clinician Unavailable Jaun Jeff DO Attending Clinician [phone] Kalina De Anda Attending Clinician [phone] KALINA DICKSON Attending Clinician Unavailabl LASHAWN Khan Attending Clinician Unavailable Rene MD, Jesika Attending Clinician [phone] Jermain Lundy MD Attending Clinician [phone] Lab, Adc Fam Pob I Attending Clinician UnavailELLIOT Lugo Attending Clinician Unavailable Cinthia Velazquez Attending Clinician [phone] Shawna Luke Lenart Admitting Clinician U navailable URSULA PAULSON Admitting Clinician Unavailable Ursula Paulson MD Admitting Clinician [phone] GRACE LOVETT Admitting Clinician Unavailable LENIN WALSH Admitting Clinician Unavailable HAYDEN PATTERSON Admitting Clinician UnavailSOLO Watson Admitting Clinician Unavail able LASHAWN BELCHER Admitting Clinician Unavailable Jesika Rene MD Admitting Clinician [phone] Jermain Lundy MD Admitting Clinician [phone] Payers Payer Name Policy Type Policy Number Effective Date Expirati on Date Source MEDICARE PART A AND B [id number] 2008 00:00:00 2024 00:00:00 [facility] MCR [id number] AARP AARP [id number] Problems Condition Name Condition Details Condition Category Status Onset Date Resolution Date Last Treatment Date Treating Clinician Comments Source Generalize d weakness Generalize d weakness Disease Active 2023-04 00:00: 00 [facility] Dehydratio n Dehydratio n Disease Active 12-24 00:00: 00 [facility] Nausea and vomiting, unspecifie d vomiting type Nausea and vomiting, unspecifie d vomiting type Disease Active 12-24 00:00: 00 [facility] Abdominal aortic aneurysm (AAA) without rupture, unspecifie d part Abdominal aortic aneurysm (AAA) without rupture, unspecifie d part Disease Active 06-28 00:00: 00 [facility] At risk for falls At risk for falls Disease Active 04-27 00:00: 00 [facility] Unspecifie d abnormalit ies of gait and mobility Unspecifie d abnormalit ies of gait and mobility Disease Active 04-27 00:00: 00 [facility] Dizziness and giddiness Dizziness and giddiness Disease Active 12-29 00:00: 00 [facility] Palpitatio ns Palpitatio ns Disease Active 12-29 00:00: 00 [facility] Memory loss Memory loss Disease Active 04-17 00:00: 00 [facility] Gout Gout Disease Active 2014-04 00:00: 00 [facility] Anxiety Anxiety Disease Active 2014-04 00:00: 00 [facility] Hypothyroi dism Hypothyroi dism Disease Active 2014-04 00:00: 00 [facility] Hyperchole sterolemia Hyperchole sterolemia Disease Active 2014-04 00:00: 00 [facility] Essential hypertensi on Essential hypertensi on Disease Resolve d 2014-04 00:00: 00 2023-04-27 00:00:00 2023-04-27 13:10:30 [facility] Allergies, Adverse Reactions, Alerts Allergy Name Allergy Type Status Severity Reaction(s) Onset Date Inactive Date Treating Clinician Comments Source CITALOPR AM DRUG INGREDI Active Hallucinates 2017-04 00:00: 00 [facility] Citalopr am Propensi ty to adverse reaction s Active Hallucinatio ns 2017-04 00:00: 00 [facility] Social History Social Habit Start Date Stop Date Quantity Comments Source Gender [facility] Al[facility]olic beverage intake 2023-12-25 00:00:00 2023-12-25 00:00:00 0 /d [facility] History of Social function 2023-10-18 00:00:00 2023-10-18 00:00:00 [facility] Tobacco use and exposure 2023-10-18 00:00:00 2023-10-18 00:00:00 Smokeless tobacco non-user [facility] Alcohol intake 2023-06-01 00:00:00 2023-06-01 00:00:00 0 /d [facility] Exposure to SARS-CoV-2 (event) 2022-07-10 00:00:00 2022-07-20 09:14:00 Not sure [facility] History of tobacco use 1965-01-16 00:00:00 Cigarette Smoker [facility] Sex Assigned At 1945 00:00:00 1945 00:00:00 [facility] Smoking Status Start Date Stop Date Source Tobacco smoking consumption unknown [facility] Ex-smoker 2023-10-18 00:00:00 2023-10-18 00:00:00 [facility] Medications Ordered Medication Name Filled Medication Name Start Date Stop Date Current Medication? Ordering Clinician Indication Dosage Frequency Signature (SIG) Comments Components Source methylPREDN ISolone sod succ (SOLU-MEDRO L (PF)) injection 40 mg 2023-04 19:00: 00 01-30 19:25 :00 No 40mg 40 mg, Intravenou s, ONCE, 1 dose, On Wed01/31/24 at 1400, 1 mL [facility] acetaminoph en (TYLENOL ARTHRITIS ORAL) 2023-04 18:33: 07 Yes 2{tbl} Take 2 tablets by mouth in the morning and 2 tablets in the evening. [facility] krill oil 500 mg Cap 2023-04 18:33: 07 Yes 1{capsu le} Take 1 capsule by mouth in the morning. [facility] amLODIPine (NORVASC) tablet 5 mg 2023-04 15:15: 00 01-30 16:29 :00 No 5mg 5 mg, Oral, ONCE, 1 dose, On Wed01/31/24 at 1015, Routine [facility] methylPREDN ISolone sod succ (SOLU-MEDRO L (PF)) injection 40 mg 2023-04 13:00: 00 01-30 16:34 :31 No 40mg 40 mg, Intravenou s, Q6H, 2 doses, First dose on Wed01/31/24 at 0800, Last dose on Wed01/31/24 at 1200, 1 mL [facility] levothyroxi ne (SYNTHROID) tablet 125 mcg 2023-04 11:00: 00 01-30 23:33 :07 No 125ug 125 mcg, Oral, QAM-0600, First dose on 01/31/24 at 0600, Until Discontinu ed, Routine [facility] amLODIPine 5 mg tablet 2023-04 00:00: 00 03-02 05:59 :00 Yes [id number] 5mg Take 1 tablet by mouth in the morning for 30 days. [facility] predniSONE 20 mg tablet 2023-04 00:00: 00 02-05 04:59 :00 Yes [id number] 20mg Take 1 tablet by mouth in the morning for 5 days. [facility] heparin (porcine) injection 5,000 Units 2023-04 03:00: 00 01-30 23:33 :07 No 5000U 5,000 Units, Subcutaneo us, Q8H, First dose on 01/29/24 at 2200, Until Discontinu ed, Routine [facility] acetaminoph en (TYLENOL) tablet 650 mg 2023-04 23:24: 54 01-30 23:33 :07 No 650mg 650 mg, Oral, Q6HPRN, Starting on 01/29/24 at 1824, Until 01/31/24 at 1833, Routine, Pain (scale 1-3) [facility] NaCl 0.9% (NS) bolus infusion 1,000 mL 12-24 16:30: 00 12-24 17:00 :00 No 1000mL at 999 mL/hr, 1,000 mL, IV Infusion, ONCE, 1 dose, On 12/25/23 at 1130, [place] [facility] ondansetron (ZOFRAN (PF)) injection 4 mg 12-24 15:45: 00 12-24 16:08 :00 No 4mg 4 mg, Slow IV Push, ONCE, 1 dose, On 12/25/23 at 1045, [place] [facility] ondansetron 4 mg disintegrat ing tablet 921 00:00: 00 Yes [id number] 4mg Take 1 tablet by mouth every 8 (eight) hours as needed for Nausea and Vomiting (N/V). [facility] traMADoL 50 mg tablet 11-29 00:00: 00 01-30 00:00 :00 No [id number] 50mg Take 1 tablet by mouth every 6 (six) hours as needed (pain). Indication s: chronic pain [facility] memantine 10 mg tablet 10-21 00:00: 00 01-30 00:00 :00 No [id number] 10mg Take 1 tablet by mouth in the morning. [facility] divalproex (DEPAKOTE) 125 mg delayed release tablet 10-21 00:00: 00 11-29 00:00 :00 No [id number] 125mg Take 1 tablet by mouth at bedtime. [facility] mirabegron (MYRBETRIQ) 50 mg tablet 10-17 00:00: 00 Yes [id number] 50mg Take 1 tablet by mouth in the morning. [facility] MYRBETRIQ 25 mg tablet 08-17 00:00: 00 10-17 00:00 :00 No [id number] 25mg TAKE 1 TABLET BY MOUTH IN THE MORNING [facility] MESALAMINE 1.2 gram EC tablet 3-04 00:00: 00 Yes [id number] 1.2g TAKE 1 TABLET BY MOUTH DAILY WITH BREAKFAST [facility] levothyroxi ne 125 mcg tablet 06-01 00:00: 00 Yes [id number] 125ug Take 1 tablet by mouth every morning. [facility] venlafaxine 75 mg tablet 06-01 00:00: 00 01-30 00:00 :00 No [id number] 225mg Take 3 tablets by mouth in the morning. [facility] simvastatin 40 mg tablet 06-01 00:00: 00 01-30 00:00 :00 No [id number] 40mg Take 1 tablet by mouth at bedtime. [facility] traMADoL 50 mg tablet 2 00:00: 00 11-29 00:00 :00 No [id number] 50mg Take 1 tablet by mouth every 6 (six) hours as needed (pain). Indication s: chronic pain [facility] traMADoL 50 mg tablet 9 00:00: 00 06-01 00:00 :00 No [id number] 50mg Take 1 tablet by mouth every 6 (six) hours as needed (pain). Indication s: chronic pain [facility] omeprazole 40 mg capsule 829 14:07: 31 Yes 40mg Take 1 capsule by mouth in the morning. [facility] memantine 7 mg capsule 17 00:00: 00 10-21 00:00 :00 No [id number] 7mg Take 1 capsule by mouth at bedtime. [facility] rivastigmin e 13.3 mg/24 hour PT24 17 00:00: 00 12-30 00:00 :00 No [id number] 1{patch } Apply 1 Patch to skin in the morning. [facility] memantine 7 mg capsule 17 00:00: 00 10-19 00:00 :00 No [id number] 7mg Take 1 capsule by mouth at bedtime. [facility] omeprazole 40 mg capsule 06-29 08:25: 53 06-29 00:00 :00 No 40mg Take 40 mg by mouth daily. [facility] mirabegron (MYRBETRIQ) 25 mg tablet 06-29 00:00: 00 08-17 00:00 :00 No [id number] 25mg Take 1 tablet by mouth every morning. [facility] mesalamine 1.2 gram EC tablet 06-29 00:00: 00 06-06 00:00 :00 No [id number] 1.2g Take 1 tablet by mouth daily with breakfast. [facility] levothyroxi ne 125 mcg tablet 06-29 00:00: 00 06-01 00:00 :00 No [id number] 125ug Take 1 tablet by mouth every morning. [facility] simvastatin 40 mg tablet 06-29 00:00: 00 06-01 00:00 :00 No [id number] 40mg Take 1 tablet by mouth at bedtime. [facility] venlafaxine 75 mg tablet 06-29 00:00: 00 06-01 00:00 :00 No [id number] 225mg Take 3 tablets by mouth in the morning. [facility] tamsulosin (FLOMAX) 0.4 mg 24 hr capsule 06-29 00:00: 00 04-27 00:00 :00 No [id number] .4mg Take 1 capsule by mouth in the morning. [facility] traMADoL 50 mg tablet 06-29 00:00: 00 12-30 00:00 :00 No [id number] 50mg Take 1 tablet by mouth every 6 (six) hours as needed (pain). Indication s: chronic pain [facility] losartan 50 mg tablet 06-29 00:00: 00 10-19 00:00 :00 No [id number] 50mg Take 1 tablet by mouth in the morning. [facility] omeprazole 40 mg capsule 06-29 00:00: 00 10-19 00:00 :00 No [id number] 40mg Take 1 capsule by mouth in the morning. [facility] triamcinolo ne acetonide (KENALOG) injection 40 mg 06-25 20:15: 00 06-25 19:13 :00 No [id number] 9108 40mg [facility] MESALAMINE 1.2 gram EC tablet 05-06 00:00: 00 06-29 00:00 :00 No [id number] 1.2g TAKE 1 TABLET BY MOUTH DAILY WITH BREAKFAST [facility] rivastigmin e 9.5 mg/24 hour patch 2021-04 04-15 00:00: 00 07-20 00:00 :00 No [id number] 1{patch } Apply 1 Patch to skin in the morning. [facility] rivastigmin e 4.6 mg/24 hour patch 2021-04 00:00: 00 06-29 00:00 :00 No [id number] 1{patch } Apply 1 Patch to skin in the morning. Take this script first. [facility] traMADoL 50 mg tablet 12-31 00:00: 00 06-29 00:00 :00 No [id number] 50mg Take 1 tablet by mouth every 6 (six) hours as needed (pain). Indication s: chronic pain [facility] traMADoL 50 mg tablet 12-30 00:00: 00 12-31 00:00 :00 No [id number] 50mg Take 1 tablet by mouth every 6 (six) hours as needed for Pain (scale 7-10) for up to 7 days. Indication s: chronic pain [facility] venlafaxine 75 mg tablet 11-03 00:00: 06-29 00:00 :00 No [id number] 225mg Take 3 tablets by mouth in the morning. [facility] Venlafaxine 225 mg TR24 11-03 00:00: 00 11-03 00:00 :00 No [id number] 225mg Take 225 mg by mouth daily. [facility] MYRBETRIQ 25 mg tablet 10-02 00:00: 00 06-29 00:00 :00 No [id number] TAKE 1 TABLET BY MOUTH DAILY [facility] LEVOTHYROXI NE 125 mcg tablet 10-02 00:00: 00 06-29 00:00 :00 No [id number] TAKE 1 TABLET BY MOUTH IN THE MORNING [facility] SIMVASTATIN 40 mg tablet 10-02 00:00: 00 06-29 00:00 :00 No [id number] 40mg TAKE 1 TABLET BY MOUTH AT BEDTIME [facility] tamsulosin (FLOMAX) 0.4 mg 24 hr capsule 2022-0 5-31 00:00: 00 06-29 00:00 :00 No [id number] .4mg Take 1 capsule by mouth daily. [facility] losartan 50 mg tablet 2-24 00:00: 00 06-29 00:00 :00 No [id number] 50mg Take 1 tablet by mouth daily. [facility] doxycycline hyclate 100 mg capsule -28 00:00: 00 11-03 00:00 :00 No [id number] 100mg Take 1 capsule by mouth every 12 (twelve) hours. [facility] VENLAFAXINE XR 150 mg 24 hr capsule 2020-04 00:00: 00 11-03 00:00 :00 No [id number] 150mg TAKE 1 CAPSULE BY MOUTH DAILY WITH BREAKFAST [facility] ondansetron 4 mg tablet 2020-04 0- 00:00: 00 05-02 00:00 :00 No [id number] 4mg Take 1 tablet by mouth every 12 (twelve) hours as needed for Nausea and Vomiting (N/V). [facility] losartan 50 mg tablet 2020-04 0-21 00:00: 00 05-29 00:00 :00 No [id number] 50mg Take 1 tablet by mouth daily. [facility] metoprolol tartrate 25 mg tablet 2020-04 0-09 00:00: 00 03-26 00:00 :00 No 1{tbl} Take 1 tablet by mouth every 12 (twelve) hours. [facility] simvastatin 40 mg tablet 9-13 00:00: 00 10-02 00:00 :00 No [id number] 40mg Take 1 tablet by mouth at bedtime. [facility] mesalamine 1.2 gram EC tablet 30 00:00: 00 05-06 00:00 :00 No [id number] 1.2g Take 1 tablet by mouth daily with breakfast. [facility] levothyroxi ne 125 mcg tablet 4- 00:00: 10-02 00:00 :00 No [id number] 125ug Take 1 tablet by mouth every morning. [facility] omeprazole 40 mg capsule 08 08:19: 34 Yes 40mg Take 1 capsule by mouth in the morning. [facility] LORazepam 0.5 mg tablet 08 00:00: 00 03-26 00:00 :00 No [id number] .5mg Take 1 tablet by mouth as needed (anxiety). [facility] venlafaxine XR 150 mg 24 hr capsule 06-10 00:00: 00 03-05 00:00 :00 No [id number] 150mg Take 1 capsule by mouth daily with breakfast. [facility] traMADoL 50 mg tablet 06-10 00:00: 00 02-12 00:00 :00 No [id number] 50mg Take 1 tablet by mouth every 6 (six) hours as needed (pain). Indication s: chronic pain [facility] aspirin 81 mg tablet 10-31 08:31: 51 Yes 81mg Take 1 tablet by mouth in the morning. [facility] Immunizations Ordered Immunization Name Filled Immunization Name Date Status Comments Source RSV, Bivalent Protein Subunit RSVprdF 2023-05-19 00:00:00 Completed SARS-COV-2 COVID 19 STEPHANI SUCROSE VACCINE 12+, , 0.3 ML (30 MCG), IM [facility] (ORTIZ TOP) 2023-02-22 00:00:00 Completed [facility] Influenza Virus Vaccine,quad Im,preserve Free 65+ (FLUAD) 2022-12-30 00:00:00 Completed SARS-COV-2 COVID-19 STEPHANI-SUCROSE VACCINE 12 YRS+, BIVALENT 0.3ML, IM, ([facility] ORTIZ TOP BOOSTER) 2022-01-30 00:00:00 Completed [facility] SARS-COV-2 COVID-19 STEPHANI-SUCROSE VACCINE 12 YRS+, BIVALENT 0.3ML, IM, ([facility] ORTIZ TOP BOOSTER) 2022-01-30 00:00:00 Completed [facility] SARS-COV-2 COVID-19 STEPHANI-SUCROSE VACCINE 12 YRS+, BIVALENT 0.3ML, IM, ([employer] TOP BOOSTER) 2022-01-30 00:00:00 Completed [facility] SARS-COV-2 COVID-19 STEPHANI-SUCROSE VACCINE 12 YRS+, BIVALENT 0.3ML, IM, ([employer] ORTIZ TOP BOOSTER) 2022-01-30 00:00:00 Completed [facility] SARS-COV-2 COVID-19 STEPHANI-SUCROSE VACCINE 12 YRS+, BIVALENT 0.3ML, IM, (PFIZER ORTIZ TOP BOOSTER) 2022-01-30 00:00:00 Completed [facility] SARS-COV-2 COVID-19 STEPHANI-SUCROSE VACCINE 12 YRS+, BIVALENT 0.3ML, IM, (PFIZER ORTIZ TOP BOOSTER) 2022-01-30 00:00:00 Completed [facility] SARS-COV-2 COVID-19 STEPHANI-SUCROSE VACCINE 12 YRS+, BIVALENT 0.3ML, IM, (PFIZER ORTIZ TOP BOOSTER) 2022-01-30 00:00:00 Completed [facility] SARS-COV-2 COVID-19 STEPHANI-SUCROSE VACCINE 12 YRS+, BIVALENT 0.3ML, IM, (PFIZER ORTIZ TOP BOOSTER) 2022-01-30 00:00:00 Completed [facility] SARS-COV-2 COVID-19 STEPHANI-SUCROSE VACCINE 12 YRS+, BIVALENT 0.3ML, IM, (PFIZER ORTIZ TOP BOOSTER) 2022-01-30 00:00:00 Completed [facility] SARS-COV-2 COVID-19 STEPHANI-SUCROSE VACCINE 12 YRS+, BIVALENT 0.3ML, IM, (PFIZER ORTIZ TOP BOOSTER) 2022-01-30 00:00:00 Completed [facility] SARS-COV-2 COVID-19 STEPHANI-SUCROSE VACCINE 12 YRS+, BIVALENT 0.3ML, IM, (PFIZER ORTIZ TOP BOOSTER) 2022-01-30 00:00:00 Completed [facility] SARS-COV-2 COVID-19 STEPHANI-SUCROSE VACCINE 12 YRS+, BIVALENT 0.3ML, IM, (PFIZER ORTIZ TOP BOOSTER) 2022-01-30 00:00:00 Completed [facility] SARS-COV-2 COVID-19 STEPHANI-SUCROSE VACCINE 12 YRS+, BIVALENT 0.3ML, IM, (PFIZER ORTIZ TOP BOOSTER) 2022-01-30 00:00:00 Completed [facility] SARS-COV-2 COVID-19 STEPHANI-SUCROSE VACCINE 12 YRS+, BIVALENT 0.3ML, IM, (PFIZER ORTIZ TOP BOOSTER) 2022-01-30 00:00:00 Completed [facility] SARS-COV-2 COVID-19 STEPHANI-SUCROSE VACCINE 12 YRS+, BIVALENT 0.3ML, IM, (PFIZER ORTIZ TOP BOOSTER) 2022-01-30 00:00:00 Completed [facility] SARS-COV-2 COVID-19 STEPHANI-SUCROSE VACCINE 12 YRS+, BIVALENT 0.3ML, IM, (PFIZER ORTIZ TOP BOOSTER) 2022-01-30 00:00:00 Completed [facility] SARS-COV-2 COVID-19 STEPHANI-SUCROSE VACCINE 12 YRS+, BIVALENT 0.3ML, IM, (PFIZER ORTIZ TOP BOOSTER) 2022-01-30 00:00:00 Completed [facility] SARS-COV-2 COVID-19 STEPHANI-SUCROSE VACCINE 12 YRS+, BIVALENT 0.3ML, IM, (PFIZER ORTIZ TOP BOOSTER) 2022-01-30 00:00:00 Completed [facility] SARS-COV-2 COVID-19 STEPHANI-SUCROSE VACCINE 12 YRS+, BIVALENT 0.3ML, IM, (PFIZER ORTIZ TOP BOOSTER) 2022-01-30 00:00:00 Completed [facility] SARS-COV-2 COVID-19 STEPHANI-SUCROSE VACCINE 12 YRS+, BIVALENT 0.3ML, IM, (PFIZER ORTIZ TOP BOOSTER) 2022-01-30 00:00:00 Completed [facility] SARS-COV-2 COVID-19 STEPHANI-SUCROSE VACCINE 12 YRS+, BIVALENT 0.3ML, IM, (PFIZER ORTIZ TOP BOOSTER) 2022-01-30 00:00:00 Completed [facility] SARS-COV-2 COVID-19 STEPHANI-SUCROSE VACCINE 12 YRS+, BIVALENT 0.3ML, IM, (PFIZER ORTIZ TOP BOOSTER) 2022-01-30 00:00:00 Completed [facility] SARS-COV-2 COVID-19 STEPHANI-SUCROSE VACCINE 12 YRS+, BIVALENT 0.3ML, IM, (PFIZER ORTIZ TOP BOOSTER) 2022-01-30 00:00:00 Completed [facility] SARS-COV-2 COVID-19 STEPHANI-SUCROSE VACCINE 12 YRS+, BIVALENT 0.3ML, IM, (PFIZER ORTIZ TOP) 2022-01-30 00:00:00 Completed [facility] SARS-COV-2 COVID-19 STEPHANI-SUCROSE VACCINE 12 YRS+, BIVALENT 0.3ML, IM, (PFIZER ORTIZ TOP) 2022-01-30 00:00:00 Completed [facility] SARS-COV-2 COVID-19 STEPHANI-SUCROSE VACCINE 12 YRS+, BIVALENT 0.3ML, IM, (PFIZER ORTIZ TOP) 2022-01-30 00:00:00 Completed [facility] SARS-COV-2 COVID-19 STEPHANI-SUCROSE VACCINE 12 YRS+, BIVALENT 0.3ML, IM, (PFIZER ORTIZ TOP) 2022-01-30 00:00:00 Completed [facility] SARS-COV-2 COVID-19 STEPHANI-SUCROSE VACCINE 12 YRS+, BIVALENT 0.3ML, IM, (PFIZER ORTIZ TOP) 2022-01-30 00:00:00 Completed [facility] SARS-COV-2 COVID-19 STEPHANI-SUCROSE VACCINE 12 YRS+, BIVALENT 0.3ML, IM, (PFIZER ORTIZ TOP) 2022-01-30 00:00:00 Completed [facility] SARS-COV-2 COVID-19 STEPHANI-SUCROSE VACCINE 12 YRS+, BIVALENT 0.3ML, IM, (PFIZER ORTIZ TOP) 2022-01-30 00:00:00 Completed [facility] SARS-COV-2 COVID-19 STEPHANI-SUCROSE VACCINE 12 YRS+, BIVALENT 0.3ML, IM, (PFIZER ORTIZ TOP) 2022-01-30 00:00:00 Completed [facility] SARS-COV-2 COVID-19 PFIZER STEPHANI-SUCROSE VACCINE (ORTIZ TOP) 2021-10-21 00:00:00 Completed [facility] SARS-COV-2 COVID-19 PFIZER STEPHANI-SUCROSE VACCINE (ORTIZ TOP) 2021-10-21 00:00:00 Completed [facility] SARS-COV-2 COVID-19 PFIZER STEPHANI-SUCROSE VACCINE (ROTIZ TOP) 2021-10-21 00:00:00 Completed [facility] SARS-COV-2 COVID-19 PFIZER STEPHANI-SUCROSE VACCINE (ORTIZ TOP) 2021-10-21 00:00:00 Completed [facility] SARS-COV-2 COVID-19 PFIZER STEPHANI-SUCROSE VACCINE (ORTIZ TOP) 2021-10-21 00:00:00 Completed [facility] SARS-COV-2 COVID-19 PFIZER STEPHANI-SUCROSE VACCINE (ORTIZ TOP) 2021-10-21 00:00:00 Completed [facility] SARS-COV-2 COVID-19 PFIZER STEPHANI-SUCROSE VACCINE (ORTIZ TOP) 2021-10-21 00:00:00 Completed [facility] SARS-COV-2 COVID-19 PFIZER STEPHANI-SUCROSE VACCINE (ORTIZ TOP) 2021-10-21 00:00:00 Completed [facility] SARS-COV-2 COVID-19 PFIZER STEPHANI-SUCROSE VACCINE (ORTIZ TOP) 2021-10-21 00:00:00 Completed [facility] SARS-COV-2 COVID-19 PFIZER STEPHANI-SUCROSE VACCINE (ORTIZ TOP) 2021-10-21 00:00:00 Completed [facility] SARS-COV-2 COVID-19 PFIZER STEPHANI-SUCROSE VACCINE (ORTIZ TOP) 2021-10-21 00:00:00 Completed [facility] SARS-COV-2 COVID-19 PFIZER STEPHANI-SUCROSE VACCINE (ORTIZ TOP) 2021-10-21 00:00:00 Completed [facility] SARS-COV-2 COVID-19 PFIZER STEPHANI-SUCROSE VACCINE (ORTIZ TOP) 2021-10-21 00:00:00 Completed [facility] SARS-COV-2 COVID-19 PFIZER STEPHANI-SUCROSE VACCINE (ORTIZ TOP) 2021-10-21 00:00:00 Completed [facility] SARS-COV-2 COVID-19 PFIZER STEPHANI-SUCROSE VACCINE (ORTIZ TOP) 2021-10-21 00:00:00 Completed [facility] SARS-COV-2 COVID-19 PFIZER STEPHANI-SUCROSE VACCINE (ORTIZ TOP) 2021-10-21 00:00:00 Completed [facility] SARS-COV-2 COVID-19 PFIZER STEPHANI-SUCROSE VACCINE (ORTIZ TOP) 2021-10-21 00:00:00 Completed [facility] SARS-COV-2 COVID-19 PFIZER STEPHANI-SUCROSE VACCINE (ORTIZ TOP) 2021-10-21 00:00:00 Completed [facility] SARS-COV-2 COVID-19 PFIZER STEPHANI-SUCROSE VACCINE (ORTIZ TOP) 2021-10-21 00:00:00 Completed [facility] SARS-COV-2 COVID-19 PFIZER STEPHANI-SUCROSE VACCINE (ORTIZ TOP) 2021-10-21 00:00:00 Completed [facility] SARS-COV-2 COVID-19 PFIZER STEPHANI-SUCROSE VACCINE (ORTIZ TOP) 2021-10-21 00:00:00 Completed [facility] SARS-COV-2 COVID-19 PFIZER STEPHANI-SUCROSE VACCINE (ORTIZ TOP) 2021-10-21 00:00:00 Completed [facility] SARS-COV-2 COVID-19 PFIZER STEPHANI-SUCROSE VACCINE (ORTIZ TOP) 2021-10-21 00:00:00 Completed [facility] SARS-COV-2 COVID-19 PFIZER STEPHANI-SUCROSE VACCINE (ORTIZ TOP) 2021-10-21 00:00:00 Completed [facility] SARS-COV-2 COVID-19 PFIZER STEPHANI-SUCROSE VACCINE (ORTIZ TOP) 2021-10-21 00:00:00 Completed [facility] SARS-COV-2 COVID-19 PFIZER STEPHANI-SUCROSE VACCINE (ORTIZ TOP) 2021-10-21 00:00:00 Completed [facility] SARS-COV-2 COVID-19 PFIZER STEPHANI-SUCROSE VACCINE (ORTIZ TOP) 2021-10-21 00:00:00 Completed [facility] SARS-COV-2 COVID-19 PFIZER STEPHANI-SUCROSE VACCINE (ORTIZ TOP) 2021-10-21 00:00:00 Completed [facility] SARS-COV-2 COVID-19 PFIZER STEPHANI-SUCROSE VACCINE (ORTIZ TOP) 2021-10-21 00:00:00 Completed [facility] SARS-COV-2 COVID-19 PFIZER STEPHANI-SUCROSE VACCINE (ORTIZ TOP) 2021-10-21 00:00:00 Completed [facility] SARS-COV-2 COVID-19 PFIZER STEPHANI-SUCROSE VACCINE (ORTIZ TOP) 2021-10-21 00:00:00 Completed [facility] SARS-COV-2 COVID-19 PFIZER STEPHANI-SUCROSE VACCINE (ORTIZ TOP) 2021-10-21 00:00:00 Completed [facility] SARS-COV-2 COVID-19 PFIZER STEPHANI-SUCROSE VACCINE (ORTIZ TOP) 2021-10-21 00:00:00 Completed [facility] SARS-COV-2 COVID-19 PFIZER STEPHANI-SUCROSE VACCINE (ORTIZ TOP) 2021-10-21 00:00:00 Completed [facility] SARS-COV-2 COVID-19 PFIZER STEPHANI-SUCROSE VACCINE (ORTIZ TOP) 2021-10-21 00:00:00 Completed [facility] SARS-COV-2 COVID-19 PFIZER STEPHANI-SUCROSE VACCINE (ORTIZ TOP) 2021-10-21 00:00:00 Completed [facility] SARS-COV-2 COVID-19 PFIZER STEPHANI-SUCROSE VACCINE (ORTIZ TOP) 2021-10-21 00:00:00 Completed [facility] SARS-COV-2 COVID-19 PFIZER STEPHANI-SUCROSE VACCINE (ORTIZ TOP) 2021-10-21 00:00:00 Completed [facility] SARS-COV-2 COVID-19 PFIZER STEPHANI-SUCROSE VACCINE (ORTIZ TOP) 2021-10-21 00:00:00 Completed [facility] SARS-COV-2 COVID-19 PFIZER STEPHANI-SUCROSE VACCINE (ORTIZ TOP) 2021-10-21 00:00:00 Completed [facility] SARS-COV-2 COVID-19 PFIZER STEPHANI-SUCROSE VACCINE (ORTIZ TOP) 2021-10-21 00:00:00 Completed [facility] SARS-COV-2 COVID-19 PFIZER VACCINE 2021-02-12 00:00:00 Completed [facility] SARS-COV-2 COVID-19 PFIZER VACCINE 2021-02-12 00:00:00 Completed [facility] SARS-COV-2 COVID-19 PFIZER VACCINE 2021-02-12 00:00:00 Completed [facility] SARS-COV-2 COVID-19 PFIZER VACCINE 2021-02-12 00:00:00 Completed [facility] SARS-COV-2 COVID-19 PFIZER VACCINE 2021-02-12 00:00:00 Completed [facility] SARS-COV-2 COVID-19 PFIZER VACCINE 2021-02-12 00:00:00 Completed [facility] SARS-COV-2 COVID-19 PFIZER VACCINE 2021-02-12 00:00:00 Completed [facility] SARS-COV-2 COVID-19 PFIZER VACCINE 2021-02-12 00:00:00 Completed [facility] SARS-COV-2 COVID-19 PFIZER VACCINE 2021-02-12 00:00:00 Completed [facility] SARS-COV-2 COVID-19 PFIZER VACCINE 2021-02-12 00:00:00 Completed [facility] SARS-COV-2 COVID-19 PFIZER VACCINE 2021-02-12 00:00:00 Completed [facility] SARS-COV-2 COVID-19 PFIZER VACCINE 2021-02-12 00:00:00 Completed [facility] SARS-COV-2 COVID-19 PFIZER VACCINE 2021-02-12 00:00:00 Completed [facility] SARS-COV-2 COVID-19 PFIZER VACCINE 2021-02-12 00:00:00 Completed [facility] SARS-COV-2 COVID-19 PFIZER VACCINE 2021-02-12 00:00:00 Completed [facility] SARS-COV-2 COVID-19 PFIZER VACCINE 2021-02-12 00:00:00 Completed [facility] SARS-COV-2 COVID-19 PFIZER VACCINE 2021-02-12 00:00:00 Completed [facility] SARS-COV-2 COVID-19 PFIZER VACCINE 2021-02-12 00:00:00 Completed [facility] SARS-COV-2 COVID-19 PFIZER VACCINE 2021-02-12 00:00:00 Completed [facility] SARS-COV-2 COVID-19 PFIZER VACCINE 2021-02-12 00:00:00 Completed [facility] SARS-COV-2 COVID-19 PFIZER VACCINE 2021-02-12 00:00:00 Completed [facility] SARS-COV-2 COVID-19 PFIZER VACCINE 2021-02-12 00:00:00 Completed [facility] SARS-COV-2 COVID-19 PFIZER VACCINE 2021-02-12 00:00:00 Completed [facility] SARS-COV-2 COVID-19 PFIZER VACCINE 2021-02-12 00:00:00 Completed [facility] SARS-COV-2 COVID-19 PFIZER VACCINE 2021-02-12 00:00:00 Completed [facility] SARS-COV-2 COVID-19 PFIZER VACCINE 2021-02-12 00:00:00 Completed [facility] SARS-COV-2 COVID-19 PFIZER VACCINE 2021-02-12 00:00:00 Completed [facility] SARS-COV-2 COVID-19 PFIZER VACCINE 2021-02-12 00:00:00 Completed [facility] SARS-COV-2 COVID-19 PFIZER VACCINE 2021-02-12 00:00:00 Completed [facility] SARS-COV-2 COVID-19 PFIZER VACCINE 2021-02-12 00:00:00 Completed [facility] SARS-COV-2 COVID-19 PFIZER VACCINE 2021-02-12 00:00:00 Completed [facility] SARS-COV-2 COVID-19 PFIZER VACCINE 2021-02-12 00:00:00 Completed [facility] SARS-COV-2 COVID-19 PFIZER VACCINE 2021-02-12 00:00:00 Completed [facility] SARS-COV-2 COVID-19 PFIZER VACCINE 2021-02-12 00:00:00 Completed [facility] SARS-COV-2 COVID-19 PFIZER VACCINE 2021-02-12 00:00:00 Completed [facility] SARS-COV-2 COVID-19 PFIZER VACCINE 2021-02-12 00:00:00 Completed [facility] SARS-COV-2 COVID-19 PFIZER VACCINE 2021-02-12 00:00:00 Completed [facility] SARS-COV-2 COVID-19 PFIZER VACCINE 2021-02-12 00:00:00 Completed [facility] SARS-COV-2 COVID-19 PFIZER VACCINE 2021-02-12 00:00:00 Completed [facility] SARS-COV-2 COVID-19 PFIZER VACCINE 2021-02-12 00:00:00 Completed [facility] SARS-COV-2 COVID-19 PFIZER VACCINE 2021-02-12 00:00:00 Completed SARS-COV-2 COVID-19 PFIZER VACCINE 2020-05-30 00:00:00 Completed [facility] SARS-COV-2 COVID-19 PFIZER VACCINE 2020-05-30 00:00:00 Completed [facility] SARS-COV-2 COVID-19 PFIZER VACCINE 2020-05-30 00:00:00 Completed [facility] SARS-COV-2 COVID-19 PFIZER VACCINE 2020-05-30 00:00:00 Completed [facility] SARS-COV-2 COVID-19 PFIZER VACCINE 2020-05-30 00:00:00 Completed [facility] SARS-COV-2 COVID-19 PFIZER VACCINE 2020-05-30 00:00:00 Completed [facility] SARS-COV-2 COVID-19 PFIZER VACCINE 2020-05-30 00:00:00 Completed [facility] SARS-COV-2 COVID-19 PFIZER VACCINE 2020-05-30 00:00:00 Completed [facility] SARS-COV-2 COVID-19 PFIZER VACCINE 2020-05-30 00:00:00 Completed [facility] SARS-COV-2 COVID-19 PFIZER VACCINE 2020-05-30 00:00:00 Completed [facility] SARS-COV-2 COVID-19 PFIZER VACCINE 2020-05-30 00:00:00 Completed [facility] SARS-COV-2 COVID-19 PFIZER VACCINE 2020-05-30 00:00:00 Completed [facility] SARS-COV-2 COVID-19 PFIZER VACCINE 2020-05-30 00:00:00 Completed [facility] SARS-COV-2 COVID-19 PFIZER VACCINE 2020-05-30 00:00:00 Completed [facility] SARS-COV-2 COVID-19 PFIZER VACCINE 2020-05-30 00:00:00 Completed [facility] SARS-COV-2 COVID-19 PFIZER VACCINE 2020-05-30 00:00:00 Completed [facility] SARS-COV-2 COVID-19 PFIZER VACCINE 2020-05-30 00:00:00 Completed [facility] SARS-COV-2 COVID-19 PFIZER VACCINE 2020-05-30 00:00:00 Completed [facility] SARS-COV-2 COVID-19 PFIZER VACCINE 2020-05-30 00:00:00 Completed [facility] SARS-COV-2 COVID-19 PFIZER VACCINE 2020-05-30 00:00:00 Completed [facility] SARS-COV-2 COVID-19 PFIZER VACCINE 2020-05-30 00:00:00 Completed [facility] SARS-COV-2 COVID-19 PFIZER VACCINE 2020-05-30 00:00:00 Completed [facility] SARS-COV-2 COVID-19 PFIZER VACCINE 2020-05-30 00:00:00 Completed [facility] SARS-COV-2 COVID-19 PFIZER VACCINE 2020-05-30 00:00:00 Completed [facility] SARS-COV-2 COVID-19 PFIZER VACCINE 2020-05-30 00:00:00 Completed [facility] SARS-COV-2 COVID-19 PFIZER VACCINE 2020-05-30 00:00:00 Completed [facility] SARS-COV-2 COVID-19 PFIZER VACCINE 2020-05-30 00:00:00 Completed [facility] SARS-COV-2 COVID-19 PFIZER VACCINE 2020-05-30 00:00:00 Completed [facility] SARS-COV-2 COVID-19 PFIZER VACCINE 2020-05-30 00:00:00 Completed [facility] SARS-COV-2 COVID-19 PFIZER VACCINE 2020-05-30 00:00:00 Completed [facility] SARS-COV-2 COVID-19 PFIZER VACCINE 2020-05-30 00:00:00 Completed [facility] SARS-COV-2 COVID-19 PFIZER VACCINE 2020-05-30 00:00:00 Completed [facility] SARS-COV-2 COVID-19 PFIZER VACCINE 2020-05-30 00:00:00 Completed [facility] SARS-COV-2 COVID-19 PFIZER VACCINE 2020-05-30 00:00:00 Completed [facility] SARS-COV-2 COVID-19 PFIZER VACCINE 2020-05-30 00:00:00 Completed [facility] SARS-COV-2 COVID-19 PFIZER VACCINE 2020-05-30 00:00:00 Completed [facility] SARS-COV-2 COVID-19 PFIZER VACCINE 2020-05-30 00:00:00 Completed [facility] SARS-COV-2 COVID-19 PFIZER VACCINE 2020-05-30 00:00:00 Completed [facility] SARS-COV-2 COVID-19 PFIZER VACCINE 2020-05-30 00:00:00 Completed [facility] SARS-COV-2 COVID-19 PFIZER VACCINE 2020-05-30 00:00:00 Completed [facility] SARS-COV-2 COVID-19 PFIZER VACCINE 2020-05-30 00:00:00 Completed [facility] SARS-COV-2 COVID-19 PFIZER VACCINE 2020-04-30 00:00:00 Completed [facility] SARS-COV-2 COVID-19 PFIZER VACCINE 2020-04-30 00:00:00 Completed [facility] SARS-COV-2 COVID-19 PFIZER VACCINE 2020-04-30 00:00:00 Completed [facility] SARS-COV-2 COVID-19 PFIZER VACCINE 2020-04-30 00:00:00 Completed [facility] SARS-COV-2 COVID-19 PFIZER VACCINE 2020-04-30 00:00:00 Completed [facility] SARS-COV-2 COVID-19 PFIZER VACCINE 2020-04-30 00:00:00 Completed [facility] SARS-COV-2 COVID-19 PFIZER VACCINE 2020-04-30 00:00:00 Completed [facility] SARS-COV-2 COVID-19 PFIZER VACCINE 2020-04-30 00:00:00 Completed [facility] SARS-COV-2 COVID-19 PFIZER VACCINE 2020-04-30 00:00:00 Completed [facility] SARS-COV-2 COVID-19 PFIZER VACCINE 2020-04-30 00:00:00 Completed [facility] SARS-COV-2 COVID-19 PFIZER VACCINE 2020-04-30 00:00:00 Completed [facility] SARS-COV-2 COVID-19 PFIZER VACCINE 2020-04-30 00:00:00 Completed [facility] SARS-COV-2 COVID-19 PFIZER VACCINE 2020-04-30 00:00:00 Completed [facility] SARS-COV-2 COVID-19 PFIZER VACCINE 2020-04-30 00:00:00 Completed [facility] SARS-COV-2 COVID-19 PFIZER VACCINE 2020-04-30 00:00:00 Completed [facility] SARS-COV-2 COVID-19 PFIZER VACCINE 2020-04-30 00:00:00 Completed [facility] SARS-COV-2 COVID-19 PFIZER VACCINE 2020-04-30 00:00:00 Completed [facility] SARS-COV-2 COVID-19 PFIZER VACCINE 2020-04-30 00:00:00 Completed [facility] SARS-COV-2 COVID-19 PFIZER VACCINE 2020-04-30 00:00:00 Completed [facility] SARS-COV-2 COVID-19 PFIZER VACCINE 2020-04-30 00:00:00 Completed [facility] SARS-COV-2 COVID-19 PFIZER VACCINE 2020-04-30 00:00:00 Completed [facility] SARS-COV-2 COVID-19 PFIZER VACCINE 2020-04-30 00:00:00 Completed [facility] SARS-COV-2 COVID-19 PFIZER VACCINE 2020-04-30 00:00:00 Completed [facility] SARS-COV-2 COVID-19 PFIZER VACCINE 2020-04-30 00:00:00 Completed [facility] SARS-COV-2 COVID-19 PFIZER VACCINE 2020-04-30 00:00:00 Completed [facility] SARS-COV-2 COVID-19 PFIZER VACCINE 2020-04-30 00:00:00 Completed [facility] SARS-COV-2 COVID-19 PFIZER VACCINE 2020-04-30 00:00:00 Completed [facility] SARS-COV-2 COVID-19 PFIZER VACCINE 2020-04-30 00:00:00 Completed [facility] SARS-COV-2 COVID-19 PFIZER VACCINE 2020-04-30 00:00:00 Completed [facility] SARS-COV-2 COVID-19 PFIZER VACCINE 2020-04-30 00:00:00 Completed [facility] SARS-COV-2 COVID-19 PFIZER VACCINE 2020-04-30 00:00:00 Completed [facility] SARS-COV-2 COVID-19 PFIZER VACCINE 2020-04-30 00:00:00 Completed [facility] SARS-COV-2 COVID-19 PFIZER VACCINE 2020-04-30 00:00:00 Completed [facility] SARS-COV-2 COVID-19 PFIZER VACCINE 2020-04-30 00:00:00 Completed [facility] SARS-COV-2 COVID-19 PFIZER VACCINE 2020-04-30 00:00:00 Completed [facility] SARS-COV-2 COVID-19 PFIZER VACCINE 2020-04-30 00:00:00 Completed [facility] SARS-COV-2 COVID-19 PFIZER VACCINE 2020-04-30 00:00:00 Completed [facility] SARS-COV-2 COVID-19 PFIZER VACCINE 2020-04-30 00:00:00 Completed [facility] SARS-COV-2 COVID-19 PFIZER VACCINE 2020-04-30 00:00:00 Completed [facility] SARS-COV-2 COVID-19 PFIZER VACCINE 2020-04-30 00:00:00 Completed [facility] SARS-COV-2 COVID-19 PFIZER VACCINE 2020-04-30 00:00:00 Completed [facility] Zoster(Zostavax)([facility]) 2018-11-12 00:00:00 Completed [facility] Zoster(Zostavax)([facility]) 2018-11-12 00:00:00 Completed [facility] Zoster(Zostavax)([facility]) 2018-11-12 00:00:00 Completed [facility] Zoster(Zostavax)([facility]) 2018-11-12 00:00:00 Completed [facility] Zoster(Zostavax)([facility]) 2018-11-12 00:00:00 Completed [facility] Zoster(Zostavax)([facility]) 2018-11-12 00:00:00 Completed [facility] Zoster(Zostavax)([facility]) 2018-11-12 00:00:00 Completed [facility] Zoster(Zostavax)([facility]) 2018-11-12 00:00:00 Completed [facility] Zoster(Zostavax)([facility]) 2018-11-12 00:00:00 Completed [facility] Zoster(Zostavax)([facility]) 2018-11-12 00:00:00 Completed [facility] Zoster(Zostavax)([facility]) 2018-11-12 00:00:00 Completed [facility] Zoster(Zostavax)([facility]) 2018-11-12 00:00:00 Completed [facility] Zoster(Zostavax)([facility]) 2018-11-12 00:00:00 Completed [facility] Zoster(Zostavax)([facility]) 2018-11-12 00:00:00 Completed [facility] Zoster(Zostavax)([facility]) 2018-11-12 00:00:00 Completed [facility] Zoster(Zostavax)([facility]) 2018-11-12 00:00:00 Completed [facility] Zoster(Zostavax)([facility]) 2018-11-12 00:00:00 Completed [facility] Zoster(Zostavax)([facility]) 2018-11-12 00:00:00 Completed [facility] Zoster(Zostavax)([facility]) 2018-11-12 00:00:00 Completed [facility] Zoster(Zostavax)([facility]) 2018-11-12 00:00:00 Completed [facility] Zoster(Zostavax)([facility]) 2018-11-12 00:00:00 Completed [facility] Zoster(Zostavax)([facility]) 2018-11-12 00:00:00 Completed [facility]oster(Zostavax)([facility]) 2018-11-12 00:00:00 Completed [facility]oster(Zostavax)([facility]) 2018-11-12 00:00:00 Completed [facility]oster(Zostavax)([facility]) 2018-11-12 00:00:00 Completed [facility] Zoster(Zostavax)([facility]) 2018-11-12 00:00:00 Completed [facility] Zoster(Zostavax)([facility]) 2018-11-12 00:00:00 Completed [facility] Zoster(Zostavax)([facility]) 2018-11-12 00:00:00 Completed [facility] Zoster(Zostavax)([facility]) 2018-11-12 00:00:00 Completed [facility] Zoster(Zostavax)([facility]) 2018-11-12 00:00:00 Completed [facility] Zoster(Zostavax)([facility]) 2018-11-12 00:00:00 Completed [facility] Zoster(Zostavax)([facility]) 2018-11-12 00:00:00 Completed [facility] Zoster(Zostavax)([facility]) 2018-11-12 00:00:00 Completed [facility] Zoster(Zostavax)([facility]) 2018-11-12 00:00:00 Completed [facility] Zoster(Zostavax)([facility]) 2018-11-12 00:00:00 Completed [facility] Zoster(Zostavax)([facility]) 2018-11-12 00:00:00 Completed [facility] Zoster(Zostavax)([facility]) 2018-11-12 00:00:00 Completed [facility] Zoster(Zostavax)([facility]) 2018-11-12 00:00:00 Completed [facility] Zoster(Zostavax)([facility]) 2018-11-12 00:00:00 Completed [facility] Zoster(Zostavax)([facility]) 2018-11-12 00:00:00 Completed [facility] Zoster(Zostavax)([facility]) 2018-11-12 00:00:00 Completed Pneumococcal Polysaccharide, PPSV23 (PNEUMOVAX) 2018-09-08 00:00:00 Completed [facility] Zoster(Zostavax)([facility]) 2018-09-08 00:00:00 Completed [facility] Pneumococcal Polysaccharide, PPSV23 (PNEUMOVAX) 2018-09-08 00:00:00 Completed [facility] Zoster(Zostavax)([facility]) 2018-09-08 00:00:00 Completed [facility] Pneumococcal Polysaccharide, PPSV23 (PNEUMOVAX) 2018-09-08 00:00:00 Completed [facility] Zoster(Zostavax)([facility]) 2018-09-08 00:00:00 Completed [facility] Pneumococcal Polysaccharide, PPSV23 (PNEUMOVAX) 2018-09-08 00:00:00 Completed [facility] Zoster(Zostavax)([facility]) 2018-09-08 00:00:00 Completed [facility] Pneumococcal Polysaccharide, PPSV23 (PNEUMOVAX) 2018-09-08 00:00:00 Completed [facility] Zoster(Zostavax)([facility]) 2018-09-08 00:00:00 Completed [facility] Pneumococcal Polysaccharide, PPSV23 (PNEUMOVAX) 2018-09-08 00:00:00 Completed [facility] Zoster(Zostavax)([facility]) 2018-09-08 00:00:00 Completed [facility] Pneumococcal Polysaccharide, PPSV23 (PNEUMOVAX) 2018-09-08 00:00:00 Completed [facility] Zoster(Zostavax)([facility]) 2018-09-08 00:00:00 Completed [facility] Pneumococcal Polysaccharide, PPSV23 (PNEUMOVAX) 2018-09-08 00:00:00 Completed [facility] Zoster(Zostavax)([facility]) 2018-09-08 00:00:00 Completed [facility] Pneumococcal Polysaccharide, PPSV23 (PNEUMOVAX) 2018-09-08 00:00:00 Completed [facility] Zoster(Zostavax)([facility]) 2018-09-08 00:00:00 Completed [facility] Pneumococcal Polysaccharide, PPSV23 (PNEUMOVAX) 2018-09-08 00:00:00 Completed [facility] Zoster(Zostavax)([facility]) 2018-09-08 00:00:00 Completed [facility] Pneumococcal Polysaccharide, PPSV23 (PNEUMOVAX) 2018-09-08 00:00:00 Completed [facility] Zoster(Zostavax)([facility]) 2018-09-08 00:00:00 Completed [facility] Pneumococcal Polysaccharide, PPSV23 (PNEUMOVAX) 2018-09-08 00:00:00 Completed [facility] Zoster(Zostavax)([facility]) 2018-09-08 00:00:00 Completed [facility] Pneumococcal Polysaccharide, PPSV23 (PNEUMOVAX) 2018-09-08 00:00:00 Completed [facility] Zoster(Zostavax)([facility]) 2018-09-08 00:00:00 Completed [facility] Pneumococcal Polysaccharide, PPSV23 (PNEUMOVAX) 2018-09-08 00:00:00 Completed [facility] Zoster(Zostavax)([facility]) 2018-09-08 00:00:00 Completed [facility] Pneumococcal Polysaccharide, PPSV23 (PNEUMOVAX) 2018-09-08 00:00:00 Completed [facility] Zoster(Zostavax)([facility]) 2018-09-08 00:00:00 Completed [facility] Pneumococcal Polysaccharide, PPSV23 (PNEUMOVAX) 2018-09-08 00:00:00 Completed [facility] Zoster(Zostavax)([facility]) 2018-09-08 00:00:00 Completed [facility] Pneumococcal Polysaccharide, PPSV23 (PNEUMOVAX) 2018-09-08 00:00:00 Completed [facility] Zoster(Zostavax)([facility]) 2018-09-08 00:00:00 Completed [facility] Pneumococcal Polysaccharide, PPSV23 (PNEUMOVAX) 2018-09-08 00:00:00 Completed [facility] Zoster(Zostavax)([facility]) 2018-09-08 00:00:00 Completed [facility] Pneumococcal Polysaccharide, PPSV23 (PNEUMOVAX) 2018-09-08 00:00:00 Completed [facility] Zoster(Zostavax)([facility]) 2018-09-08 00:00:00 Completed [facility] Pneumococcal Polysaccharide, PPSV23 (PNEUMOVAX) 2018-09-08 00:00:00 Completed [facility] Zoster(Zostavax)([facility]) 2018-09-08 00:00:00 Completed [facility] Pneumococcal Polysaccharide, PPSV23 (PNEUMOVAX) 2018-09-08 00:00:00 Completed [facility] Zoster(Zostavax)([facility]) 2018-09-08 00:00:00 Completed [facility] Pneumococcal Polysaccharide, PPSV23 (PNEUMOVAX) 2018-09-08 00:00:00 Completed [facility] Zoster(Zostavax)([facility]) 2018-09-08 00:00:00 Completed [facility] Pneumococcal Polysaccharide, PPSV23 (PNEUMOVAX) 2018-09-08 00:00:00 Completed [facility] Zoster(Zostavax)([facility]) 2018-09-08 00:00:00 Completed [facility] Pneumococcal Polysaccharide, PPSV23 (PNEUMOVAX) 2018-09-08 00:00:00 Completed [facility] Zoster(Zostavax)([facility]) 2018-09-08 00:00:00 Completed [facility] Pneumococcal Polysaccharide, PPSV23 (PNEUMOVAX) 2018-09-08 00:00:00 Completed [facility] Zoster(Zostavax)([facility]) 2018-09-08 00:00:00 Completed [facility] Pneumococcal Polysaccharide, PPSV23 (PNEUMOVAX) 2018-09-08 00:00:00 Completed [facility] Zoster(Zostavax)([facility]) 2018-09-08 00:00:00 Completed [facility] Pneumococcal Polysaccharide, PPSV23 (PNEUMOVAX) 2018-09-08 00:00:00 Completed [facility] Zoster(Zostavax)([facility]) 2018-09-08 00:00:00 Completed [facility] Pneumococcal Polysaccharide, PPSV23 (PNEUMOVAX) 2018-09-08 00:00:00 Completed [facility] Zoster(Zostavax)([facility]) 2018-09-08 00:00:00 Completed [facility] Pneumococcal Polysaccharide, PPSV23 (PNEUMOVAX) 2018-09-08 00:00:00 Completed [facility] Zoster(Zostavax)([facility]) 2018-09-08 00:00:00 [facility] Pneumococcal Polysaccharide, PPSV23 (PNEUMOVAX) 2018-09-08 00:00:00 Completed [facility] Zoster(Zostavax)([facility]) 2018-09-08 00:00:00 Completed [facility] Pneumococcal Polysaccharide, PPSV23 (PNEUMOVAX) 2018-09-08 00:00:00 Completed [facility] Zoster(Zostavax)([facility]) 2018-09-08 00:00:00 Completed [facility] Pneumococcal Polysaccharide, PPSV23 (PNEUMOVAX) 2018-09-08 00:00:00 Completed [facility] Zoster(Zostavax)([facility]) 2018-09-08 00:00:00 Completed [facility] Pneumococcal Polysaccharide, PPSV23 (PNEUMOVAX) 2018-09-08 00:00:00 Completed [facility] Zoster(Zostavax)([facility]) 2018-09-08 00:00:00 Completed [facility] Pneumococcal Polysaccharide, PPSV23 (PNEUMOVAX) 2018-09-08 00:00:00 Completed [facility] Zoster(Zostavax)([facility]) 2018-09-08 00:00:00 Completed [facility] Pneumococcal Polysaccharide, PPSV23 (PNEUMOVAX) 2018-09-08 00:00:00 Completed [facility] Zoster(Zostavax)([facility]) 2018-09-08 00:00:00 Completed [facility] Pneumococcal Polysaccharide, PPSV23 (PNEUMOVAX) 2018-09-08 00:00:00 Completed [facility] Zoster(Zostavax)([facility]) 2018-09-08 00:00:00 Completed [facility] Pneumococcal Polysaccharide, PPSV23 (PNEUMOVAX) 2018-09-08 00:00:00 Completed [facility] Zoster(Zostavax)([facility]) 2018-09-08 00:00:00 Completed [facility] Pneumococcal Polysaccharide, PPSV23 (PNEUMOVAX) 2018-09-08 00:00:00 Completed [facility] Zoster(Zostavax)([facility]) 2018-09-08 00:00:00 Completed [facility] Pneumococcal Polysaccharide, PPSV23 (PNEUMOVAX) 2018-09-08 00:00:00 Completed [facility] 2018-09-08 00:00:00 Completed [facility] Pneumococcal Polysaccharide, PPSV23 (PNEUMOVAX) 2018-09-08 00:00:00 Completed [facility] 2018-09-08 00:00:00 Completed [facility] Pneumococcal Polysaccharide, PPSV23 (PNEUMOVAX) 2018-09-08 00:00:00 Completed [facility] 2018-09-08 00:00:00 Completed Pneumococcal Polysaccharide, PPSV23 (PNEUMOVAX) Unknown Completed [facility] Zoster(Zostavax)([facility]) Unknown Completed [facility] SARS-COV-2 COVID-19 PFIZER VACCINE Unknown Completed [facility] SARS-COV-2 COVID-19 PFIZER STEPHANI-SUCROSE VACCINE (ORTIZ TOP) Unknown Completed [facility] SARS-COV-2 COVID-19 STEPHANI-SUCROSE VACCINE 12 YRS+, BIVALENT 0.3ML, IM, (PFIZER ORTIZ TOP) Unknown Completed [facility] Pneumococcal Polysaccharide, PPSV23 (PNEUMOVAX) Unknown Completed [facility] Zoster(Zostavax)([facility]) Unknown Completed [facility] SARS-COV-2 COVID-19 PFIZER VACCINE Unknown Completed [facility] SARS-COV-2 COVID-19 PFIZER STEPHANI-SUCROSE VACCINE (ORTIZ TOP) Unknown Completed [facility] SARS-COV-2 COVID-19 STEPHANI-SUCROSE VACCINE 12 YRS+, BIVALENT 0.3ML, IM, (PFIZER ORTIZ TOP) Unknown Completed [facility] Influenza Virus Vaccine,quad Im,preserve Free 65+ (FLUAD) Unknown Completed [facility] Pneumococcal Polysaccharide, PPSV23 (PNEUMOVAX) Unknown Completed [facility] Zoster(Zostavax)([facility]) Unknown Completed [facility] SARS-COV-2 COVID-19 PFIZER VACCINE Unknown Completed [facility] SARS-COV-2 COVID-19 PFIZER SETPHANI-SUCROSE VACCINE (ORTIZ TOP) Unknown Completed [facility] SARS-COV-2 COVID-19 STEPHANI-SUCROSE VACCINE 12 YRS+, BIVALENT 0.3ML, IM, (PFIZER ORTIZ TOP) Unknown Completed [facility] Influenza Virus Vaccine,quad Im,preserve Free 65+ (FLUAD) Unknown Completed [facility] Pneumococcal Polysaccharide, PPSV23 (PNEUMOVAX) Unknown Completed [facility] Zoster(Zostavax)( ingles) Unknown Completed [facility] SARS-COV-2 COVID-19 PFIZER VACCINE Unknown Completed [facility] Pneumococcal Polysaccharide, PPSV23 (PNEUMOVAX) Unknown Completed [facility] Zoster(Zostavax)( ingles) Unknown Completed [facility] SARS-COV-2 COVID-19 PFIZER VACCINE Unknown Completed [facility] SARS-COV-2 COVID-19 PFIZER STEPHANI-SUCROSE VACCINE (ORTIZ TOP) Unknown Completed [facility] SARS-COV-2 COVID-19 STEPHANI-SUCROSE VACCINE 12 YRS+, BIVALENT 0.3ML, IM, (PFIZER ORTIZ TOP) Unknown Completed [facility] Influenza Virus Vaccine,quad Im,preserve Free 65+ (FLUAD) Unknown Completed [facility] SARS-COV-2 COVID 19 STEPHANI SUCROSE VACCINE 12+, [id number], 0.3 ML (30 MCG), IM PFIZER (ORTIZ TOP) Unknown Completed [facility] Pneumococcal Polysaccharide, PPSV23 (PNEUMOVAX) Unknown Completed [facility] SARS-COV-2 COVID-19 PFIZER STEPHANI-SUCROSE VACCINE (ORTIZ TOP) Unknown Completed [facility] SARS-COV-2 COVID-19 STEPHANI-SUCROSE VACCINE 12 YRS+, BIVALENT 0.3ML, IM, (PFIZER ORTIZ TOP) Unknown Completed [facility] Influenza Virus Vaccine,quad Im,preserve Free 65+ (FLUAD) Unknown Completed [facility] SARS-COV-2 COVID 19 STEPHANI SUCROSE VACCINE 12+, [id number], 0.3 ML (30 MCG), IM PFIZER (ORTIZ TOP) Unknown Completed [facility] Zoster(Zostavax)( ingles) Unknown Completed [facility] SARS-COV-2 COVID-19 PFIZER VACCINE Unknown Completed [facility] Pneumococcal Polysaccharide, PPSV23 (PNEUMOVAX) Unknown Completed [facility] Zoster(Zostavax)( ingles) Unknown Completed [facility] SARS-COV-2 COVID-19 PFIZER VACCINE Unknown Completed [facility] SARS-COV-2 COVID-19 PFIZER STEPHANI-SUCROSE VACCINE (ORTIZ TOP) Unknown Completed [facility] SARS-COV-2 COVID-19 STEPHANI-SUCROSE VACCINE 12 YRS+, BIVALENT 0.3ML, IM, (PFIZER ORTIZ TOP) Unknown Completed [facility] Influenza Virus Vaccine,quad Im,preserve Free 65+ (FLUAD) Unknown Completed [facility] SARS-COV-2 COVID 19 STEPHANI SUCROSE VACCINE 12+, , 0.3 ML (30 MCG), IM PFIZER (ORTIZ TOP) Unknown Completed [facility] Pneumococcal Polysaccharide, PPSV23 (PNEUMOVAX) Unknown Completed [facility] Zoster(Zostavax)( ingles) Unknown Completed [facility] SARS-COV-2 COVID-19 PFIZER VACCINE Unknown Completed [facility] SARS-COV-2 COVID-19 PFIZER STEPHANI-SUCROSE VACCINE (ORTIZ TOP) Unknown Completed [facility] SARS-COV-2 COVID-19 STEPHANI-SUCROSE VACCINE 12 YRS+, BIVALENT 0.3ML, IM, (PFIZER ORTIZ TOP) Unknown Completed [facility] Influenza Virus Vaccine,quad Im,preserve Free 65+ (FLUAD) Unknown Completed [facility] SARS-COV-2 COVID 19 STEPHANI SUCROSE VACCINE 12+, , 0.3 ML (30 MCG), IM PFIZER (ORTIZ TOP) Unknown Completed [facility] RSV, Bivalent Protein Subunit RSVprdF Unknown Completed [facility] Pneumococcal Polysaccharide, PPSV23 (PNEUMOVAX) Unknown Completed [facility] Zoster(Zostavax)([facility]) Unknown Completed [facility] SARS-COV-2 COVID-19 PFIZER VACCINE Unknown Completed [facility] SARS-COV-2 COVID-19 PFIZER STEPHANI-SUCROSE VACCINE (ORTIZ TOP) Unknown Completed [facility] SARS-COV-2 COVID-19 STEPHANI-SUCROSE VACCINE 12 YRS+, BIVALENT 0.3ML, IM, (PFIZER ORTIZ TOP) Unknown Completed [facility] Influenza Virus Vaccine,quad Im,preserve Free 65+ (FLUAD) Unknown Completed [facility] SARS-COV-2 COVID 19 STEPHANI SUCROSE VACCINE 12+, , 0.3 ML (30 MCG), IM PFIZER (ORTIZ TOP) Unknown Completed [facility] RSV, Bivalent Protein Subunit RSVprdF Unknown Completed [facility] Pneumococcal Polysaccharide, PPSV23 (PNEUMOVAX) Unknown Completed [facility] Zoster(Zostavax)(Sh ingles) Unknown Completed [facility] SARS-COV-2 COVID-19 PFIZER VACCINE Unknown Completed [facility] SARS-COV-2 COVID-19 PFIZER STEPHANI-SUCROSE VACCINE (ORTIZ TOP) Unknown Completed [facility] SARS-COV-2 COVID-19 STEPHANI-SUCROSE VACCINE 12 YRS+, BIVALENT 0.3ML, IM, (PFIZER ORTIZ TOP) Unknown Completed [facility] Influenza Virus Vaccine,quad Im,preserve Free 65+ (FLUAD) Unknown Completed [facility] SARS-COV-2 COVID 19 STEPHANI SUCROSE VACCINE 12+, , 0.3 ML (30 MCG), IM PFIZER (ORTIZ TOP) Unknown Completed [facility] RSV, Bivalent Protein Subunit RSVprdF Unknown Completed [facility] Pneumococcal Polysaccharide, PPSV23 (PNEUMOVAX) Unknown Completed [facility] Zoster(Zostavax)( ingles) Unknown Completed [facility] SARS-COV-2 COVID-19 PFIZER VACCINE Unknown Completed [facility] SARS-COV-2 COVID-19 PFIZER STEPHANI-SUCROSE VACCINE (ORTIZ TOP) Unknown Completed [facility] SARS-COV-2 COVID-19 STEPHANI-SUCROSE VACCINE 12 YRS+, BIVALENT 0.3ML, IM, (PFIZER ORTIZ TOP) Unknown Completed [facility] Influenza Virus Vaccine,quad Im,preserve Free 65+ (FLUAD) Unknown Completed [facility] SARS-COV-2 COVID 19 STEPHANI SUCROSE VACCINE 12+, , 0.3 ML (30 MCG), IM PFIZER (ORTIZ TOP) Unknown Completed [facility] RSV, Bivalent Protein Subunit RSVprdF Unknown Completed [facility] Pneumococcal Polysaccharide, PPSV23 (PNEUMOVAX) Unknown Completed [facility] Zoster(Zostavax)(Sh ingles) Unknown Completed [facility] SARS-COV-2 COVID-19 PFIZER VACCINE Unknown Completed [facility] SARS-COV-2 COVID-19 PFIZER STEPHANI-SUCROSE VACCINE (ORTIZ TOP) Unknown Completed [facility] SARS-COV-2 COVID-19 STEPHANI-SUCROSE VACCINE 12 YRS+, BIVALENT 0.3ML, IM, (PFIZER ORTIZ TOP) Unknown Completed [facility] Influenza Virus Vaccine,quad Im,preserve Free 65+ (FLUAD) Unknown Completed [facility] SARS-COV-2 COVID 19 STEPHANI SUCROSE VACCINE 12+, , 0.3 ML (30 MCG), IM PFIZER (ORTIZ TOP) Unknown Completed [facility] RSV, Bivalent Protein Subunit RSVprdF Unknown Completed [facility] Pneumococcal Polysaccharide, PPSV23 (PNEUMOVAX) Unknown Completed [facility] Zoster(Zostavax)( ingles) Unknown Completed [facility] SARS-COV-2 COVID-19 PFIZER VACCINE Unknown Completed [facility] SARS-COV-2 COVID-19 PFIZER STEPHANI-SUCROSE VACCINE (ORTIZ TOP) Unknown Completed [facility] SARS-COV-2 COVID-19 STEPHANI-SUCROSE VACCINE 12 YRS+, BIVALENT 0.3ML, IM, (PFIZER ORTIZ TOP) Unknown Completed [facility] Influenza Virus Vaccine,quad Im,preserve Free 65+ (FLUAD) Unknown Completed [facility] SARS-COV-2 COVID 19 STEPHANI SUCROSE VACCINE 12+, , 0.3 ML (30 MCG), IM PFIZER (ORTIZ TOP) Unknown Completed [facility] RSV, Bivalent Protein Subunit RSVprdF Unknown Completed [facility] Pneumococcal Polysaccharide, PPSV23 (PNEUMOVAX) Unknown Completed [facility] Zoster(Zostavax)([place] ingles) Unknown Completed [facility] SARS-COV-2 COVID-19 PFIZER VACCINE Unknown Completed [facility] SARS-COV-2 COVID-19 PFIZER STEPHANI-SUCROSE VACCINE (ORTIZ TOP) Unknown Completed [facility] SARS-COV-2 COVID-19 STEPHANI-SUCROSE VACCINE 12 YRS+, BIVALENT 0.3ML, IM, (PFIZER ORTIZ TOP) Unknown Completed [facility] Influenza Virus Vaccine,quad Im,preserve Free 65+ (FLUAD) Unknown Completed [facility] SARS-COV-2 COVID 19 STEPHANI SUCROSE VACCINE 12+, , 0.3 ML (30 MCG), IM PFIZER (ORTIZ TOP) Unknown Completed [facility] RSV, Bivalent Protein Subunit RSVprdF Unknown Completed [facility] Pneumococcal Polysaccharide, PPSV23 (PNEUMOVAX) Unknown Completed [facility] Zoster(Zostavax)(Sh ingles) Unknown Completed [facility] SARS-COV-2 COVID-19 PFIZER VACCINE Unknown Completed [facility] SARS-COV-2 COVID-19 PFIZER STEPHANI-SUCROSE VACCINE (ORTIZ TOP) Unknown Completed [facility] SARS-COV-2 COVID-19 STEPHANI-SUCROSE VACCINE 12 YRS+, BIVALENT 0.3ML, IM, (PFIZER ORTIZ TOP) Unknown Completed [facility] Influenza Virus Vaccine,quad Im,preserve Free 65+ (FLUAD) Unknown Completed [facility] SARS-COV-2 COVID 19 STEPHANI SUCROSE VACCINE 12+, , 0.3 ML (30 MCG), IM PFIZER (ORTIZ TOP) Unknown Completed [facility] RSV, Bivalent Protein Subunit RSVprdF Unknown Completed [facility] Pneumococcal Polysaccharide, PPSV23 (PNEUMOVAX) Unknown Completed [facility] Zoster(Zostavax)( ingles) Unknown Completed [facility] SARS-COV-2 COVID-19 PFIZER VACCINE Unknown Completed [facility] SARS-COV-2 COVID-19 PFIZER STEPHANI-SUCROSE VACCINE (ORTIZ TOP) Unknown Completed [facility] SARS-COV-2 COVID-19 STEPHANI-SUCROSE VACCINE 12 YRS+, BIVALENT 0.3ML, IM, (PFIZER ORTIZ TOP) Unknown Completed [facility] Influenza Virus Vaccine,quad Im,preserve Free 65+ (FLUAD) Unknown Completed [facility] SARS-COV-2 COVID 19 STEPHANI SUCROSE VACCINE 12+, , 0.3 ML (30 MCG), IM PFIZER (ORTIZ TOP) Unknown Completed [facility] RSV, Bivalent Protein Subunit RSVprdF Unknown Completed [facility] Pneumococcal Polysaccharide, PPSV23 (PNEUMOVAX) Unknown Completed [facility] Zoster(Zostavax)(Sh ingles) Unknown Completed [facility] SARS-COV-2 COVID-19 PFIZER VACCINE Unknown Completed [facility] SARS-COV-2 COVID-19 PFIZER STEPHANI-SUCROSE VACCINE (ORTIZ TOP) Unknown Completed [facility] SARS-COV-2 COVID-19 STEPHANI-SUCROSE VACCINE 12 YRS+, BIVALENT 0.3ML, IM, (PFIZER ORTIZ TOP) Unknown Completed [facility] Influenza Virus Vaccine,quad Im,preserve Free 65+ (FLUAD) Unknown Completed [facility] SARS-COV-2 COVID 19 STEPHANI SUCROSE VACCINE 12+, , 0.3 ML (30 MCG), IM PFIZER (ORTIZ TOP) Unknown Completed [facility] RSV, Bivalent Protein Subunit RSVprdF Unknown Completed [facility] Pneumococcal Polysaccharide, PPSV23 (PNEUMOVAX) Unknown Completed [facility] Zoster(Zostavax)( ingles) Unknown Completed [facility] SARS-COV-2 COVID-19 PFIZER VACCINE Unknown Completed [facility] SARS-COV-2 COVID-19 PFIZER STEPHANI-SUCROSE VACCINE (ORTIZ TOP) Unknown Completed [facility] SARS-COV-2 COVID-19 STEPHANI-SUCROSE VACCINE 12 YRS+, BIVALENT 0.3ML, IM, (PFIZER ORTIZ TOP) Unknown Completed [facility] Influenza Virus Vaccine,quad Im,preserve Free 65+ (FLUAD) Unknown Completed [facility] SARS-COV-2 COVID 19 STEPHANI SUCROSE VACCINE 12+, , 0.3 ML (30 MCG), IM PFIZER (ORTIZ TOP) Unknown Completed [facility] RSV, Bivalent Protein Subunit RSVprdF Unknown Completed [facility] Pneumococcal Polysaccharide, PPSV23 (PNEUMOVAX) Unknown Completed [facility] Zoster(Zostavax)([place] ingles) Unknown Completed [facility] SARS-COV-2 COVID-19 PFIZER VACCINE Unknown Completed [facility] SARS-COV-2 COVID-19 PFIZER STEPHANI-SUCROSE VACCINE (ORTIZ TOP) Unknown Completed [facility] SARS-COV-2 COVID-19 STEPHANI-SUCROSE VACCINE 12 YRS+, BIVALENT 0.3ML, IM, (PFIZER ORTIZ TOP) Unknown Completed [facility] Influenza Virus Vaccine,quad Im,preserve Free 65+ (FLUAD) Unknown Completed [facility] SARS-COV-2 COVID 19 STEPHANI SUCROSE VACCINE 12+, , 0.3 ML (30 MCG), IM PFIZER (ORTIZ TOP) Unknown Completed [facility] RSV, Bivalent Protein Subunit RSVprdF Unknown Completed [facility] Pneumococcal Polysaccharide, PPSV23 (PNEUMOVAX) Unknown Completed [facility] Zoster(Zostavax)(Sh ingles) Unknown Completed [facility] SARS-COV-2 COVID-19 PFIZER VACCINE Unknown Completed [facility] SARS-COV-2 COVID-19 PFIZER STEPHANI-SUCROSE VACCINE (ORTIZ TOP) Unknown Completed [facility] SARS-COV-2 COVID-19 STEPHANI-SUCROSE VACCINE 12 YRS+, BIVALENT 0.3ML, IM, (PFIZER ORTIZ TOP) Unknown Completed [facility] Influenza Virus Vaccine,quad Im,preserve Free 65+ (FLUAD) Unknown Completed [facility] SARS-COV-2 COVID 19 STEPHANI SUCROSE VACCINE 12+, , 0.3 ML (30 MCG), IM PFIZER (ORTIZ TOP) Unknown Completed [facility] RSV, Bivalent Protein Subunit RSVprdF Unknown Completed [facility] Pneumococcal Polysaccharide, PPSV23 (PNEUMOVAX) Unknown Completed [facility] Zoster(Zostavax)(Sh ingles) Unknown Completed [facility] SARS-COV-2 COVID-19 PFIZER VACCINE Unknown Completed [facility] SARS-COV-2 COVID-19 PFIZER STEPHANI-SUCROSE VACCINE (ORTIZ TOP) Unknown Completed [facility] SARS-COV-2 COVID-19 STEPHANI-SUCROSE VACCINE 12 YRS+, BIVALENT 0.3ML, IM, (PFIZER ORTIZ TOP) Unknown Completed [facility] Influenza Virus Vaccine,quad Im,preserve Free 65+ (FLUAD) Unknown Completed [facility] SARS-COV-2 COVID 19 STEPHANI SUCROSE VACCINE 12+, , 0.3 ML (30 MCG), IM PFIZER (ORTIZ TOP) Unknown Completed [facility] RSV, Bivalent Protein Subunit RSVprdF Unknown Completed [facility] Vital Signs Vital Name Observation Time Observation Value Comments S ource Systolic blood pressure 2024-01-31 21:05:00 145 mm[Hg] [facility] Diastolic blood pressure 2024-01-31 21:05:00 81 mm[Hg] [facility] Heart rate 2024-01-31 21:05:00 99 /min [facility] Body temperature 2024-01-31 21:05:00 36.94 Ximena [facility] Respiratory rate 2024-01-31 21:05:00 20 /min [facility] Oxygen saturation in Arterial blood by Pulse oximetry 2024-01-31 21:05:00 96 /min [facility] Body weight 2024-01-31 10:41:00 62.959 kg [facility] BMI 2024-01-31 10:41:00 18.82 kg/m2 [facility] Body height 2024-01-30 01:04:00 182.9 cm [facility] Systolic blood pressure 2023-12-25 17:00:00 178 mm[Hg] [facility] Diastolic blood pressure 2023-12-25 17:00:00 67 mm[Hg] [facility] Heart rate 2023-12-25 17:00:00 76 /min [facility] Respiratory rate 2023-12-25 17:00:00 18 /min [facility] Oxygen saturation in Arterial blood by Pulse oximetry 2023-12-25 17:00:00 98 /min [facility] Body temperature 2023-12-25 14:49:00 36.78 Ximena [facility] Body height 2023-12-25 14:49:00 182.9 cm [facility] Body weight 2023-12-25 14:49:00 70.308 kg [facility] BMI 2023-12-25 14:49:00 21.02 kg/m2 [facility] Systolic blood pressure 2023-12-23 22:35:00 145 mm[Hg] [facility] Diastolic blood pressure 2023-12-23 22:35:00 70 mm[Hg] [facility] Heart rate 2023-12-23 22:35:00 88 /min [facility] Body temperature 2023-12-23 22:35:00 36.72 Ximena [facility] Respiratory rate 2023-12-23 22:35:00 18 /min [facility] Oxygen saturation in Arterial blood by Pulse oximetry 2023-12-23 22:35:00 96 /min [facility] Body height 2023-12-23 17:07:00 182.9 cm [facility] Body weight 2023-12-23 17:07:00 70.308 kg [facility] BMI 2023-12-23 17:07:00 21.02 kg/m2 [facility] Systolic blood pressure 2023-11-30 15:01:00 102 mm[Hg] [facility] Diastolic blood pressure 2023-11-30 15:01:00 62 mm[Hg] [facility] Heart rate 2023-11-30 15:01:00 75 /min [facility] Body weight 2023-11-30 15:01:00 69.854 kg [facility] BMI 2023-11-30 15:01:00 22.10 kg/m2 [facility] Systolic blood pressure 2023-10-22 14:31:00 138 mm[Hg] [facility] Diastolic blood pressure 2023-10-22 14:31:00 77 mm[Hg] [facility] Heart rate 2023-10-22 14:19:00 89 /min [facility] Respiratory rate 2023-10-22 14:19:00 18 /min [facility] Body height 2023-10-22 14:19:00 177.8 cm [facility] Body weight 2023-10-22 14:19:00 73.301 kg [facility] BMI 2023-10-22 14:19:00 23.19 kg/m2 [facility] Oxygen saturation in Arterial blood by Pulse oximetry 2023-10-22 14:19:00 98 /min [facility] Systolic blood pressure 2023-10-18 14:50:00 144 mm[Hg] [facility] Diastolic blood pressure 2023-10-18 14:50:00 71 mm[Hg] [facility] Heart rate 2023-10-18 14:50:00 93 /min [facility] Body temperature 2023-10-18 14:50:00 36.72 Ximena [facility] Body height 2023-10-18 14:50:00 177[facility]8 [facility] 2023-10-18 14:50:00 72.122 kg [facility] BMI 2023-10-18 14:50:00 22.81 kg/m2 [facility] Systolic blood pressure 2023-06-01 15:38:00 133 mm[Hg] [facility] Diastolic blood pressure 2023-06-01 15:38:00 69 mm[Hg] [facility] Heart rate 2023-06-01 15:38:00 86 /min [facility] Body weight 2023-06-01 15:38:00 75.297 kg [facility] BMI 2023-06-01 15:38:00 22.51 kg/m2 [facility] Systolic blood pressure 2023-04-27 19:07:00 109 mm[Hg] [facility] Diastolic blood pressure 2023-04-27 19:07:00 64 mm[Hg] [facility] Heart rate 2023-04-27 19:06:00 86 /min [facility] Body temperature 2023-04-27 19:06:00 36.39 Ximena [facility] Body weight 2023-04-27 19:06:00 78.472 kg [facility] BMI 2023-04-27 19:06:00 23.46 kg/m2 [facility] Systolic blood pressure 2022-12-30 14:25:00 146 mm[Hg] [facility] Diastolic blood pressure 2022-12-30 14:25:00 70 mm[Hg] [facility] Heart rate 2022-12-30 14:20:00 67 /min [facility] Body weight 2022-12-30 14:20:00 78.019 kg [facility] BMI 2022-12-30 14:20:00 23.33 kg/m2 [facility] Systolic blood pressure 2022-12-29 20:17:00 113 mm[Hg] [facility] Diastolic blood pressure 2022-12-29 20:17:00 66 mm[Hg] [facility] Heart rate 2022-12-29 20:17:00 88 /min [facility] Body temperature 2022-12-29 20:17:00 36.89 Ximena [facility] Respiratory rate 2022-12-29 20:17:00 16 /min [facility] Body height 2022-12-29 20:17:00 182.9 cm [facility] Body weight 2022-12-29 20:17:00 77.197 kg [facility] BMI 2022-12-29 20:17:00 23.08 kg/m2 [facility] Oxygen saturation in Arterial blood by Pulse oximetry 2022-12-29 20:17:00 95 /min [facility] Systolic blood pressure 2022-12-01 18:53:00 108 mm[Hg] [facility] Diastolic blood pressure 2022-12-01 18:53:00 105 mm[Hg] [facility] Heart rate 2022-12-01 18:53:00 81 /min Unive [facility] Body temperature 2022-12-01 18:53:00 36.61 Ximena [facility] Body weight 2022-12-01 18:53:00 78.472 kg Univ [facility] BMI 2022-12-01 18:53:00 23.46 kg/m2 Univ [facility] Systolic blood pressure 2022-10-19 14:11:00 156 mm[Hg] [facility] Diastolic blood pressure 2022-10-19 14:11:00 74 mm[Hg] [facility] Heart rate 2022-10-19 14:05:00 73 /min Unive [facility] Body height 2022-10-19 14:05:00 182.9 cm Univ [facility] Body weight 2022-10-19 14:05:00 79.334 kg Univ [facility] BMI 2022-10-19 14:05:00 23.72 kg/m2 [facility] Systolic blood pressure 2022-07-20 14:37:00 126 mm[Hg] [facility] Diastolic blood pressure 2022-07-20 14:37:00 68 mm[Hg] [facility] Heart rate 2022-07-20 14:37:00 92 /min [facility]ive [facility] Body height 2022-07-20 14:37:00 182.9 cm [facility] Body weight 2022-07-20 14:37:00 79.107 kg [facility] BMI 2022-07-20 14:37:00 23.65 kg/m2 [facility] Systolic blood pressure 2022-06-29 13:07:00 108 mm[Hg] [facility] Diastolic blood pressure 2022-06-29 13:07:00 70 mm[Hg] [place] [facility] Heart rate 2022-06-29 13:07:00 92 /min [facility] Body height 2022-06-29 13:07:00 165.1 cm [facility] Body weight 2022-06-29 13:07:00 79.379 kg [facility] BMI 2022-06-29 13:07:00 29.12 kg/m2 [facility] Body height 2022-06-25 19:11:00 165.1 cm [facility] Body weight 2022-06-25 19:11:00 83.915 kg [facility] BMI 2022-06-25 19:11:00 30.79 kg/m2 [facility] Body height 2022-06-16 15:40:00 165.1 cm Univ [facility] Systolic blood pressure 2022-04-17 14:28:00 126 mm[Hg] [facility] Diastolic blood pressure 2022-04-17 14:28:00 72 mm[Hg] [facility] Heart rate 2022-04-17 14:28:00 74 /min [facility] Body height 2022-04-17 14:28:00 182.9 cm [facility] Body weight 2022-04-17 14:28:00 83.462 kg [facility] BMI 2022-04-17 14:28:00 24.95 kg/m2 Univ [facility] of [facility] Oxygen saturation in Arterial blood by Pulse oximetry 2022-04-17 14:28:00 98 /min [facility] Systolic blood pressure 2022-03-05 16:51:00 101 mm[Hg] [facility] Diastolic blood pressure 2022-03-05 16:51:00 68 mm[Hg] University [facility] Heart rate 2022-03-05 16:51:00 93 /min Unive rsity of [facility] Body height 2022-03-05 16:51:00 182.9 cm Univ [facility]ity of [facility] Body weight 2022-03-05 16:51:00 83.416 kg Univ [facility] BMI 2022-03-05 16:51:00 24.94 kg/m2 Univ ersity of [facility] Body height 2022-02-23 15:17:00 182.9 cm [facility] Systolic blood pressure 2022-02-13 13:58:00 139 mm[Hg] [facility] Diastolic blood pressure 2022-02-13 13:58:00 62 mm[Hg] [facility] Heart rate 2022-02-13 13:58:00 70 /min Unive rsity of [facility] Body height 2022-02-13 13:58:00 182.9 cm [facility] [place] [facility] [place] Body weight 2022-02-13 13:58:00 82.101 kg [facility] BMI 2022-02-13 13:58:00 24.55 kg/m2 Univ ersity of [facility] Oxygen saturation in Arterial blood by Pulse oximetry 2022-02-13 13:58:00 97 /min [facility] Systolic blood pressure 2022-01-30 15:20:00 149 mm[Hg] [facility] Diastolic blood pressure 2022-01-30 15:20:00 71 mm[Hg] [facility] Heart rate 2022-01-30 15:20:00 72 /min [facility] Oxygen saturation in Arterial blood by Pulse oximetry 2022-01-30 15:20:00 99 /min [place] [facility] Body height 2022-01-30 15:11:00 172.7 cm [facility] [place] [facility] [place] Body weight 2022-01-30 15:11:00 81.874 kg [facility] BMI 2022-01-30 15:11:00 27.44 kg/m2 [facility] Systolic blood pressure 2022-01-19 19:45:00 144 mm[Hg] [place] [facility] Diastolic blood pressure 2022-01-19 19:45:00 68 mm[Hg] [facility] Heart rate 2022-01-19 19:44:00 66 /min [facility] Body weight 2022-01-19 19:44:00 82.101 kg Univ [facility] BMI 2022-01-19 19:44:00 24.55 kg/m2 [facility] BMI 2022-01-13 19:10:00 24.01 kg/m2 [facility] Systolic blood pressure 2022-01-13 19:10:00 156 mm[Hg] [facility] Diastolic blood pressure 2022-01-13 19:10:00 74 mm[Hg] [facility] Heart rate 2022-01-13 19:10:00 75 /min [facility] Body height 2022-01-13 19:10:00 182.9 cm [facility] Body weight 2022-01-13 19:10:00 80.287 kg Univ [facility] Systolic blood pressure 2021-12-30 13:06:00 166 mm[Hg] [facility] Diastolic blood pressure 2021-12-30 13:06:00 71 mm[Hg] [facility] Heart rate 2021-12-30 13:05:00 71 /min [facility] Body height 2021-12-30 13:05:00 172.7 cm [facility] Body weight 2021-12-30 13:05:00 79.833 kg [facility] BMI 2021-12-30 13:05:00 26.76 kg/m2 [facility] Systolic blood pressure 2021-11-03 13:10:00 158 mm[Hg] [facility] Diastolic blood pressure 2021-11-03 13:10:00 77 mm[Hg] [place] [facility] Heart rate 2021-11-03 13:09:00 75 /min [facility] Body height 2021-11-03 13:09:00 172.7 cm [facility] Body weight 2021-11-03 13:09:00 81.647 kg [facility] BMI 2021-11-03 13:09:00 27.37 kg/m2 [facility] Procedures Procedure Date / Time Performed Performing Clinician Source CORTISOL AM 2024-01-31 10:53:00 Maggie Campbell [facility] C-REACTIVE PROTEIN 2024-01-31 10:53:00 Maggie Campbell [facility] FREE T4 2024-01-31 10:53:00 Maggie Campbell [facility] THYROID STIMULATING HORMONE 2024-01-31 10:53:00 Maggie Campbell [facility] COMP. METABOLIC PANEL ([id number]) 2024-01-31 10:53:00 Maggie Campbell [facility] SEDIMENTATION RATE 2024-01-31 10:53:00 Maggie Campbell [facility] CBC WITH DIFF 2024-01-31 10:53:00 [facility], 25-OH 2024-01-31 10:53:00 Aniyah Mckeon [facility] CT CERVICAL SPINE WO CONTRAST 2024-01-29 21:14:04 Rajinder Vincent [facility] CT HEAD WO CONTRAST 2024-01-29 21:14:04 Rajinder Vincent [facility] URINALYSIS 2024-01-29 20:26:00 Rajinder Vincent [facility] CREATINE KINASE 2024-01-29 20:20:00 Maggie Campbell [facility] TROPONIN I 2024-01-29 20:20:00 Rajinder Vincent [facility] COMP. METABOLIC PANEL ([id number]) 2024-01-29 20:20:00 Rajinder Vincent [facility] CBC WITH DIFF 2024-01-29 20:20:00 Rajinder Vincent [facility] HB ECG ROUTINE & RHYTHM STRIP 2024-01-29 19:52:57 Rajinder Vincent [facility] LIPASE 2023-12-25 15:13:00 Fredi Santiago Un [facility] COMP. METABOLIC PANEL ([id number]) 2023-12-25 15:13:00 Fredi Santiago [facility] CBC WITH DIFF 2023-12-25 15:13:00 Fredi Santiago U [facility] COMP. METABOLIC PANEL ([id number]) 2023-12-23 20:12:00 Grace Lovett [facility] CBC WITH DIFF 2023-12-23 19:13:00 Grace Lovett [facility] URINALYSIS 2023-12-23 [facility]:13[facility] 2023-12-23 18:39:[address] [facility] POCT URINALYSIS 2023-10-18 00:00:00 Steven Solis [facility] AORTOILIAC DUPLEX - BY VASCULAR LAB 2023-07-16 16:33:56 Lenin Walsh [facility] SARS-COV-2 COVID 19 STEPHANI SUCROSE VACCINE 12+, 1882-2620, 0.3 ML (30 MCG), IM PFIZER (ORTIZ TOP) 2023-02-22 19:37:03 Doctor Unassigned, [place] [facility] XR LUMBAR SPINE 3 VW 2022-12-30 15:41:59 Shawn Solis [facility] FLU VACC(),65+YR,0.5 ML,IM,ADJUVANTED,QUAD(FLU AD) 2022-12-30 14:35:41 Shawn Solis [facility] REFERRAL- REQUEST/RESPONSE 2022-08-27 05:01:00 Doctor Unassigned, [place] [facility] MEDICATION CORRESPONDENCE 2022-07-13 05:01:00 Do ctor Unassigned, [place] [facility] PATIENT FINANCIAL POLICY 2022-06-16 15:33:39 Doctor Unassigned, [place] [facility] AUTHORIZATION FOR RELEASE OF PHI 2022-06-03 06:01:00 Doctor Unassigned, [place] [facility] REFERRAL- REQUEST/RESPONSE 2022-04-08 06:01:00 Doctor Unassigned, [place] [facility] EXTERNAL PROVIDER RECORDS 2022-03-23 06:01:00 Do ctor Unassigned, [place] [facility] SARS-COV-2 COVID-19 STEPHANI-SUCROSE VACCINE 12 YRS+, BIVALENT 0.3ML, IM, (PFIZER ORTIZ TOP BOOSTER) 2022-01-30 14:41:24 Doctor Unassigned, [place] [facility] MR BRAIN WO CONTRAST 2022-01-29 14:28:[address] Gene [facility] Encounters Start Date/Time End Date/Time Encounter Type Admission Type Attending Clinicians Care Facility Care Department Encounter ID Source 2023-12-21 09:46:01 Outpatient Shawn Solis [facility] [id number] [place] [facility] 2021-04-08 01:05:23 Outpatient [facility] [id number] [facility] 2024-01-31 20:03:00 2024-02-10 11:24:00 Inpatient 3 Shawna Luke ENC[facility] [id number] [facility] [place] [facility] 2024-02-08 00:00:00 2024-02-09 11:24:22 Telephone Shawn Solis [facility] DENY?JINGCarmen PARRJONI [facility] 1.2.840.114 350.1.13.10 4.2.7.2.686 [id number] [facility] 2024-02-08 00:00:00 2024-02-08 09:28:15 Patient Outreach Kathryn Chong ChongKathryn RandallDorothy MURPHYPING 1.2840.114 350.1.13.10 4.2.7.2.686 [id number] [facility] 2024-02-01 00:00:00 2024-02-01 11:25:13 Transition of Care Gallo Lugo Michele A [facility] 1.20.114 350.1.13.10 4.2.7.2.686 [id number] [facility] 2024-01-29 14:59:00 2024-01-31 18:31:00 Inpatient X URSULA [facility] [id number] [facility] 2024-01-29 14:59:00 2024-01-31 18:31:00 Hospital Encounter Rajinder Vincent [place], Jelani [facility] 1.0.114 350.1.13.10 4.2.7.2.686 [id number] [facility] 2023-12-27 00:00:00 2023-12-27 14:38:43 Telephone Conrad Tamayo Miatha R [place] 1.0.114 350.1.13.10 4.2.7.2.686 [id number] [facility] 2023-12-25 09:49:00 2023-12-25 13:44:00 Emergency X FREDI SANTIAGO [facility] ERT [id number] [facility] 2023-12-25 09:49:00 2023-12-25 13:44:00 Emergency AdeFredi joiner [facility] 1.2840.114 350.1.13.10 4.2.7.2.686 [id number] [facility] 2023-12-24 00:00:00 2023-12-24 09:29:48 Telephone Joyce Christianson Antoinette BRICELilian JEREMY DE LA ROSA 1.2.840.114 350.1.13.10 4.2.7.2.686 [id number] [facility] 2023-12-23 12:08:00 2023-12-23 17:51:00 Emergency X GRACE LOVETT, GRACE [facility] ERT [id number] [facility] 2023-12-23 12:08:00 2023-12-23 17:51:00 Emergency Grace Lovett [facility] 1.2.840.114 350.1.13.10 4.2.7.2.686 [id number] [facility] 2023-11-30 10:00:00 2023-11-30 10:15:00 Office Visit Tr [facility] 1.2.840.114 350.1.13.10 4.2.7.2.686 [id number] [facility] 2023-11-30 10:00:00 2023-11-30 10:00:00 Outpatient R SHAWN SOLIS [facility] [id number] [facility] 2023-11-24 00:00:00 2023-11-24 10:48:33 Telephone Tr [facility] MEDICAL OFFICE BUILDING 1.2.840.114 350.1.13.10 4.2.7.2.686 [id number] [facility] 2023-11-15 10:30:00 2023-11-15 10:43:58 Outpatient MARIA ESTHER TEE [facility] [id number] [facility] 2023-11-15 10:30:00 2023-11-15 10:43:58 Office Visit Maria Esther Reid [facility] 1.114 350.1.13.10 4.2.7.2.686 [id number] [facility] 2023-10-22 09:30:00 2023-10-22 09:45:58 Outpatient R YUKI CRUZSSICA [facility] [id number] [facility] 2023-10-22 09:30:00 2023-10-22 09:45:58 [facility] MED[facility] OFFICE BUILDING 1.84.114 350.1.13.10 4.2.7.2.686 [id number] [facility] 2023-10-18 10:15:00 2023-10-18 10:30:00 Office Visit Shawn Solis [facility] MEDICAL OFFICE BUILDING 1.84.114 350.1.13.10 4.2.7.2.686 [id number] [facility] 2023-10-18 10:15:00 2023-10-18 10:15:00 Outpatient R SHAWN SOLIS [facility] [id number] [facility] 2023-07-18 00:00:00 2023-08-21 18:09:07 Patient Secure Twin Pembertonángeljúnior [facility] PROFESSIO NAL BUILDING 1.84.114 350.1.13.10 4.2.7.2.686 [id number] [facility] 2023-08-17 00:00:00 2023-08-18 07:52:16 Refill Shawn Solis [facility] MEDICAL OFFICE BUILDING 1.84.114 350.1.13.10 4.2.7.2.686 [id number] [facility] 2023-07-16 10:58:35 2023-07-16 23:59:00 Outpatient R [facility] [id number] [facility] 2023-07-16 10:58:35 2023-07-16 23:59:00 Hospital En[facility] 1..840.114 350.1.13.10 4.2.7.2.686 [id number] [facility] 2023-06-29 09:00:00 2023-06-29 09:15:56 Outpatient R [facility] [id number] [facility] 2023-06-07 00:00:00 2023-06-07 00:00:00 Refill Tr [facility]?[place]IS [facility] MEDICAL OFFICE BUILDING 1.840.114 350.1.13.10 4.2.7.2.686 [id number] [facility] 2023-06-01 10:00:00 2023-06-01 10:15:00 Office Visit Tr [facility] MEDICAL OFFICE BUILDING 1.840.114 350.1.13.10 4.2.7.2.686 [id number] [facility] 2023-06-01 10:00:00 2023-06-01 10:00:00 Outpatient R SHAWN SOLIS [facility] [id number] [facility] 2023-05-17 14:45:00 2023-05-17 14:57:02 Outpatient R MARIA ESTHER REID [facility] [id number] [facility] 2023-05-17 14:45:00 2023-05-17 14:57:02 Office Visit Maria Esther Reid [facility] 1.840.114 350.1.13.10 4.2.7.2.686 [id number] [facility] 2023-04-27 13:00:00 2023-04-27 13:15:00 [facility] 1..840.114 350.1.13.10 4.2.7.2.686 [id number] [facility] 2023-04-27 13:00:00 2023-04-27 13:00:00 Outpatient SHAWN CHRISTIAN [facility] [id number] [facility] 2023-02-22 14:00:00 2023-02-22 14:10:00 Imm/Inj Visit Vaccine, Ang Db Cbc Fam Tr [facility] OFF[facility] BUILD[facility] 1..840.114 350.1.13.10 4.2.7.2.686 [id number] [facility] 2023-02-22 14:00:00 2023-02-22 14:00:00 Outpatient R SHAWN SOLIS [facility] [id number] [facility] 2022-12-30 09:43:47 2022-12-30 23:59:00 Hospital Encounter [facility] 1..840.114 350.1.13.10 4.2.7.2.686 [id number] [facility] 2022-12-30 09:30:00 2022-12-30 09:42:33 Outpatient R SHAWN SOLIS [facility] [id number] [facility] 2022-12-30 09:30:00 2022-12-30 09:42:33 Office Visit [facility] MEDICAL OFFICE BUILDING 1..840.114 350.1.13.10 4.2.7.2.686 [id number] [facility] 2022-12-29 15:20:00 2022-12-29 15:59:06 Outpatient R [facility] [id number] [facility] 2022-12-29 15:20:00 2022-12-29 15:59:06 [facility] 1..840.114 350.1.13.10 4.2.7.2.686 [id number] [facility] 2022-12-01 14:00:00 2022-12-01 14:15:00 Office Visit Shawn Solis enedina [facility] MEDICAL OFFICE BUILDING 1..840.114 350.1.13.10 4.2.7.2.686 [id number] [facility] 2022-12-01 14:00:00 2022-12-01 14:00:00 Outpatient R SHAWN SOLIS [facility] [id number] [facility] 2022-10-19 10:00:00 2022-10-19 10:15:00 School Supervisor Visit Lab, Kishor Cruz [facility] MEDICAL OFFICE BUILDING 1..840.114 350.1.13.10 4.2.7.2.686 [id number] [facility] 2022-10-19 09:30:00 2022-10-19 09:47:51 Outpatient R [facility] [id number] [facility] 2022-10-19 09:30:00 2022-10-19 09:47:51 Office Visit Nancy [facility] MEDICAL OFFICE BUILDING 1..840.114 350.1.13.10 4.2.7.2.686 [id number] [facility] 2022-10-05 10:15:00 2022-10-05 10:15:00 Outpatient R REID, MARIA ESTHER [facility] [id number] [facility] 2022-09-21 00:00:00 2022-09-21 00:00:00 [facility]ill [facility] 1..840.114 350.1.13.10 4.2.7.2.686 [id number] [facility] 2022-08-27 00:00:00 2022-08-27 00:00:00 Orders Only Doctor Unassigned, [place] [facility] 1.840.114 350.1.13.10 4.2.7.2.686 [id number] [facility] 2022-07-31 00:00:00 2022-07-31 00:00:00 Telephone Shawn Solis [facility]?[place] [facility] MEDICAL OFFICE BUILDING 1.840.114 350.1.13.10 4.2.7.2.686 [id number] [facility] 2022-07-20 09:30:00 2022-07-20 10:09:50 Outpatient R NANCY ARIADNE [facility] [id number] [facility] 2022-07-20 09:30:00 2022-07-20 10:09:50 Office Visit [facility] 1.840.114 350.1.13.10 4.2.7.2.686 [id number] [facility] 2022-07-14 00:00:00 2022-07-14 00:00:00 Telephone [facility] 1..840.114 350.1.13.10 4.2.7.2.686 [id number] [facility] 2022-07-13 00:00:00 2022-07-13 00:00:00 Orders Only Doctor Unassigned, [place] [facility] 1.2840.114 350.1.13.10 4.2.7.2.686 [id number] [facility] 2022-07-10 00:00:00 2022-07-10 00:00:00 Telephone [facility] 1.84.114 350.1.13.10 4.2.7.2.686 [id number] [facility] 2022-06-29 08:15:00 2022-06-29 08:30:00 Office Visit Linneatenmoreno Shawn [facility] 1.840.114 350.1.13.10 4.2.7.2.686 [id number] [facility] 2022-06-29 08:15:00 2022-06-29 08:15:00 Outpatient R SHAWN SOLIS [facility] [id number] [facility] 2022-06-29 00:00:00 2022-06-29 00:00:00 Telephone [facility] 1..840.114 350.1.13.10 4.2.7.2.686 [id number] [facility] 2022-06-25 14:00:00 2022-06-25 14:15:00 [facility] 1.840.114 350.1.13.10 4.2.7.2.686 [id number] [facility] 2022-06-25 14:00:00 2022-06-25 14:00:00 Outpatient R JAYLA MIRAMONTES [facility] [id number] [facility] 2022-06-16 11:30:00 2022-06-16 11:30:00 Office Visit Maria Esther Reid [facility] 1.114 350.1.13.10 4.2.7.2.686 [id number] [facility] 2022-06-16 11:30:00 2022-06-16 11:13:58 Outpatient R MARIA ESTHER REID [facility] [id number] [facility] 2022-06-16 00:00:00 2022-06-16 00:00:00 Orders Only Doctor Unassigned, [place] [facility] 1..114 350.1.13.10 4.2.7.2.686 [id number] [facility] 2022-06-03 00:00:00 2022-06-03 00:00:00 Orders Only Doctor Unassigned, [place] [facility] 1..114 350.1.13.10 4.2.7.2.686 [id number] [facility] 2022-05-05 00:00:00 2022-05-05 00:00:00 Shawn Clayton [facility] MEDICAL OFFICE BUILDING 1.84.114 350.1.13.10 4.2.7.2.686 [id number] [facility] 2022-04-17 08:00:00 2022-04-17 08:44:51 Outpatient R YUKI [facility] [id number] [facility] 2022-04-17 08:00:00 2022-04-17 08:44:51 [facility] 1.84.114 350.1.13.10 4.2.7.2.686 [id number] [facility] 2022-04-09 00:00:00 2022-04-09 00:00:00 [facility] 1.2840.114 350.1.13.10 4.2.7.2.686 [id number] [facility] 2022-04-08 00:00:00 2022-04-08 00:00:00 Orders Only Doctor Unassigned, [place] [facility] 1.2.840.114 350.1.13.10 4.2.7.2.686 [id number] [facility] 2022-03-23 00:00:00 2022-03-23 00:00:00 Orders Only Doctor Unassigned, [place] [facility] 1.2.840.114 350.1.13.10 4.2.7.2.686 [id number] [facility] 2022-03-11 00:00:00 2022-03-11 00:00:00 [facility] 1.2840.114 350.1.13.10 4.2.7.2.686 [id number] [facility] 2022-03-05 11:00:00 2022-03-05 11:15:00 Office Visit Mike [facility] DENY?[facility] 1.2840.114 350.1.13.10 4.2.7.2.686 [id number] [facility] 2022-03-05 11:00:00 2022-03-05 11:00:00 Outpatient R JAYLA MIRAMONTES [facility] [id number] [facility] 2022-02-23 09:45:00 2022-02-23 09:45:00 Office Visit Maria Esther Reid [facility] 1.2840.114 350.1.13.10 4.2.7.2.686 [id number] [facility] 2022-02-23 09:45:00 2022-02-23 09:42:07 Outpatient MARIA ESTHER TEE [facility] [id number] [facility] 2022-02-19 00:00:00 2022-02-19 00:00:00 Telephone Solo Arora [facility] MEDICAL OFFICE BUILDING 1..840.114 350.1.13.10 4.2.7.2.686 [id number] [facility] 2022-02-16 00:00:00 2022-02-16 00:00:00 Telephone Hayden Patterson [facility] MED[facility] OFFICE BUILD[facility] 1..840.114 350.1.13.10 4.2.7.2.686 [id number] [facility] 2022-02-13 08:00:00 2022-02-13 08:32:43 Outpatient R SOLO ARORA HOWARD [facility] [id number] [facility] 2022-02-13 08:00:00 2022-02-13 08:32:43 Office Visit Solo Arora [facility]?CHIQUIS [facility] MEDICAL OFFICE BUILDING 1..840.114 350.1.13.10 4.2.7.2.686 [id number] [facility] 2022-02-11 15:51:25 2022-02-11 23:59:00 Outpatient R HAYDEN PATTERSON [facility] [id number] [facility] 2022-02-11 15:51:25 2022-02-11 23:59:00 Hospital Encounter Hayden Patterson [facility] 1..840.114 350.1.13.10 4.2.7.2.686 [id number] [facility] 2022-01-30 10:45:00 2022-01-30 10:45:00 Office Visit Patterson Hayden Serafin [facility] 1..840.114 350.1.13.10 4.2.7.2.686 [id number] [facility] 2022-01-30 10:45:00 2022-01-30 10:29:18 Outpatient R HAYDEN PATTERSON [facility] [id number] [facility] 2022-01-30 10:00:00 2022-01-30 10:00:00 Imm/Inj Visit Pierre, [facility] Chetan Quintanilla [facility] PROFESSIO NAL BUILDING 1..840.114 350.1.13.10 4.2.7.2.686 [id number] [facility] 2022-01-29 07:39:52 2022-01-29 23:59:00 Outpatient SOLO DELGADO HOWARD [facility] [id number] [facility] 2022-01-29 07:39:52 2022-01-29 23:59:00 Hospital Encounter Solo Arora Aime [facility] 1..840.114 350.1.13.10 4.2.7.2.686 [id number] [facility] 2022-01-19 14:55:38 2022-01-19 23:59:00 Outpatient SHAWN CHRISTIAN [facility] [id number] [facility] 2022-01-19 14:45:00 2022-01-19 15:00:00 Office Visit Shawn Solis [facility] 1..840.114 350.1.13.10 4.2.7.2.686 [id number] [facility] 2022-01-13 16:00:00 2022-01-13 16:15:00 School Supervisor Visit Lab, Kishor Bustamante Solo Arora [facility] 1.2.840.114 350.1.13.10 4.2.7.2.686 [id number] [facility] 2022-01-13 14:20:00 2022-01-13 15:55:08 Outpatient SOLO DELGADO HOWARD [facility] [id number] [facility] 2022-01-13 14:20:00 2022-01-13 15:55:08 Office Visit Solo Arora [facility] 1.2.840.114 350.1.13.10 4.2.7.2.686 [id number] [facility] 2021-12-31 00:00:00 2021-12-31 00:00:00 Shawn Clayton [facility] BUILDING 1.2.840.114 350.1.13.10 4.2.7.2.686 [id number] [facility] 2021-12-30 08:00:00 2021-12-30 08:20:41 Outpatient SHAWN CHRISTIAN [facility] [id number] [facility] 2021-12-30 08:00:00 2021-12-30 08:20:41 [facility] MEDICAL OFFICE BUILDING 1.2.840.114 350.1.13.10 4.2.7.2.686 [id number] [facility] 2021-12-30 08:00:00 2021-12-30 08:00:00 Outpatient SHAWN CHRISTIAN [facility] [id number] [facility] 2021-12-30 00:00:00 2021-12-30 00:00:00 Telephone Shawn Solis [facility] 1.2.840.114 350.1.13.10 4.2.7.2.686 [id number] [facility] 2021-12-16 08:00:00 2021-12-16 08:00:00 Outpatient R SHAWN SOLIS [facility] [id number] [facility] 2021-11-03 08:15:00 2021-11-03 08:30:00 Office [facility] 1..840.114 350.1.13.10 4.2.7.2.686 [id number] [facility] 2021-11-03 08:15:00 2021-11-03 08:15:00 Outpatient R LINNEATENMORENOSHAWN [facility] [id number] [facility] 2021-11-03 08:15:00 2021-11-03 08:15:00 Outpatient R LINNEATENMORENOSHAWN [facility] [id number] [facility] 2021-11-03 00:00:00 2021-11-03 00:00:00 [facility] 1.2.840.114 350.1.13.10 4.2.7.2.686 [id number] [facility] 2021-11-03 00:00:00 2021-11-03 00:00:00 Telephone Shawn Solis [facility] DENY?[facility] 1.2.840.114 350.1.13.10 4.2.7.2.686 [id number] [facility] 2021-10-21 09:10:00 2021-10-21 09:10:00 Outpatient R LINNEATENMORENO SHAWN [facility] [id number] [facility] 2021-10-02 00:00:00 2021-10-02 00:00:00 Refill Rona Noe [facility] PROFESSIO NAL BUILDING 1.2.840.114 350.1.13.10 4.2.7.2.686 [id number] [facility] 2021-10-02 00:00:00 2021-10-02 00:00:00 Refill Shawn Solis [facility] 1.2.840.114 350.1.13.10 4.2.7.2.686 [id number] [facility] 2021-10-01 00:00:00 2021-10-01 00:00:00 Orders Only Doctor Unassigned, [place] [facility] 1.2.840.114 350.1.13.10 4.2.7.2.686 [id number] [facility] 2021-09-02 00:00:00 2021-09-02 00:00:00 Patient Secure Msg Tr [facility] 1.2.840.114 350.1.13.10 4.2.7.2.686 [id number] [facility] 2021-08-18 11:00:00 2021-08-18 11:00:00 Office Visit Lui Clark Michael G [facility] 1.84.114 350.1.13.10 4.2.7.2.686 [id number] [facility] 2021-08-18 11:00:00 2021-08-18 10:48:34 Outpatient R MARIA ESTHER REID [facility] [id number] [facility] 2021-08-18 11:00:00 2021-08-18 10:48:34 Outpatient Shadia [facility] [id number] [facility] 2021-07-24 11:15:00 2021-07-24 11:15:00 Outpatient R NYASIA GALLEGO [facility] [id number] [facility] 2021-07-24 11:15:00 2021-07-24 11:15:00 Office Visit Nyasia Gallego [facility] 1.2840.114 350.1.13.10 4.2.7.2.686 [id number] [facility] 2021-07-24 11:15:00 2021-07-24 11:09:52 Outpatient R NYASIA GALLEGO [facility] [id number] [facility] 2021-07-08 10:30:00 2021-07-08 11:15:00 [facility] 1.840.114 350.1.13.10 4.2.7.2.686 [id number] [facility] 2021-07-08 10:30:00 2021-07-08 10:30:00 Outpatient R NYASIA GALLEGO [facility] [id number] [facility] 2021-06-24 11:00:00 2021-06-24 11:00:00 [facility] [id number] [facility] 2021-06-17 08:30:00 2021-06-17 08:30:00 Outpatient SHAWN CHRISTIAN [facility] [id number] [facility] 2021-05-19 15:30:00 2021-05-19 16:34:29 Outpatient NOE PENDLETON [facility] [id number] [facility] 2021-05-19 15:30:00 2021-05-19 16:34:29 Office Visit Noe Rea Rm, Adc Surg Spec Procedure [facility] 1.2.840.114 350.1.13.10 4.2.7.2.686 [id number] [facility] 2021-05-12 11:30:00 2021-05-12 11:50:36 Outpatient R RONA NOEFORMERLY [facility] [id number] [facility] 2021-05-12 11:30:00 2021-05-12 11:50:36 [facility] 1.2.840.114 350.1.13.10 4.2.7.2.686 [id number] [facility] 2021-05-12 11:30:00 2021-05-12 11:50:36 Outpatient R RONA [facility] [id number] [facility] 2021-05-12 00:00:00 2021-05-12 00:00:00 Orders Only Doctor Unassigned, [place] [facility] 1.2.840.114 350.1.13.10 4.2.7.2.686 [id number] [facility] 2021-05-02 14:00:00 2021-05-02 14:15:00 Office Visit Shawn Solis [facility] 1.2.840.114 350.1.13.10 4.2.7.2.686 [id number] [facility] 2021-05-02 14:00:00 2021-05-02 14:00:00 Outpatient R SHAWN SOLIS [facility] [id number] [facility] 2021-05-02 14:00:00 2021-05-02 14:00:00 Outpatient SHAWN CHRISTIAN [facility] [id number] [facility] 2021-04-07 11:00:00 2021-04-07 11:36:16 Outpatient R FARHANA REAFORMERLY [facility] [id number] [facility] 2021-04-07 11:00:00 2021-04-07 11:36:16 Office Visit [facility] NAL BU[facility] 1.84.114 350.1.13.10 4.2.7.2.686 [id number] [facility] 2021-03-26 09:15:00 2021-03-26 09:21:07 Office Visit Shawn Solis [facility] DENY?[facility] 1..114 350.1.13.10 4.2.7.2.686 [id number] [facility] 2021-03-26 09:15:00 2021-03-26 09:15:00 Outpatient SHAWN CHRISTIAN [facility] [id number] [facility] 2021-03-10 13:50:00 2021-03-10 23:59:00 Outpatient [facility] [id number] [facility] 2021-03-05 00:00:00 2021-03-05 00:00:00 Refharmony Solis [facility] OFFICE BUILDING ONE 1.84.114 350.1.13.10 4.2.7.2.686 [id number] [facility] 2021-02-17 09:30:00 2021-02-17 09:47:58 Outpatient MARIA ESTHER TEE [facility] [id number] [facility] 2021-02-17 09:30:00 2021-02-17 09:47:58 Outpatient MARIA ESTHER TEE [facility] [id number] [facility] 2021-02-17 09:26:39 2021-02-17 09:47:58 Office Visit Maria Esther Reid [facility] 1..114 350.1.13.10 4.2.7.2.686 [id number] [facility] 2021-02-12 10:42:11 2021-02-12 10:57:11 Office Visit Shawn Solis [facility] 1.2.840.114 350.1.13.10 4.2.7.2.686 [id number] [facility] 2021-02-12 10:45:00 2021-02-12 10:45:00 Outpatient SHAWN CHRISTIAN [facility] [id number] [facility] 2021-02-12 10:00:00 2021-02-12 10:00:00 [facility] [id number] [facility] 2021-02-12 10:00:00 2021-02-12 09:49:55 Out[facility] [id number] [facility] 2021-02-12 09:48:33 2021-02-12 09:49:55 Imm/Inj Visit Nurse, Teja Pob Immunizatio Jaun Abraham [facility] BUILDING 1.2.840.114 350.1.13.10 4.2.7.2.686 [id number] [facility] 2021-02-12 00:00:00 2021-02-12 00:00:00 Telephone [facility] 1.2.840.114 350.1.13.10 4.2.7.2.686 [id number] [facility] 2021-02-06 09:00:00 2021-02-06 09:00:00 Outpatient SHAWN CHRISTIAN [facility] [id number] [facility] 2021-01-31 07:26:00 2021-01-31 23:59:00 Outpatient [facility] [id number] [facility] 2021-01-24 00:00:00 2021-01-24 00:00:00 Telephone [facility]Shawn [facility] Office Building One 1.840.114 350.1.13.10 4.2.7.2.686 [id number] [facility] 2021-01-24 00:00:00 2021-01-24 00:00:00 Telephone Kalina Dickson [facility] 1.84.114 350.1.13.10 4.2.7.2.686 [id number] [facility] 2021-01-24 00:00:00 2021-01-24 00:00:00 Patient Secure Msg Shawn Solis [facility] OFF[facility] BUILDING 1.840.114 350.1.13.10 4.2.7.2.686 [id number] [facility] 2021-01-23 13:00:00 2021-01-23 13:00:00 Outpatient R KALINA DICKSON [facility] [id number] [facility] 2021-01-23 08:36:10 2021-01-23 08:53:29 Office Visit Shawn Solis [facility] Medical Office Building 1.84.114 350.1.13.10 4.2.7.2.686 [id number] [facility] 2021-01-23 08:18:34 2021-01-23 08:48:34 Telemedici ne Visit Kalina Dickson [facility]PEC [facility] 1.84.114 350.1.13.10 4.2.7.2.686 [id number] [facility] 2021-01-20 10:00:00 2021-01-20 10:00:00 Outpatient R KALINA DICKSON [facility] [id number] [facility] 2021-01-16 08:56:28 2021-01-16 09:35:51 Office Visit Shawn Solis [facility] Office Building 1.114 350.1.13.10 4.2.7.2.686 [id number] [facility] 2021-01-16 08:54:11 2021-01-16 09:09:11 School Supervisor Visit Lab, Kishor Dickson [facility] Medical Office Building 1.114 350.1.13.10 4.2.7.2.686 [id number] [facility] 2021-01-16 09:00:00 2021-01-16 09:00:00 Outpatient R RANDOLPH KALINA [facility] [id number] [facility] 2021-01-15 00:00:00 2021-01-15 00:00:00 Orders Only Doctor Unassigned, [place] [facility] 1.114 350.1.13.10 4.2.7.2.686 [id number] [facility] 2021-01-07 00:39:00 2021-01-11 16:16:00 Inpatient U LASHAWN BELCHER [facility] MED [id number] [facility] 2021-01-10 00:00:00 2021-01-10 00:00:00 Telephone Kalina Dickson [facility] .114 350.1.13.10 4.2.7.2.686 [id number] [facility] 2021-01-06 00:00:00 2021-01-06 00:00:00 EXT [facility] OP Jesika Rene EXT MSRDP LOCATION 1.114 350.1.13.58 9.2.7.2.[id number] [facility] 2021-01-06 00:00:00 2021-01-06 00:00:00 EXT [facility] OP Jermain Lundy EXT MSRDP LOCATION 1.2.840.114 350.1.13.58 9.2.7.2.[id number] [facility] 2021-01-06 00:00:00 2021-01-06 00:00:00 EXT MH OP Jesika Rene EXT MSRDP LOCATION 1.2.840.114 350.1.13.58 9.2.7.2.[id number] [facility] 2021-01-06 00:00:00 2021-01-06 00:00:00 EXT [facility] OP Jermain Lundy EXT MSRDP LOCATION 1.2840.114 350.1.13.58 9.2.7.2.[id number] [facility] 2020-12-26 00:00:00 2020-12-26 00:00:00 Orders Only Doctor Unassigned, [place] [facility] 1..114 350.1.13.10 4.2.7.2.686 [id number] [facility] 2020-12-12 00:00:00 2020-12-12 00:00:00 Refill Shawn Solis [facility] Medical Office Building 1.84.114 350.1.13.10 4.2.7.2.686 [id number] [facility] 2020-12-10 08:00:00 2020-12-10 08:00:00 Outpatient SHAWN CHRISTIAN [facility] [id number] [facility] 2020-12-03 08:10:54 2020-12-03 08:39:09 Office Visit Shawn Solis On license of [facility] Medical Office Building 1.84.114 350.1.13.10 4.2.7.2.686 [id number] [facility] 2020-12-03 08:30:00 2020-12-03 08:30:00 Outpatient SHAWN CHRISTIAN [facility] [id number] [facility] 2020-11-19 12:25:08 2020-11-19 23:59:00 Hospital Encounter Randolph Kalina [facility] 1..114 350.1.13.10 4.2.7.2.686 [id number] [facility] 2020-11-19 00:00:00 2020-11-19 00:00:00 Outpatient Shadia DICKSONJOSSIEKALINA [facility] [id number] [facility] 2020-11-04 08:16:13 2020-11-04 08:38:56 Office Visit Maria Esther Reid [facility] 1..114 350.1.13.10 4.2.7.2.686 [id number] [facility] 2020-11-04 08:30:00 2020-11-04 08:30:00 Outpatient MARIA ESTHER TEE [facility] [id number] [facility] 2020-10-30 08:49:59 2020-10-30 10:52:23 School Supervisor Visit Lab, Ad[facility] Awais Dickson [facility] Building One 1.84.114 350.1.13.10 4.2.7.2.686 [id number] [facility] 2020-10-30 09:00:00 2020-10-30 09:00:00 Outpatient Shadia DICKSON KALINA [facility] [id number] [facility] 2020-10-30 00:00:00 2020-10-30 00:00:00 Orders Only Shawn Solis [facility] 1..114 350.1.13.10 4.2.7.2.686 [id number] [facility] 2020-10-17 12:21:44 2020-10-17 13:48:25 Office [facility] 1.114 350.1.13.10 4.2.7.2.686 [id number] [facility] 2020-10-17 13:00:00 2020-10-17 13:00:00 Outpatient R RANDOLPHJOSSIEKALINA [facility] [id number] [facility] 2020-10-17 00:00:00 2020-10-17 00:00:00 Orders Only Doctor Unassigned, [place] [facility] 1.114 350.1.13.10 4.2.7.2.686 [id number] [facility] 2020-10-14 08:57:20 2020-10-14 09:51:26 School Supervisor Visit Lab, [facility] Pob Awais Solis [facility] Office Building One .114 350.1.13.10 4.2.7.2.686 [id number] [facility] 2020-10-14 09:00:00 2020-10-14 09:00:00 Outpatient SHAWN CHRISTIAN [facility] [id number] [facility] 2020-10-10 00:00:00 2020-10-10 00:00:00 Telephone [facility] 1.114 350.1.13.10 4.2.7.2.686 [id number] [facility] 2020-10-04 00:00:00 2020-10-04 00:00:00 Telephone Tr [facility] Office Building One .114 350.1.13.10 4.2.7.2.686 [id number] [facility] 2020-10-02 10:46:20 2020-10-02 11:06:20 School Supervisor Visit Lab, [facility] Pob Awais Tr [facility] One 1.114 350.1.13.10 4.2.7.2.686 [id number] [facility] 2020-10-02 10:12:49 2020-10-02 10:27:49 Office Visit [facility] 1..114 350.1.13.10 4.2.7.2.686 [id number] [facility] 2020-10-02 10:15:00 2020-10-02 10:15:00 Outpatient SHAWN CHRISTIAN [facility] [id number] [facility] 2020-09-10 00:00:00 2020-09-10 00:00:00 [facility]ill[facility] 1..114 350.1.13.10 4.2.7.2.686 [id number] [facility] 2020-09-10 00:00:00 2020-09-10 00:00:00 Dillan Linneayulia [facility] Office Building One 1.114 350.1.13.10 4.2.7.2.686 [id number] [facility] 2020-08-19 09:39:12 2020-08-19 14:09:50 Office Visit Maria Esther Reid [facility] 1.114 350.1.13.10 4.2.7.2.686 [id number] [facility] 2020-08-19 09:45:00 2020-08-19 09:45:00 Outpatient MARIA ESTHER TEE [facility] [id number] [facility] 2020-07-25 00:00:00 2020-07-25 00:00:00 [facility]illan [facility] ..114 350.1.13.10 4.2.7.2.686 [id number] [facility] 2020-07-22 00:00:00 2020-07-22 00:00:00 Dillan Solis [facility] Office Building One ..114 350.1.13.10 4.2.7.2.686 [id number] [facility] 2020-06-10 08:09:11 2020-06-10 08:39:11 Office Visit Tr [facility] Building One ..114 350.1.13.10 4.2.7.2.686 [id number] [facility] 2020-06-10 08:30:00 2020-06-10 08:30:00 Outpatient SHAWN CHRISTIAN [facility] [id number] [facility] 2020-05-30 09:50:00 2020-05-30 09:50:00 Outpatient ELLIOT HOANG [facility] [id number] [facility] 2020-05-23 09:50:00 2020-05-23 09:50:00 Outpatient ELLIOT HOANG [facility] [id number] [facility] 2020-04-30 09:06:37 2020-04-30 09:26:37 [employer] Visit Lab, Teaj Solis [facility] ..114 350.1.13.10 4.2.7.2.686 [id number] [facility] 2020-04-30 08:40:35 2020-04-30 08:55:35 Office Visit Shawn [facility] 1.114 350.1.13.10 4.2.7.2.686 [id number] [facility] 2020-04-30 08:15:00 2020-04-30 08:15:00 Outpatient SHAWN CHRISTIAN [facility] [id number] [facility] 2020-04-29 08:45:00 2020-04-29 08:45:00 Outpatient MARIA ESTHER TEE [facility] [id number] [facility] 2020-04-29 08:19:26 2020-04-29 08:44:05 Office Visit Maria Esther Reid [facility] 1.114 350.1.13.10 4.2.7.2.686 [id number] [facility] 2020-04-28 00:00:00 2020-04-28 00:00:00 Patient Outreach Jaun Jeff [facility] 1.114 350.1.13.10 4.2.7.2.686 [id number] [facility] 2020-03-02 00:00:00 2020-03-02 00:00:00 Refill Shawn [facility] 1.114 350.1.13.10 4.2.7.2.686 [id number] [facility] 2020-02-19 09:15:00 2020-02-19 09:15:00 Outpatient SHAWN CHRISTIAN [facility] [id number] [facility] 2020-02-12 00:00:00 2020-02-12 00:00:00 Orders Only Doctor Unassigned, [place] [facility] 1.114 350.1.13.10 4.2.7.2.686 [id number] [facility] 2020-02-07 00:00:00 2020-02-07 00:00:00 Refill Shawn [facility] 1..114 350.1.13.10 4.2.7.2.686 [id number] [facility] 2020-01-29 09:50:03 2020-01-29 10:05:03 Office Visit Shawn [facility] 1.114 350.1.13.10 4.2.7.2.686 [id number] [facility] 2020-01-29 10:00:00 2020-01-29 10:00:00 Outpatient SHAWN CHRISTIAN [facility] [id number] [facility] 2020-01-12 00:00:00 2020-01-12 00:00:00 Orders Only Doctor Unassigned, [place] [facility] 1..114 350.1.13.10 4.2.7.2.686 [id number] [facility] 2019-11-14 11:09:30 2019-11-14 11:24:30 Office Visit LinneatenShawn rob [facility] Building 1.114 350.1.13.10 4.2.7.2.686 [id number] 044 [id number] [facility] 2019-11-14 11:09:30 2019-11-14 11:24:30 Office Visit Shawn Solis [facility] Building 1.114 350.1.13.10 4.2.7.2.686 [id number] [id number] 2019-11-14 11:15:00 2019-11-14 11:15:00 Outpatient SHAWN CHRISTIAN [facility] [id number] [facility] 2019-11-10 08:00:00 2019-11-10 08:00:00 Outpatient SHAWN CHRISTIAN [facility] [id number] [facility] 2019-10-26 09:02:16 2019-10-26 09:17:16 Office Visit Maria Esther Reid [facility] 1.114 350.1.13.10 4.2.7.2.686 [id number] [id number] [facility] 2019-10-26 09:15:00 2019-10-26 09:15:00 Outpatient R MARIA ESTHER REID [facility] [id number] [facility] 2019-10-25 00:00:00 2019-10-25 00:00:00 Shawn [facility] Building One 1.114 350.1.13.10 4.2.7.2.686 [id number] [id number] [facility] 2019-10-10 00:00:00 2019-10-10 00:00:00 Shawn [facility] One 1.114 350.1.13.10 4.2.7.2.686 [id number] 044 [id number] [facility] 2019-09-06 00:00:00 2019-09-06 00:00:00 Orders Only Doctor Unassigned, [place] [facility] 1.114 350.1.13.10 4.2.7.2.686 [id number] [id number] [facility] 2019-08-09 00:00:00 2019-08-09 00:00:00 Dillan Solis [facility] Office Building One .114 350.1.13.10 4.2.7.2.686 [id number] 044 [id number] [facility] 2019-08-04 00:00:00 2019-08-04 00:00:00 Telephone Shawn Solis [facility] One 1.2.840.114 350.1.13.10 4.2.7.2.686 [id number] 044 [id number] [facility] 2019-05-12 10:13:49 2019-05-12 10:28:49 Office Visit Shawn Solis [facility] Building One 1.2840.114 350.1.13.10 4.2.7.2.686 [id number] 044 [id number] [facility] 2019-05-01 09:40:01 2019-05-01 10:23:50 Office Visit Maria Esther Reid [facility] 1.2.840.114 350.1.13.10 4.2.7.2.686 [id number] [facility] 2019-04-26 00:00:00 2019-04-26 00:00:00 Orders Only Doctor Unassigned, [place] [facility] 1.2.840.114 350.1.13.10 4.2.7.2.686 [id number] [id number] [facility] 2019-04-19 00:00:00 2019-04-19 00:00:00 Telephone Tr [facility] Office Building One 1.2840.114 350.1.13.10 4.2.7.2.686 [id number] 044 [id number] [facility] 2019-04-18 00:00:00 2019-04-18 00:00:00 Telephone Tr [facility] Office Building One 1.2840.114 350.1.13.10 4.2.7.2.686 [id number] 044 [id number] [facility] 2018-12-06 10:57:38 2018-12-06 11:17:12 Office Visit Ves[place], [facility] Office Building One 1.2.840.114 350.1.13.10 4.2.7.2.686 [id number] 044 [id number] [facility] 2018-11-10 14:04:36 2018-11-10 14:55:50 Office Visit Cinthia [facility] Office Building One 1.2840.114 350.1.13.10 4.2.7.2.686 [id number] 044 [id number] [facility] 2018-11-09 00:00:00 2018-11-09 00:00:00 Orders Only Doctor Unassigned, [place] [facility] 1.2.840.114 350.1.13.10 4.2.7.2.686 [id number] [id number] [facility] 2018-10-31 08:17:06 2018-10-31 12:55:51 Office Visit Tr [facility] Office Building One 1.2840.114 350.1.13.10 4.2.7.2.686 [id number] 044 [id number] [facility] 2018-10-31 00:00:00 2018-10-31 00:00:00 Orders Only Doctor Unassigned, [place] [facility] 1.2840.114 350.1.13.10 4.2.7.2.686 [id number] [id number] [facility] Results Test Description Test Time Test Comments Results Result Co mments Source [facility] [id number] 13:56:00* Test Item Value Reference Range Interpretation Comme nts GLUCOSE (test code = 47915199) 84 mg/dL 65-99 N Fasting referenc e interval UREA NITROGEN (BUN) (test code = 56846544) 31 mg/dL 7-25 H CREATININE (test code = 66819516) 1.54 mg/dL 0.70-1.22 H EGFR (test code = 98264248) 45 mL/min/1.73m2 >=60 L BUN/CREATININE RATIO (test code = 23625289) 20 (calc) 6-22 N SODIUM (test code = 52348879) 139 mmol/L 135-146 N POTASSIUM (test code = 58136292) 4.7 mmol/L 3.5-5.3 N CHLORIDE (test code = 23709373) 107 mmol/L 98-110 N CARBON DIOXIDE (test code = 77574687) 26 mmol/L 20-32 N CALCIUM (test code = 97190102) 8.9 mg/dL 8.6-10.3 N [facility] CREAT,RAND [id number] 21:09:00* Test Item Value Reference Range Interpretation Comme nts CHLORIDE, RANDOM URINE (test code = 06658934) <20 mmol/L 32-290 L [facility]ITALCREATININESSM [facility] - [id number] 21:09:00* Test Item Value Reference Range Interpretation Comme nts CREATININE, RANDOM URINE (te st code = 92835332) 167 mg/dL 20-320 N [facility]NA W/O CREAT,[id number] 21:09:00* Test Item Value Reference Range Interpretation Comme nts SODIUM, RANDOM URINE (test c ode = 82983688) 25 mmol/L 28-272 L [facility]TH,INTACT W/O TRINITY.2024-02-05 16:30:00* Test Item Value Reference Range Interpretation Comme nts PARATHYROID HORMONE, INTACT (test code = 48586946) 49 pg/mL 16-77 N Interpretive Cooper de Intact PTH Calcium -------Normal Parathyroid Normal NormalHypoparathyroidism Low or Low Normal LowHyperparathyroidism Primary Normal or High High Secondary High Normal or Low Tertiary High HighNon-Parathyroid Hypercalcemia Low or Low Normal High [facility]ITALVIT D,25-OH,TOTAL,[id number] 16:30:00* Test Item Value Reference Range Interpretation Comme nts VITAMIN D,25-OH,TOTAL,IA (test code = 32385192) 46 ng/mL 30-100 N Vitamin D Status 25-OH Vitamin D: Deficiency: <20 ng/mLInsufficiency: 20 - 29 ng/mLOptimal: > or = 30 ng/mL For 25-OH Vitamin D testing on patients on D2-supplementation and patients for whom quantitation of D2 and D3 fractions is required, the QuestAssureD(TM)25-OH VIT D, (D2,D3), LC/MS/MS is recommended: order code 65486 (patients >2yrs). See Note 1 Note 1 For additional information, please refer to http://education.ShootHome/faq/CXG426 (This link is being provided for informational/educationa l purposes only.) [facility]ITALPHOSPHATE ( PHOS)2024-02-05 16:30:00* Test Item Value Reference Range Interpretation Comme nts PHOSPHATE ( PHOSPHORUS) (t est code = 54143026) 4.2 mg/dL 2.1-4.3 N [facility] H[facility]PITALBASIC MET [id number] 11:46:00* Test Item Value Reference Range Interpretation Comme nts GLUCOSE (test code = 46378474) 96 mg/dL 65-99 N Fasting referenc e interval UREA NITROGEN (BUN) (test code = 66377628) 38 mg/dL 7-25 H CREATININE (test code = 57427035) 1.66 mg/dL 0.70-1.22 H EGFR (test code = 86573543) 41 mL/min/1.73m2 >=60 L BUN/CREATININE RATIO (test code = 37939213) 23 (calc) 6-22 H SODIUM (test code = 08604088) 139 mmol/L 135-146 N POTASSIUM (test code = 98972728) 4.4 mmol/L 3.5-5.3 N CHLORIDE (test code = 81926759) 107 mmol/L 98-110 N CARBON DIOXIDE (test code = 11868816) 24 mmol/L 20-32 N CALCIUM (test code = 13626030) 8.7 mg/dL 8.6-10.3 N [facility]ITALURIC [id number] 11:46:00* Test Item Value Reference Range Interpretation Comme nts URIC ACID (test code = 98956250) 10.9 mg/dL 4.0-8.0 H Therapeutic tar get for gout patients: <6.0 mg/dL [facility]ITALCK, [id number] 11:46:00* Test Item Value Reference Range Interpretation Comme nts CREATINE KINASE, TOTAL (test code = 31301203) 37 U/L 44-196 L [facility]ITALALB, RAND UR W/O [id number] 12:10:00* Test Item Value Reference Range Interpretation Comme nts ALBUMIN, URINE (test code = 88883298) 1.4 mg/dL N Reference RangeN ot established LENNOX (test code = 04406468) The ADA defines abnormalities in albuminexcretion as follows: Albuminuria Category Result (mg/g creatinine) Normal to Mildly increased <30Moderately increased 30-299 Severely increased > OR = 300 The ADA recommends that at least two of threespecimens collected within a 3-6 month period beabnormal before considering a patient to bewithin a diagnostic category. [facility] [place] [id number] 12:10:00* Test Item Value Reference Range Interpretation Comme nts CREATININE, RANDOM URINE (te st code = 16169873) 103 mg/dL 20-320 N [facility],COMP W/RFL [id number] 12:10:00* Test Item Value Reference Range Interpretation Comme nts COLOR (test code = 06750949) YELLOW YELLOW N APPEARANCE (test code = 20166774) CLEAR CLEAR N SPECIFIC GRAVITY (test code = 69602739) 1.021 1.001-1.035 N PH (test code = 50639381) 5.5 5.0-8.0 N GLUCOSE (test code = 04992052) NEGATIVE NEGATIVE N BILIRUBIN (test code = 83700742) NEGATIVE NEGATIVE N KETONES (test code = 07184405) TRACE NEGATIVE A OCCULT BLOOD (test code = 88763826) NEGATIVE NEGATIVE N PROTEIN (test code = 44127368) TRACE NEGATIVE A NITRITE (test code = 27468291) NEGATIVE NEGATIVE N LEUKOCYTE ESTERASE (test code = 03301138) NEGATIVE NEGATIVE N WBC (test code = 83803371) NONE SEEN /HPF 0-5 N RBC (test code = 05160254) NONE SEEN /HPF 0-2 N SQUAMOUS EPITHELIAL CELLS (test code = 61994845) NONE SEEN /HPF <=5 N BACTERIA (test code = 00214576) NONE SEEN /HPF NONE SEEN N HYALINE CAST (test code = 11950638) 0-5 /LPF NONE SEEN A NOTE (test code = 60900461) This urine was analyzed for the presence of WBC, RBC, bacteria, casts, and other formed elements. Only those elements seen were reported. [facility] HOSPITALNO CULTURE [id number] 12:10:00* Test Item Value Reference Range Interpretation Comme nts REFLEXIVE URINE CULTURE (test code = 59312845) NO CULTUR E INDICATED [facility] MET [id number] 11:21:00* Test Item Value Reference Range Interpretation Comme nts GLUCOSE (test code = 00398241) 79 mg/dL 65-99 N Fasting referenc e interval UREA NITROGEN (BUN) (test code = 13778315) 52 mg/dL 7-25 H CREATININE (test code = 00012617) 2.07 mg/dL 0.70-1.22 H EGFR (test code = 65112279) 32 mL/min/1.73m2 >=60 L BUN/CREATININE RATIO (test code = 29513190) 25 (calc) 6-22 H SODIUM (test code = 98042950) 136 mmol/L 135-146 N POTASSIUM (test code = 72806524) 4.5 mmol/L 3.5-5.3 N CHLORIDE (test code = 32915668) 103 mmol/L 98-110 N CARBON DIOXIDE (test code = 18735608) 21 mmol/L 20-32 N CALCIUM (test code = 74400426) 9.3 mg/dL 8.6-10.3 N [facility] (DIFF/PLT)2024-02-04 11:21:00* Test Item Value Reference Range Interpretation Comme nts WHITE BLOOD CELL COUNT (test code = 07913631) 11.3 Thousand/uL 3.8-10.8 H RED BLOOD CELL COUNT (test code = 65498395) 3.80 Million/uL 4.20-5.80 L HEMOGLOBIN (test code = 92769039) 12.0 g/dL 13.2-17.1 L HEMATOCRIT (test code = 88244907) 37.0 % 38.5-50.0 L MCV (test code = 06208341) 97.4 fL 80.0-100.0 N MCH (test code = 06804379) 31.6 pg 27.0-33.0 N MCHC (test code = 35604946) 32.4 g/dL 32.0-36.0 N For adults, a sl ight decrease in the calculated MCHCvalue (in the range of 30 to 32 g/dL) is most likelynot clinically significant; however, it should beinterpreted with caution in correlation with otherred cell parameters and the patient's clinicalcondition. RDW (test code = 92192102) 12.4 % 11.0-15.0 N PLATELET COUNT (test code = 91764618) 255 Thousand/uL 140-400 N MPV (test code = 35159832) 11.4 fL 7.5-12.5 N ABSOLUTE NEUTROPHILS (test code = 03806546) 8238 cells/uL 1052-7064 H ABSOLUTE LYMPHOCYTES (test code = 69252311) 1413 cells/uL 850-3900 N ABSOLUTE MONOCYTES (test code = 44792893) 1446 cells/uL 200-950 H ABSOLUTE EOSINOPHILS (test code = 15689037) 181 cells/uL 15-500 N ABSOLUTE BASOPHILS (test code = 92436424) 23 cells/uL 0-200 N NEUTROPHILS (test code = 28176753) 72.9 % N LYMPHOCYTES (test code = 06615612) 12.5 % N MONOCYTES (test code = 43130588) 12.8 % N EOSINOPHILS (test code = 80916480) 1.6 % N BASOPHILS (test code = 59731124) 0.2 % N [facility] [id number] 11:50:00* Test Item Value Reference Range Interpretation Comme nts GLUCOSE (test code = 92119426) 160 mg/dL 65-99 H Fasting referenc e interval For someone without known diabetes, a glucosevalue >125 mg/dL indicates that they may havediabetes and this should be confirmed with afollow-up test. UREA NITROGEN (BUN) (test code = 24932804) 31 mg/dL 7-25 H CREATININE (test code = 88840284) 1.27 mg/dL 0.70-1.22 H EGFR (test code = 38506308) 57 mL/min/1.73m2 >=60 L BUN/CREATININE RATIO (test code = 01645799) 24 (calc) 6-22 H SODIUM (test code = 22235120) 136 mmol/L 135-146 N POTASSIUM (test code = 60002179) 5.0 mmol/L 3.5-5.3 N CHLORIDE (test code = 60540799) 100 mmol/L 98-110 N CARBON DIOXIDE (test code = 89238764) 21 mmol/L 20-32 N CALCIUM (test code = 33150774) 9.6 mg/dL 8.6-10.3 N PROTEIN, TOTAL (test code = 18299979) 7.4 g/dL 6.1-8.1 N ALBUMIN (test code = 90311650) 4.4 g/dL 3.6-5.1 N GLOBULIN (test code = 35382999) 3.0 g/dL (calc) 1.9-3.7 N ALBUMIN/GLOBULIN RATIO (test code = 41425427) 1.5 (calc) 1.0-2.5 N BILIRUBIN, TOTAL (test code = 66753145) 0.5 mg/dL 0.2-1.2 N ALKALINE PHOSPHATASE (test code = 16319269) 74 U/L 35-144 N AST (test code = 06409537) 20 U/L 10-35 N ALT (test code = 50579021) 14 U/L 9-46 N [facility] HOSPITALPRO TIME WITH [id number] 11:50:00* Test Item Value Reference Range Interpretation Comme nts INR (test code = 59320021) 1.1 N Reference Range 0.9-1.1Moderate-intensity Warfarin Therapy 2.0-3.0Higher-intensity Warfarin Therapy 3.0-4.0 PT (test code = 35129325) 11.8 sec 9.0-11.5 H For additional information, please refer tohttp://education.[employer]/faq/HWR789 (This link is being provided for informational/educational purposes only.) [facility]ITALCBC (DIFF/PLT)2024-02-01 11:50:00* Test Item Value Reference Range Interpretation Comme nts WHITE BLOOD CELL COUNT (test code = 40338685) 5.9 Thousand/uL 3.8-10.8 N RED BLOOD CELL COUNT (test code = 85296411) 4.16 Million/uL 4.20-5.80 L HEMOGLOBIN (test code = 04092224) 12.6 g/dL 13.2-17.1 L HEMATOCRIT (test code = 37953941) 39.5 % 38.5-50.0 N MCV (test code = 88009411) 95.0 fL 80.0-100.0 N MCH (test code = 49289639) 30.3 pg 27.0-33.0 N MCHC (test code = 44562425) 31.9 g/dL 32.0-36.0 L For adults, a sl ight decrease in the calculated MCHCvalue (in the range of 30 to 32 g/dL) is most likelynot clinically significant; however, it should beinterpreted with caution in correlation with otherred cell parameters and the patient's clinicalcondition. RDW (test code = 80063494) 12.0 % 11.0-15.0 N PLATELET COUNT (test code = 95035223) 288 Thousand/uL 140-400 N MPV (test code = 79014586) 11.4 fL 7.5-12.5 N ABSOLUTE NEUTROPHILS (test code = 34943228) 5062 cells/uL 1485-4208 N ABSOLUTE LYMPHOCYTES (test code = 02939827) 690 cells/uL 850-3900 L ABSOLUTE MONOCYTES (test code = 46611255) 148 cells/uL 200-950 L ABSOLUTE EOSINOPHILS (test code = 14321224) 0 cells/uL 15-500 L ABSOLUTE BASOPHILS (test code = 41163448) 0 cells/uL 0-200 N NEUTROPHILS (test code = 18121960) 85.8 % N LYMPHOCYTES (test code = 18746304) 11.7 % N MONOCYTES (test code = 29523694) 2.5 % N EOSINOPHILS (test code = 33550345) 0.0 % N BASOPHILS (test code = 23618213) 0.0 % N [facility] RE[facility]AB HOSPITALCT HEAD WO [id number] 21:32:34Exam: CT HEAD WO CONTRAST, CT CERVICAL SPINE WO CONTRAST HISTORY: Head trauma, minor (Age >= 65y) COMPARISON: CT head without contrast dated 12/23/2023.. TECHNIQUE: Routine CTs of the head and cervical spine were performedwithout intravenous contrast, and coronal and sagittal reformatted imageswere generated. FINDINGS: CT HEAD: No calvarial fracture. Enlargement of the ventricles and sulci is suggestive of moderate cerebralvolume loss.. No hydrocephalus, midline shift or pathological extra-axialfluid collection is present. The basal cisterns are unremarkable. No acute intracranial hemorrhage or significant mass effect is visualized.Periventricular hypodensities are nonspecific but likely represent sequelaeof microvascular ischemic disease. The ortiz-white matter differentiation ispreserved. The paranasal air sinuses and mastoid air cells are clear. CT CERVICAL SPINE: The cervical curvature is normal. The craniocervical junction is intact. The vertebral bodies are normal in height andalignment. No facet fracture or subluxation is present. The prevertebral soft tissues are unremarkab le.[facility] WO [id number] 21:32:34Exam: CT HEAD WO CONTRAST, CT CERVICAL SPINE WO CONTRAST HISTORY: Head trauma, minor (Age >= 65y) COMPARISON: CT head without contrast dated 12/23/2023.. TECHNIQUE: Routine CTs of the head and cervical spine were performedwithout intravenous contrast, and coronal and sagittal reformatted imageswere generated. FINDINGS: CT HEAD: No calvarial fracture. Enlargement of the ventricles and sulci is suggestive of moderate cerebralvolume loss.. No hydrocephalus, midline shift or pathological extra-axialfluid collection is present. The basal cisterns are unremarkable. No acute intracranial hemorrhage or significant mass effect is visualized.Periventricular hypodensities are nonspecific but likely represent sequelaeof microvascular ischemic disease. The ortiz-white matter differentiation ispreserved. The paranasal air sinuses and mastoid air cells are clear. CT CERVICAL SPINE: The cervical curvature is normal. The craniocervical junction is intact. The vertebral bodies are normal in height andalignment. No facet fracture or subluxation is present. The prevertebral soft tissues are unremarkable.[facility] COMP. METABOLIC PANEL (79727)2023-12-23 20:43:11* Test Item Value Reference Range Interpretation Comme nts NA (test code = 4197088796) 138 mmol/L 135-145 K (test code = 9391228960) 4.5 mmol/L 3.5-5.0 CL (test code = 7243000258) 104 mmol/L 98-108 CO2 TOTAL (test code = 0377238768) 26 mmol/L 23-31 AGAP (test code = 5854962850) 8 2-16 BUN (test code = 2122635420) 24 mg/dL 7-23 H GLUCOSE (test code = 2032671263) 120 mg/dL 70-110 H CREATININE (test code = 2160-0) 1.07 mg/dL 0.60-1.25 TOTAL BILI (test code = 1615373064) 0.6 mg/dL 0.1-1.1 CALCIUM (test code = 8510680330) 9.6 mg/dL 8.6-10.6 T PROTEIN (test code = 9340499003) 8.0 g/dL 6.3-8.2 ALBUMIN (test code = 8452725809) 4.7 g/dL 3.5-5.0 ALK PHOS (test code = 9794880122) 66 U/L 34-122 ALTv (test code = 1742-6) 18 U/L 5-50 AST(SGOT) (test code = 3580260391) 42 U/L 13-40 H eGFR (test code = 76471-1) 70.2 mL/min/1.73m2 CKD-EPI eGFR (2020). Assuming creatinine has been stable day-to-day for at least three months, the eGFR indicates Category G2 (60 - 89 mL/min/1.73 m2) Lab Interpretation (test code = 97207-5) Abnormal General acute hospital WITH [id number] 19:34:17* Test Item Value Reference Range Interpretation Comme nts WBC (test code = 6690-2) 10.03 4.20-10.70 RBC (test code = 789-8) 4.10 4.26-5.52 L HGB (test code = 718-7) 12.9 g/dL 12.2-16.4 HCT (test code = 4544-3) 40.1 % 38.4-49.3 MCV (test code = 787-2) 97.8 fL 81.7-95.6 H MCH (test code = 785-6) 31.5 pg 26.1-32.7 MCHC (test code = 786-4) 32.2 g/dL 31.2-35.0 RDW-SD (test code = 15010-9) 47.8 fL 38.5-51.6 RDW-CV (test code = 788-0) 13.2 % 12.1-15.4 PLT (test code = 777-3) 249 150-328 MPV (test code = 85422-3) 11.4 fL 9.8-13.0 NRBC/100 WBC (test code = 9198759212) 0.0 0.0-10.0 NRBC x10^3 (test code = 3391723489) See_Comment [Automated messa ge] The system which generated this result transmitted reference range: 10*3/?L. The reference range was not used to interpret this result as normal/abnormal. GRAN MAT (NEUT) % (test code = 770-8) 65.9 % IMM GRAN % (test code = 7194027662) 0.60 % LYMPH % (test code = 736-9) 21.0 % MONO % (test code = 5905-5) 11.4 % EOS % (test code = 713-8) 0.8 % BASO % (test code = 706-2) 0.3 % GRAN MAT x10^3(ANC) (test code = 8952746704) 6.61 10*3/uL 1.99-6.95 IMM GRAN x10^3 (test code = 2862348973) 0.06 10*3/uL 0.00-0.06 LYMPH x10^3 (test code = 731-0) 2.11 10*3/uL 1.09-3.23 MONO x10^3 (test code = 742-7) 1.14 10*3/uL 0.36-1.02 H EOS x10^3 (test code = 711-2) 0.08 10*3/uL 0.06-0.53 BASO x10^3 (test code = 704-7) 0.03 10*3/uL 0.01-0.09 Lab Interpretation (test code = 38065-2) Abnormal [facility] [id number] 18:44:18EXAM: CT HEAD WO CONTRAST HISTORY: Head trauma, minor (Age >= 65y) TECHNIQUE: CT of the head wasperformed without intravenous contrast.Sagittal and coronal reformats were generated. COMPARISON: None. FINDINGS: The ventricles and sulci are prominent suggestive of moderate degree ofglobal cerebral volume loss. No hydrocephalus, midline shift orpathological extra-axial fluid collection is present. The basal cisternsare unremarkable. There is no acute intracranial hemorrhage or significant masseffect. Noparenchymal attenuation abnormality. The ortiz-white matter differentiationis preserved. The mastoid air cells and paranasal air sinuses are clear. The calvariumand central skull base are unr emarkable.[facility] Ur[facility] W Specific [place] 2023-10-18 15:14:00* Test Item Value Reference Range Interpretation Comme nts POCT U SP GRAV (test code = 3255) 1.025 mg/dl 1.005-1.025 POCT PH U (test code = 3254) 5 mg/dl 5-8 POCT U LEUK EST (test code = 3263) trace Negative - Negative POCT U NIT (test code = 3262) neg Negative - Negati ve POCT U PROT (test code = 3259) 30 Negative - Negative POCT U GLU (test code = 3256) normal Negative - Negati ve POCT U KETONE (test code = 3258) neg Negative - Negative POCT U UROBILI (test code = 3260) normal 0.2-1 POCT U BILI (test code = 3261) ++ Negative - Negative POCT U BLD (test code = 3257) trace Negative - Negati ve POCT U COLOR (test code = 3266) dark POCT U APPEAR (test code = 3267) clear [facility] Consult Notes Date/Time Note Provider Source 2024-01-31 10:00:00 Associated Order(s): CONSULT ADULT PHYSICAL THERAPY Patient agreeable to working with physical therapy. Patient met supine. Recommend nursing staff utilize minimal assist to safely assist patient with mobility out of the bed or chair. PHYSICAL THERAPY EVALUATION Consult received, chart reviewed and evaluation complete this date. Patient is referred to PT for evaluation and treatment. Patient is a 78 year old male who presents to hospital for Generalized weakness [R53.1] Discharge Recommendations: Therapy Needs and Potential: Patient would benefit from continued physical therapy services to address: decline in bed mobility decline in transfers decline in gait and/or balance decreased strength Challenges to Home Transition: increased risk of falls decreased safety awareness Equipment recommendations: rolling walker Current Functional Status and/or Treatment: AM-PAC 6 Clicks (Raw Score 0=Dependent, 24=Independent; Low function Raw Score 0= Dependent, 32=Independent): Raw Score - Basic Mobility : 16 T-Scale Score - Basic Mobility : 38.32 Bed Mobility: Rolling: Supervision Bridging: Supervision Supine-sit: Supervision Sit to supine: Supervision Sitting balance Good Cued Pt was able to perform bed mobility activities, PT was on supervision as a precaution for fall. Dizziness No Transfers: Sit to stand: Minimal Assistance using standard Walker Stand to sit: Minimal Assistance using standard Walker Static/dynamic standing balance: Good Verbal cueing provided for correct hand placement and correct use of AD Cued Pt was able to perform transfer activities, Pt needed minimal assist to complete transfer safely. Dizziness No Ambulation: Assisted patient with ambulation as follows: 1 1/2 feet using standard Walker and Minimal Assistance. Cued Pt was able to perform ambulation activities, Pt was able to take forward, backward and lateral steps. Pt needed visual cues to perform lateral steps. Dizziness No Therapeutic exercise: patient educated in Deep breathing, Fall prevention, General strengthening, Relaxation/breathing techniques, and Safety awareness. After session, patient supine. Call button provided. PT informed RN of Pt status. PLAN OF CARE: While in the hospital, PT will follow patient at least 3 times per week,once or twice a day, per patient's tolerance and needs. See below for complete details. Admit Date: 01/29/2024 Hospital Diagnosis:Generalized weakness [R53.1] PT Diagnosis: Difficulty walking and Weakness Weight Bearing Precaution: NA General Precautions: PPE used:Gloves, General, Fall Bracing/Cast present or required:N/A PMH: Past Medical History: Diagnosis Date Anxiety Gout Hyperlipidemia Hypertension Thyroid disease PSH: Past Surgical History: Procedure Laterality Date AAA REPAIR,AORTO-AORTIC TUBE PROSTH 01/07/2021 HERNIA REPAIR REPAIR ROTATOR CUFF,ACUTE Bilateral SIGMOIDECTOMY PRIOR LIVING SITUATION: lives with their spouse and in a house DME: Standard Walker Prior level of Mobility: ambulates with standard Walker Suspected ischemic or hemorraghic stroke:No Subjective: Pt did not complain of pain during evaluation. Patient/Family Goals: To get better Patient/Family verbalizes understanding of condition: Yes PAIN: denies pain before and after session COMMUNICATION Primary Language: Stateless Able to Verbalize needs: Yes Vision:good; no issues reported Hearing:good; no issues reported ORIENTATION/COGNITION: Oriented to: person and place Awake: Yes Alert: Yes Dizzy: No Follows Commands: Yes 1-Step Yes Multi-Step Yes Inconsistent: No NEUROLOGICAL Light Touch: within functional limits bilateral LE BALANCE: Sitting: Static: Good Dynamic: Good Standing: Static: Fair+ Dynamic: Fair+ RANGE OF MOTION: within functional limits bilateral LE STRENGTH: 4/5 (Good), bilateral LE ENDURANCE: Good, Room air SKIN INTEGRITY: intact PROBLEM LIST: Decline in bed mobility, Decline in gait, Decline in transfers, Decreased strength, Decreased balance, and Safety awareness deficits ASSESSMENT: Patient is a 78 year old male seen secondary to the above listed diagnosis. Patient would benefit from continued PT to address the above listed deficits to maximize independence and safety with functional mobility. Rehabilitation Potential: good Goals: The following goals are to maximize independence and safety with functional mobility to eventually return to prior living situation and prior functional status. Upon discharge, patient and/or family will demonstrate the followin. Rolling: Supervision Bridging: Supervision Supine-sit: Supervision Sit to supine: Supervision Sitting balance Excellent 2. Sit to stand: Supervision using standard Walker Stand to sit: Supervision using standard Walker 3. Supervision with ambulation, Feet: 5 using least assistive device. Treatment Plan: Evaluation, Gait training, Therapeutic exercise, Transfer training, Balance training, Bed mobility training, and Safety education, patient/caregiver education PATIENT EDUCATION: Patient and Family member provided with preferred teaching of verbal information and demonstration on role of PT, plan of care, and goals. Shows readiness to learn. Verbal instruction and Demonstration teaching provided. Individual is able to read and verbalizes understanding of teaching provided. Total Time Tx Codes in Minutes: 20 min Total Treatment Time in Minutes: 35 min Terry Hargrove PT [place] Lic No. [id number] [facility] Department of Physical Therapy Terry Hargrove PT [facility] - Health History and Physical Notes Date/Time Note Provider Source 2024-01-29 21:14:46 [facility] Hospitalist Admission H&P Date of Service: 01/29/2024 CHIEF COMPLAINT: Patient with generalized weakness along with nausea vomiting and anorexia. HISTORY OF PRESENT ILLNESS Lev Valera is a 78 year old male who presents with generalized weakness along with persistent nausea vomiting and anorexia. Patient has been feeling weak for the last few months. His symptoms have been progressively getting worse. He states he used to be able to do much more for himself but now he is really weak and cannot do much of anything. He is generally frustrated with the fact that he is lost a lot of his physical strength. Patient is not really eating that well. Appetites been diminished. He fell about a week ago when he was getting to his bed and hit the side of his head. Patient was admitted to the hospital for further workup. There is definitely concern the patient may have some underlying myopathy causing his weakness. Will get physical therapy evaluation and will check for different autoimmune possibilities. Patient will be admitted for inpatient hospitalization. Will also need to get physical therapy evaluation as patient may benefit from prison facility placement. PAST MEDICAL HISTORY Past Medical History: Diagnosis Date Anxiety Gout Hyperlipidemia Hypertension Thyroid disease PAST SURGICAL HISTORY Past Surgical History: Procedure Laterality Date AAA REPAIR,AORTO-AORTIC TUBE PROSTH 01/07/2021 HERNIA REPAIR REPAIR ROTATOR CUFF,ACUTE Bilateral SIGMOIDECTOMY ALLERGIES Allergies Allergen Reactions Citalopram Hallucinations MEDICATIONS Current home medication list reviewed: Current Discharge Medication List STOP taking these medications acetaminophen (TYLENOL ARTHRITIS ORAL) Comments: Reason for Stopping: ergocalciferol, vitamin D2, (VITAMIN D ORAL) Comments: Reason for Stopping: krill oil 500 mg Cap Comments: Reason for Stopping: ondansetron 4 mg disintegrating tablet Comments: Reason for Stopping: traMADoL 50 mg tablet Comments: Reason for Stopping: memantine 10 mg tablet Comments: Reason for Stopping: mirabegron (MYRBETRIQ) 50 mg tablet Comments: Reason for Stopping: MESALAMINE 1.2 gram EC tablet Comments: Reason for Stopping: levothyroxine 125 mcg tablet Comments: Reason for Stopping: simvastatin 40 mg tablet Comments: Reason for Stopping: venlafaxine 75 mg tablet Comments: Reason for Stopping: omeprazole 40 mg capsule Comments: Reason for Stopping: aspirin 81 mg tablet Comments: Reason for Stopping: FAMILY HISTORY Family History Problem Relation Age of Onset No Significant Medical Problems Mother Pulmonary Father SOCIAL HISTORY Social History Socioeconomic History Marital status: Tobacco Use Smoking status: Former Current packs/day: 0.00 Types: Cigarettes Quit date: 01/16/1965 Years since quittin.0 Smokeless tobacco: Never Substance and Sexual Activity Alcohol use: No Alcohol/week: 0.0 standard drinks of alcohol Drug use: No Sexual activity: Yes Partners: Female Social History Narrative retired Social Determinants of Health Financial Resource Strain: Low Risk (11/29/2023) Overall Financial Resource Strain (CARDIA) Difficulty of Paying Living Expenses: Not hard at all Food Insecurity: No Food Insecurity (11/29/2023) Hunger Vital Sign Worried About Running Out of Food in the Last Year: Never true Ran Out of Food in the Last Year: Never true Transportation Needs: No Transportation Needs (11/29/2023) PRAPARE - Transportation Lack of Transportation (Medical): No Lack of Transportation (Non-Medical): No Physical Activity: Inactive (11/29/2023) Exercise Vital Sign Days of Exercise per Week: 0 days Minutes of Exercise per Session: 0 min Stress: Stress Concern Present (11/29/2023) [place] [facility] [employer] [facility] - Occupational Stress Questionnaire Feeling of Stress : Very much Social Connections: Moderately Integrated (11/29/2023) Social Connection and Isolation Panel [NHANES] Frequency of Communication with Friends and Family: Twice a week Frequency of Social Gatherings with Friends and Family: Once a week Attends Jain Services: 1 to 4 times per year Active Member of Clubs or Organizations: No Attends Club or Organization Meetings: Never Marital Status: Housing Stability: Low Risk (11/29/2023) Housing Stability Vital Sign Unable to Pay for Housing in the Last Year: No Number of Places Lived in the Last Year: 1 Unstable Housing in the Last Year: No REVIEW OF SYSTEMS 10 systems negative except per HPI PHYSICAL EXAMINATION BP (!) 171/93 | Pulse 92 | Temp 36.6 ?C (97.9 ?F) | Resp 20 | Ht 1.829 m (6') | Wt 60.8 kg (134 lb) | SpO2 98% | BMI 18.17 kg/m? General: No acute distress HEENT: Normal oral mucosa, anicteric sclerae, NCAT Cardiovascular: RRR Lungs: Symmetric expansion, clear bilaterally Abdomen: Soft, NTND Musculoskeletal: No synovitis, normal muscle mass Genitourinary: Deferred Skin: No rash, no skin lesions Extremities: No clubbing, no cyanosis, no lower extremity edema Neuro: AAOx3, generalized weakness Psych: Normal affect LABS - reviewed pertinent labs as below: CBC BMP PT/INR WBC-LC (x10E3/uL) Date Value 07/01/2016 8.5 WHITE BLOOD CELL COUNT-Q (Thousand/uL) Date Value 10/30/2020 9.4 WBC (10*3/?L) Date Value 01/29/2024 9.43 NA (mmol/L) Date Value 01/29/2024 137 Sodium, Serum-LC (mmol/L) Date Value 07/01/2016 140 SODIUM-Q (mmol/L) Date Value 10/30/2020 138 No results found for: "PT" RBC-LC (x10E6/uL) Date Value 07/01/2016 4.46 RED BLOOD CELL COUNT-Q (Million/uL) Date Value 10/30/2020 4.27 RBC (10*6/?L) Date Value 01/29/2024 3.61 (L) K (mmol/L) Date Value 01/29/2024 4.4 Potassium, Serum-LC (mmol/L) Date Value 07/01/2016 5.3 (H) POTASSIUM-Q (mmol/L) Date Value 10/30/2020 4.6 No results found for: "PTINR" Platelets-LC (x10E3/uL) Date Value 07/01/2016 250 PLATELET COUNT-Q (Thousand/uL) Date Value 10/30/2020 262 PLT (10*3/?L) Date Value 01/29/2024 243 CALCIUM (mg/dL) Date Value 01/29/2024 9.2 Calcium, Serum-LC (mg/dL) Date Value 07/01/2016 9.8 CALCIUM-Q (mg/dL) Date Value 10/30/2020 9.6 HGB (g/dL) Date Value 01/29/2024 11.6 (L) Hemoglobin-LC (g/dL) Date Value 07/01/2016 13.7 HEMOGLOBIN-Q (g/dL) Date Value 10/30/2020 12.6 (L) CL (mmol/L) Date Value 01/29/2024 104 Chloride, Serum-LC (mmol/L) Date Value 07/01/2016 100 CHLORIDE-Q (mmol/L) Date Value 10/30/2020 104 aPTT HCT (%) Date Value 01/29/2024 36.2 (L) Hematocrit-LC (%) Date Value 07/01/2016 42.0 HEMATOCRIT-Q (%) Date Value 10/30/2020 39.4 BUN (mg/dL) Date Value 01/29/2024 30 (H) BUN-LC (mg/dL) Date Value 07/01/2016 29 (H) UREA NITROGEN (BUN)-Q (mg/dL) Date Value 10/30/2020 34 (H) No results found for: "APTTPAT" CREATININE (mg/dL) Date Value 01/29/2024 1.42 (H) Creatinine, Serum-LC (mg/dL) Date Value 07/01/2016 1.35 (H) CREATININE-Q (mg/dL) Date Value 10/30/2020 1.57 (H) IMAGING - reviewed, pertinent results as below: Hospital Encounter on 01/29/24 CT HEAD WO CONTRAST Narrative Exam: CT HEAD WO CONTRAST, CT CERVICAL SPINE WO CONTRAST HISTORY: Head trauma, minor (Age >= 65y) COMPARISON: CT head without contrast dated 12/23/2023.. TECHNIQUE: Routine CTs of the head and cervical spine were performed without intravenous contrast, and coronal and sagittal reformatted images were generated. FINDINGS: CT HEAD: No calvarial fracture. Enlargement of the ventricles and sulci is suggestive of moderate cerebral volume loss.. No hydrocephalus, midline shift or pathological extra-axial fluid collection is present. The basal cisterns are unremarkable. No acute intracranial hemorrhage or significant mass effect is visualized. Periventricular hypodensities are nonspecific but likely represent sequelae of microvascular ischemic disease. The ortiz-white matter differentiation is preserved. The paranasal air sinuses and mastoid air cells are clear. CT CERVICAL SPINE: The cervical curvature is normal. The craniocervical junction is intact. The vertebral bodies are normal in height and alignment. No facet fracture or subluxation is present. The prevertebral soft tissues are unremarkable. Impression No acute intracranial abnormality. No acute fracture or traumatic malalignment of the cervical spine. Preliminary Report Dictated by Resident: Alexia Ceballos MD., have reviewed this study and agree with the above report. CT CERVICAL SPINE WO CONTRAST Narrative Exam: CT HEAD WO CONTRAST, CT CERVICAL SPINE WO CONTRAST HISTORY: Head trauma, minor (Age >= 65y) COMPARISON: CT head without contrast dated 12/23/2023.. TECHNIQUE: Routine CTs of the head and cervical spine were performed without intravenous contrast, and coronal and sagittal reformatted images were generated. FINDINGS: CT HEAD: No calvarial fracture. Enlargement of the ventricles and sulci is suggestive of moderate cerebral volume loss.. No hydrocephalus, midline shift or pathological extra-axial fluid collection is present. The basal cisterns are unremarkable. No acute intracranial hemorrhage or significant mass effect is visualized. Periventricular hypodensities are nonspecific but likely represent sequelae of microvascular ischemic disease. The ortiz-white matter differentiation is preserved. The paranasal air sinuses and mastoid air cells are clear. CT CERVICAL SPINE: The cervical curvature is normal. The craniocervical junction is intact. The vertebral bodies are normal in height and alignment. No facet fracture or subluxation is present. The prevertebral soft tissues are unremarkable. Impression No acute intracranial abnormality. No acute fracture or traumatic malalignment of the cervical spine. Preliminary Report Dictated by Resident: Alexia Ceballos MD., have reviewed this study and agree with the above report. ASSESSMENT: 1. Patient with nausea vomiting; anorexia and generalized weakness/concern for myopathy 2. History of hypertension/dyslipidemia 3. History of hypothyroidism 4. History of gouty arthropathy 5. History of recent fall 6. History of chronic kidney disease stage III PLAN: 1. Patient with nausea/vomiting and anorexia with generalized weakness; patient also with concern for muscle weakness as the strength is diminished significantly and he is really shaky when he walks. Will check his CPK and aldolase level. Will check sed rate and CRP. If these are elevated we will get in a titer. Patient will get physical therapy evaluation and may benefit from prison facility placement 2. Patient with history of hypertension and dyslipidemia; continue antihypertensive and may place statin therapy on hold pending her myopathy workup 3. History of hypothyroidism; check thyroid studies 4. History of gouty arthropathy; resume allopurinol 4. History of recent fall; physical therapy evaluation 5. Stage III chronic kidney disease; renal function is stable. DVT prophylaxis: enoxaparin Stress ulcer prophylaxis: pantoprazole Code status: FULL Advanced Care Planning (Z71.89) Above assessment and plan discussed at length with patient, patient expressed full understanding. Questions and concerned addressed. Surrogate decision maker: NO Level of care expected after discharge: HOME Time spent: 3 minutes discussing the advanced care plan Smoking Cessation: (Z71.6) Tobacco user?: NO Patient will require inpatient stay of 2 midnights or more given high risk of morbidity and mortality. 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 Notes Date/Time Note Provider Source 2024-02-09 11:24:00 Returned call to Allyson advised we will follow for home health [facility] 2024-02-08 15:52:37 Yes [facility] 2024-02-08 10:55:12 Lev Valera is a 78 year old male [facility] to [facility] if the DrShyam Will be following pt. Pt. Please assist. [phone] [facility] 2024-02-01 11:24:25 TRANSITIONAL CARE MANAGEMENT ASSESSMENT 02/01/2024 Lev Valera [id number] Lev Valera is a 78 year old /White male was admitted on 01/29/24 to [facility]. He was discharged on 01/31/24 with discharge disposition of HR- Routine Discharge. Admitting Physician: Ursula Paulson Discharge Diagnosis: FINAL DIAGNOSIS: Generalized weakness and debility Anorexia Late onset Alzheimer's disease Chronic pain No linked episodes TCM [id number] outreach documentation: Discharge Assessment Chart Assessed: 10/29/24 Chart Reviewed - Post Discharge Call Deferred due to Change in Discharge Status.: Discharged to Inpatient Rehab (Rehabilitation location: [address] [address] (p) [phone] (f) [phone]) TCM Outreach Completed: 02/01/24 Future Appointments: Future Appointments Provider Department Dept Phone 03/01/2024 11:30 AM [facility] [phone] 05/15/2024 10:30 AM Maria Esther Reid [facility] [phone] 06/28/2024 10:00 AM Lenin Walsh [facility] [phone] 10/23/2024 9:30 AM Ariadne Cruz FNP [facility] [phone] [facility] 2024-01-30 21:05:03 Problem: Falls, Risk of Goal: Absence of falls Outcome: Progressing as expected Problem: Discharge Planning Goal: Effective communication Outcome: Progressing as expected Problem: Nausea/Vomiting Goal: Absence of nausea/vomiting Outcome: Progressing as expected Problem: Pain Goal: Control of pain at or below patient's documented comfort goal Outcome: Progressing as expected Goal: Reduction in pain sensation Outcome: Progressing as expected Problem: Venous Thromboembolism, (actual or risk of) Goal: Absence of venous thromboembolism (Risk) Outcome: Progressing as expected Tejinder Darling RN [facility] 2024-01-30 16:57:21 Problem: Falls, Risk of Goal: Absence of falls Outcome: Progressing as expected Problem: Discharge Planning Goal: Effective communication Outcome: Progressing as expected Problem: Nausea/Vomiting Goal: Absence of nausea/vomiting Outcome: Progressing as expected Problem: Pain Goal: Control of pain at or below patient's documented comfort goal Outcome: Progressing as expected Goal: Reduction in pain sensation Outcome: Progressing as expected Magi Gudino RN [facility] 2024-01-29 22:56:58 Problem: Falls, Risk of Goal: Absence of falls 01/29/[id number] by Tejinder Darling RN Outcome: Progressing as expected 01/29/20242254 by Tejinder Darling RN Outcome: Progressing as expected Problem: Discharge Planning Goal: Effective communication 01/29/[id number] by Tejinder Darling RN Outcome: Progressing as expected 01/29/20242254 by Tejinder Darling RN Outcome: Progressing as expected Problem: Nausea/Vomiting Goal: Absence of nausea/vomiting 01/29/20242255 by Tejinder Darling RN Outcome: Progressing as expected 01/29/20242254 by Tejinder Darling RN Outcome: Progressing as expected Problem: Pain Goal: Control of pain at or below patient's documented comfort goal Outcome: Progressing as expected Goal: Reduction in pain sensation Outcome: Progressing as expected [facility] 2024-01-29 19:47:37 Patient transported via stretcher to 4. Patient alert and in no distress upon departure from ER-alert, warm, dry, pink. [facility] 2024-01-29 19:44:31 Nurse Report Report given to Paula FAIR on Med/Surg. Chief complaint, assessment findings, infusion verify and orders reviewed. Plan of care discussed at bedside with patient and both nurses. Patient/family members verbalized understanding. JACKY RUSSO RN [facility] 2024-01-29 18:00:00 Attempted to ambulate patient. Patient very shaky upon standing at bedside with assist x2. Put back in bed, provider notified. T [facility] 2024-01-29 15:14:02 at bedside-states called EMS for weakness and lack of appetite that started yesterday. States patient has not wanted to get OOB, last time he ate two days ago. Patient's blood sugar was 106 by EMS. [facility] 2024-01-29 14:57:02 EMS called out by for vomiting and decreased appetite. Patent arrives alert, denies vomiting recently. States he vomited 5 days ago. [facility] Jacky Russo RN 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 Spouse notes that she called due to patient's decreased appetite and low activity/energy level since yesterday. Spouse notes that he is only consuming 1 meal and has not gotten OOB since yesterday. In the prior days, he was in his usual state of health. There was 1 episode of vomiting today, nonbloody emesis. Spouse also notes that he was attempting to get into bed ~ 6 days ago and fell backwards, striking his L mormon. Patient/spouse denies any LOC, headache, neck/back/chest/rib pain, ABD pain, diarrhea, constipation, dysuria, decreased urination, extremity pain/swelling/weakness/numbn ess, confusion or any other symptoms. Pt notes that he is arriving without any complaints and came at the request of his spouse. History provided by: Patient and spouse director business travel used: No Past Medical History/Immunizations: Past Medical History: Diagnosis Date Anxiety Gout Hyperlipidemia Hypertension Thyroid disease Tetanus received in last 5 years: Unknown Childhood immunizations: Up-to-date Allergies: Allergies Allergen Reactions Citalopram Hallucinations Past Social History: Tobacco Use Former; Cigarettes: Quit 01/16/1965 Smokeless Tobacco: Never used smokeless tobacco. Alcohol Use No. Drug Use No. Sexual Activity Sexually active; Partners: Female. Past Surgical History: Past Surgical History: Procedure Laterality Date AAA REPAIR,AORTO-AORTIC TUBE PROSTH 01/07/2021 HERNIA REPAIR REPAIR ROTATOR CUFF,ACUTE Bilateral SIGMOIDECTOMY Review of Systems: Review of Systems Constitutional: Positive for activity change and appetite change. Negative for chills and fever. HENT: Negative for facial swelling, sore throat, trouble swallowing and voice change. Eyes: Negative for visual disturbance. Respiratory: Negative for cough and shortness of breath. Cardiovascular: Negative for chest pain and palpitations. Gastrointestinal: Positive for vomiting. Negative for abdominal distention, abdominal pain, blood in stool, constipation and diarrhea. Genitourinary: Negative for dysuria, decreased urine volume and difficulty urinating. Musculoskeletal: Negative for arthralgias, back pain, gait problem, joint swelling, myalgias, neck pain and neck stiffness. Skin: Negative for wound. Neurological: Negative for dizziness, tremors, syncope, speech difficulty, weakness, numbness and headaches. Psychiatric/Behavioral: Negative for confusion. All other systems reviewed and are negative. Physical Exam: ED Triage Vitals [01/29/24 1459] Weight 68.7 kg (151 lb 8 oz) Actual or estimated Actual Height 1.829 m (6') BP (!) 152/79 Pulse 76 Resp 18 Temp 36.7 ?C (98 ?F) Temp source Oral SpO2 98 % Measured on Physical Exam General: alert, oriented, no apparent distress, appearing age appropriate, well developed Head: normocephalic, no cephalohematomas, skull TTP, abrasions Eyes: pupils midline, sclera NL, PERRL, vision clinically intact Nose: no audible congestion, atraumatic Oropharynx: mucous membranes moist, airway patent Neck: neck supple, no meningismus, no midline or paraspinal TTP Lungs: CTAB, non-labored, no wheezes, rhonchi or crackles Heart: regular rate and rhythm, no murmurs audible Abdomen: abdomen soft, NTND, no palpable masses, no guarding, negative McBurney's point TTP, negative Priest's Back: painless ROM Extremities/Musculoskeletal: no cyanosis, no edema, no obvious deformities Neuro: normal without focal findings, GCS 15, 4/5 strength x 4 extremities, no droop, no droop, no slurred speech Skin: normal and no rashes or suspicious lesions are seen Radiology: CT HEAD WO CONTRAST Final Result Exam: CT HEAD WO CONTRAST, CT CERVICAL SPINE WO CONTRAST HISTORY: Head trauma, minor (Age >= 65y) COMPARISON: CT head without contrast dated 12/23/2023.. TECHNIQUE: Routine CTs of the head and cervical spine were performed without intravenous contrast, and coronal and sagittal reformatted images were generated. FINDINGS: CT HEAD: No calvarial fracture. Enlargement of the ventricles and sulci is suggestive of moderate cerebral volume loss.. No hydrocephalus, midline shift or pathological extra-axial fluid collection is present. The basal cisterns are unremarkable. No acute intracranial hemorrhage or significant mass effect is visualized. Periventricular hypodensities are nonspecific but likely represent sequelae of microvascular ischemic disease. The ortiz-white matter differentiation is preserved. The paranasal air sinuses and mastoid air cells are clear. CT CERVICAL SPINE: The cervical curvature is normal. The craniocervical junction is intact. The vertebral bodies are normal in height and alignment. No facet fracture or subluxation is present. The prevertebral soft tissues are unremarkable. IMPRESSION No acute intracranial abnormality. No acute fracture or traumatic malalignment of the cervical spine. Preliminary Report Dictated by Resident: Alexia Ceballos MD., have reviewed this study and agree with the above report. CT CERVICAL SPINE WO CONTRAST Final Result Exam: CT HEAD WO CONTRAST, CT CERVICAL SPINE WO CONTRAST HISTORY: Head trauma, minor (Age >= 65y) COMPARISON: CT head without contrast dated 12/23/2023.. TECHNIQUE: Routine CTs of the head and cervical spine were performed without intravenous contrast, and coronal and sagittal reformatted images were generated. FINDINGS: CT HEAD: No calvarial fracture. Enlargement of the ventricles and sulci is suggestive of moderate cerebral volume loss.. No hydrocephalus, midline shift or pathological extra-axial fluid collection is present. The basal cisterns are unremarkable. No acute intracranial hemorrhage or significant mass effect is visualized. Periventricular hypodensities are nonspecific but likely represent sequelae of microvascular ischemic disease. The ortiz-white matter differentiation is preserved. The paranasal air sinuses and mastoid air cells are clear. CT CERVICAL SPINE: The cervical curvature is normal. The craniocervical junction is intact. The vertebral bodies are normal in height and alignment. No facet fracture or subluxation is present. The prevertebral soft tissues are unremarkable. IMPRESSION No acute intracranial abnormality. No acute fracture or traumatic malalignment of the cervical spine. Preliminary Report Dictated by Resident: Alexia Ceballos MD., have reviewed this study and agree with the above report. Lab Results: Lab Results CBC WITH DIFF - Abnormal Result Value Ref Range WBC 9.43 4.20 - 10.70 10*3/?L RBC 3.61 (*) 4.26 - 5.52 10*6/?L HGB 11.6 (*) 12.2 - 16.4 g/dL HCT 36.2 (*) 38.4 - 49.3 % MCV 100.3 (*) 81.7 - 95.6 fL MCH 32.1 26.1 - 32.7 pg MCHC 32.0 31.2 - 35.0 g/dL RDW-SD 49.3 38.5 - 51.6 fL RDW-CV 13.3 12.1 - 15.4 % PLT 243 150 - 328 10*3/?L MPV 11.1 9.8 - 13.0 fL NRBC/100 WBC 0.0 0.0 - 10.0 /100 WBCs NRBC x10 3 <0.01 10*3/?L GRAN MAT (NEUT) % 64.4 % IMM GRAN % 0.60 % LYMPH % 16.9 % MONO % 14.7 % EOS % 3.3 % BASO % 0.1 % GRAN MAT x10 3 (ANC) 6.07 1.99 - 6.95 10*3/uL IMM GRAN x10 3 0.06 0.00 - 0.06 10*3/uL LYMPH x10 3 1.59 1.09 - 3.23 10*3/uL MONO x10 3 1.39 (*) 0.36 - 1.02 10*3/uL EOS x10 3 0.31 0.06 - 0.53 10*3/uL BASO x10 3 <0.03 0.01 - 0.09 10*3/uL COMP. METABOLIC PANEL (27264) - Abnormal NA 137 135 - 145 mmol/L K 4.4 3.5 - 5.0 mmol/L CL 104 98 - 108 mmol/L CO2 TOTAL 23 23 - 31 mmol/L AGAP 10 2 - 16 BUN 30 (*) 7 - 23 mg/dL GLUCOSE 105 70 - 110 mg/dL CREATININE 1.42 (*) 0.60 - 1.25 mg/dL TOTAL BILI 0.4 0.1 - 1.1 mg/dL CALCIUM 9.2 8.6 - 10.6 mg/dL T PROTEIN 7.3 6.3 - 8.2 g/dL ALBUMIN 4.3 3.5 - 5.0 g/dL ALK PHOS 57 34 - 122 U/L ALTv 14 5 - 50 U/L AST(SGOT) 22 13 - 40 U/L eGFR 50.0 mL/min/1.73m2 URINALYSIS - Abnormal APPEARANCE Clear Clear COLOR Yellow Yellow PH 5.0 4.8 - 8.0 SP GRAVITY 1.016 1.003 - 1.030 GLU U QUAL Normal Normal BLOOD 1+ (*) Negative KETONES Negative Negative PROTEIN Negative Negative UROBILIN Normal Normal BILIRUBIN Negative Negative NITRITE Negative Negative LEUK MITZI Negative Negative RBC/HPF 2 0 - 3 HPF WBC/HPF 1 0 - 5 HPF BACTERIA Few (*) Negative MUCOUS Slight (*) Negative LPF HYAL CAST 1 <=2 LPF TROPONIN I - Normal TROPONIN I 0.012 <=0.034 ng/mL EKG: If EKG completed, see Procedure Note. Orders and Treatments: Orders Placed This Encounter Procedures CT HEAD WO CONTRAST CT CERVICAL SPINE WO CONTRAST CBC WITH DIFF COMP. METABOLIC PANEL (62269) TROPONIN I URINALYSIS Orders Placed This Encounter Medications ergocalciferol, vitamin D2, (VITAMIN D ORAL) acetaminophen (TYLENOL ARTHRITIS ORAL) krill oil 500 mg Cap heparin (porcine) injection 5,000 Units acetaminophen (TYLENOL) tablet 650 mg First Provider Eval: ED Events Date/Time Event User Comments 01/29/24 1500 Medical Screening Begins RAJINDER WILKINS -- 01/29/24 170 First Provider Evaluation RAJINDER WILKINS -- AdmissionCare Guideline: General Observation - OBS, Observation Based on the indications selected for the patient, the bed status of Observation was determined to be NOT MET The following indications were selected as present at the time of evaluation of the patient: - Observation Care Admission Criteria - Observation care is indicated for ALL of the following: - Clinical care (eg, testing, monitoring, or treatment) needed beyond usual emergency department time frame (eg, 3 to 4 hours) AdmissionCare documentation entered by: Rajinder Vincent [facility] [place] [employer], 28th edition, Copyright ? 2023 [facility] [place] [employer]1 [facility] All Rights Reserved. [id number]:00 ED COURSE ED Course as of 01/29/24 1835 Sat Jan 29, 2024 1800 RN attempted to ambulate pt. Noted pt was too wobbly and weak, unable to stand [EY] 170 CREATININE(!): 1.42 1.52 (1 month ago) [EY] ED Course User Index [EY] Rajinder Vincent FNP Diagnosis/Impression as of 01/29/24 1835 Generalized weakness Fall, initial encounter Procedures: EKG-12 Lead ROUTINE ONCE Date/Time: 01/29/2024 2:55 PM Performed by: Rajinder Vincent FNP Authorized by: Rajinder Vincent FNP Interpretation: Details: No STEMI Quality: Tracing quality: Limited by artifact Rate: ECG rate: 72 ECG rate assessment: normal Rhythm: Rhythm: sinus rhythm QRS: QRS axis: Normal MDM: Medical Decision Making Patient presented with above clinical history and PE with vast differential that includes but does not limited to: Medication side effect, dehydration, electrolyte derangement, hypo-/hyperglycemia, viral illness, pneumonia, UTI, encephalopathy, cognitive decline, advanced stages of dementia, SDH. Workup notable for: no acute findings. Pt unable to ambulate independently here in ER which is reported to be opposite from his baseline. Condition unsafe for discharge due to risk of falls. Pt to be admitted for further care/workup Problems Addressed: Fall, initial encounter: acute illness or injury Generalized weakness: acute illness or injury Amount and/or Complexity of Data Reviewed Labs: ordered. Decision-making details documented in ED Course. Radiology: ordered. Decision-making details documented in ED Course. ECG/medicine tests: ordered and independent interpretation performed. Decision-making details documented in ED Course. Flowsheet Documentation: Scoring Tools: No data recorded Disposition/Condition: ED Disposition ED Disposition Admit - Observation Condition -- Comment Treatment Team: [facility] [[id number]] Discharge Medications: Patient's Medications START taking these medications No medications on file CONTINUE taking these medications which have NOT CHANGED ACETAMINOPHEN (TYLENOL ARTHRITIS ORAL) Take 2 tablets by mouth in the morning and 2 tablets in the evening. ASPIRIN 81 MG TABLET Take 1 tablet by mouth in the morning. ERGOCALCIFEROL, VITAMIN D2, (VITAMIN D ORAL) Take by mouth. KRILL OIL 500 MG CAP Take 1 capsule by mouth in the morning. LEVOTHYROXINE 125 MCG TABLET Take 1 tablet by mouth every morning. MEMANTINE 10 MG TABLET Take 1 tablet by mouth in the morning. MESALAMINE 1.2 GRAM EC TABLET TAKE 1 TABLET BY MOUTH DAILY WITH BREAKFAST MIRABEGRON (MYRBETRIQ) 50 MG TABLET Take 1 tablet by mouth in the morning. OMEPRAZOLE 40 MG CAPSULE Take 1 capsule by mouth in the morning. ONDANSETRON 4 MG DISINTEGRATING TABLET Take 1 tablet by mouth every 8 (eight) hours as needed for Nausea and Vomiting (N/V). SIMVASTATIN 40 MG TABLET Take 1 tablet by mouth at bedtime. TRAMADOL 50 MG TABLET Take 1 tablet by mouth every 6 (six) hours as needed (pain). Indications: chronic pain VENLAFAXINE 75 MG TABLET Take 3 tablets by mouth in the morning. START taking Modified Medications as Prescribed No medications on file STOP taking these medications No medications on file Follow-up: Electronically signed by: Rajinder Vincent FNP 01/29/24 1835 Associated attestation - Benoit Monroy DO - 01/29/2024 10:19 PM CDT This patient was examined, evaluated and cared for by the advanced practice provider. I did not examine or evaluate this patient. I was present for consultation as needed. [facility] 2024-01-29 14:48:00 AdmissionCare Guideline: General Observation - OBS, Observation Based on the indications selected for the patient, the bed status of Observation was determined to be NOT MET The following indications were selected as present at the time of evaluation of the patient: - Observation Care Admission Criteria - Observation care is indicated for ALL of the following: - Clinical care (eg, testing, monitoring, or treatment) needed beyond usual emergency department time frame (eg, 3 to 4 hours) AdmissionCare documentation entered by: Rajinder Vincent [facility], 28th edition, Copyright ? 2023 [facility] [place] [employer]1 [facility] All Rights Reserved. [id number]:00 [facility] 2023-12-27 14:32:49 Post ED Visit Outreach Call 12/27/2023 Lev Vidalmarisa [id number] Lev Vidalmarisa is a 78 year old /White male was admitted on 12/25/23 to [facility]. He was discharged on 12/25/23 with discharge disposition of HR- Routine Discharge. High ED Utilization (number of ER visits over past 90 days) 2 ED Diagnosis: Vomiting Avoidable ED Visit? no Name of PCP- Dr. Shawn Solis Date of Last Office Visit- 11/30/2023 Are you having any symptoms? no Do you have all of your medications? yes Have you scheduled a follow up appointment with your physician? No Do you need assistance with scheduling a follow up appointment? [facility] will reach out to [facility] to schedule pt for 1-2 wk PCP fu. Do you have transportation to your appointment? yes Do you have any questions or concerns? no Interventions: Discuss ED alternatives for avoidable ED (urgent care, PCP appointment). Establish care with [facility] PCP (if no PCP) Confirm follow up visit with established PCP. 4) Consult Ambulatory Mine Manager as needed. 5) Communicate with physician's office via phone or in basket message as needed. Conrad Tamayo RN [facility] 2023-12-25 12:15:00 Pt given printed and verbal discharge instructions regarding dehydration encouraged hydration, Prescriptions provided Pt verbalized understanding of instructions, pt awake alert oriented, resp reg unlabored, skin w/d, color appropriate for race, moves all ext well,pt encouraged to follow up with pcp Advised to seek medical attention for new/prolonged/worsening of symptoms No adverse reaction to meds given in ER noted upon discharge PIV d'cd, dressing to site, catheter in tact. Awake, alert oriented, resp reg unlabored, skin w/d, pt leaving amb with steady gait, in no apparent distress, Helen Ramos RN [facility] 2023-12-25 09:48:34 Patient to ED for not eating and vomiting when he drinks water. He was seen yesterday for dizziness which didn't improved. Marcus Mcknight RN [facility] 2023-12-24 09:11:48 Post ED Visit Outreach Call Date of ED Visit __12/22 High ED Utilization (number of ER visits over past 90 days) ED Diagnosis Fall Avoidable ED Visit? Y/N ____Y___ Name of PCP___Jennifer Solis Date of Last Office Visit 11/30/2023 Hello. This is Joyce from [facility]. I am calling to follow up with you about your recent ED visit. Do you have a few minutes to speak with me about how you are doing at home? Pt. Asleep pt. Spouse spoke for pt. I would like to go over your discharge instructions with you. (Review instructions outlined in the after visit summary). Are you having any symptoms?No complaints post ED. Have you scheduled a follow up appointment with your physician? No, spouse plans to schedule later today, offered assistance denied. Do you have transportation to your appointment?Yes Do you have any questions or concerns?No Hospital care given per spouse states was all good. Thank you for your time today. Please remember to bring all of your medications to your follow up appointment. Thank you for choosing [facility]. Have a nice morning. Post ED Visit Outreach Call Date of ED Visit High ED Utilization (number of ER visits over past 90 days) ED Diagnosis Avoidable ED Visit? Y/N Name of PCP Date of Last Office Visit Hello. This is (caller name) from (facility name). On behalf of (facility name), I am calling to follow up with you about your recent ED visit. Do you have a few minutes to speak with me about how you are doing at home? I would like to go over your discharge instructions with you. (Review instructions outlined in the after visit summary). Are you having any symptoms? Do you have all of your medications? Have you scheduled a follow up appointment with your physician? Do you need assistance with scheduling a follow up appointment? Do you have transportation to your appointment? Do you have any questions or concerns? Thank you for your time today, (patient name). Please remember to bring all of your medications to your follow up appointment. Thank you for choosing [facility]. Have a nice morning/afternoon/evening. Pt. confirmed my number and instructed to call back if has questions. I thanked the patient for their time and choosing [facility]. Interventions: Discuss ED alternatives for avoidable ED (urgent care, PCP appointment). Joyce Christianson LVN [facility] 2023-12-23 17:50:30 Patient dc home. FOllow up with pcp. Verbalized understanding. Signed paper work. [facility] 2023-12-23 12:06:55 Patient to ED for fall and hit his head after getting out of bed. Abrasions to head and got dizzy. No blood thinners. ELLUST Marcus Mcknight RN [facility] 2023-11-24 10:47:34 Received Radiology Service Report from [facility]. Scanned into the patient's chart. Mitzi Leger [facility] 2023-08-18 07:26:30 Images from the original note [...] Solis MD Last refill: 04/06/2023 Rx #: [id number] Urology: Bladder Agents 3 [id number]/17/2023 05:27 PM Protocol Details Manual Review: Do not refill with patient has uncontrolled hypertension Manual Review: If patient has diagnosis of end stage renal disease, forward to provider Valid encounter within last 12 months To be filled at: [address] Recent Visits Date Type Provider Dept [...] authorizing provider and meeting all other requirements [facility]
--- NOTE | 2024-02-12 11:50 | ER ---
Nurse's Notes [facility] Name: Lev Hunter Age: 78 yrs Sex: Male : 1945 Arrival Date: 02/12/2024 Time: 09:12 Bed 13 Private MD: Diagnosis: Alzheimer's disease, unspecified Presentation: 02/11 09:17 Chief complaint: EMS states: PT HERE FOR WEAKNESS AND LOSS OF APPETITE. RECENTLY LEFT db [facility] PT COMPLAINS FOOD IS BLAND. HAS GENERAL WEAKNESS AND LOSS OF APPETITE WITH DIFFICULTY GETTING AROUND. Coronavirus screen: Client denies travel out of the [place] in the last 14 days. At this time, the client does not indicate any symptoms associated with coronavirus-19. Ebola Screen: Patient negative for fever greater than or equal to 101.5 degrees Fahrenheit, and additional compatible Ebola Virus Disease symptoms Patient denies exposure to infectious person. Patient denies travel to an Ebola-affected area in the 21 days before illness onset. No symptoms or risks identified at this time. Initial Sepsis Screen: Does the patient meet any 2 criteria? No. Patient's initial sepsis screen is negative. Does the patient have a suspected source of infection? No. Patient's initial sepsis screen is negative. Risk Assessment: Do you want to hurt yourself or someone else? Patient reports no desire to harm self or others. Onset of symptoms was February 12, 2024. 09:17 Method Of Arrival: EMS: [facility] db 09:17 Acuity: RIOS 3 db Triage Assessment: 09:17 General: Appears in no apparent distress. Behavior is calm, cooperative, appropriate db for age. Pain: Denies pain. Neuro: Level of Consciousness is awake, alert, obeys commands, Oriented to person, place, time, situation. Respiratory: Airway is patent Respiratory effort is even, unlabored, Respiratory pattern is regular, symmetrical. GI: Abdomen is flat, non-distended, Patient currently denies Parent/caregiver reports the patient having LOSS OF APPETITE. Historical: - Allergies: 09:47 No Known Allergies; db - Home Meds: 09:17 Fish Oil Oral cap [Active]; omeprazole 40 mg oral capsule,delayed release (e.c.) db [Active]; tramadol 50 mg Oral tablet [Active]; levothyroxine 125 mcg oral tablet [Active]; Myrbetriq 50 mg oral Tablet, Extended Release 24 hr [Active]; memantine 10 mg oral tablet [Active]; venlafaxine 25 mg oral tablet [Active]; mesalamine 1.2 gram oral tablet, delayed release (enteric coated) [Active]; simvastatin 40 mg Oral tablet [Active]; - PMHx: 09:47 Alzheimer's disease; Anxiety; BOWEL PERFORATION; Colitis; Diverticulitis; GERD; db Hypercholesterolemia; Hyperlipidemia; Hypertension; Aneurysm; Hypothyroidism; Hypothyroidism; - PSHx: 09:47 hernia repair; Operative procedure on knee; db - Immunization history:: Adult Immunizations unknown. - Infectious Disease History:: Denies. - Social history:: Smoking status: Patient denies any tobacco usage or history of. - Family history:: not pertinent. Screenin:20 [facility] ED Fall Risk Assessment (Adult) History of falling in the last 3 months, db including since admission No falls in past 3 months (0 pts) Confusion or Disorientation No (0 pts) Intoxicated or Sedated No (0 pts) Impaired Gait Yes (1 pt) Mobility Assist Device Used Yes (1 pt) Altered Elimination No (0 pt) Score/Fall Risk Level 0 - 2 = Low Risk Oriented to surroundings, Maintained a safe environment. Abuse screen: Denies threats or abuse. Denies injuries from another. Nutritional screening: No deficits noted. Tuberculosis screening: No symptoms or risk factors identified. Assessment: 09:20 Reassessment: SEE TRIAGE FOR INITIAL ASSESSMENT. db 09:50 Reassessment: Patient appears in no apparent distress at this time. Patient and/or db family updated on plan of care and expected duration. Pain level reassessed. Patient is alert, oriented x 3, equal unlabored respirations, skin warm/dry/pink. General: Appears in no apparent distress. comfortable, Behavior is calm, cooperative. Neuro: Level of Consciousness is awake, alert, obeys commands, Oriented to person, place, time, situation. 10:41 Reassessment: Patient appears in no apparent distress at this time. Patient and/or db family updated on plan of care and expected duration. Pain level reassessed. Patient is alert, oriented x 3, equal unlabored respirations, skin warm/dry/pink. FAMILY IS AT BEDSIDE. 12:21 Reassessment: Patient appears in no apparent distress at this time. Patient and/or db family updated on plan of care and expected duration. Pain level reassessed. Patient is alert, oriented x 3, equal unlabored respirations, skin warm/dry/pink. General: Appears in no apparent distress. comfortable, Behavior is calm, cooperative. Vital Signs: 09:17 BP 115 / 64; Pulse 98; Resp 18; Temp 98.7(O); Pulse Ox 98% ; db 09:30 BP 124 / 67; Pulse 90; Resp 2; Pulse Ox 96% on R/A; db 10:30 BP 132 / 63; Pulse 88; Resp 16; Pulse Ox 96% ; db 11:00 BP 120 / 65; Pulse 87; Resp 16; Pulse Ox 97% ; db 12:00 BP 124 / 65; Pulse 92; Resp 16; Pulse Ox 98% on R/A; db ED Course: 09:17 Arm band placed on Patient placed in an exam room. db 09:22 Patient arrived in ED. hb 09:22 Rony Nolan MD is Attending Physician. rt 09:30 Maintain EMS IV. Dressing intact. Good blood return noted. Site clean \T\ dry. Gauge \T\ db site: 20 G LFA. Flushed with 10 mL NS. 09:45 Louisa Garcia, RN is Primary Nurse. db 09:47 Triage completed. db 09:50 Patient has correct armband on for positive identification. Bed in low position. Call db light in reach. Side rails up X 1. Pulse ox on. NIBP on. Warm blanket given. Pillow given. 12:21 Provided Education on: DISCHARGE. db 12:21 No provider procedures requiring assistance completed. IV discontinued, intact, db bleeding controlled, No redness/swelling at site. Administered Medications: No medications were administered Medication: 09:20 VIS not applicable for this client. db Outcome: 11:50 Discharge ordered by . rt 12:21 Discharged to home via ambulance, with family, db 12:21 Condition: stable 12:21 Discharge instructions given to patient, family, Instructed on discharge instructions, follow up and referral plans. 12:26 Patient left the ED. db Signatures: Mikki Canela RN RN Louisa Garcia, RN RN db Rony Nolan MD MD rt Corrections: (The following items were deleted from the chart) 09:49 09:47 Immunization history: Adult Immunizations unknown, db db 09:49 09:47 Infectious Disease History: Denies. db db 49 09:47 Social history: Smoking status: Patient denies any tobacco usage or history of. dbdb
--- NOTE | 2024-02-12 11:51 | EDPHYS ---
Physician Documentation [facility] Name: Lev Hunter Age: 78 yrs Sex: Male : 1945 Arrival Date: 02/12/2024 Time: 09:12 Bed 13 Private MD: ED Physician Rony Nolan HPI: 02/11 10:55 This 78 yrs old Male presents to ER via EMS with complaints of General Weakness, rt Decreased Appetite. 10:55 Patient with history of advanced dementia presents to the ED after being home from [facility] for about 2 days. He has had progressively worsening generalized weakness, has had no appetite and is not taking anything in by mouth. Family states that they do not wish to have him have a PEG tube or other aggressive measures. Requesting initiation of hospice, stating that they believe that his dementia has progressed to that point. Denies other acute complaints at this time, symptoms are moderate severity, no other aggravating or alleviating factors.. Historical: - Allergies: 09:47 No Known Allergies; db - Home Meds: 09:17 Fish Oil Oral cap [Active]; omeprazole 40 mg oral capsule,delayed release (e.c.) db [Active]; tramadol 50 mg Oral tablet [Active]; levothyroxine 125 mcg oral tablet [Active]; Myrbetriq 50 mg oral Tablet, Extended Release 24 hr [Active]; memantine 10 mg oral tablet [Active]; venlafaxine 25 mg oral tablet [Active]; mesalamine 1.2 gram oral tablet, delayed release (enteric coated) [Active]; simvastatin 40 mg Oral tablet [Active]; - PMHx: 09:47 Alzheimer's disease; Anxiety; BOWEL PERFORATION; Colitis; Diverticulitis; GERD; db Hypercholesterolemia; Hyperlipidemia; Hypertension; Aneurysm; Hypothyroidism; Hypothyroidism; - PSHx: 09:47 hernia repair; Operative procedure on knee; db - Immunization history:: Adult Immunizations unknown. - Infectious Disease History:: Denies. - Social history:: Smoking status: Patient denies any tobacco usage or history of. - Family history:: not pertinent. ROS: 10:55 Unable to obtain ROS due to baseline dementia, rt Exam: 10:55 Chest/axilla: Normal chest wall appearance and motion. Nontender with no deformity. rt No lesions are appreciated. Cardiovascular: Regular rate and rhythm with a normal S1 and S2. No gallops, murmurs, or rubs. Normal PMI, no JVD. No pulse deficits. Respiratory: Lungs have equal breath sounds bilaterally, clear to auscultation and percussion. No rales, rhonchi or wheezes noted. No increased work of breathing, no retractions or nasal flaring. Abdomen/GI: Soft, non-tender, with normal bowel sounds. No distension or tympany. No guarding or rebound. No evidence of tenderness throughout. Skin: Warm, dry with normal turgor. Normal color with no rashes, no lesions, and no evidence of cellulitis. MS/ Extremity: Pulses equal, no cyanosis. Neurovascular intact. Full, normal range of motion. 10:55 Constitutional: The patient appears Thin, chronically ill-appearing, no acute distress Vital Signs: 09:17 BP 115 / 64; Pulse 98; Resp 18; Temp 98.7(O); Pulse Ox 98% ; db 09:30 BP 124 / 67; Pulse 90; Resp 2; Pulse Ox 96% on R/A; db 10:30 BP 132 / 63; Pulse 88; Resp 16; Pulse Ox 96% ; db 11:00 BP 120 / 65; Pulse 87; Resp 16; Pulse Ox 97% ; db 12:00 BP 124 / 65; Pulse 92; Resp 16; Pulse Ox 98% on R/A; db MDM: 09:25 Medical Screening Exam initiated rt 10:55 Differential Diagnosis End-stage dementia, poor appetite. Data reviewed: vital signs, rt nurses notes. Consideration of Admission/Observation Escalation of care including admission/observation considered. Management of patient was discussed with the following: Discussed with case management to initiate hospice. Test considered but Not performed: Other Details Given desires for comfort measures, testing such as CT scans, x-ray, EKG, labs are not in line with goals of care. Care significantly affected by the following chronic conditions: Alzheimer's disease. Counseling: I had a detailed discussion with the patient and/or guardian regarding the historical points, exam findings, and any diagnostic results supporting the discharge/admit diagnosis. Response to treatment: There is no appreciated change of the patient's symptoms at this time. 02/11 09:58 Order name: Social Service Consult EDMS 02/11 10:42 Order name: Social Service Consult EDMS Administered Medications: No medications were administered Disposition Summary: 02/12/24 11:50 Discharge Ordered Notes: Location: Home w/ Home Health rt Problem: an ongoing problem rt Symptoms: are unchanged rt Condition: Stable rt Diagnosis - Alzheimer's disease, unspecified rt Followup: rt - With: Private Physician - When: 2 - 3 days - Reason: Discharge Instructions: - Discharge Summary Sheet rt - Dementia rt - Hospice rt Forms: - Medication Reconciliation Form rt - Antibiotic Education rt - Prescription Opioid Use rt - Patient Portal Instructions rt - Leadership Thank You Letter rt Signatures: Dispatcher [employer] Louisa Roy, RN RN db Rony Nolan MD MD rt Corrections: (The following items were deleted from the chart) 09:49 09:47 Immunization history: Adult Immunizations unknown, [facility] 09:49 09:47 Infectious Disease History: Denies. db db 09:49 09:47 Social history: Smoking status: Patient denies any tobacco usage or history of. dbdb
[2024-02-12 12:46] VITALS: TEMP 98.7
[2024-02-12 12:51] VITALS: BP 124/65; O2SAT 98
== END 2024-02-12 12:26 | disposition home health service (06) ==
LOC: ER 09:12
DX: G30.9 Alzheimer's disease, unspecified (principal); F02.80 Dementia in other diseases classified elsewhere, unspecified severity, without behavioral disturbance, psychotic disturbance, mood disturbance, and anxiety; I10 Essential (primary) hypertension
CPT/HCPCS: 99284